=== PATIENT | male | born 1965 | race Caucasian/White ===

== ENCOUNTER 2016-08-19 03:48 | Inpatient (IN) | payer OTHER ==
[2016-08-19] VITALS (11 sets, daily range): BP systolic 99–146; BP diastolic 68–95; PULSE 91–125; RESP 13–32; TEMP 97.6–98.7; O2SAT 96–100
[~2016-08-19] VITALS: Ht 180.3 cm; Wt 70.1 kg
[~2016-08-19 03:48] MED LIST: AMLO5TAB2 PO; DILA4TAB2 PO; LOSA25TA PO; VITA100T2 PO
[2016-08-19] MEDS ORDERED: SODIUM CHLOR 0.9% 1000 ML INJ 1,000 ML IV ONE ×2 (03:57)
[2016-08-19] MEDS ORDERED: SODIUM CHLOR 0.9% 1000 ML INJ 400 ML IV ONE (03:57)
[2016-08-19 04:35] LABS: AUTOMATED NEUTROPHIL # 13.1 TH/MM3 (1.8-7.7); BASOPHIL % 0.2 % (0.0-2.0); HEMO FLAGS DIFF FINAL; LYMPH % 3.7 % (9.0-44.0); LYMPHOCYTE # 0.6 TH/MM3 (1.0-4.8); MEAN CELL VOLUME 97.1 FL (80.0-100.0); MEAN CORPUSCULAR HEMOGLOBIN 30.6 PG (27.0-34.0); MEAN CORPUSCULAR HGB CONC 31.5 % (32.0-36.0); MONO % 13.2 % (0.0-8.0); NEUT % 82.9 % (16.0-70.0); PLATELET COUNT 248 TH/MM3 (150-450); RED BLOOD COUNT 5.46 MIL/MM3 (4.50-5.90); RED CELL DISTRIBUTION WIDTH 14.7 % (11.6-17.2); WHITE BLOOD COUNT 15.8 TH/MM3 (4.0-11.0)
[2016-08-19] MEDS ORDERED: ONDANSETRON HCL 4 MG/2 ML VIAL IV PUSH ONE (04:45)
[2016-08-19] MEDS ORDERED: VANCOMYCIN INJ 1,000 MG in SODIUM CHLOR 0.9% 250 ML INJ 250 ML IV STA (04:47)
[2016-08-19] MEDS ORDERED: PIPERACIL-TAZO 4.5 GM PREMIX 100 ML IV STA (04:47)
--- NOTE | 2016-08-19 04:47 | PD ---
HPI Chief Complaint: GI Complaint Time Seen by Provider: 03:53 Travel History International Travel<30 days: No Contact w/Intl Traveler<30days: No Traveled to known affect area: No History of Present Illness HPI 51-year-old male with history of HTN, HLD, DM, alcoholism and previous alcoholic pancreatitis here with complaint of generalized weakness and abdominal pain. Patient is a poor historian. States that over the course the last several months he's been having increasing abdominal pain. This is primarily on the upper abdomen, right slightly greater than left. Describes this as a cramping pain and has not noticed anything that makes seems to make it better or worse. Over the last week he complains of generalized weakness, anorexia, nausea with vomiting. Family member states that this was initially clear, and has become darker in color. There has not been any monica blood, coffee-ground emesis. Patient denies any dark stools. No history of GI bleed, but does have a history of alcoholism. Per family members still drinking. PFSH Past Medical History Arthritis: No Heart Rhythm Problems: No Cancer: No Cardiovascular Problems: No High Cholesterol: Yes Chest Pain: No Congestive Heart Failure: No Cerebrovascular Accident: No Diabetes: Yes Diminished Hearing: No Endocrine: No Gastrointestinal Disorders: Yes (HISTORY OF PANCREATITIS) GERD: Yes Genitourinary: Yes (PATIENT WAS PLACED ON DIALYSIS LAST YEAR) Headaches: Yes Hypertension: Yes Immune Disorder: No Implanted Vascular Access Dvce: No Musculoskeletal: Yes (shoulder and knee) Neurologic: Yes Psychiatric: No Reproductive: No Respiratory: No Immunizations Current: Yes Migraines: No Pancreatitis: Yes Seizures: No Tetanus Vaccination: Unknown Influenza Vaccination: No Past Surgical History Abdominal Surgery: No Cardiac Surgery: No Ear Surgery: No Endocrine Surgery: No Eye Surgery: No Genitourinary Surgery: No Gynecologic Surgery: No Insulin Pump: No Joint Replacement: Yes (two screws in the right knee, anchor in rt shoulder) Neurologic Surgery: No Oral Surgery: No Thoracic Surgery: No Other Surgery: Yes Social History Alcohol Use: Yes (occ) Tobacco Use: Yes (1/2 ppd) Substance Use: No Allergies-Medications (Allergen,Severity, Reaction): Coded Allergies: No Known Allergies (Verified , 08/19/16) Reported Meds & Prescriptions Reported Meds & Active Scripts Active Reported Losartan (Losartan Potassium) 25 Mg Tab 25 Mg PO DAILY Review of Systems Except as stated in HPI: all other systems reviewed are Neg Physical Exam Narrative GENERAL: Ill-appearing adult male appearing older than stated age SKIN: Focused skin assessment warm/dry. HEAD: Normocephalic. EYES: . No scleral icterus. No injection or drainage. ENT: Mucous membranes dry NECK: Supple CARDIOVASCULAR: Tachycardic with heart rate in the 120s, regular rhythm. No murmur appreciated. RESPIRATORY: No tachypneic, but no increased work of breathing. Clear to auscultation. Breath sounds equal bilaterally. GASTROINTESTINAL: Abdomen soft, right upper quadrant and epigastric tenderness to palpation without rebound or guarding, nondistended RECTAL: Rectal vault is empty, I was unable to get stool on gloved fingertip for Hemoccult MUSCULOSKELETAL: No obvious deformities. No edema. NEUROLOGICAL: Awake and alert. Motor grossly within normal limits. Normal speech. Data Data Last Documented VS Vital Signs Date Time Temp Pulse Resp B/P Pulse Ox O2 Delivery O2 Flow Rate FiO2 08/19/16 04:42 112 32 146/95 100 Nasal Cannula 2 08/19/16 03:53 98.1 Orders Electrocardiogram (08/19/16 03:57) Complete Blood Count With Diff (08/19/16 03:57) Comprehensive Metabolic Panel (08/19/16 03:57) Prothrombin Time / Inr (Pt) (08/19/16 03:57) Act Partial Throm Time (Ptt) (08/19/16 03:57) Lactic Acid Sepsis Protocol (08/19/16 03:57) Magnesium (Mg) (08/19/16 03:57) Lipase (08/19/16 03:57) Ckmb (Isoenzyme) Profile (08/19/16 03:57) Troponin I (08/19/16 03:57) Urinalysis - C+S If Indicated (08/19/16 03:57) Blood Culture (08/19/16 03:57) Chest, Single Ap (08/19/16 03:57) Ecg Monitoring (08/19/16 03:57) Iv Access Insert/Monitor (08/19/16 03:57) Oximetry (08/19/16 03:57) Sodium Chlor 0.9% 1000 Ml Inj (Ns 1000 M (08/19/16 03:57) Sodium Chlor 0.9% 1000 Ml Inj (Ns 1000 M (08/19/16 03:57) Sodium Chlor 0.9% 1000 Ml Inj (Ns 1000 M (08/19/16 03:57) Ammonia (08/19/16 03:58) Type And Screen (08/19/16 03:58) Ct Abd/Pel W Iv Contrast(Rout) (08/19/16 03:58) Beta Hydroxybutyrate (Acetone) (08/19/16 04:04) Ondansetron Inj (Zofran Inj) (08/19/16 04:45) Vancomycin Inj (Vancomycin Inj) (08/19/16 04:47) Piperacil-Tazo 4.5 Gm Premix (Zosyn 4.5 (08/19/16 04:47) Diet Npo (08/19/16 Breakfast) Sodium Chlor 0.9% 1000 Ml Inj (Ns 1000 M (08/19/16 05:19) Dext 5%-Nacl 0.9% 1000 Ml Inj (D5w-Ns 10 (08/19/16 05:19) Insulin Human Regular Inj (Novolin R Inj (08/19/16 05:30) Insulin Regular (Iv Infusion) (Novolin R (08/19/16 05:30) Potassium Chlor 40 Meq Premix (Kcl 40 Me (08/19/16 05:30) Potassium Chlor 40 Meq Premix (Kcl 40 Me (08/19/16 05:30) Potassium Chlor 20 Meq Premix (Kcl 20 Me (08/19/16 05:30) Potassium Chlor 20 Meq Premix (Kcl 20 Me (08/19/16 05:30) Potassium Chlor 20 Meq Premix (Kcl 20 Me (08/19/16 05:30) Potassium Chlor 20 Meq Premix (Kcl 20 Me (08/19/16 05:30) Potassium Chlor 20 Meq Premix (Kcl 20 Me (08/19/16 05:30) Potassium Chlor 20 Meq Premix (Kcl 20 Me (08/19/16 05:30) Sodium Bicarbonate 8.4% Inj (Sodium Bica (08/19/16 05:30) Sodium Bicarbonate 8.4% Inj (Sodium Bica (08/19/16 05:30) Sodium Phosphate Inj (Sodium Phosphate I (08/19/16 05:30) Hemoglobin (Hgb) A1c (08/19/16 05:19) Basic Metabolic Panel (Bmp) (08/19/16 10:19) Basic Metabolic Panel (Bmp) (08/19/16 16:19) Basic Metabolic Panel (Bmp) (08/19/16 22:19) Basic Metabolic Panel (Bmp) (08/20/16 04:19) Magnesium (Mg) (08/19/16 10:19) Magnesium (Mg) (08/19/16 16:19) Magnesium (Mg) (08/19/16 22:19) Magnesium (Mg) (08/20/16 04:19) Phosphorus (Po4) (08/19/16 10:19) Phosphorus (Po4) (08/19/16 16:19) Phosphorus (Po4) (08/19/16 22:19) Phosphorus (Po4) (08/20/16 04:19) Beta Hydroxybutyrate (Acetone) (08/19/16 16:19) Beta Hydroxybutyrate (Acetone) (08/20/16 04:19) Arterial Blood Gas (Abg) (08/19/16 ) Admit Order (Ed Use Only) (08/19/16 05:34) Labs Laboratory Tests Test 08/19/16 08/19/16 04:20 04:30 White Blood Count 15.8 TH/MM3 Red Blood Count 5.46 MIL/MM3 Hemoglobin 16.7 GM/DL Hematocrit 53.0 % Mean Corpuscular Volume 97.1 FL Mean Corpuscular Hemoglobin 30.6 PG Mean Corpuscular Hemoglobin 31.5 % Concent Red Cell Distribution Width 14.7 % Platelet Count 248 TH/MM3 Mean Platelet Volume 8.1 FL Neutrophils (%) (Auto) 82.9 % Lymphocytes (%) (Auto) 3.7 % Monocytes (%) (Auto) 13.2 % Eosinophils (%) (Auto) 0.0 % Basophils (%) (Auto) 0.2 % Neutrophils # (Auto) 13.1 TH/MM3 Lymphocytes # (Auto) 0.6 TH/MM3 Monocytes # (Auto) 2.1 TH/MM3 Eosinophils # (Auto) 0.0 TH/MM3 Basophils # (Auto) 0.0 TH/MM3 CBC Comment DIFF FINAL Differential Comment Prothrombin Time 12.2 SEC Prothromb Time International 1.1 RATIO Ratio Activated Partial 29.4 SEC Thromboplast Time Urine Color YELLOW Urine Turbidity CLEAR Urine pH 5.5 Urine Specific [place] 1.020 Urine Protein 30 mg/dL Urine Glucose (UA) 1000 mg/dL Urine Ketones 150 mg/dL Urine Occult Blood TRACE Urine Nitrite NEG Urine Bilirubin NEG Urine Urobilinogen LESS THAN 2.0 MG/DL Urine Leukocyte Esterase NEG Urine RBC 1 /hpf Urine WBC 1 /hpf Urine Hyaline Casts 16 /lpf Urine Mucus FEW /lpf Microscopic Urinalysis Comment CATH-CULT NOT IND Sodium Level 133 MEQ/L Potassium Level 4.1 MEQ/L Chloride Level 87 MEQ/L Carbon Dioxide Level 6.9 MEQ/L Anion Gap 39 MEQ/L Blood Urea Nitrogen 53 MG/DL Creatinine 1.75 MG/DL Estimat Glomerular Filtration 41 ML/MIN Rate Random Glucose 702 MG/DL Lactic Acid Level 4.1 mmol/L Calcium Level 13.2 MG/DL Protein Corrected Calcium 11.7 MG/DL Magnesium Level 2.5 MG/DL Total Bilirubin 0.6 MG/DL Aspartate Amino Transf 36 U/L (AST/SGOT) Alanine Aminotransferase 39 U/L (ALT/SGPT) Alkaline Phosphatase 130 U/L Ammonia 24 MCMOL/L Total Creatine Kinase 25 U/L Troponin I LESS THAN 0.02 NG/ML Total Protein 9.2 GM/DL Albumin 3.0 GM/DL Lipase 6111 U/L B-Hydroxybutyrate 18.22 MMOL/L Blood Type A POSITIVE Blood Bank Comment MDM Medical Decision Making Medical Screen Exam Complete: Yes Emergency Medical Condition: Yes Medical Record Reviewed: Yes Differential Diagnosis 51-year-old male with history of HTN, HLD, DM, alcoholism and previous alcoholic pancreatitis here with several months of abdominal pain, one week of nausea, vomiting, questionable hematemesis. Differential includes hepatitis, hepatobiliary pathology, pancreatitis, dehydration, electrolyte abnormality, hyperglycemia, DKA/HHS, UTI, sepsis, pneumonia Narrative Course Patient placed on monitor, IV established and blood obtained. Patient was given 2400 mL normal saline bolus, 4 mg Zofran. Patient was empirically covered with Zosyn, vancomycin. Twelve-lead EKG shows sinus tachycardia with occasional PVC, rate 116. No notable ST abnormalities, normal intervals. CBC, CMP, lipase, magnesium, CK-MB, troponin, coags, type and screen, beta hydroxybutyrate, ammonia, lactate, blood cultures, urinalysis were obtained and notable for WBC 15.8. Bicarbonate 6.9 with an ankle Of 39. BUN 53, creatinine 1.75. Glucose 702, lactate 4.1. Calcium elevated at 13.2 with protein corrected 11.7. Lipase elevated at 6111. Beta hydroxybutyrate 18.22. ABG with pH 7.19, PCO2 is 9.7, PO2 149, bicarbonate 3.6 consistent with metabolic respiratory acidosis. Laboratory evaluation consistent with DKA, given insulin bolus/drip and started on full DKA protocol. Portable chest x-ray obtained that by my read shows no acute abnormalities. CT abdomen and pelvis pending. Patient admitted to intensive this for further management. Critical Care Narrative Aggregate critical care time was 55 minutes. Time to perform other separately billable procedures was not included in the critical care time. My time did not include minutes spent treating any other patients simultaneously or on activities that did not directly contribute to the patient's treatment. The services I provided to this patient were to treat and/or prevent clinically significant deterioration that could result in: Cardiopulmonary decompensation, metabolic decompensation, , disability I provided critical care services requiring my management, as noted below: Chart data review, documentation time, medication orders and management, vital sign assessments/reviewing monitor data, ordering and reviewing lab tests, ordering and interpreting/reviewing x-rays and diagnostic studies, care of the patient and discussion of the patient with the admitting physicians. Sepsis Criteria SIRS Criteria (2 or more): Heart rate over 90, RR > 20 or PaCO2 < 32, WBC > 95373, < 4000 or > 10% bands Sepsis Criteria (SIRS+source): Infect source susp/known Severe Sepsis (+one): Lactate >2 Septic Shock Criteria: Lactic acid >=4 Criteria Outcome: Meets SIRS criteria, Meets sepsis criteria, Meets severe sepsis criteria, Meets septic shock criteria Diagnosis Primary Impression: DKA (diabetic ketoacidoses) Qualified Code: E13.10 - Diabetic ketoacidosis without coma associated with type 2 diabetes mellitus Additional Impressions: High anion gap metabolic acidosis Pancreatitis Lactic acidosis Tachycardia Kussmaul respiration Leukocytosis Qualified Code: D72.829 - Leukocytosis, unspecified type Hypercalcemia Admitting Information Admitting Physician Requests: Admit Kat Castro MD Aug 19, 2016 04:47
--- NOTE | 2016-08-19 04:49 | RADRPT ---
EXAM DATE/TIME: 08/19/2016 04:18 [facility] COMPARISON: CHEST SINGLE AP, May 02, 2015, 7:30. INDICATIONS : Short of breath. MEDICAL HISTORY : None. SURGICAL HISTORY : None. ENCOUNTER: Initial ACUITY: 1 day PAIN SCORE: 6/10 LOCATION: Bilateral chest FINDINGS: A single view of the chest demonstrates the lungs to be symmetrically aerated without evidence of mas s, infiltrate or effusion. The cardiomediastinal contours are unremarkable. Osseous structures are intact. CONCLUSION: No acute disease. Mike Aaron MD on August 19, 2016 at 4:47 Board Certified Radiologist. This report was verified electronically.
[2016-08-19 04:50] LABS: APTT (PATIENT) 29.4 SEC (24.3-30.1); BLOOD, URINE TRACE (NEG); GLUCOSE,URINE 1000 mg/dL (NEG); HYALINE CAST, URINE 16 /lpf (RARE); INTERNATIONAL NORMALIZED RATIO 1.1 RATIO; KETONE, URINE 150 mg/dL (NEG); MUCUS URINE FEW /lpf (OCC); NITRITE,URINE NEG (NEG); PH, URINE 5.5 (5.0-8.5); PROTHROMBIN TIME - PATIENT 12.2 SEC (9.8-11.6); URINE COLOR YELLOW (YELLW/STRAW)
[2016-08-19 04:51] LABS: COMMENT (UR) CATH-CULT NOT IND; CULTURE IF INDICATED CATH CULTURE NOT IND
[2016-08-19 05:14] LABS: ALKALINE PHOSPHATASE 130 U/L (45-117); ALT (GPT) 39 U/L (12-78); ANION GAP 39 MEQ/L (5-15); AST (GOT) 36 U/L (15-37); BICARBONATE 6.9 MEQ/L (21.0-32.0); BLOOD UREA NITROGEN 53 MG/DL (7-18); CHLORIDE 87 MEQ/L (98-107); CREATINE KINASE 25 U/L (39-308); GLOMERULAR FILTRATION RATE 41 ML/MIN (>89); MAGNESIUM 2.5 MG/DL (1.5-2.5); POTASSIUM 4.1 MEQ/L (3.5-5.1); SODIUM (NA) 133 MEQ/L (136-145); TOTAL BILIRUBIN ADULT 0.6 MG/DL (0.2-1.0)
[2016-08-19 05:18] LABS: CALCIUM-PROTEIN CORRECTED 11.7 MG/DL (8.5-10.1)
[2016-08-19] MEDS ORDERED: SODIUM CHLOR 0.9% 1000 ML INJ 1,000 ML IV SCH (05:19)
[2016-08-19] MEDS ORDERED: DEXT 5%-NACL 0.9% 1000 ML INJ 1,000 ML IV SCH (05:19)
[2016-08-19] MEDS ORDERED: SODIUM PHOSPHATE INJ 15 MMOL in SODIUM CHLORIDE 0.9% INJ 100 ML IV PRN ×2 (05:30→06:00)
[2016-08-19] MEDS ORDERED: INSULIN HUMAN REGULAR 1,000 UNITS/10 ML VIAL IV PUSH ONE (05:30)
[2016-08-19] MEDS ORDERED: SODIUM BICARBONATE 8.4% SOLN 50 MEQ/50 ML VIAL IV PRN ×4 (05:30→06:00)
[2016-08-19] MEDS ORDERED: POTASSIUM CHLOR 20 MEQ PREMIX 100 ML IV PRN ×11 (05:30→06:00)
[2016-08-19] MEDS ORDERED: POTASSIUM CHLOR 40 MEQ PREMIX 100 ML IV PRN ×4 (05:30→06:00)
[2016-08-19] MEDS ORDERED: INSULIN REGULAR (IV INFUSION) 100 UNITS in SODIUM CHLORIDE 0.9% INJ 99 ML IV SCH (05:30)
[2016-08-19 05:56] LABS: BLOOD GAS CARBOXYHEMOGLOBIN 1.7 % (0-4); BLOOD GAS HCO3 4 mmol/L (22-26); BLOOD GAS METHEMOGLOBIN 0.8 % (0-2); BLOOD GAS O2 HGB SATURATION 96 % (90-100); BLOOD GAS OXYGEN CONTENT 18.7 Vol % (12.0-20.0); BLOOD GAS PCO2 10 mmHg (38-42); BLOOD GAS PO2 149 mmHG (61-120); BLOOD GAS TOTAL HGB 13.7 G/DL (12.0-16.0); TEMP CORR TO 98.6
[2016-08-19 05:57] LABS: CRITICAL VALUE YES; DRAW SITE LT RADIAL; NUMBER OF ARTERIAL PUNCTURES 1; STAT YES; ULNAR PULSE PRESENT
[2016-08-19] MEDS ORDERED: MISCELLANEOUS NURSING INFORMATION XX SCH ×2 (06:00→06:45)
[2016-08-19] MEDS ORDERED: METOCLOPRAMIDE HCL 10 MG/2 ML VIAL IV PUSH ONE (06:00)
[2016-08-19] MEDS ORDERED: CHLORHEXIDINE GLUCONATE 2 % 1 PACK (2 CLOTHS) TOP PRN ×2 (06:00→06:45)
[2016-08-19 06:02] LABS: LITER FLOW 1.5 L/M; OXYGEN DEVICE NASAL CANNULA
--- NOTE | 2016-08-19 06:05 | HHI.HP ---
[facility] Service Critical Care Medicine Primary Care Physician No Primary Care Physician Admission Diagnosis DKA, pancreatitis, severe sepsis Diagnosis: (1) Hypertriglyceridemia Diagnosis: Principal (2) Alcohol abuse Diagnosis: Principal (3) Hypertension Diagnosis: Principal (4) Acute pancreatitis Diagnosis: Principal (5) Lactic acidosis Diagnosis: Principal (6) Hypercalcemia Diagnosis: Principal (7) DKA (diabetic ketoacidoses) Diagnosis: Principal (8) Leukocytosis Diagnosis: Principal (9) Pancreatitis Diagnosis: Principal (10) Tachycardia Diagnosis: Principal (11) High anion gap metabolic acidosis Diagnosis: Principal (12) Kussmaul respiration Diagnosis: Principal (13) Acute renal insufficiency Diagnosis: Principal (14) Fever Diagnosis: Principal (15) SIRS (systemic inflammatory response syndrome) Diagnosis: Principal Chief Complaint: Acute on chronic abdominal pain Travel History International Travel<30 Days: No Contact w/Intl Traveler <30 Da: No Traveled to Known Affected Are: No Sepsis Criteria SIRS Criteria (2 or more): RR > 20 or PaCO2 < 32, WBC > 43828, < 4000 or > 10 % bands Criteria Outcome: Meets SIRS criteria History of Present Illness This is a 51 yo male. Date of admission 08/19/2016. Past records includes recurrent alcohol-induced pancreatitis, history of pseudocyst, hypertension, hypertriglyceridemia with ongoing alcohol abuse and tobaccoism. Patient presents to [place] ED with a 10 day history of increasing abdominal pain, nausea with anorexia. Patient has been drinking the interim. Patient had emesis some clear without coffee-ground emesis noted. Pain is described as diffuse 10 out of 10 pain is diffuse bilateral upper quadrants. CT abdomen/pelvis revealed markedly circumferential thickening of the esophagus over several centimeters. Patient noted have hepatic steatosis. With mild distention of the gallbladder. There is gastric distention. Multiple prominent lymph nodes in the retroperitoneum. Inflammatories gazing to the pancreas consistent with pancreatitis with mild dilatation the pancreatic duct. Small hiatal hernia. Patient had a leukocytosis 16,000, acute kidney injury with a creatinine of 1.7. Blood sugar was 71. Beta hydroxybutyrate 18.22. lactate 4.1. Calcium elevated at 13.2 with protein corrected 11.7. Lipase elevated at 6111. Beta hydroxybutyrate 18.22. ABG with pH 7.19, PCO2 is 9.7, PO2 149, bicarbonate 3.6 consistent with metabolic respiratory acidosis. Pulmonary negative. Blood cultures ordered. Patient received 2.4 L bolus normal saline is currently on normal saline at 250 cc an hour. 6 units insulin initially provided and is currently on insulin drip. Review of Systems Constitutional: COMPLAINS OF: Fever, Weight loss, Change in appetite, Night Sweats, DENIES: Weight gain, Chills, Dizziness Endocrine: COMPLAINS OF: Heat/cold intolerance Eyes: DENIES: Blurred vision, Double Vision Ears, nose, mouth, throat: DENIES: Tinnitus Respiratory: COMPLAINS OF: Shortness of breath, DENIES: Apneas, Sputum production Cardiovascular: DENIES: Chest pain Gastrointestinal: COMPLAINS OF: Abdominal pain, Nausea, Vomiting, Difficulty Swallowing, DENIES: Constipation, Diarrhea Genitourinary: DENIES: Urgency, Hematuria Musculoskeletal: DENIES: Joint pain Integumentary: DENIES: Abnormal pigmentation Hematologic/lymphatic: COMPLAINS OF: Bruising Immunologic/allergic: DENIES: Eczema Neurologic: DENIES: Abnormal gait, Headache Psychiatric: COMPLAINS OF: Anxiety, Confusion, DENIES: Depression Past Family Social History Allergies: Coded Allergies: No Known Allergies (Verified , 08/19/16) Past Medical History EtOH abuse tobaccoism Recurrent pancreatitis Hypertension Dyslipidemia - hypertriglyceridemia Gastroesophageal reflux disease Past Surgical History Right shoulder rotator cuff repair Right total knee arthroplasty Reported Medications Losartan 25 mill grams by mouth daily Active Ordered Medications Reviewed in EMR Family History Father history of aortic aneurysm. Positive history of alcoholism. Social History Positive alcohol abuse. 8 hard liquor daily. One pack per day tobacco 30 years. No IV drug use. Physical Exam Vital Signs Vital Signs Date Time Temp Pulse Resp B/P Pulse Ox O2 Delivery O2 Flow Rate FiO2 08/19/16 04:42 112 32 146/95 100 Nasal Cannula 2 08/19/16 04:30 32 08/19/16 03:53 98.1 125 32 144/88 99 Physical Exam GENERAL: 51-year-old male, critically ill currently resting in bed SKIN: Warm and dry. No rash. Well-perfused HEAD: Atraumatic. Normocephalic. EYES: Pupils equal and round about 3 Tellez's bilaterally and reactive. No scleral icterus. No injection or drainage. ENT: No nasal bleeding or discharge. Mucous membranes pink and moist. NECK: Trachea midline. No JVD. CARDIOVASCULAR: Tachycardic, RR. S1, S2 no S4 without murmur RESPIRATORY: Clear to auscultation. Breath sounds equal bilaterally. GASTROINTESTINAL: Abdomen soft, distended. Tender to palpation specifically right upper, epigastric and left upper quadrants. Voluntary guarding. No rigidity. MUSCULOSKELETAL: Extremities without significant peripheral edema. No obvious deformities. NEUROLOGICAL: Awake and alert. No obvious cranial nerve deficits. Motor grossly within normal limits. Five out of 5 muscle strength in the arms and legs. Normal speech. PSYCHIATRIC: Anxious Laboratory Laboratory Tests Test 08/19/16 08/19/16 08/19/16 04:20 04:30 05:20 White Blood Count 15.8 Red Blood Count 5.46 Hemoglobin 16.7 Hematocrit 53.0 Mean Corpuscular Volume 97.1 Mean Corpuscular Hemoglobin 30.6 Mean Corpuscular Hemoglobin 31.5 Concent Red Cell Distribution Width 14.7 Platelet Count 248 Mean Platelet Volume 8.1 Neutrophils (%) (Auto) 82.9 Lymphocytes (%) (Auto) 3.7 Monocytes (%) (Auto) 13.2 Eosinophils (%) (Auto) 0.0 Basophils (%) (Auto) 0.2 Neutrophils # (Auto) 13.1 Lymphocytes # (Auto) 0.6 Monocytes # (Auto) 2.1 Eosinophils # (Auto) 0.0 Basophils # (Auto) 0.0 CBC Comment DIFF FINAL Differential Comment Prothrombin Time 12.2 Prothromb Time International 1.1 Ratio Activated Partial 29.4 Thromboplast Time Urine Color YELLOW Urine Turbidity CLEAR Urine pH 5.5 Urine Specific [place] 1.020 Urine Protein 30 Urine Glucose (UA) 1000 Urine Ketones 150 Urine Occult Blood TRACE Urine Nitrite NEG Urine Bilirubin NEG Urine Urobilinogen LESS THAN 2.0 Urine Leukocyte Esterase NEG Urine RBC 1 Urine WBC 1 Urine Hyaline Casts 16 Urine Mucus FEW Microscopic Urinalysis Comment CATH-CULT NOT IND Sodium Level 133 Potassium Level 4.1 Chloride Level 87 Carbon Dioxide Level 6.9 Anion Gap 39 Blood Urea Nitrogen 53 Creatinine 1.75 Estimat Glomerular Filtration 41 Rate Random Glucose 702 Lactic Acid Level 4.1 Calcium Level 13.2 Protein Corrected Calcium 11.7 Magnesium Level 2.5 Total Bilirubin 0.6 Aspartate Amino Transf 36 (AST/SGOT) Alanine Aminotransferase 39 (ALT/SGPT) Alkaline Phosphatase 130 Ammonia 24 Total Creatine Kinase 25 Troponin I LESS THAN 0.02 Total Protein 9.2 Albumin 3.0 Lipase 6111 B-Hydroxybutyrate 18.22 Blood Type A POSITIVE Antibody Screen NEGATIVE Blood Bank Comment Blood Gas Puncture Site LT RADIAL Blood Gas Patient Temperature 98.6 Blood Gas HCO3 4 Blood Gas Base Excess -24.0 Blood Gas Oxygen Saturation 96 Arterial Blood pH 7.19 Arterial Blood Partial 10 Pressure CO2 Arterial Blood Partial 149 Pressure O2 Arterial Blood Oxygen Content 18.7 Arterial Blood 1.7 Carboxyhemoglobin Arterial Blood Methemoglobin 0.8 Blood Gas Hemoglobin 13.7 Oxygen Delivery Device NASAL CANNULA Blood Gas Liter Flow 1.5 Date/Time Procedure Status Source Growth 08/19/16 04:20 Aerobic Blood Culture Received Blood Peripheral Pending 08/19/16 04:20 Anaerobic Blood Culture Received Blood Peripheral Pending Result Diagram: 08/19/16 0420 08/19/16 042 Imaging Last 72 hours Impressions Abdomen/Pelvis CT 08/19/16 0358 Signed Impressions: Service Date/Time: Friday, August 19, 2016 05:47 - CONCLUSION: 1. Marked circumferential thickening of the esophagus is noted over several centimeters. Esophagitis can have this appearance. 2. Hepatic steatosis and mild distention of the gallbladder again noted. 3. Upper abdominal lymphadenopathy with multiple prominent lymph nodes seen greatest in the retroperitoneum. 4. Abnormal inflammatory changes seen surrounding the pancreas consistent with pancreatitis with mild dilatation of the pancreatic duct. 5. Gastric distention. Mike Aaron MD Chest X-Ray 08/19/16 0357 Signed Impressions: Service Date/Time: Friday, August 19, 2016 04:18 - CONCLUSION: No acute disease. Mike Aaron MD Assessment and Plan Assessment and Plan Neuro/Psych: EtOH Acute pain management of pancreatitis Acute toxic metabolic encephalopathy secondary to pancreatitis Vitamin bag daily 3 days for EtOH use Monitor for withdrawals per protocol Dilaudid 0.5-1 mg IV every 2 hours when necessary pain CV: Hypertension History of hypertriglyceridemia Lactic acidosis Holding losartan 25 mg by mouth daily light of pancreatitis Check triglycerides Currently on normal saline at 250 cc an hour per DKA protocol Initial troponin 0.02. MAURA 2016 revealed EF 60-65%. No regional wall motion abnormality. No signs of endocarditis. Monitor activities until cleared Resp: Ongoing tobaccoism Nasal cannula to maintain saturations greater than equal to 92% Incentive spirometry while awake Tobacco cessation education book provided. Nicotine patch if indicated GI: Acute pancreatitis Hepatic steatosis CT abdomen/pelvis revealed marked circumferential thickening of the esophagus oversew centimeters, hepatic steatosis with mild central gallbladder, upper abdominal lymphadenopathy with multiple prominent lymph nodes greatest in the retroperitoneum, inflammatory changes seen stranding surrounding the pancreas consistent with pancreatitis with mild dilatation of pancreatic duct approximately 4 mm. Gastric distention. GI consultation Nothing by mouth except for ice chips Protonix 40 iv daily Nakia-Colace bowel regimen : No indication for De León catheter Endo: Likely DKA Received 2.4 L normal saline. Currently normal saline at 250 cc an hour. Switch to D5 normal saline once blood sugar less than 200. Received 6 units insulin ED. Currently on insulin drip at 6 units an hour BMP, mag and phosphorus every 6 hours. Beta hydroxybutyrate every 12 hours. Check triglycerides as above Hemoglobin A1c Renal: Acute kidney injury Likely prerenal. Continue aggressive hydration. I's and O's Monitor urine output Heme: Leukocytosis Likely leukemoid type reaction. Follow CBC daily. Monitor trends ID: Received vancomycin the ED. Blood Cultures 2 ordered. Monitor for infection FEN: Hypercalcemia Hypo-natremia Replace electrolytes as clinically indicated. DKA protocol Check PTH, PTHp, vitamin D 1/25 and 25 Hydration initial therapy. Calcitonin if needed MSK: PT evaluate and treat Access - Utilize peripheral IV. Central line if indicated Prophylaxis - GI -Protonix - DVT - SCD/heparin subcutaneous Critical Care: The total critical care time was 35 minutes. Time to perform other separately billable procedures was not included in the critical care time. Code Status Full code Discussed Condition With Patient. Care plan discussed and all questions answered. Problem Qualifiers (1) Hypertension: Qualified Code: I10 - Essential hypertension (2) Acute pancreatitis: Qualified Code: K85.20 - Alcohol-induced acute pancreatitis, unspecified complication status (3) DKA (diabetic ketoacidoses): Qualified Code: E13.10 - Diabetic ketoacidosis without coma associated with type 2 diabetes mellitus (4) Leukocytosis: Qualified Code: D72.829 - Leukocytosis, unspecified type (5) Pancreatitis: (6) Fever: Qualified Code: R50.9 - Fever, unspecified fever cause Tunde Bernal MD Aug 19, 2016 06:05
--- NOTE | 2016-08-19 06:13 | RADRPT ---
EXAM DATE/TIME: 08/19/2016 05:47 [facility] COMPARISON: CT ABDOMEN & PELVIS W CONTRAST, December 11, 2015, 16:03. INDICATIONS : Abdominal pain. ORAL CONTRAST: No oral contrast ingested. RADIATION DOSE: 9.96 CTDIvol (mGy) MEDICAL HISTORY : Hypertension. Pancreatitis. SURGICAL HISTORY : None. ENCOUNTER: Initial ACUITY: 1 day PAIN SCALE: 9/10 LOCATION: abdomen TECHNIQUE: Volumetric scanning of the abdomen and pelvis was performed. Using automated exposure control and ad justment of the mA and/or kV according to patient size, radiation dose was kept as low as reasonably achievable to obtain optimal diagnostic quality images. DICOM format image data is available electro nically for review and comparison. FINDINGS: Coronary artery calcification is noted. There is a small hiatal hernia and there is circumferential t hickening of the esophagus identified over several centimeters. Hepatic steatosis. Spleen, adrenal gl ands and kidneys are unremarkable. There is retroperitoneal lymphadenopathy identified and moderate i nflammatory changes are seen at the level of the peripancreatic fat. There is gastric distention. Upp er abdominal lymphadenopathy is noted. There is dilatation of the pancreatic duct to 4 mm. Urinary bl adder unremarkable. Prostate measures 5.3 x 3.2 cm. Lung bases are clear. Osseous structures are inta ct. CONCLUSION: 1. Marked circumferential thickening of the esophagus is noted over several centimeters. Esophagitis can have this appearance. 2. Hepatic steatosis and mild distention of the gallbladder again noted. 3. Upper abdominal lymphadenopathy with multiple prominent lymph nodes seen greatest in the retroperi toneum. 4. Abnormal inflammatory changes seen surrounding the pancreas consistent with pancreatitis with mild dilatation of the pancreatic duct. 5. Gastric distention. Mike Aaron MD on August 19, 2016 at 6:08 Board Certified Radiologist. This report was verified electronically.
[2016-08-19] MEDS: INSULIN REGULAR (IV INFUSION) 100 UNITS in SODIUM CHLORIDE 0.9% INJ 99 ML IV SCH (06:14)
[2016-08-19] MEDS: SODIUM CHLOR 0.9% 1000 ML INJ 1,000 ML IV SCH ×2 (06:18→08:54)
[2016-08-19 06:26] LABS: LACTIC ACID GHOST NOT REPORTABLE
[2016-08-19] MEDS: POTASSIUM CHLOR 20 MEQ PREMIX 100 ML IV PRN ×4 (06:32→18:34)
[2016-08-19] MEDS ORDERED: LACTULOSE SYRUP 20 GM/30 ML CUP PO PRN (06:45)
[2016-08-19] MEDS ORDERED: BISACODYL 10 MG SUPP RECTAL PRN (06:45)
[2016-08-19] MEDS ORDERED: RESP: ALBUTEROL 2.5 MG/3 ML NEB (PRN) INH (06:45)
[2016-08-19] MEDS ORDERED: MAGNESIUM HYDROXIDE SUSP 30 ML CUP PO PRN (06:45)
[2016-08-19] MEDS ORDERED: SENNOSIDES 8.6 MG TAB PO PRN (06:45)
[2016-08-19] MEDS ORDERED: LORazepam 1 MG TAB PO PRN (07:00)
[2016-08-19] MEDS ORDERED: LORazepam 2 MG TAB PO PRN (07:00)
[2016-08-19] MEDS ORDERED: LORazepam 2 MG/ML VIAL IV PUSH PRN ×2 (07:00)
[2016-08-19] MEDS ORDERED: FLUMAZENIL 0.5 MG/5 ML VIAL IV PUSH PRN (07:00)
[2016-08-19] MEDS: HYDROmorphone HCL PF 1 MG/ML VIAL IV PRN ×5 (07:11→19:16)
[2016-08-19] MEDS: SODIUM CHLORIDE 0.9% FLUSH 10 ML FLUSH IV FLUSH SCH ×2 (07:11→21:49)
[2016-08-19] MEDS: PANTOPRAZOLE SODIUM 40 MG VIAL IV SCH (08:53)
[2016-08-19] MEDS: HEPARIN SODIUM - SQ 10,000 UNITS/ML VIAL SQ SCH ×2 (08:54→21:48)
[2016-08-19] MEDS: DOCUSATE SODIUM 50 MG/SENNA 8.6 MG TAB PO SCH ×2 (08:54→21:48)
[2016-08-19] MEDS: ARTIFICIAL TEARS OPTH SOLN 15 ML BTL EACH EYE SCH ×3 (09:00→18:00)
[2016-08-19] MEDS: MULTIVITAMIN INJ 10 ML, THIAMINE INJ 100 MG, FOLIC ACID INJ 1 MG in SODIUM CHLORID 0.9%... IV SCH (10:53)
--- NOTE | 2016-08-19 13:10 | EKG ---
Date Performed: 08/19/2016 Time Performed: 04:03:46 PTAGE: 51 years EKG: SINUS TACHYCARDIA POSSIBLE LEFT ATRIAL ENLARGEMENT NONSPECIFIC T-WAVE ABNORMALITY ABNORMAL RHYTHM ECG PREVIOUS TRACING : 05/07/2015 12.20 Since prior tracing, sinus rate has increased. A PVC is now seen. DOCTOR: Nathan Nevarez Interpretating Date/Time 08/19/2016 13:08:01
[2016-08-19 13:22] LABS: BICARBONATE 12.6 MEQ/L (21.0-32.0); MAGNESIUM 1.8 MG/DL (1.5-2.5); POTASSIUM 3.8 MEQ/L (3.5-5.1)
--- NOTE | 2016-08-19 17:01 | MB ---
cc: MICHAEL ALVARES MD DATE OF CONSULTATION 08/19/16 1963 REASON FOR REFERRAL Pancreatitis. HISTORY OF PRESENT ILLNESS Thank you for the consultation. A 51-year-old male who is known to the hospital from previous admission. The patient has chronic pancreatitis with history of pseudocyst, alcohol induced. The patient continued to be drinking. He came to the hospital with alcohol abuse, DKA and significant abdominal pain with lipase above 6000. The patient complained of abdominal pain in the mid epigastric area. It seems that she is going into delirium tremens with significant alteration of his mental status and not able to give any history at this time. The patient is laying in the ICU with the nurse at bedside. REVIEW OF SYSTEMS Again compromised by the fact that the patient is not able to give good history, but he complained of abdominal pain. Otherwise, he denied any chest pain, shortness of breath. He has nausea and vomiting. No extremity abnormality. He had some blurry vision according to him. No diarrhea or constipation. No hematemesis or melena. ALLERGIES NO KNOWN DRUG ALLERGIES. PAST MEDICAL HISTORY 1. Chronic and recurrent pancreatitis with history of pseudocyst. 2. Hypertension. 3. Dyslipidemia with hypertriglyceridemia 4. Reflux symptom 5. Hyperlipidemia. FAMILY HISTORY Significant for aortic aneurysm, positive history of alcohol abuse. SOCIAL HISTORY Positive for tobacco and alcohol. No drugs. PAST SURGICAL HISTORY 1. Right shoulder rotator cuff repair 2. Knee arthroscopy PHYSICAL EXAMINATION GENERAL: Awake, oriented but agitated. VITAL SIGNS: Stable at this time with some tachycardia. His heart rate was about 110. HEENT: Pupils are round, reactive to light. NECK: Supple. CHEST: Clear to auscultation and percussion at this time. CARDIAC: Tachycardiac. No murmur or gallop. ABDOMEN: Soft. Significant tenderness in the mid epigastric and upper abdomen. No hepatosplenomegaly I could appreciate and positive bowel sounds. EXTREMITIES: No edema, clubbing or cyanosis. NEUROLOGIC: Compromised with possible pending DT but no muscle weakness. PSYCHIATRIC: Anxious, agitated. LABORATORY DATA White count 15.8, hemoglobin 16.7, platelet 248, INR 1.1, lipase 6111, alk phos 130, AST 36, ALT 39, total bilirubin 0.6, glucose was 700, BUN 53, creatinine 1.75, sodium 133, potassium 4.1. IMAGING STUDIES Abdominal CT scan showed marked circumferential thickening of the esophagus consistent with esophagitis. Hepatic steatosis. Upper abdominal lymphadenopathy with multiple prominent lymph node. Greater in the retroperitoneum. Abnormal changes surrounding the pancreas consistent with pancreatitis with mild dilation of the pancreatic duct. ASSESSMENT/PLAN A 51-year-old gentleman with DKA, pancreatitis alcohol-related acute on chronic with pseudocyst. The CT scan did not show pseudocyst at this time, but it showed thickening of the esophagus with prominent lymph nodes most likely related to the pancreatitis but malignancy in the esophagus cannot be ruled out. RECOMMENDATIONS 1. For pancreatitis, supportive care, hydration and pain management. N.p.o.. 2. DKA being treated by the re etcher. 3. Abnormal CT scan showing thickening of the esophagus and lymph nodes. The patient will need upper endoscopy when stable. 4. Most likely the patient has impending DT. I discussed the case with the re etcher and proper precautions are being taken. MD AMBER Cerrato/ /4:19 PM /4:46 PM
[2016-08-19 17:24] LABS: ANION GAP 12 MEQ/L (5-15); BETA-HYDROXYBUTYRATE 2.26 MMOL/L (0.00-0.39); BLOOD UREA NITROGEN 36 MG/DL (7-18); CHLORIDE 118 MEQ/L (98-107); GLOMERULAR FILTRATION RATE 64 ML/MIN (>89); MAGNESIUM 1.7 MG/DL (1.5-2.5); POTASSIUM 3.4 MEQ/L (3.5-5.1); SODIUM (NA) 148 MEQ/L (136-145)
[2016-08-19] MEDS: LORazepam 2 MG/ML VIAL IV PUSH PRN (20:47)
[2016-08-20] VITALS (17 sets, daily range): BP systolic 82–123; BP diastolic 53–85; PULSE 75–112; RESP 18–22; TEMP 97.4–99; O2SAT 91–100
[2016-08-20 00:14] LABS: BICARBONATE 21.5 MEQ/L (21.0-32.0); MAGNESIUM 1.7 MG/DL (1.5-2.5)
[2016-08-20] MEDS: INSULIN REGULAR (IV INFUSION) 100 UNITS in SODIUM CHLORIDE 0.9% INJ 99 ML IV SCH (00:27)
[2016-08-20] MEDS: DEXT 5%-NACL 0.9% 1000 ML INJ 1,000 ML IV SCH ×2 (00:29→03:37)
[2016-08-20] MEDS: POTASSIUM CHLOR 20 MEQ PREMIX 100 ML IV PRN ×2 (01:34→03:37)
[2016-08-20] MEDS: CHLORHEXIDINE GLUCONATE 2 % 1 PACK (2 CLOTHS) TOP SCH (03:37)
[2016-08-20] MEDS: HYDROmorphone HCL PF 1 MG/ML VIAL IV PRN ×4 (03:56→16:27)
[2016-08-20] MEDS ORDERED: CHLORHEXIDINE GLUCONATE 2 % 1 PACK (2 CLOTHS) TOP SCH (04:00)
[2016-08-20 04:37] LABS: BICARBONATE 20.9 MEQ/L (21.0-32.0); MAGNESIUM 1.6 MG/DL (1.5-2.5)
[2016-08-20 04:48] LABS: BETA-HYDROXYBUTYRATE 0.29 MMOL/L (0.00-0.39); HDL CHOLESTEROL 13.3 MG/DL (40.0-60.0)
[2016-08-20] MEDS ORDERED: GLUCAGON 1 MG/ML VIAL OTHER PRN ×3 (05:45)
[2016-08-20] MEDS ORDERED: DC Insulin drip 2 hrs post basal insulin dose SCH (05:45)
[2016-08-20] MEDS ORDERED: DC previous DKA orders (HMC 1917) ONE (05:45)
[2016-08-20] MEDS ORDERED: DEXTROSE 50% IN WATER 50 ML VIAL(D50) IV PRN ×3 (05:45)
[2016-08-20] MEDS ORDERED: INSULIN REGULAR (IV INFUSION) 100 UNITS in SODIUM CHLORIDE 0.9% INJ 99 ML IV SCH ×2 (06:00→09:15)
[2016-08-20] MEDS ORDERED: POTASSIUM CHLORIDE 20 MEQ CONTROLLED RELEASE TAB PO ONE (06:30)
[2016-08-20] MEDS ORDERED: INSULIN ASPART SUPPLEMENTAL SCALE SQ SCH (07:00)
[2016-08-20] MEDS: LORazepam 2 MG/ML VIAL IV PUSH PRN ×2 (07:33→23:10)
[2016-08-20] MEDS: SODIUM CHLORIDE 0.9% FLUSH 10 ML FLUSH IV FLUSH SCH ×2 (07:34→22:17)
[2016-08-20] MEDS ORDERED: INSULIN DETEMIR 100 UNITS/ML VIAL SQ SCH (09:00)
[2016-08-20] MEDS: DOCUSATE SODIUM 50 MG/SENNA 8.6 MG TAB PO SCH ×2 (09:00→21:00)
[2016-08-20] MEDS ORDERED: DEXTROSE 50% IN WATER 50 ML VIAL(D50) IV PUSH PRN (09:15)
[2016-08-20] MEDS ORDERED: DEXMEDETOMIDINE INJ 1,000 MCG in SODIUM CHLOR 0.9% 250 ML INJ 240 ML IV SCH (09:15)
[2016-08-20] MEDS ORDERED: Vancomycin Consult Pharmacy 1 EA OTHER SCH (09:15)
--- NOTE | 2016-08-20 09:19 | HHI.CCPN ---
Subjective Remarks/Hospital Course This is a 51 yo male. Date of admission 08/19/2016. Past records includes recurrent alcohol-induced pancreatitis, history of pseudocyst, hypertension, hypertriglyceridemia with ongoing alcohol abuse and tobaccoism. Patient presents to [facility] ED with a 10 day history of increasing abdominal pain, nausea with anorexia. Patient has been drinking the interim. Patient had emesis some clear without coffee-ground emesis noted. Pain is described as diffuse 10 out of 10 pain is diffuse bilateral upper quadrants. CT abdomen/pelvis revealed markedly circumferential thickening of the esophagus over several centimeters. Patient noted have hepatic steatosis. With mild distention of the gallbladder. There is gastric distention. Multiple prominent lymph nodes in the retroperitoneum. Inflammatories gazing to the pancreas consistent with pancreatitis with mild dilatation the pancreatic duct. Small hiatal hernia. Patient had a leukocytosis 16,000, acute kidney injury with a creatinine of 1.7. Blood sugar was 71. Beta hydroxybutyrate 18.22. lactate 4.1. Calcium elevated at 13.2 with protein corrected 11.7. Lipase elevated at 6111. Beta hydroxybutyrate 18.22. ABG with pH 7.19, PCO2 is 9.7, PO2 149, bicarbonate 3.6 consistent with metabolic respiratory acidosis. Pulmonary negative. Blood cultures ordered. Patient received 2.4 L bolus normal saline is currently on normal saline at 250 cc an hour. 6 units insulin initially provided and is currently on insulin drip. SUBJ 08/20: Remains critically ill, 4 out of 4 bottles of blood cultures positive for GPC. I have placed him on vancomycin and Zosyn, also check CT chest with contrast to evaluate esophageal thickening and rule out an esophageal perforation. I will also consult ID. Patient had been weaned of DKA protocol but remains nothing by mouth. I will place him on known DKA ICU insulin protocol Objective Vital Signs Date Time Temp Pulse Resp B/P Pulse Ox O2 Delivery O2 Flow Rate FiO2 08/20/16 07:36 99 21 08/20/16 06:00 112 08/20/16 04:00 98.0 22 123/85 08/19/16 07:27 Nasal Cannula 2 Intake and Output 08/19/16 08/19/16 08/20/16 08:00 16:00 00:00 Intake Total 2247 ml 2382 ml Output Total 500 ml 1225 ml 1000 ml Balance -500 ml 1022 ml 1382 ml Result Diagram: 08/19/16 0420 08/20/16 0344 Imaging Last 72 hours Impressions Abdomen/Pelvis CT 08/19/16 0358 Signed Impressions: Service Date/Time: Friday, August 19, 2016 05:47 - CONCLUSION: 1. Marked circumferential thickening of the esophagus is noted over several centimeters. Esophagitis can have this appearance. 2. Hepatic steatosis and mild distention of the gallbladder again noted. 3. Upper abdominal lymphadenopathy with multiple prominent lymph nodes seen greatest in the retroperitoneum. 4. Abnormal inflammatory changes seen surrounding the pancreas consistent with pancreatitis with mild dilatation of the pancreatic duct. 5. Gastric distention. Mike Aaron MD Chest X-Ray 08/19/16 0357 Signed Impressions: Service Date/Time: Friday, August 19, 2016 04:18 - CONCLUSION: No acute disease. Mike Aaron MD Objective Remarks GENERAL: 51-year-old male, critically ill resting in bed, showing early signs of alcohol withdrawal SKIN: Warm and dry. No rash. Well-perfused HEAD: Atraumatic. Normocephalic. EYES: Pupils equal and round about 3 mm bilaterally and reactive. No scleral icterus. No injection or drainage. ENT: No nasal bleeding or discharge. Mucous membranes pink and moist. NECK: Trachea midline. No JVD. CARDIOVASCULAR: Tachycardic, RR. S1, S2 no S4 without murmur RESPIRATORY: Clear to auscultation. Breath sounds equal bilaterally. GASTROINTESTINAL: Abdomen soft, distended. Tender to palpation right upper, epigastric and left upper quadrants. Voluntary guarding. No rigidity. MUSCULOSKELETAL: Extremities without significant peripheral edema. No obvious deformities. NEUROLOGICAL: Awake and alert. No obvious cranial nerve deficits. Motor grossly within normal limits. Five out of 5 muscle strength in the arms and legs. Tremulous PSYCHIATRIC: Anxious A/P Assessment and Plan Neuro/Psych: Alcohol dependence Early alcohol withdrawal Acute pain management of pancreatitis Acute toxic metabolic encephalopathy secondary to pancreatitis Vitamin bag daily 3 days for EtOH use Monitor for withdrawals per protocol, start on Precedex as needed for alcohol withdrawal Dilaudid 0.5-1 mg IV every 2 hours when necessary pain CV: Lactic acidosis Hypertension History of hypertriglyceridemia Holding losartan 25 mg by mouth daily light of pancreatitis Triglycerides 256 Currently on normal saline at 250 cc an hour per DKA protocol Initial troponin 0.02. MAURA 2015 revealed EF 60-65%. No regional wall motion abnormality. No signs of endocarditis. 2D echo to rule out endocarditis as patient has GPC in 4 out of 4 bottles Resp: Ongoing tobaccoism Nasal cannula to maintain saturations greater than equal to 92% Incentive spirometry while awake Tobacco cessation Nicotine patch if indicated GI: Acute pancreatitis Hepatic steatosis Marked circumferential thickening of the esophagus CT abdomen/pelvis revealed marked circumferential thickening of the esophagus over several centimeters, hepatic steatosis with mild central gallbladder, upper abdominal lymphadenopathy with multiple prominent lymph nodes greatest in the retroperitoneum, inflammatory changes seen stranding surrounding the pancreas consistent with pancreatitis with mild dilatation of pancreatic duct approximately 4 mm. Gastric distention. GI consultation-Dr Yadav Nothing by mouth except for ice chips Protonix 40 iv daily Nakia-Colace bowel regimen : No indication for De León catheter Endo: DKA Received 2.4 L normal saline. Currently normal saline at 250 cc an hour. DKA has resolved but cannot transition to long-acting insulin as patient is nothing by mouth Placed on ICU insulin protocol non-DKA algorithm 1 Received 6 units insulin ED. Currently on insulin drip at 6 units an hour BMP, mag and phosphorus every 6 hours. Renal: Acute kidney injury Likely prerenal. Continue aggressive hydration. I's and O's Monitor urine output Heme: Leukocytosis Follow CBC daily. Monitor trends ID: Severe sepsis GPC in 4 out of 4 bottles Received vancomycin the ED, but not continued Start vancomycin back, add Zosyn 4.5 g IV every 6 hours Blood Cultures 2 08/19 GPC 4/4 bottles. Check 2-D echo to rule out endocarditis. Check CT chest with IV contrast rule out esophageal perforation Infectious disease consulted FEN: Hypercalcemia Hypo-natremia Replace electrolytes as clinically indicated. DKA protocol F/u PTH, PTHp, vitamin D 1/25 and 25 Hydration initial therapy. Calcitonin if needed Access - Utilize peripheral IV. Central line if indicated Prophylaxis - GI - Protonix - DVT - SCD/heparin subcutaneous Critical Care: The total critical care time was 35 minutes. Time to perform other separately billable procedures was not included in the critical care time. Judd Lebron MD Aug 20, 2016 09:19
[2016-08-20] MEDS: PANTOPRAZOLE SODIUM 40 MG VIAL IV SCH (09:52)
[2016-08-20] MEDS: HEPARIN SODIUM - SQ 10,000 UNITS/ML VIAL SQ SCH ×2 (09:53→22:15)
[2016-08-20] MEDS: MULTIVITAMIN INJ 10 ML, THIAMINE INJ 100 MG, FOLIC ACID INJ 1 MG in SODIUM CHLORID 0.9%... IV SCH (09:54)
[2016-08-20] MEDS ORDERED: MISC INFORMATION OTHER ONE (10:00)
[2016-08-20] MEDS ORDERED: VANCOMYCIN 1,500 MG/NS 500 ML IV ONE ×2 (10:00)
[2016-08-20] MEDS ORDERED: VANCOMYCIN INJ 1,250 MG in SODIUM CHLOR 0.9% 250 ML INJ 250 ML IV ONE (10:00)
[2016-08-20] MEDS ORDERED: CEFEPIME INJ 2,000 MG in SODIUM CHLORIDE 0.9% INJ 100 ML IV SCH (10:00)
[2016-08-20 10:30] LABS: AUTOMATED NEUTROPHIL # 3.2 TH/MM3 (1.8-7.7); BASOPHIL % 0.2 % (0.0-2.0); LYMPH % 15.6 % (9.0-44.0); LYMPHOCYTE # 0.7 TH/MM3 (1.0-4.8); MEAN CELL VOLUME 89.9 FL (80.0-100.0); MEAN CORPUSCULAR HEMOGLOBIN 30.4 PG (27.0-34.0); MEAN CORPUSCULAR HGB CONC 33.8 % (32.0-36.0); MONO % 15.6 % (0.0-8.0); NEUT % 68.6 % (16.0-70.0); PLATELET COUNT 96 TH/MM3 (150-450); RED BLOOD COUNT 4.01 MIL/MM3 (4.50-5.90); RED CELL DISTRIBUTION WIDTH 13.8 % (11.6-17.2); WHITE BLOOD COUNT 4.7 TH/MM3 (4.0-11.0)
[2016-08-20 10:34] LABS: HEMO FLAGS AUTO DIFF
[2016-08-20] MEDS: PIPERACIL-TAZO 4.5 GM PREMIX 100 ML IV SCH ×3 (11:00→22:16)
[2016-08-20 11:09] LABS: BANDS 33 % (0-6); NEUTROPHIL # MANUAL DIFF 4.2 TH/MM3 (1.8-7.7); PLATELET ESTIMATE SMEAR LOW (NORMAL); PLATELET MORPHOLOGY NORMAL (NORMAL); POLYS (SEG NEUTROPHILS) 56 % (16-70); SCAN/DIFF FINAL DIFF MANUAL; WBC DIFF SAMPLE 100
[2016-08-20] MEDS ORDERED: IOHEXOL 350 MG/ML 10 ML VIAL (for RAD DIAG) IV ONE (12:09)
--- NOTE | 2016-08-20 12:28 | RADRPT ---
EXAM DATE/TIME: 08/20/2016 11:54 [facility] COMPARISON: CT ABDOMEN & PELVIS W/O CONTRAST, August 19, 2016, 5:47. INDICATIONS : Dysphagia. IV CONTRAST: 65 cc Omnipaque 350 (iohexol) IV RADIATION DOSE: 5.1 CTDIvol (mGy) MEDICAL HISTORY : Hypertension. Pancreatitis. diabetes SURGICAL HISTORY : None. ENCOUNTER: Initial ACUITY: 1 day PAIN SCALE: Non-responsive LOCATION: Bilateral chest TECHNIQUE: Volumetric scanning of the chest was performed. Using automated exposure control and adjustment of t he mA and/or kV according to patient size, radiation dose was kept as low as reasonably achievable to obtain optimal diagnostic quality images. DICOM format image data is available electronically for review and comparison. Follow-up recommendations for incidentally detected pulmonary nodules are based at a minimum on nodul e size and patient risk factors according to Fleischner Society Guidelines. FINDINGS: LUNGS: Left basilar airspace disease is noted. No evidence of proximal pulmonary emboli. PLEURA: Small bilateral pleural effusions are identified. There is trace fluid on the right and a small effus ion on the left. These have developed since the earlier exam. MEDIASTINUM: The heart and great vessels demonstrate no acute abnormality. There is no mediastinal or hilar lymph adenopathy. AXILLAE: Within normal limits. No lymphadenopathy. SKELETAL: Within normal limits for patient age. MISCELLANEOUS: Hepatic steatosis and pancreatic inflammatory disease are again noted. CONCLUSION: Small bilateral pleural effusions with left lower lobe airspace disease. No evidence of suspicious mass or lymphadenopathy. Hepatic steatosis and inflammatory pancreatic disease again identified. Matt Aguilera MD on August 20, 2016 at 12:20 Board Certified Radiologist. This report was verified electronically.
--- NOTE | 2016-08-20 12:43 | HHI.GIFU ---
Subjective Remarks Pt resting in bed. Per no vomiting today & pt c/o of same abdominal pain and back pain "he always has." Pt noncontributory. (Lisha Rodriguez) Objective Vitals I&O Vital Signs Date Time Temp Pulse Resp B/P Pulse Ox O2 Delivery O2 Flow Rate FiO2 08/20/16 10:00 94 08/20/16 08:00 96 08/20/16 08:00 18 08/20/16 08:00 98.6 100 21 98/66 96 08/20/16 07:36 99 21 08/20/16 06:00 112 08/20/16 04:00 98.0 97 22 123/85 100 08/20/16 04:00 92 08/20/16 02:00 98 08/20/16 00:00 92 08/20/16 00:00 97.4 92 20 111/77 99 08/19/16 20:00 92 08/19/16 20:00 97.6 92 13 104/76 99 08/19/16 18:00 91 08/19/16 16:00 98 08/19/16 16:00 98.7 98 16 99/68 96 08/19/16 14:00 93 I/O 08/19/16 08/19/16 08/19/16 08/20/16 08/20/16 08/20/16 07:00 15:00 23:00 07:00 15:00 23:00 Intake Total 2247 ml 2382 ml 1523 ml Output Total 1725 ml 1000 ml 875 ml Balance 522 ml 1382 ml 648 ml Intake IV Total 2247 ml 2382 ml 1523 ml Output Urine Total 1725 ml 1000 ml 875 ml # Voids 1 # Bowel Movements 0 Laboratory Laboratory Tests Test 08/19/16 08/19/16 08/20/16 08/20/16 16:14 23:00 03:44 10:25 Sodium Level 148 149 149 Potassium Level 3.4 3.0 3.0 Chloride Level 118 120 120 Carbon Dioxide Level 18.0 21.5 20.9 Anion Gap 12 8 8 Blood Urea Nitrogen 36 27 23 Creatinine 1.19 0.97 0.93 Estimat Glomerular Filtration 64 81 85 Rate Random Glucose 194 155 131 Calcium Level 9.9 9.1 9.4 Phosphorus Level 0.3 2.7 0.3 Magnesium Level 1.7 1.7 1.6 B-Hydroxybutyrate 2.26 2.22 0.29 Lactic Acid Level 2.5 Triglycerides Level 256 Cholesterol Level 123 LDL Cholesterol 59 HDL Cholesterol 13.3 Cholesterol/HDL Ratio 9.24 White Blood Count 4.7 Red Blood Count 4.01 Hemoglobin 12.2 Hematocrit 36.0 Mean Corpuscular Volume 89.9 Mean Corpuscular Hemoglobin 30.4 Mean Corpuscular Hemoglobin 33.8 Concent Red Cell Distribution Width 13.8 Platelet Count 96 Mean Platelet Volume 8.4 Neutrophils (%) (Auto) 68.6 Lymphocytes (%) (Auto) 15.6 Monocytes (%) (Auto) 15.6 Eosinophils (%) (Auto) 0.0 Basophils (%) (Auto) 0.2 Neutrophils # (Auto) 3.2 Lymphocytes # (Auto) 0.7 Monocytes # (Auto) 0.7 Eosinophils # (Auto) 0.0 Basophils # (Auto) 0.0 CBC Comment AUTO DIFF Differential Total Cells 100 Counted Neutrophils % (Manual) 56 Band Neutrophils % 33 Lymphocytes % 3 Monocytes % 8 Neutrophils # (Manual) 4.2 Differential Comment FINAL DIFF MANUAL Platelet Estimate LOW Platelet Morphology Comment NORMAL Red Cell Morphology Comment NORMAL Lipase 399 Date/Time Procedure Status Source Growth 08/19/16 04:20 Aerobic Blood Culture - Preliminary Resulted Blood Peripheral Staphylococcus Aureus 08/19/16 04:20 Anaerobic Blood Culture - Preliminary Resulted Staphylococcus Aureus Imaging Last Impressions Chest CT 08/20/16 0000 Signed Impressions: Service Date/Time: Saturday, August 20, 2016 11:54 - CONCLUSION: Small bilateral pleural effusions with left lower lobe airspace disease. No evidence of suspicious mass or lymphadenopathy. Hepatic steatosis and inflammatory pancreatic disease again identified. Matt Aguilera MD Abdomen/Pelvis CT 08/19/16 0358 Signed Impressions: Service Date/Time: Friday, August 19, 2016 05:47 - CONCLUSION: 1. Marked circumferential thickening of the esophagus is noted over several centimeters. Esophagitis can have this appearance. 2. Hepatic steatosis and mild distention of the gallbladder again noted. 3. Upper abdominal lymphadenopathy with multiple prominent lymph nodes seen greatest in the retroperitoneum. 4. Abnormal inflammatory changes seen surrounding the pancreas consistent with pancreatitis with mild dilatation of the pancreatic duct. 5. Gastric distention. Mike Aaron MD Chest X-Ray 08/19/16 035 Signed Impressions: Service Date/Time: Friday, August 19, 2016 04:18 - CONCLUSION: No acute disease. Mike Aaron MD Physical Exam HEENT: PERRL; normocephalic; atraumatic; no jaundice. CHEST: would not cooperate CARDIAC: RRR ABDOMEN: Soft, nondistended, epigastric TTP; no hepatosplenomegaly; bowel sounds are present in all four quadrants. EXTREMITIES: No clubbing, cyanosis, or edema. SKIN: Normal; no rash; no jaundice. INTERIOR DESIGN PRINCIPAL: confused (Lisha Rodriguez) Assessment and Plan Plan ASSESSMENT - acute on chronic pancreatitis - ETOH induced. lipase 6111 on admission. hx pseudocyst but CT did not show at this time - ?hematemesis - reports increasingly dark "cola" like emesis prior to admission - abnormal CT finding - thickening esophagus and lymph nodes. lymph nodes most likely r/t pancreas but will need EGD when stable r/o malignancy - DKA PLAN - NPO - IVF - EGD when stable - DT precautions This pt was seen by myself and Dr Mcfarlane and this note is written on his behalf (Lisha Rodriguez) Physician Comments patient was seen and examined, agree with above note and plan, no perforation on chest CT scan, patient will need EGD, can be done tomorrow if stable. keep NPO (Lizz Mcfarlane MD) Lisha Rodriguez Aug 20, 2016 12:43 Lizz Mcfarlane MD Aug 20, 2016 13:06
[2016-08-20 13:07] LABS: HEMOGLOBIN A1a 1.2 %; HEMOGLOBIN A1b 3.4 %; HEMOGLOBIN Ao 72.4 %; HEMOGLOBIN LA1C 2.3 %; HEMOGLOBIN P3 5.5 %
--- NOTE | 2016-08-20 19:23 | PD.ID.CON ---
History of Present Illness Service ID Consult Requested By Dr Lebron Reason for Consult bactremia, pancreatitis Primary Care Physician No Primary Care Physician Diagnoses: History of Present Illness 51 yo male with h/o ETOH abuse, chronic pancreatitis and pancreatic cyst presented yday with abdominal pain. He as well endorses intermittent fever, chills, nightsweats and malaise He was found to be in DKA , has pancreatitis on CT and today he is growing MSSA in the blood in 4/4 bottles Pt is quite a poor historian, he thinks that he has been having the constellation of his symptoms for a week to a week and a hafl. He had MSSA bacteremia in April 2015. Negative MAURA at that time. He was sarted on broad spectrum abx He is now afeberile he has bandemia of 33 % Review of Systems ROS Limitations: Poor Historian Past Family Social History Allergies: Coded Allergies: No Known Allergies (Verified , 08/19/16) Past Medical History EtOH abuse tobaccoism Recurrent pancreatitis Hypertension Dyslipidemia - hypertriglyceridemia Gastroesophageal reflux disease Past Surgical History Right shoulder rotator cuff repair Right total knee arthroplasty Active Ordered Medications Medications where reviewed in EMR Antibiotics Include: zosyn vancomycin Family History Father history of aortic aneurysm. Positive history of alcoholism. Social History Positive alcohol abuse. 8 hard liquor daily. One pack per day tobacco 30 years. No IV drug use. Physical Exam Vital Signs Vital Signs Date Time Temp Pulse Resp B/P Pulse Ox O2 Delivery O2 Flow Rate FiO2 08/20/16 16:00 85 08/20/16 16:00 98.9 89 21 83/55 91 08/20/16 14:00 82 08/20/16 12:00 99.0 89 21 82/54 91 08/20/16 12:00 85 08/20/16 10:00 94 08/20/16 08:00 96 08/20/16 08:00 18 08/20/16 08:00 98.6 100 21 98/66 96 08/20/16 07:36 99 21 08/20/16 06:00 112 08/20/16 04:00 98.0 97 22 123/85 100 08/20/16 04:00 92 08/20/16 02:00 98 08/20/16 00:00 92 08/20/16 00:00 97.4 92 20 111/77 99 08/19/16 20:00 92 08/19/16 20:00 97.6 92 13 104/76 99 Physical Exam CONSTITUTIONAL/GENERAL: This is a thin middle aged male patient, in no apparent distress. TUBES/LINES/DRAINS: SKIN: No jaundice, rashes, or lesions. Skin temperature appropriate. Not diaphoretic. No embolic phenomena HEAD: Atraumatic. Normocephalic. EYES: Pupils equal and round and reactive. Extraocular motions intact. No scleral icterus. No injection or drainage. Fundi not examined. no conjunctival petechia or hemorrahges ENT: Hearing grossly normal. Nose without bleeding or purulent drainage. Oral mucosae dry without visible erythema, exudates, masses, or lesions. NECK: Trachea midline. Supple, nontender. CARDIOVASCULAR: Regular rate and rhythm without murmurs, gallops, or rubs. No JVD. Peripheral pulses symmetric. Well perfused perifery with brisk refill RESPIRATORY/CHEST: Symmetric, unlabored respirations. Clear to auscultation. Breath sounds equal bilaterally. No wheezes, rales, or rhonchi. GASTROINTESTINAL: Abdomen soft, diffusely moderately tender, mildly distended. No hepato-splenomegaly, or palpable masses. No guarding. Bowel sounds present. GENITOURINARY: Without palpable bladder distension. condom catheter in place with lcear very light yellow urine MUSCULOSKELETAL: Extremities without clubbing, cyanosis, or edema. No joint tenderness or effusion noted. No calf tenderness. No mottling or clubbing. LYMPHATICS: No palpable cervical or supraclavicular adenopathy. NEUROLOGICAL: Lehtargic but arousable. Motor and sensory grossly within normal limits. Follows commands. Clear speech. Moves all extremities. PSYCHIATRIC: No obvious anxiety/depression. no apparent hallucinations or other psychotic thought process. Laboratory Laboratory Tests Test 08/19/16 08/20/16 08/20/16 23:00 03:44 10:25 Sodium Level 149 149 Potassium Level 3.0 3.0 Chloride Level 120 120 Carbon Dioxide Level 21.5 20.9 Anion Gap 8 8 Blood Urea Nitrogen 27 23 Creatinine 0.97 0.93 Estimat Glomerular Filtration 81 85 Rate Random Glucose 155 131 Calcium Level 9.1 9.4 Phosphorus Level 2.7 0.3 Magnesium Level 1.7 1.6 B-Hydroxybutyrate 2.22 0.29 Lactic Acid Level 2.5 Triglycerides Level 256 Cholesterol Level 123 LDL Cholesterol 59 HDL Cholesterol 13.3 Cholesterol/HDL Ratio 9.24 White Blood Count 4.7 Red Blood Count 4.01 Hemoglobin 12.2 Hematocrit 36.0 Mean Corpuscular Volume 89.9 Mean Corpuscular Hemoglobin 30.4 Mean Corpuscular Hemoglobin 33.8 Concent Red Cell Distribution Width 13.8 Platelet Count 96 Mean Platelet Volume 8.4 Neutrophils (%) (Auto) 68.6 Lymphocytes (%) (Auto) 15.6 Monocytes (%) (Auto) 15.6 Eosinophils (%) (Auto) 0.0 Basophils (%) (Auto) 0.2 Neutrophils # (Auto) 3.2 Lymphocytes # (Auto) 0.7 Monocytes # (Auto) 0.7 Eosinophils # (Auto) 0.0 Basophils # (Auto) 0.0 CBC Comment AUTO DIFF Differential Total Cells 100 Counted Neutrophils % (Manual) 56 Band Neutrophils % 33 Lymphocytes % 3 Monocytes % 8 Neutrophils # (Manual) 4.2 Differential Comment FINAL DIFF MANUAL Platelet Estimate LOW Platelet Morphology Comment NORMAL Red Cell Morphology Comment NORMAL Lipase 399 Date/Time Procedure Status Source Growth 08/19/16 04:20 Aerobic Blood Culture - Preliminary Resulted Blood Peripheral Staphylococcus Aureus 08/19/16 04:20 Anaerobic Blood Culture - Preliminary Resulted Staphylococcus Aureus Result Diagram: 08/20/16 1025 08/20/16 0344 Imaging Last Impressions Chest CT 08/20/16 0000 Signed Impressions: Service Date/Time: Saturday, August 20, 2016 11:54 - CONCLUSION: Small bilateral pleural effusions with left lower lobe airspace disease. No evidence of suspicious mass or lymphadenopathy. Hepatic steatosis and inflammatory pancreatic disease again identified. Matt Aguilera MD Abdomen/Pelvis CT 08/19/16 0358 Signed Impressions: Service Date/Time: Friday, August 19, 2016 05:47 - CONCLUSION: 1. Marked circumferential thickening of the esophagus is noted over several centimeters. Esophagitis can have this appearance. 2. Hepatic steatosis and mild distention of the gallbladder again noted. 3. Upper abdominal lymphadenopathy with multiple prominent lymph nodes seen greatest in the retroperitoneum. 4. Abnormal inflammatory changes seen surrounding the pancreas consistent with pancreatitis with mild dilatation of the pancreatic duct. 5. Gastric distention. Mike Aaron MD Chest X-Ray 08/19/16 0357 Signed Impressions: Service Date/Time: Friday, August 19, 2016 04:18 - CONCLUSION: No acute disease. Mike Aaron MD Assessment and Plan Assessment and Plan DKA Pancreatitis ETOH induced MSSA high grade bacteremia, recurrent - previosly > 1 yra ago, neg MAURA - MSSA is not a typical org aw pancreatitis - NO clear source - no h/o IVDU REC's: dc zosdyn, vancomycin staart cefazolin 2 D echo repeat BC will lkely need a MAURA Camryn Patel MD Aug 20, 2016 19:23
[2016-08-20] MEDS: HYDROmorphone HCL PF 1 MG/ML VIAL IV PUSH PRN (22:13)
[2016-08-20] MEDS ORDERED: VANCOMYCIN 1,000 MG/NS 250 ML IV SCH ×2 (23:00)
[2016-08-20] MEDS: ceFAZolin 2 GM PREMIX 50 ML IV SCH (23:34)
[2016-08-21] VITALS (13 sets, daily range): BP systolic 78–94; BP diastolic 53–68; PULSE 71–83; RESP 16–33; TEMP 97.9–99; O2SAT 93–99
[2016-08-21] MEDS: LORazepam 2 MG/ML VIAL IV PUSH PRN ×3 (01:44→23:56)
[2016-08-21] MEDS: CHLORHEXIDINE GLUCONATE 2 % 1 PACK (2 CLOTHS) TOP SCH (04:00)
[2016-08-21] MEDS: HYDROmorphone HCL PF 1 MG/ML VIAL IV PRN ×3 (05:00→18:46)
[2016-08-21] MEDS: ceFAZolin 2 GM PREMIX 50 ML IV SCH ×3 (05:02→23:56)
--- NOTE | 2016-08-21 06:06 | RADRPT ---
EXAM DATE/TIME: 08/21/2016 04:59 [facility] COMPARISON: CHEST SINGLE AP, August 19, 2016, 4:18. INDICATIONS : Shortness of breath. MEDICAL HISTORY : None. SURGICAL HISTORY : None. ENCOUNTER: Subsequent ACUITY: 2 days PAIN SCORE: 0/10 LOCATION: Bilateral chest FINDINGS: A single view of the chest demonstrates the lungs to be symmetrically aerated without evidence of mas s, infiltrate or effusion. The cardiomediastinal contours are unremarkable. Osseous structures are intact. CONCLUSION: No acute disease. No significant change has occurred. Arslan Cortez MD on August 21, 2016 at 6:04 Board Certified Radiologist. This report was verified electronically.
[2016-08-21 06:53] LABS: AUTOMATED NEUTROPHIL # 3.5 TH/MM3 (1.8-7.7); BASOPHIL % 0.5 % (0.0-2.0); EOSINOPHIL % 0.6 % (0.0-4.0); HEMATOCRIT 33.6 % (39.0-51.0); LYMPH % 19.9 % (9.0-44.0); LYMPHOCYTE # 1.1 TH/MM3 (1.0-4.8); MEAN CELL VOLUME 89.7 FL (80.0-100.0); MEAN CORPUSCULAR HEMOGLOBIN 30.2 PG (27.0-34.0); MEAN CORPUSCULAR HGB CONC 33.7 % (32.0-36.0); MONO % 12.9 % (0.0-8.0); NEUT % 66.1 % (16.0-70.0); PLATELET COUNT 97 TH/MM3 (150-450); RED BLOOD COUNT 3.75 MIL/MM3 (4.50-5.90); RED CELL DISTRIBUTION WIDTH 14.2 % (11.6-17.2); WHITE BLOOD COUNT 5.4 TH/MM3 (4.0-11.0)
[2016-08-21 06:55] LABS: HEMO FLAGS AUTO DIFF
[2016-08-21 07:18] LABS: ALKALINE PHOSPHATASE 102 U/L (45-117); ALT (GPT) 27 U/L (12-78); ANION GAP 10 MEQ/L (5-15); AST (GOT) 43 U/L (15-37); BICARBONATE 23.2 MEQ/L (21.0-32.0); BLOOD UREA NITROGEN 15 MG/DL (7-18); CHLORIDE 116 MEQ/L (98-107); GLOMERULAR FILTRATION RATE 100 ML/MIN (>89); MAGNESIUM 1.7 MG/DL (1.5-2.5); SODIUM (NA) 149 MEQ/L (136-145); TOTAL BILIRUBIN ADULT 0.3 MG/DL (0.2-1.0)
[2016-08-21 07:28] LABS: POTASSIUM 2.8 MEQ/L (3.5-5.1)
[2016-08-21 07:38] LABS: BANDS 23 % (0-6); CORRECTED NUCLEATED RBC 1 /100 WBC (0-0); NEUTROPHIL # MANUAL DIFF 4.3 TH/MM3 (1.8-7.7); POLYS (SEG NEUTROPHILS) 56 % (16-70); WBC DIFF SAMPLE 100
[2016-08-21 07:39] LABS: PLATELET ESTIMATE SMEAR LOW (NORMAL); PLATELET MORPHOLOGY NORMAL (NORMAL); SCAN/DIFF FINAL DIFF MANUAL
[2016-08-21] MEDS ORDERED: MAGNESIUM SULFATE INJ 2 GM in SODIUM CHLORIDE 0.9% INJ 96 ML IV PRN (08:00)
[2016-08-21] MEDS ORDERED: POTASSIUM CHLOR 20 MEQ PREMIX 100 ML IV PRN (08:00)
[2016-08-21] MEDS ORDERED: POTASSIUM PHOSPHATE MONOBASIC 500 MG TAB PO PRN (08:00)
[2016-08-21] MEDS ORDERED: POTASSIUM PHOSPHATE MONOBASIC 500 MG TAB PO/TUBE PRN (08:00)
[2016-08-21] MEDS ORDERED: POTASSIUM CHLOR 40 MEQ PREMIX 100 ML IV PRN ×2 (08:00)
[2016-08-21] MEDS ORDERED: MAGNESIUM SULFATE INJ 4 GM in SODIUM CHLORIDE 0.9% INJ 92 ML IV PRN (08:00)
[2016-08-21] MEDS ORDERED: POTASSIUM PHOSPHATE INJ 30 MMOL in SODIUM CHLOR 0.9% 250 ML INJ 250 ML IV PRN (08:00)
[2016-08-21] MEDS ORDERED: MAGNESIUM OXIDE 400 MG TAB PO PRN (08:00)
[2016-08-21] MEDS ORDERED: SODIUM PHOSPHATE INJ 30 MMOL in SODIUM CHLOR 0.9% 250 ML INJ 240 ML IV PRN (08:00)
[2016-08-21] MEDS ORDERED: POTASSIUM CHLORIDE 25 MEQ EFFERVESCENT TAB PO PRN (08:00)
[2016-08-21] MEDS ORDERED: POTASSIUM CHLORIDE 25 MEQ EFFERVESCENT TAB PO ONE (08:30)
[2016-08-21] MEDS: POTASSIUM CHLOR 20 MEQ PREMIX 100 ML IV PRN ×4 (08:31→08:39)
[2016-08-21] MEDS: HEPARIN SODIUM - SQ 10,000 UNITS/ML VIAL SQ SCH ×2 (08:51→21:09)
[2016-08-21] MEDS: SODIUM CHLORIDE 0.9% FLUSH 10 ML FLUSH IV FLUSH SCH ×2 (08:51→21:09)
[2016-08-21] MEDS: PANTOPRAZOLE SODIUM 40 MG VIAL IV SCH (08:51)
[2016-08-21] MEDS: ARTIFICIAL TEARS OPTH SOLN 15 ML BTL EACH EYE SCH ×2 (08:51→13:00)
[2016-08-21] MEDS: DOCUSATE SODIUM 50 MG/SENNA 8.6 MG TAB PO SCH ×2 (09:00→21:09)
--- NOTE | 2016-08-21 10:14 | HHI.CCPN ---
Subjective Remarks/Hospital Course This is a 51 yo male. Date of admission 08/19/2016. Past records includes recurrent alcohol-induced pancreatitis, history of pseudocyst, hypertension, hypertriglyceridemia with ongoing alcohol abuse and tobaccoism. Patient presents to [facility] with a 10 day history of increasing abdominal pain, nausea with anorexia. Patient has been drinking the interim. Patient had emesis some clear without coffee-ground emesis noted. Pain is described as diffuse 10 out of 10 pain is diffuse bilateral upper quadrants. CT abdomen/pelvis revealed markedly circumferential thickening of the esophagus over several centimeters. Patient noted have hepatic steatosis. With mild distention of the gallbladder. There is gastric distention. Multiple prominent lymph nodes in the retroperitoneum. Inflammatories gazing to the pancreas consistent with pancreatitis with mild dilatation the pancreatic duct. Small hiatal hernia. Patient had a leukocytosis 16,000, acute kidney injury with a creatinine of 1.7. Blood sugar was 71. Beta hydroxybutyrate 18.22. lactate 4.1. Calcium elevated at 13.2 with protein corrected 11.7. Lipase elevated at 6111. Beta hydroxybutyrate 18.22. ABG with pH 7.19, PCO2 is 9.7, PO2 149, bicarbonate 3.6 consistent with metabolic respiratory acidosis. Pulmonary negative. Blood cultures ordered. Patient received 2.4 L bolus normal saline is currently on normal saline at 250 cc an hour. 6 units insulin initially provided and is currently on insulin drip. SUBJ 08/20: Remains critically ill, 4 out of 4 bottles of blood cultures positive for GPC. I have placed him on vancomycin and Zosyn, also check CT chest with contrast to evaluate esophageal thickening and rule out an esophageal perforation. I will also consult ID. Patient had been weaned of DKA protocol but remains nothing by mouth. I will place him on known DKA ICU insulin protocol 08/21: Slightly improved clinically, abd pain improving. Now on Precedex 0.3 mcg per kg per hour. High grade Staph aureus bacteremia. Prev work up with MAURA negative Objective Vital Signs Date Time Temp Pulse Resp B/P Pulse Ox O2 Delivery O2 Flow Rate FiO2 08/21/16 08:06 95 08/21/16 08:00 99.0 71 22 78/53 08/20/16 07:36 21 08/19/16 07:27 Nasal Cannula 2 Intake and Output 08/20/16 08/20/16 08/21/16 08:00 16:00 00:00 Intake Total 1523 ml 1400 ml 439 ml Output Total 875 ml 750 ml 200 ml Balance 648 ml 650 ml 239 ml Result Diagram: 08/21/16 0628 08/21/1628 Imaging Last 72 hours Impressions Abdomen/Pelvis CT 08/19/16 0358 Signed Impressions: Service Date/Time: Friday, August 19, 2016 05:47 - CONCLUSION: 1. Marked circumferential thickening of the esophagus is noted over several centimeters. Esophagitis can have this appearance. 2. Hepatic steatosis and mild distention of the gallbladder again noted. 3. Upper abdominal lymphadenopathy with multiple prominent lymph nodes seen greatest in the retroperitoneum. 4. Abnormal inflammatory changes seen surrounding the pancreas consistent with pancreatitis with mild dilatation of the pancreatic duct. 5. Gastric distention. Mike Aaron MD Chest X-Ray 08/19/16 0357 Signed Impressions: Service Date/Time: Friday, August 19, 2016 04:18 - CONCLUSION: No acute disease. Mike Aaron MD Objective Remarks GENERAL: 51-year-old male, critically ill resting in bed, showing signs of alcohol withdrawal SKIN: Warm and dry. No rash. Well-perfused HEAD: Atraumatic. Normocephalic. EYES: Pupils equal and round about 3 mm bilaterally and reactive. No scleral icterus. No injection or drainage. ENT: No nasal bleeding or discharge. Mucous membranes pink and moist. NECK: Trachea midline. No JVD. CARDIOVASCULAR: Tachycardic, RR. S1, S2 no S4 without murmur RESPIRATORY: Clear to auscultation. Breath sounds equal bilaterally. GASTROINTESTINAL: Abdomen soft, distended. Tender to palpation right upper, epigastric and left upper quadrants. Voluntary guarding. No rigidity. MUSCULOSKELETAL: Extremities without significant peripheral edema. No obvious deformities. NEUROLOGICAL: Awake and alert. No obvious cranial nerve deficits. Motor grossly within normal limits. Five out of 5 muscle strength in the arms and legs. Tremulous Urinary Catheter: Yes Assessment to: Continue A/P Assessment and Plan Neuro/Psych: Alcohol dependence Early alcohol withdrawal Acute pain management of pancreatitis Acute toxic metabolic encephalopathy secondary to pancreatitis Vitamin bag daily 3 days for EtOH use Monitor for withdrawals per protocol, CIWA protocol Wean to DC Precedex. Dilaudid 0.5-1 mg IV every 2 hours when necessary pain CV: Lactic acidosis Hypotension History of Hypertension History of hypertriglyceridemia NS 1L bolus Holding losartan 25 mg by mouth daily light of pancreatitis Triglycerides 256 Currently on normal saline gtt Initial troponin 0.02. MAURA 2015 revealed EF 60-65%, no vegetation. No regional wall motion abnormality. No signs of endocarditis. 2D echo to rule out endocarditis as patient has staph aureus in 4 out of 4 bottles Resp: Ongoing tobaccoism Nasal cannula to maintain saturations greater than equal to 92% Incentive spirometry while awake Tobacco cessation Nicotine patch if indicated GI: Acute pancreatitis Hepatic steatosis Marked circumferential thickening of the esophagus EGD today for marked esophageal thickening CT abdomen/pelvis revealed marked circumferential thickening of the esophagus over several centimeters, hepatic steatosis with mild central gallbladder, upper abdominal lymphadenopathy with multiple prominent lymph nodes greatest in the retroperitoneum, inflammatory changes seen stranding surrounding the pancreas consistent with pancreatitis with mild dilatation of pancreatic duct approximately 4 mm. Gastric distention. GI consultation-Dr Yadav Nothing by mouth except for ice chips Protonix 40 iv daily Nakia-Colace bowel regimen Lipase trending down : No indication for De León catheter Endo: DKA Received 2.4 L normal saline. Currently normal saline at 250 cc an hour. DKA has resolved but cannot transition to long-acting insulin as patient is nothing by mouth On ICU insulin protocol non-DKA algorithm 1 Renal: Acute kidney injury Likely prerenal. Continue aggressive hydration. I's and O's Monitor urine output Heme: Leukocytosis Follow CBC daily. Monitor trends ID: Severe sepsis Staph aureus in 4 out of 4 bottles Hx of previous staph aureus bacteremia ID has DCd vancomycin and Zosyn. Currently on Ancef Blood Cultures 08/19 staph aureus 4/4 bottles. Check 2-D echo to rule out endocarditis. Previous MAURA for staph aureus bacteremia was negative FEN: Hypercalcemia-resolved Hypo-natremia Hypokalemia Replace electrolytes as clinically indicated. F/u PTH, PTHp, vitamin D 1/25 and 25 Hydration initial therapy. Access - Utilize peripheral IV. Central line if indicated Prophylaxis - GI - Protonix - DVT - SCD/heparin subcutaneous Critical Care: The total critical care time was 35 minutes. Time to perform other separately billable procedures was not included in the critical care time. Judd Lebron MD Aug 21, 2016 10:14
[2016-08-21] MEDS: MULTIVITAMIN INJ 10 ML, THIAMINE INJ 100 MG, FOLIC ACID INJ 1 MG in SODIUM CHLORID 0.9%... IV SCH (10:24)
[2016-08-21] MEDS ORDERED: PHENYLEPH/NS 1000 MCG/10 ML SYR IV ONE (12:00)
[2016-08-21] MEDS ORDERED: EPINEPHrine HCL (1:10,000) 1 MG/10 ML SYRINGE OTHER ONE (12:15)
--- NOTE | 2016-08-21 12:33 | GIPROC ---
[facility] [address] [facility]. [facility], [address] EGD PROCEDURE REPORT EXAM DATE: 08/21/2016 PATIENT NAME: Kunal Quispe MR #: [id number] BIRTHDATE: 1965 ATTENDING: Yamel Ricardo MD ORDER #: [id number] PLASTICS REPAIRER: Virginia Leach and Lakesha Rondon STATUS: inpatient INDICATIONS: The patient is a 51 yr old male here for an EGD due to nausea, vomiting, abnormal ct PROCEDURE PERFORMED: EGD w/ biopsy MEDICATIONS: Per Anesthesia and None. TOPICAL ANESTHETIC: none CONSENT: The patient understands the risks and benefits of the procedure and understands that these risks include, but are not limited to: sedation, allergic reaction, infection, perforation and/or bleeding. Alternative means of evaluation and treatment include, among others: physical exam, x-rays, and/or surgical intervention. The patient elects to proceed with this endoscopic procedure. medical equipment was checked for proper function. Hand hygiene and appropriate measures for infection prevention was taken. After the risks, benefits and alternatives of the procedure were thoroughly explained, Informed consent was verified, confirmed and timeout was successfully executed by the treatment team. The patient was anesthetized with topical anesthesia and the Pentax EG-[id number] endoscope was introduced through the mouth and advanced to the second portion of the duodenum. Retroflexed views revealed a hiatal hernia The gastroscope was then slowly withdrawn and removed. Duodenitis second portion-biopsy gastritis antrum-biopsy severe esophagitis distal esophagus-biopsy, some bleeding from biopsy site-2 clips applied, epinephrine 1:10,000 -5 cc. ADVERSE EVENTS: There were no complications. IMPRESSIONS: 1. Duodenitis second portion-biopsy gastritis antrum-biopsy severe esophagitis distal esophagus-biopsy, some bleeding from biopsy site-2 clips applied, epinephrine 1:10,000 -5 cc 2. Retroflexed views revealed a hiatal hernia RECOMMENDATIONS: 1. Await biopsy results. Biopsy results will not be ready for 7-10 days. If you don't hear from us in two weeks, call our office for biopsy results. 2. Anti-reflux regimen 3. Start PPI 4. Ice chips protonix drip fu biopsy PATIENT CONDITION: stable DISPOSITION: Inpatient REPEAT EXAM: EGD pending biopsy results Yamel Ricardo MD eSigned: Yamel Ricardo MD 08/21/2016 12:33 PM cc: PATIENT NAME: Kunal Quispe MR#: [id number]
[2016-08-21] MEDS ORDERED: PROPOFOL 200 MG/20 ML AMP IV PUSH ONE (12:35)
[2016-08-21] MEDS ORDERED: DO NOT ADM ANY ANTICOAGULANT DRUGS PRN (12:54)
[2016-08-21] MEDS ORDERED: KETAMINE HCL 500 MG/5 ML VIAL ONE (13:05)
--- NOTE | 2016-08-21 22:13 | ECHRPT ---
Indication: endocarditis CONCLUSIONS Normal left ventricular size. The left ventricular systolic function is low normal with an estimated ejection fraction in the rang e of 50- 55%. No regional wall motion abnormalities are present. The right ventricle is mildly dilated. Trace mitral valve regurgitation. Aortic valve sclerosis is present. No aortic valve regurgitation. No aortic valve stenosis. There is mild tricuspid valve regurgitation. Normal estimated pulmonary pressures. BP: 94 / 62 HR: 79 Rhythm: MEASUREMENTS (Male / Female) Normal Values Technical Quality:Good 2D ECHO LV Diastolic Diameter PLAX 4.2 cm 4.2 - 5.9 / 3.9 - 5.3 cm LV Systolic Diameter PLAX 3.3 cm IVS Diastolic Thickness 1.4 cm 0.6 - 1.0 / 0.6 - 0.9 cm LVPW Diastolic Thickness 1.0 cm 0.6 - 1.0 / 0.6 - 0.9 cm LV Relative Wall Thickness 0.6 RV Internal Dim ED PLAX 3.0 cm M-MODE Aortic Root Diameter MM 3.0 cm LA Systolic Diameter MM 3.9 cm LA Ao Ratio MM 1.3 AV Cusp Separation MM 2.0 cm DOPPLER Mitral E Point Velocity 51.1 cm/s Mitral A Point Velocity 50.8 cm/s Mitral E to A Ratio 1.0 LV E' Lateral Velocity 7.5 cm/s Mitral E to LV E' Lateral Ratio 6.8 LV E' Septal Velocity 8.8 cm/s Mitral E to LV E' Septal Ratio 5.8 TR Peak Velocity 240.0 cm/s TR Peak Gradient 23.0 mmHg FINDINGS LEFT VENTRICLE Normal left ventricular size. The left ventricular systolic function is low normal with an estimated ejection fraction in the rang e of 50- 55%. No regional wall motion abnormalities are present. Left ventricular diastolic function parameters are normal. RIGHT VENTRICLE The right ventricle is mildly dilated. LEFT ATRIUM The left atrial size is normal. RIGHT ATRIUM The right atrial size is normal. ATRIAL SEPTUM Normal atrial septal thickness without atrial level shunting by limited color doppler interrogation. AORTA The aortic root and proximal ascending aorta are normal in size on limited imaging. MITRAL VALVE Structurally normal mitral valve. Trace mitral valve regurgitation. AORTIC VALVE Aortic valve sclerosis is present. Trileaflet aortic valve. No aortic valve regurgitation. No aortic valve stenosis. TRICUSPID VALVE Structurally normal tricuspid valve. There is mild tricuspid valve regurgitation. Normal estimated pulmonary pressures. PULMONARY VALVE The pulmonary valve is not well visualized. VESSELS The inferior vena cava is normal in size. PERICARDIUM No pericardial effusion. Renea Panda MD, FACC (Electronically Signed) Final Date:21 August 2016 22:12
[2016-08-21] MEDS ORDERED: PHARMACY ORDERED LAB ONE (22:45)
[2016-08-22] VITALS (12 sets, daily range): BP systolic 100–119; BP diastolic 75–86; PULSE 73–96; RESP 18–25; TEMP 97.6–98.3; O2SAT 94–98
[2016-08-22] MEDS: HYDROmorphone HCL PF 1 MG/ML VIAL IV PRN ×3 (02:00→13:34)
[2016-08-22] MEDS: CHLORHEXIDINE GLUCONATE 2 % 1 PACK (2 CLOTHS) TOP SCH (04:00)
[2016-08-22 05:39] LABS: AUTOMATED NEUTROPHIL # 3.4 TH/MM3 (1.8-7.7); BASOPHIL % 0.2 % (0.0-2.0); EOSINOPHIL % 0.5 % (0.0-4.0); HEMATOCRIT 34.7 % (39.0-51.0); HEMO FLAGS DIFF FINAL; LYMPH % 27.8 % (9.0-44.0); LYMPHOCYTE # 1.5 TH/MM3 (1.0-4.8); MEAN CORPUSCULAR HEMOGLOBIN 29.9 PG (27.0-34.0); MEAN CORPUSCULAR HGB CONC 32.9 % (32.0-36.0); MONO % 9.7 % (0.0-8.0); NEUT % 61.8 % (16.0-70.0); PLATELET COUNT 105 TH/MM3 (150-450); RED BLOOD COUNT 3.82 MIL/MM3 (4.50-5.90); RED CELL DISTRIBUTION WIDTH 14.1 % (11.6-17.2); WHITE BLOOD COUNT 5.5 TH/MM3 (4.0-11.0)
[2016-08-22 06:06] LABS: ANION GAP 10 MEQ/L (5-15); BICARBONATE 23.6 MEQ/L (21.0-32.0); BLOOD UREA NITROGEN 8 MG/DL (7-18); CHLORIDE 113 MEQ/L (98-107); MAGNESIUM 1.6 MG/DL (1.5-2.5); POTASSIUM 3.1 MEQ/L (3.5-5.1); SODIUM (NA) 147 MEQ/L (136-145)
[2016-08-22] MEDS: ceFAZolin 2 GM PREMIX 50 ML IV SCH ×3 (06:16→22:18)
[2016-08-22 06:17] LABS: ALKALINE PHOSPHATASE 139 U/L (45-117); ALT (GPT) 30 U/L (12-78); AST (GOT) 53 U/L (15-37); GLOMERULAR FILTRATION RATE 144 ML/MIN (>89); TOTAL BILIRUBIN ADULT 0.4 MG/DL (0.2-1.0)
--- NOTE | 2016-08-22 06:36 | RADRPT ---
EXAM DATE/TIME: 08/22/2016 04:58 [facility] COMPARISON: CHEST SINGLE AP, August 21, 2016, 4:59. INDICATIONS : Respiratory disease. MEDICAL HISTORY : Diabetes mellitus type II. Hypertension SURGICAL HISTORY : None. ENCOUNTER: Subsequent ACUITY: 2 days PAIN SCORE: Non-responsive. LOCATION: Bilateral chest FINDINGS: A single view of the chest demonstrates a mild infiltrate in the left lung base. Otherwise, the lungs remain grossly clear. The heart size is stable. There are no pleural effusions.. The cardiomediasti nal contours are unremarkable. Osseous structures are intact. CONCLUSION: Mild left lower lung infiltrate. Arslan Cortez MD on August 22, 2016 at 6:33 Board Certified Radiologist. This report was verified electronically.
[2016-08-22] MEDS: DOCUSATE SODIUM 50 MG/SENNA 8.6 MG TAB PO SCH ×2 (07:57→20:03)
[2016-08-22] MEDS: HEPARIN SODIUM - SQ 10,000 UNITS/ML VIAL SQ SCH ×2 (07:58→20:02)
[2016-08-22] MEDS: PANTOPRAZOLE SODIUM 40 MG VIAL IV SCH (07:58)
[2016-08-22] MEDS: SODIUM CHLORIDE 0.9% FLUSH 10 ML FLUSH IV FLUSH SCH ×2 (07:58→20:03)
[2016-08-22] MEDS: ARTIFICIAL TEARS OPTH SOLN 15 ML BTL EACH EYE SCH ×4 (09:00→16:46)
--- NOTE | 2016-08-22 09:59 | HHI.CCPN ---
Subjective Remarks/Hospital Course This is a 51 yo male. Date of admission 08/19/2016. Past records includes recurrent alcohol-induced pancreatitis, history of pseudocyst, hypertension, hypertriglyceridemia with ongoing alcohol abuse and tobaccoism. Patient presents to [place] ED with a 10 day history of increasing abdominal pain, nausea with anorexia. Patient has been drinking the interim. Patient had emesis some clear without coffee-ground emesis noted. Pain is described as diffuse 10 out of 10 pain is diffuse bilateral upper quadrants. CT abdomen/pelvis revealed markedly circumferential thickening of the esophagus over several centimeters. Patient noted have hepatic steatosis. With mild distention of the gallbladder. There is gastric distention. Multiple prominent lymph nodes in the retroperitoneum. Inflammatories gazing to the pancreas consistent with pancreatitis with mild dilatation the pancreatic duct. Small hiatal hernia. Patient had a leukocytosis 16,000, acute kidney injury with a creatinine of 1.7. Blood sugar was 71. Beta hydroxybutyrate 18.22. lactate 4.1. Calcium elevated at 13.2 with protein corrected 11.7. Lipase elevated at 6111. Beta hydroxybutyrate 18.22. ABG with pH 7.19, PCO2 is 9.7, PO2 149, bicarbonate 3.6 consistent with metabolic respiratory acidosis. Pulmonary negative. Blood cultures ordered. Patient received 2.4 L bolus normal saline is currently on normal saline at 250 cc an hour. 6 units insulin initially provided and is currently on insulin drip. SUBJ 08/20: Remains critically ill, 4 out of 4 bottles of blood cultures positive for GPC. I have placed him on vancomycin and Zosyn, also check CT chest with contrast to evaluate esophageal thickening and rule out an esophageal perforation. I will also consult ID. Patient had been weaned of DKA protocol but remains nothing by mouth. I will place him on known DKA ICU insulin protocol 08/21: Slightly improved clinically, abd pain improving. Now on Precedex 0.3 mcg per kg per hour. High grade Staph aureus bacteremia. Prev work up with MAURA negative 08/22: Clinically improving though Precedex had to be restarted overnight for Delirium. Currently on 0.3 g per KG per hour Precedex, patient alert awake oriented 3. WBC count stable. EGD yesterday showed severe esophagitis and duodenitis Objective Vital Signs Date Time Temp Pulse Resp B/P Pulse Ox O2 Delivery O2 Flow Rate FiO2 08/22/16 08:00 81 08/22/16 08:00 98.1 18 113/79 97 08/22/16 07:32 21 08/21/16 13:30 Nasal Cannula 2 Intake and Output 08/21/16 08/21/16 08/22/16 08:00 16:00 00:00 Intake Total 202 ml 2500 ml 439 ml Output Total 350 ml 720 ml 900 ml Balance -148 ml 1780 ml -461 ml Result Diagram: 08/22/16 0503 08/22/16 0505 Imaging Last 72 hours Impressions Abdomen/Pelvis CT 08/19/16 0358 Signed Impressions: Service Date/Time: Friday, August 19, 2016 05:47 - CONCLUSION: 1. Marked circumferential thickening of the esophagus is noted over several centimeters. Esophagitis can have this appearance. 2. Hepatic steatosis and mild distention of the gallbladder again noted. 3. Upper abdominal lymphadenopathy with multiple prominent lymph nodes seen greatest in the retroperitoneum. 4. Abnormal inflammatory changes seen surrounding the pancreas consistent with pancreatitis with mild dilatation of the pancreatic duct. 5. Gastric distention. Mike Aaron MD Chest X-Ray 08/19/16 0357 Signed Impressions: Service Date/Time: Friday, August 19, 2016 04:18 - CONCLUSION: No acute disease. Mike Aaron MD Objective Remarks GENERAL: 51-year-old male, better oriented today SKIN: Warm and dry. No rash. Well-perfused HEAD: Atraumatic. Normocephalic. EYES: Pupils equal and round about 3 mm bilaterally and reactive. No scleral icterus. No injection or drainage. ENT: No nasal bleeding or discharge. Mucous membranes pink and moist. NECK: Trachea midline. No JVD. CARDIOVASCULAR: RRR. S1, S2 no S4 without murmur RESPIRATORY: Clear to auscultation. Breath sounds equal bilaterally. GASTROINTESTINAL: Abdomen soft, distended. Tender to palpation right upper, epigastric and left upper quadrants. Voluntary guarding. No rigidity. MUSCULOSKELETAL: Extremities without significant peripheral edema. No obvious deformities. NEUROLOGICAL: Awake and alert, oriented x3. No obvious cranial nerve deficits. Motor grossly within normal limits. Five out of 5 muscle strength in the arms and legs. Urinary Catheter: Yes Assessment to: Continue A/P Assessment and Plan Neuro/Psych: Alcohol withdrawal Acute pain management of pancreatitis Acute toxic metabolic encephalopathy secondary to pancreatitis Alcohol dependence Vitamin bag daily 3 days for EtOH use Monitor for withdrawals per protocol, CIWA protocol DC Precedex. Dilaudid 0.5-1 mg IV every 2 hours when necessary pain CV: Lactic acidosis -resolved Hypotension-resolved History of Hypertension History of hypertriglyceridemia Holding losartan 25 mg by mouth daily light of pancreatitis Triglycerides 256 Continue normal saline Initial troponin 0.02. MAURA 2015 revealed EF 60-65%, no vegetation. No regional wall motion abnormality. No signs of endocarditis. 2D echo 08/21 shows no evidence of endocarditis Resp: Ongoing tobaccoism Nasal cannula to maintain saturations greater than equal to 92% Incentive spirometry while awake Tobacco cessation Nicotine patch if indicated GI: Acute pancreatitis Hepatic steatosis Marked circumferential thickening of the esophagus EGD 08/21 showed severe esophagitis and duodenitis. Continue IV Protonix. Biopsy pending CT abdomen/pelvis revealed marked circumferential thickening of the esophagus over several centimeters, hepatic steatosis with mild central gallbladder, upper abdominal lymphadenopathy with multiple prominent lymph nodes greatest in the retroperitoneum, inflammatory changes seen stranding surrounding the pancreas consistent with pancreatitis with mild dilatation of pancreatic duct approximately 4 mm. Gastric distention. GI followin Clear liquid diet advanced per GI Protonix 40 iv BID Nakia-Colace bowel regimen Lipase trending down : No indication for De León catheter Endo: DKA DKA has resolved. On ICU insulin protocol non-DKA algorithm 1, now turned off Start Levemir 5 q12 and SSI Renal: Acute kidney injury-resolved Likely prerenal. Continue aggressive hydration. I's and O's Monitor urine output Heme: Leukocytosis Follow CBC daily. Monitor trends ID: Severe sepsis Staph aureus in 4 out of 4 bottles Hx of previous staph aureus bacteremia ID following. Currently on Ancef Blood Cultures 08/19 staph aureus 4/4 bottles. 2-D echo negative for endocarditis. Previous MAURA for staph aureus bacteremia was negative FEN: Hypercalcemia-resolved Hypo-natremia Hypokalemia Replace electrolytes per protocol F/u PTH, PTHp, vitamin D 1/25 and 25 Access - Utilize peripheral IV. Prophylaxis - GI - Protonix IV BID - DVT - SCD/heparin subcutaneous Level [address] [facility] to assume care in am. Continue ICU care due to alcohol withdrawal Judd Lebron MD Aug 22, 2016 09:59
--- NOTE | 2016-08-22 10:03 | PD.TRANSFR ---
Transfer Summary Admission Date Aug 19, 2016 at 05:35 Admitting Diagnosis DKA, pancreatitis, severe sepsis Diagnoses: (1) Acute pancreatitis Diagnosis: Principal (2) MSSA (methicillin susceptible Staphylococcus aureus) septicemia Diagnosis: Principal (3) Severe sepsis Diagnosis: Principal (4) DKA (diabetic ketoacidoses) Diagnosis: Principal (5) Lactic acidosis Diagnosis: Principal (6) Alcohol withdrawal delirium Diagnosis: Principal (7) Hypercalcemia Diagnosis: Principal (8) Leukocytosis Diagnosis: Principal (9) Tachycardia Diagnosis: Principal (10) High anion gap metabolic acidosis Diagnosis: Principal (11) Acute renal insufficiency Diagnosis: Principal (12) Fever Diagnosis: Principal (13) SIRS (systemic inflammatory response syndrome) Diagnosis: Principal (14) Esophagitis Diagnosis: Principal (15) Hypertension Diagnosis: Secondary (16) Alcohol abuse Diagnosis: Secondary (17) Hypertriglyceridemia Diagnosis: Secondary Transfer Summary/Subjective This is a 51 yo male. Date of admission 08/19/2016. Past records includes recurrent alcohol-induced pancreatitis, history of pseudocyst, hypertension, hypertriglyceridemia with ongoing alcohol abuse and tobaccoism. Patient presents to [place] ED with a 10 day history of increasing abdominal pain, nausea with anorexia. Patient has been drinking the interim. Patient had emesis some clear without coffee-ground emesis noted. Pain is described as diffuse 10 out of 10 pain is diffuse bilateral upper quadrants. CT abdomen/pelvis revealed markedly circumferential thickening of the esophagus over several centimeters. Patient noted have hepatic steatosis. With mild distention of the gallbladder. There is gastric distention. Multiple prominent lymph nodes in the retroperitoneum. Inflammatories gazing to the pancreas consistent with pancreatitis with mild dilatation the pancreatic duct. Small hiatal hernia. Patient had a leukocytosis 16,000, acute kidney injury with a creatinine of 1.7. Blood sugar was 71. Beta hydroxybutyrate 18.22. lactate 4.1. Calcium elevated at 13.2 with protein corrected 11.7. Lipase elevated at 6111. Beta hydroxybutyrate 18.22. ABG with pH 7.19, PCO2 is 9.7, PO2 149, bicarbonate 3.6 consistent with metabolic respiratory acidosis. Pulmonary negative. Blood cultures ordered. Patient received 2.4 L bolus normal saline is currently on normal saline at 250 cc an hour. 6 units insulin initially provided and is currently on insulin drip. SUBJ 08/20: Remains critically ill, 4 out of 4 bottles of blood cultures positive for GPC. I have placed him on vancomycin and Zosyn, also check CT chest with contrast to evaluate esophageal thickening and rule out an esophageal perforation. I will also consult ID. Patient had been weaned of DKA protocol but remains nothing by mouth. I will place him on known DKA ICU insulin protocol 08/21: Slightly improved clinically, abd pain improving. Now on Precedex 0.3 mcg per kg per hour. High grade Staph aureus bacteremia. Prev work up with MAURA negative 08/22: Clinically improving though Precedex had to be restarted overnight for Delirium. Currently on 0.3 g per KG per hour Precedex, patient alert awake oriented 3. WBC count stable. EGD yesterday showed severe esophagitis and duodenitis Objective Vital Signs Date Time Temp Pulse Resp B/P Pulse Ox O2 Delivery O2 Flow Rate FiO2 08/22/16 08:00 81 08/22/16 08:00 98.1 18 113/79 97 08/22/16 07:32 21 08/21/16 13:30 Nasal Cannula 2 Intake and Output 08/21/16 08/21/16 08/22/16 08:00 16:00 00:00 Intake Total 202 ml 2500 ml 439 ml Output Total 350 ml 720 ml 900 ml Balance -148 ml 1780 ml -461 ml Result Diagram: 08/22/16 0503 08/22/16 0505 Imaging Last 72 hours Impressions Abdomen/Pelvis CT 08/19/16 0358 Signed Impressions: Service Date/Time: Friday, August 19, 2016 05:47 - CONCLUSION: 1. Marked circumferential thickening of the esophagus is noted over several centimeters. Esophagitis can have this appearance. 2. Hepatic steatosis and mild distention of the gallbladder again noted. 3. Upper abdominal lymphadenopathy with multiple prominent lymph nodes seen greatest in the retroperitoneum. 4. Abnormal inflammatory changes seen surrounding the pancreas consistent with pancreatitis with mild dilatation of the pancreatic duct. 5. Gastric distention. Mike Aaron MD Chest X-Ray 08/19/16 0357 Signed Impressions: Service Date/Time: Friday, August 19, 2016 04:18 - CONCLUSION: No acute disease. Mike Aaron MD Objective Remarks GENERAL: 51-year-old male, better oriented today SKIN: Warm and dry. No rash. Well-perfused HEAD: Atraumatic. Normocephalic. EYES: Pupils equal and round about 3 mm bilaterally and reactive. No scleral icterus. No injection or drainage. ENT: No nasal bleeding or discharge. Mucous membranes pink and moist. NECK: Trachea midline. No JVD. CARDIOVASCULAR: RRR. S1, S2 no S4 without murmur RESPIRATORY: Clear to auscultation. Breath sounds equal bilaterally. GASTROINTESTINAL: Abdomen soft, distended. Tender to palpation right upper, epigastric and left upper quadrants. Voluntary guarding. No rigidity. MUSCULOSKELETAL: Extremities without significant peripheral edema. No obvious deformities. NEUROLOGICAL: Awake and alert, oriented x3. No obvious cranial nerve deficits. Motor grossly within normal limits. Five out of 5 muscle strength in the arms and legs. A/P Assessment and Plan Neuro/Psych: Alcohol withdrawal Acute pain management of pancreatitis Acute toxic metabolic encephalopathy secondary to pancreatitis Alcohol dependence Vitamin bag daily 3 days for EtOH use Monitor for withdrawals per protocol, CIWA protocol DC Precedex. Dilaudid 0.5-1 mg IV every 2 hours when necessary pain CV: Lactic acidosis -resolved Hypotension-resolved History of Hypertension History of hypertriglyceridemia Holding losartan 25 mg by mouth daily light of pancreatitis Triglycerides 256 Continue normal saline Initial troponin 0.02. MAURA 2015 revealed EF 60-65%, no vegetation. No regional wall motion abnormality. No signs of endocarditis. 2D echo 08/21 shows no evidence of endocarditis Resp: Ongoing tobaccoism Nasal cannula to maintain saturations greater than equal to 92% Incentive spirometry while awake Tobacco cessation Nicotine patch if indicated GI: Acute pancreatitis Hepatic steatosis Marked circumferential thickening of the esophagus EGD 08/21 showed severe esophagitis and duodenitis. Continue IV Protonix. Biopsy pending CT abdomen/pelvis revealed marked circumferential thickening of the esophagus over several centimeters, hepatic steatosis with mild central gallbladder, upper abdominal lymphadenopathy with multiple prominent lymph nodes greatest in the retroperitoneum, inflammatory changes seen stranding surrounding the pancreas consistent with pancreatitis with mild dilatation of pancreatic duct approximately 4 mm. Gastric distention. GI followin Clear liquid diet advanced per GI Protonix 40 iv BID Nakia-Colace bowel regimen Lipase trending down : No indication for De León catheter Endo: DKA DKA has resolved. On ICU insulin protocol non-DKA algorithm 1, now turned off Start Levemir 5 q12 and SSI Renal: Acute kidney injury-resolved Likely prerenal. Continue aggressive hydration. I's and O's Monitor urine output Heme: Leukocytosis Follow CBC daily. Monitor trends ID: Severe sepsis Staph aureus in 4 out of 4 bottles Hx of previous staph aureus bacteremia ID following. Currently on Ancef Blood Cultures 08/19 staph aureus 4/4 bottles. 2-D echo negative for endocarditis. Previous MAURA for staph aureus bacteremia was negative FEN: Hypercalcemia-resolved Hypo-natremia Hypokalemia Replace electrolytes per protocol F/u PTH, PTHp, vitamin D 03/01 and 25 Access - Utilize peripheral IV. Prophylaxis - GI - Protonix IV BID - DVT - SCD/heparin subcutaneous Level 3 Consult [facility] to assume care in am. Continue ICU care due to alcohol withdrawal Judd Lebron MD Aug 22, 2016 10:03
[2016-08-22] MEDS: INSULIN ASPART SUPPLEMENTAL SCALE SQ SCH ×3 (10:19→20:04)
[2016-08-22] MEDS: INSULIN DETEMIR 100 UNITS/ML VIAL SQ SCH ×2 (10:19→20:05)
[2016-08-22] MEDS: POTASSIUM CHLOR 20 MEQ PREMIX 100 ML IV PRN ×4 (10:50→20:06)
[2016-08-22] MEDS: LORazepam 2 MG/ML VIAL IV PUSH PRN (12:29)
[2016-08-22] MEDS: HYDROmorphone HCL PF 1 MG/ML VIAL IV PUSH PRN (20:03)
[2016-08-23] VITALS (13 sets, daily range): BP systolic 110–131; BP diastolic 77–91; PULSE 87–101; RESP 16–24; TEMP 97.8–98.5; O2SAT 94–98
[2016-08-23] MEDS: LORazepam 2 MG/ML VIAL IV PUSH PRN ×2 (00:06→12:35)
[2016-08-23] MEDS: HYDROmorphone HCL PF 1 MG/ML VIAL IV PUSH PRN ×2 (00:07→06:05)
[2016-08-23] MEDS: CHLORHEXIDINE GLUCONATE 2 % 1 PACK (2 CLOTHS) TOP SCH (04:00)
[2016-08-23] MEDS: INSULIN ASPART SUPPLEMENTAL SCALE SQ SCH ×4 (05:22→20:14)
[2016-08-23] MEDS: ceFAZolin 2 GM PREMIX 50 ML IV SCH ×3 (05:22→23:30)
[2016-08-23] MEDS: POTASSIUM CHLOR 20 MEQ PREMIX 100 ML IV PRN ×2 (05:22→10:11)
[2016-08-23] MEDS: PANTOPRAZOLE SODIUM 40 MG VIAL IV SCH (08:53)
[2016-08-23] MEDS: HEPARIN SODIUM - SQ 10,000 UNITS/ML VIAL SQ SCH ×2 (08:54→22:15)
[2016-08-23] MEDS: DOCUSATE SODIUM 50 MG/SENNA 8.6 MG TAB PO SCH ×2 (08:55→22:15)
[2016-08-23] MEDS: ARTIFICIAL TEARS OPTH SOLN 15 ML BTL EACH EYE SCH ×3 (08:55→18:00)
[2016-08-23] MEDS: HYDROmorphone HCL PF 1 MG/ML VIAL IV PRN ×2 (08:55→18:29)
[2016-08-23] MEDS: SODIUM CHLORIDE 0.9% FLUSH 10 ML FLUSH IV FLUSH SCH ×2 (08:55→22:15)
[2016-08-23] MEDS: INSULIN DETEMIR 100 UNITS/ML VIAL SQ SCH ×2 (08:56→22:30)
--- NOTE | 2016-08-23 10:32 | HHI.PR ---
Subjective Remarks PT tells me that he has been feeling nauseous, poor appetite. continues to have epigastric RUQ pain. feels frustrated Objective Vitals Vital Signs Date Time Temp Pulse Resp B/P Pulse Ox O2 Delivery O2 Flow Rate FiO2 08/23/16 07:39 97 08/23/16 06:00 100 08/23/16 04:00 92 08/23/16 04:00 98.2 92 21 131/90 97 08/23/16 02:00 87 08/23/16 00:00 96 08/23/16 00:00 98.5 96 24 120/85 94 08/22/16 22:35 98 21 08/22/16 22:00 92 08/22/16 20:33 14 08/22/16 20:00 92 08/22/16 20:00 98.3 92 25 116/86 96 08/22/16 18:00 95 08/22/16 16:00 93 08/22/16 16:00 98.0 93 20 119/85 94 08/22/16 14:00 90 08/22/16 12:00 98.2 92 22 110/75 97 08/22/16 12:00 92 I/O 08/22/16 08/22/16 08/22/16 08/23/16 08/23/16 08/23/16 07:00 15:00 23:00 07:00 15:00 23:00 Intake Total 289 ml 1357 ml 995 ml 400 ml Output Total 1000 ml 1300 ml 800 ml 750 ml Balance -711 ml 57 ml 195 ml -350 ml Intake Oral 0 ml 1080 ml 500 ml 400 ml IV Total 289 ml 277 ml 495 ml Output Urine Total 1000 ml 1300 ml 800 ml 750 ml # Bowel Movements 0 0 Result Diagram: 08/22/16 0503 08/23/16 0356 Imaging Last Impressions Chest X-Ray 08/22/16 0600 Signed Impressions: Service Date/Time: Monday, August 22, 2016 04:58 - CONCLUSION: Mild left lower lung infiltrate. Arslan Cortez MD Chest CT 08/20/16 0000 Signed Impressions: Service Date/Time: Saturday, August 20, 2016 11:54 - CONCLUSION: Small bilateral pleural effusions with left lower lobe airspace disease. No evidence of suspicious mass or lymphadenopathy. Hepatic steatosis and inflammatory pancreatic disease again identified. Matt Aguilera MD Abdomen/Pelvis CT 08/19/16 0358 Signed Impressions: Service Date/Time: Friday, August 19, 2016 05:47 - CONCLUSION: 1. Marked circumferential thickening of the esophagus is noted over several centimeters. Esophagitis can have this appearance. 2. Hepatic steatosis and mild distention of the gallbladder again noted. 3. Upper abdominal lymphadenopathy with multiple prominent lymph nodes seen greatest in the retroperitoneum. 4. Abnormal inflammatory changes seen surrounding the pancreas consistent with pancreatitis with mild dilatation of the pancreatic duct. 5. Gastric distention. Mike Aaron MD Objective Remarks GENERAL: 51-year-old male, better oriented today SKIN: Warm and dry. No rash. HEAD: Atraumatic. Normocephalic. EYES: EOMI. No scleral icterus. No injection or drainage. ENT: Mucous membranes pink and moist. NECK: Trachea midline. CARDIOVASCULAR: RRR. without murmur RESPIRATORY: Clear to auscultation. Breath sounds equal bilaterally. GASTROINTESTINAL: Abdomen soft, distended. Tender to palpation right upper, epigastric and left upper quadrants. no guarding. MUSCULOSKELETAL: Extremities without significant peripheral edema. No obvious deformities. NEUROLOGICAL: Awake and alert . No obvious cranial nerve deficits. Motor grossly within normal limits. Five out of 5 muscle strength in the arms and legs. A/P Problem List: (1) Acute pancreatitis ICD Code: K85.9 Status: Acute (2) MSSA (methicillin susceptible Staphylococcus aureus) septicemia ICD Code: A41.01 Status: Acute (3) Severe sepsis ICD Code: A41.9 Status: Acute (4) DKA (diabetic ketoacidoses) ICD Code: E13.10 Status: Acute (5) Lactic acidosis ICD Code: E87.2 Status: Acute (6) Alcohol withdrawal delirium ICD Code: F10.231 Status: Acute (7) Hypercalcemia ICD Code: E83.52 Status: Acute (8) Leukocytosis ICD Code: D72.829 Status: Acute (9) Tachycardia ICD Code: R00.0 Status: Acute (10) High anion gap metabolic acidosis ICD Code: E87.2 Status: Acute (11) Acute renal insufficiency ICD Code: N28.9 Status: Acute (12) Fever ICD Code: R50.9 Status: Acute (13) SIRS (systemic inflammatory response syndrome) ICD Code: R65.10 Status: Acute (14) Esophagitis ICD Code: K20.9 Status: Acute (15) Hypertension ICD Code: I10 Status: Chronic (16) Alcohol abuse ICD Code: F10.10 Status: Chronic (17) Hypertriglyceridemia ICD Code: E78.1 Status: Chronic Assessment and Plan Neuro/Psych: Alcohol withdrawal Acute pain management of pancreatitis Acute toxic metabolic encephalopathy secondary to pancreatitis Alcohol dependence Vitamin bag daily 3 days for EtOH use Monitor for withdrawals per protocol, CIWA protocol off Precedex. percocet prn and Dilaudid 0.5-1 mg IV every 2 hours breakthrough pain CV: Lactic acidosis -resolved Hypotension-resolved History of Hypertension History of hypertriglyceridemia Holding losartan 25 mg by mouth daily light of pancreatitis Triglycerides 256 Continue normal saline Initial troponin 0.02. MAURA 2015 revealed EF 60-65%, no vegetation. No regional wall motion abnormality. No signs of endocarditis. 2D echo 08/21 shows no evidence of endocarditis Resp: Ongoing tobaccoism Nasal cannula to maintain saturations greater than equal to 92% Incentive spirometry while awake Tobacco cessation Nicotine patch if indicated GI: Acute pancreatitis Hepatic steatosis Marked circumferential thickening of the esophagus EGD 08/21 showed severe esophagitis and duodenitis. Continue IV Protonix. Biopsy pending CT abdomen/pelvis revealed marked circumferential thickening of the esophagus over several centimeters, hepatic steatosis with mild central gallbladder, upper abdominal lymphadenopathy with multiple prominent lymph nodes greatest in the retroperitoneum, inflammatory changes seen stranding surrounding the pancreas consistent with pancreatitis with mild dilatation of pancreatic duct approximately 4 mm. Gastric distention. GI following Clear liquid diet advanced per GI Protonix 40 iv BID Nakia-Colace bowel regimen Lipase trending down added reglan prn in addition to zofran for nausea. pt is will to try pain meds po w breakthrough dilaudid : No indication for De León catheter Endo: DKA DKA has resolved. On ICU insulin protocol non-DKA algorithm 1, now turned off on Levemir 5 q12 and SSI. increased levemir accordingly especially once diet advanced. still on clears. Renal: Acute kidney injury-resolved Likely prerenal. Continue aggressive hydration. I's and O's Monitor urine output Heme: Leukocytosis Follow CBC daily. Monitor trends ID: Severe sepsis Staph aureus in 4 out of 4 bottles Hx of previous staph aureus bacteremia ID following. Currently on Ancef Blood Cultures 7/15 staph aureus 4/4 bottles. 2-D echo negative for endocarditis. Previous MAURA for staph aureus bacteremia was negative FEN: Hypercalcemia-resolved Hypo-natremia Hypokalemia Replace electrolytes per protocol F/u PTH, PTHp, vitamin D 03/01 and 25 Prophylaxis - GI - Protonix IV BID - DVT - SCD/heparin subcutaneous Discharge Planning transfer to regular floor. PT following Problem Qualifiers (1) Acute pancreatitis: Qualified Code: K85.20 - Alcohol-induced acute pancreatitis, unspecified complication status (2) DKA (diabetic ketoacidoses): Qualified Code: E13.10 - Diabetic ketoacidosis without coma associated with type 2 diabetes mellitus (3) Leukocytosis: Qualified Code: D72.829 - Leukocytosis, unspecified type (4) Fever: Qualified Code: R50.9 - Fever, unspecified fever cause (5) Hypertension: Qualified Code: I10 - Essential hypertension Anabel Bustillos MD Aug 23, 2016 10:32
[2016-08-23] MEDS ORDERED: POTASSIUM CHLORIDE 10 MEQ CONTROLLED RELEASE TAB PO ONE (11:00)
[2016-08-23] MEDS ORDERED: METOCLOPRAMIDE HCL 10 MG/2 ML VIAL IM PRN (11:00)
--- NOTE | 2016-08-23 11:40 | HHI.GIFU ---
Subjective Remarks Resting in bed. C/O some intermittent dry heaving. Mildly bloated today. No BM since Sunday, feels constipated. Still with abdominal pain, controlled with pain meds. Objective Vitals I&O Vital Signs Date Time Temp Pulse Resp B/P Pulse Ox O2 Delivery O2 Flow Rate FiO2 08/23/16 07:39 97 08/23/16 06:00 100 08/23/16 04:00 92 08/23/16 04:00 98.2 92 21 131/90 97 08/23/16 02:00 87 08/23/16 00:00 96 08/23/16 00:00 98.5 96 24 120/85 94 08/22/16 22:35 98 21 08/22/16 22:00 92 08/22/16 20:33 14 08/22/16 20:00 92 08/22/16 20:00 98.3 92 25 116/86 96 08/22/16 18:00 95 08/22/16 16:00 93 08/22/16 16:00 98.0 93 20 119/85 94 08/22/16 14:00 90 08/22/16 12:00 98.2 92 22 110/75 97 08/22/16 12:00 92 I/O 08/22/16 08/22/16 08/22/16 08/23/16 08/23/16 08/23/16 07:00 15:00 23:00 07:00 15:00 23:00 Intake Total 289 ml 1357 ml 995 ml 400 ml Output Total 1000 ml 1300 ml 800 ml 750 ml Balance -711 ml 57 ml 195 ml -350 ml Intake Oral 0 ml 1080 ml 500 ml 400 ml IV Total 289 ml 277 ml 495 ml Output Urine Total 1000 ml 1300 ml 800 ml 750 ml # Bowel Movements 0 0 Laboratory Laboratory Tests Test 08/23/16 03:56 Potassium Level 3.2 Date/Time Procedure Status Source Growth 08/21/16 06:34 Aerobic Blood Culture - Preliminary Resulted Blood Peripheral NO GROWTH IN 2 DAYS 08/21/16 06:34 Anaerobic Blood Culture - Preliminary Resulted Blood Peripheral NO GROWTH IN 2 DAYS 08/19/16 04:20 Aerobic Blood Culture - Final Complete Blood Peripheral Staphylococcus Aureus 08/19/16 04:20 Anaerobic Blood Culture - Final Complete Staphylococcus Aureus Imaging Last Impressions Chest X-Ray 08/22/16 0600 Signed Impressions: Service Date/Time: Monday, August 22, 2016 04:58 - CONCLUSION: Mild left lower lung infiltrate. Arslan Cortez MD Chest CT 08/20/16 0000 Signed Impressions: Service Date/Time: Saturday, August 20, 2016 11:54 - CONCLUSION: Small bilateral pleural effusions with left lower lobe airspace disease. No evidence of suspicious mass or lymphadenopathy. Hepatic steatosis and inflammatory pancreatic disease again identified. Matt Aguilera MD Abdomen/Pelvis CT 08/19/16 0358 Signed Impressions: Service Date/Time: Friday, August 19, 2016 05:47 - CONCLUSION: 1. Marked circumferential thickening of the esophagus is noted over several centimeters. Esophagitis can have this appearance. 2. Hepatic steatosis and mild distention of the gallbladder again noted. 3. Upper abdominal lymphadenopathy with multiple prominent lymph nodes seen greatest in the retroperitoneum. 4. Abnormal inflammatory changes seen surrounding the pancreas consistent with pancreatitis with mild dilatation of the pancreatic duct. 5. Gastric distention. Mike Aaron MD Physical Exam HEENT:Normocephalic; atraumatic; no jaundice. CHEST: CTA CARDIAC: RRR ABDOMEN: Soft,mildly distended, mild diffuse tenderness; no hepatosplenomegaly ; bowel sounds hypoactive EXTREMITIES: No clubbing, cyanosis, or edema. SKIN: Normal; no rash; no jaundice. [employer]: Alert, oriented Assessment and Plan Plan ASSESSMENT - Acute on chronic pancreatitis. Abdomen/Pelvis CT (08/19/16)-----> 1. Marked circumferential thickening of the esophagus is noted over several centimeters. Esophagitis can have this appearance. 2. Hepatic steatosis and mild distention of the gallbladder again noted. 3. Upper abdominal lymphadenopathy with multiple prominent lymph nodes seen greatest in the retroperitoneum. 4. Abnormal inflammatory changes seen surrounding the pancreas consistent with pancreatitis with mild dilatation of the pancreatic duct. 5. Gastric distention. Triglycerides 256. - GIB, Hematemesis. S/P EGD (08/21/16)----> 1. Duodenitis second portion-biopsy , gastritis antrum-biopsy, severe esophagitis distal esophagus-biopsy, some bleeding from biopsy site-2 clips applied, epinephrine 1:10,000 -5 cc 2. Retroflexed views revealed a hiatal hernia. Pt with nausea, dry heaving but no active bleeding. - Severe esophagitis, gastritis, duodenitis. S/P EGD as above. - Elevated LFTs. T. Bili 0.4, AST 53, ALT 30, ALk Phosph 139 - Abdominal distention/constipation. No BM since Sunday, more distended today. Will get KUB, start trial of reglan, add miralax. - Anemia. Mild 11.4/34.7. No active bleeding. - Acute metabolic encephalopathy, improved. A/Ox 3 - SUNNI with electrolyte abnormalities. Improved. Hypokalemia 3.2. Na 147. - Sepsis/Leukocytosis/Bacteremia. Bcx 08/19, Staphylococcus aureus WBC 5.5. - HTN, Hx of hypertriglyceridemia, - ETOH abuse, withdrawal per attending. PLAN - Clear liquids - KUB today - Trial of reglan - Add Miralax - Cont. PPI - DT precautions - Supportive care - This pt was seen by myself and Dr Ricardo and this note is written on her behalf Leslie Sanders Aug 23, 2016 11:40
[2016-08-23] MEDS: METOCLOPRAMIDE HCL 10 MG/2 ML VIAL IV PUSH SCH ×2 (12:35→22:15)
[2016-08-23] MEDS: POLYETHYLENE GLYCOL 17 GM PKG PO SCH (12:35)
[2016-08-23] MEDS: oxyCODONE/ACETAMINOPHEN 10 MG/325 MG TAB PO PRN ×2 (12:37→22:16)
--- NOTE | 2016-08-23 13:25 | RADRPT ---
EXAM DATE/TIME: 08/23/2016 11:57 [facility] COMPARISON: ABDOMEN KUB ONLY, December 13, 2015, 14:37. INDICATIONS : Abdomen distention and pain. MEDICAL HISTORY : None. SURGICAL HISTORY : None. ENCOUNTER: Initial ACUITY: 4 - 6 days PAIN SCORE: 9/10 LOCATION: Abdomen. FINDINGS: Supine view of the abdomen was performed. Small air filled small bowel loops. Nonobstructive bowel ga s pattern. No abnormal masses, calcifications, or organomegaly is seen. The osseous structures are unremarkable. CONCLUSION: Mild air-filled small bowel loops but no definite obstruction. Tom Wakefield MD on August 23, 2016 at 13:23 Board Certified Radiologist. This report was verified electronically.
[2016-08-23 14:38] LABS: PTH RELATED PEPTIDE <0.2 pmol/L (<2.0)
[2016-08-23] MEDS: SODIUM CHLORIDE 0.9% FLUSH 10 ML FLUSH IV FLUSH PRN (23:30)
[2016-08-24] VITALS: BP 109/72; PULSE 87; RESP 19; TEMP 97.7; O2SAT 95
[2016-08-24] MEDS: SODIUM CHLORIDE 0.9% FLUSH 10 ML FLUSH IV FLUSH PRN (01:10)
[2016-08-24] MEDS: HYDROmorphone HCL PF 1 MG/ML VIAL IV PRN ×3 (01:10→16:36)
[2016-08-24 04:00] VITALS: BP 136/90; PULSE 90; RESP 20; TEMP 97.5; O2SAT 100
[2016-08-24] MEDS: CHLORHEXIDINE GLUCONATE 2 % 1 PACK (2 CLOTHS) TOP SCH (04:00)
[2016-08-24] MEDS: oxyCODONE/ACETAMINOPHEN 10 MG/325 MG TAB PO PRN ×2 (05:38→11:36)
[2016-08-24] MEDS: METOCLOPRAMIDE HCL 10 MG/2 ML VIAL IV PUSH SCH ×3 (05:38→23:21)
[2016-08-24] MEDS: ceFAZolin 2 GM PREMIX 50 ML IV SCH ×3 (05:38→23:20)
[2016-08-24] MEDS: INSULIN ASPART SUPPLEMENTAL SCALE SQ SCH ×4 (05:40→23:41)
[2016-08-24 08:00] VITALS: BP 109/77; PULSE 82; PULSE 92; RESP 18; TEMP 98.1; O2SAT 99
[2016-08-24] MEDS: DOCUSATE SODIUM 50 MG/SENNA 8.6 MG TAB PO SCH ×2 (09:27→23:21)
[2016-08-24] MEDS: POLYETHYLENE GLYCOL 17 GM PKG PO SCH (09:27)
[2016-08-24] MEDS: HEPARIN SODIUM - SQ 10,000 UNITS/ML VIAL SQ SCH ×2 (09:31→23:21)
[2016-08-24] MEDS: PANTOPRAZOLE SODIUM 40 MG VIAL IV SCH (09:32)
[2016-08-24] MEDS: INSULIN DETEMIR 100 UNITS/ML VIAL SQ SCH ×2 (09:40→23:41)
[2016-08-24] MEDS: SODIUM CHLORIDE 0.9% FLUSH 10 ML FLUSH IV FLUSH SCH ×2 (09:45→23:21)
[2016-08-24] MEDS: ARTIFICIAL TEARS OPTH SOLN 15 ML BTL EACH EYE SCH ×3 (09:47→18:00)
[2016-08-24 12:00] VITALS: BP 119/82; PULSE 106; RESP 18; TEMP 97.9; O2SAT 99
[2016-08-24] MEDS ORDERED: POTASSIUM CHLORIDE 10 MEQ CONTROLLED RELEASE TAB PO ONE (12:15)
--- NOTE | 2016-08-24 13:55 | HHI.PR ---
Subjective Remarks Follow-up for pancreatitis and infection Patient stated that he continues to feel awful but is doing better. He's tolerating his clear liquid diet. Continue to have abdominal pain but appears very comfortable. Denying nausea or vomiting. He remains afebrile. Objective Vitals Vital Signs Date Time Temp Pulse Resp B/P Pulse Ox O2 Delivery O2 Flow Rate FiO2 08/24/16 12:00 97.9 106 18 119/82 99 08/24/16 08:00 98.1 92 18 109/77 99 08/24/16 04:00 Room Air 08/24/16 04:00 97.5 90 20 136/90 100 08/24/16 00:00 97.7 87 19 109/72 95 08/24/16 00:00 Room Air 08/23/16 21:01 93 08/23/16 21:00 97.8 96 19 130/88 98 08/23/16 20:10 98.2 91 16 125/86 96 08/23/16 20:00 91 08/23/16 16:00 94 08/23/16 16:00 98.2 94 24 110/77 96 I/O 08/23/16 08/23/16 08/23/16 08/24/16 08/24/16 08/24/16 06:59 14:59 22:59 06:59 14:59 22:59 Intake Total 400 ml 1548 ml 240 ml 580 ml Output Total 750 ml 1150 ml 650 ml 1400 ml Balance -350 ml 398 ml -410 ml -820 ml Intake Oral 400 ml 960 ml 240 ml 480 ml IV Total 588 ml 100 ml Output Urine Total 750 ml 1150 ml 650 ml 1400 ml # Bowel Movements 0 Result Diagram: 08/22/16 0503 08/23/16 0356 Objective Remarks GENERAL: In no acute distress sitting in the bed very comfortably. SKIN: Warm and dry. HEAD: Normocephalic. EYES: No scleral icterus. No injection or drainage. NECK: Supple, trachea midline. No JVD or lymphadenopathy. CARDIOVASCULAR: Regular rate and rhythm without murmurs, gallops, or rubs. RESPIRATORY: Breath sounds equal bilaterally. No accessory muscle use. GASTROINTESTINAL: Abdomen soft, positive tenderness to palpation with moderate pressure in the mid abdomen, nondistended. Medications and IVs Current Medications Sodium Chloride 1,000 ml @ 1,000 mls/hr Q1H ONCE IV Last administered on 04:35; Start 08/19/16 at 03:57; Stop 08/19/16 at 04:56; Status DC Sodium Chloride 1,000 ml @ 1,000 mls/hr Q1H ONCE IV Last administered on 04:35; Start 08/19/16 at 03:57; Stop 08/19/16 at 04:56; Status DC Sodium Chloride (NS 1000 ml Inj) 400 ml @ 1,000 mls/hr Q24M ONCE IV Last administered on 08/19/16 04:35; Start 08/19/16 at 03:57; Stop 08/19/16 at 04:20 ; Status DC Ondansetron HCl 4 mg 4 mg ONCE ONCE IV PUSH Last administered on 08/19/16 04: 52; Start 08/19/16 at 04:45; Stop 08/19/16 at 04:46; Status DC Vancomycin HCl 1000 mg/Sodium Chloride 250 ml @ 250 mls/hr ONCE STAT IV Last administered on 08/19/16 07:28; Start 08/19/16 at 04:47; Stop 08/19/16 at 05:46 ; Status DC Piperacillin Sod/ Tazobactam Sod 100 ml @ 200 mls/hr ONCE STAT IV Last administered on 08/19/16 04:52; Start 08/19/16 at 04:47; Stop 08/19/16 at 05:16 ; Status DC Sodium Chloride 1,000 ml @ 250 mls/hr Q4H IV ; Start 08/19/16 at 05:19; Stop at 05:59; Status DC Dextrose/Sodium Chloride (D5W-NS 1000 ml Inj) 1,000 ml @ 200 mls/hr Q5H IV ; Start 08/19/16 at 05:19; Stop 08/19/16 at 05:59; Status DC Insulin Human Regular 6 units 6 units BOLUS ONCE IV PUSH Last administered on 08/19/16 06:08; Start 08/19/16 at 05:30; Stop 08/19/16 at 05:31; Status DC Insulin Human Regular 100 units/ Sodium Chloride 100 ml @ 0 mls/hr TITRATE IV ; Start 08/19/16 at 05:30; Stop 08/19/16 at 05:59; Status DC Potassium Chloride 100 ml @ 100 mls/hr Q1H PRN IV SEE LABEL COMMENTS; Start at 05:30; Stop 08/19/16 at 05:59; Status DC Potassium Chloride 100 ml @ 50 mls/hr Q2H PRN IV SEE LABEL COMMENTS; Start at 05:30; Stop 08/19/16 at 05:59; Status DC Potassium Chloride 100 ml @ 100 mls/hr Q1H PRN IV SEE LABEL COMMENTS; Start at 05:30; Stop 08/19/16 at 05:59; Status DC Potassium Chloride 100 ml @ 100 mls/hr Q1H PRN IV SEE LABEL COMMENTS; Start at 05:30; Stop 08/19/16 at 05:59; Status DC Potassium Chloride 100 ml @ 50 mls/hr Q2H PRN IV SEE LABEL COMMENTS; Start at 05:30; Stop 08/19/16 at 05:59; Status DC Potassium Chloride 100 ml @ 50 mls/hr Q2H PRN IV SEE LABEL COMMENTS; Start at 05:30; Stop 08/19/16 at 05:59; Status DC Potassium Chloride 100 ml @ 50 mls/hr Q2H PRN IV SEE LABEL COMMENTS; Start at 05:30; Stop 08/19/16 at 05:59; Status DC Potassium Chloride (KCl 20 Meq Premix Inj) 100 ml @ 50 mls/hr Q2H PRN IV SEE LABEL COMMENTS; Start 08/19/16 at 05:30; Stop 08/19/16 at 05:59; Status DC Sodium Bicarbonate (Sodium Bicarbonate 8.4% Inj) 100 meq UNSCH PRN IV SEE LABEL COMMENTS; Start 08/19/16 at 05:30; Stop 08/19/16 at 05:59; Status DC Sodium Bicarbonate 50 meq 50 meq UNSCH PRN IV SEE LABEL COMMENTS; Start at 05:30; Stop 08/19/16 at 05:59; Status DC Sodium Phosphate 15 mmol/Sodium Chloride 105 ml @ 25 mls/hr UNSCH PRN IV SEE LABEL COMMENTS; Start 08/19/16 at 05:30; Stop 08/19/16 at 05:59; Status DC Sodium Chloride 1,000 ml @ 250 mls/hr Q4H IV Last administered on 08/19/16 08 :54; Start 08/19/16 at 05:55; Stop 08/20/16 at 05:55; Status DC Dextrose/Sodium Chloride 1,000 ml @ 200 mls/hr Q5H IV Last administered on 03:37; Start 08/19/16 at 05:55; Stop 08/20/16 at 05:55; Status DC Insulin Human Regular 100 units/ Sodium Chloride 100 ml @ 0 mls/hr TITRATE IV Last administered on 08/20/16 00:27; Start 08/19/16 at 06:00; Stop 08/20/16 at 05:53; Status DC Potassium Chloride 100 ml @ 100 mls/hr Q1H PRN IV SEE LABEL COMMENTS; Start at 06:00; Stop 08/20/16 at 05:55; Status DC Potassium Chloride 100 ml @ 50 mls/hr Q2H PRN IV SEE LABEL COMMENTS; Start at 06:00; Stop 08/20/16 at 05:55; Status DC Potassium Chloride 100 ml @ 100 mls/hr Q1H PRN IV SEE LABEL COMMENTS; Start at 06:00; Stop 08/20/16 at 05:55; Status DC Potassium Chloride 100 ml @ 100 mls/hr Q1H PRN IV SEE LABEL COMMENTS; Start at 06:00; Stop 08/20/16 at 05:55; Status DC Potassium Chloride 100 ml @ 50 mls/hr Q2H PRN IV SEE LABEL COMMENTS; Start at 06:00; Stop 08/20/16 at 05:55; Status DC Potassium Chloride 100 ml @ 50 mls/hr Q2H PRN IV SEE LABEL COMMENTS; Start at 06:00; Stop 08/20/16 at 05:55; Status DC Potassium Chloride 100 ml @ 50 mls/hr Q2H PRN IV SEE LABEL COMMENTS Last administered on 08/20/16 03:37; Start 08/19/16 at 06:00; Stop 08/20/16 at 05:55 ; Status DC Potassium Chloride (KCl 20 Meq Premix Inj) 100 ml @ 50 mls/hr Q2H PRN IV SEE LABEL COMMENTS; Start 08/19/16 at 06:00; Stop 08/20/16 at 05:55; Status DC Sodium Bicarbonate (Sodium Bicarbonate 8.4% Inj) 100 meq UNSCH PRN IV SEE LABEL COMMENTS; Start 08/19/16 at 06:00; Stop 08/20/16 at 05:55; Status DC Sodium Bicarbonate 50 meq 50 meq UNSCH PRN IV SEE LABEL COMMENTS; Start at 06:00; Stop 08/20/16 at 05:55; Status DC Sodium Phosphate/ Sodium Chloride (Sodium Phosphate Inj/NS Inj) 105 ml @ 25 mls /hr UNSCH PRN IV SEE LABEL COMMENTS Last administered on 08/19/16 19:15; Start 08/19/16 at 06:00; Stop 08/20/16 at 05:55; Status DC Miscellaneous Information 1 Q361D XX ; Start 08/19/16 at 06:00; Stop 08/20/16 at 05:59; Status DC Chlorhexidine Gluconate (Chlorhexidine 2% Cloth) 3 pack Taper DAILY@04 TOP Last administered on 08/20/16 03:37; Start 08/20/16 at 04:00; Stop 08/20/16 at 05:59; Status DC Chlorhexidine Gluconate (Chlorhexidine 2% Cloth) 3 pack UNSCH PRN TOP HYGIENIC CARE; Start 08/19/16 at 06:00; Stop 08/20/16 at 05:59; Status DC Metoclopramide HCl (Reglan Inj) 10 mg ONCE ONCE IV PUSH Last administered on 07:00; Start 08/19/16 at 06:00; Stop 08/19/16 at 06:05; Status DC Sodium Chloride (NS Flush) 2 ml UNSCH PRN IV FLUSH FLUSH AFTER USING IV ACCESS Last administered on 08/24/16 01:10; Start 08/19/16 at 06:45 Sodium Chloride (NS Flush) 2 ml BID IV FLUSH Last administered on 08/24/16 09: 45; Start 08/19/16 at 09:00 Hydromorphone HCl (Dilaudid Pf Inj) 1 mg Q2H PRN IV PAIN SCALE 6 TO 10 Last administered on 08/23/16 08:55; Start 08/19/16 at 06:45; Stop 08/23/16 at 10:29 ; Status DC Pantoprazole Sodium (Protonix Inj) 40 mg DAILY IV Last administered on 09:32; Start 08/19/16 at 09:00 Artificial Tears (Tears Naturale Opth Soln) 1 drop TID EACH EYE Last administered on 08/24/16 09:47; Start 08/19/16 at 09:00 Ondansetron HCl (Zofran Inj) 4 mg Q6H PRN IV NAUSEA OR VOMITING; Start at 06:45 Albuterol Sulfate (Albuterol Neb) 2.5 mg Q2HR NEB PRN INH SOB/WHEEZING; Start 08/19/16 at 06:45 Heparin Sodium (Porcine) (Heparin Inj) 5,000 units Q12H SQ Last administered on 08/24/16 09:31; Start 08/19/16 at 09:00 Miscellaneous Information 1 Q361D XX ; Start 08/19/16 at 06:45 Chlorhexidine Gluconate (Chlorhexidine 2% Cloth) 3 pack Taper DAILY@04 TOP Last administered on 08/22/16 04:00; Start 08/20/16 at 04:00; Stop 08/16/17 at 03:59 Chlorhexidine Gluconate (Chlorhexidine 2% Cloth) 3 pack UNSCH PRN TOP HYGIENIC CARE; Start 08/19/16 at 06:45 Senna/Docusate Sodium (Nakia-Colace) 1 tab BID PO Last administered on 09:27; Start 08/19/16 at 09:00 Magnesium Hydroxide (Milk Of Magnesia Liq) 30 ml Q12H PRN PO MILD - MODERATE CONSTIPATION; Start 08/19/16 at 06:45 Sennosides (Senokot) 17.2 mg Q12H PRN PO MODERATE - SEVERE CONSTIPATION; Start 08/19/16 at 06:45 Bisacodyl (Dulcolax Supp) 10 mg DAILY PRN RECTAL SEVERE CONSITIPATION; Start at 06:45 Lactulose (Lactulose Liq) 30 ml DAILY PRN PO SEVERE CONSITIPATION; Start at 06:45 Hydromorphone HCl 0.5 mg 0.5 mg Q2H PRN IV PUSH PAIN SCALE 1 TO 5 Last administered on 08/23/16 06:05; Start 08/19/16 at 06:45; Stop 08/23/16 at 10:29 ; Status DC Multivitamins/ Thiamine HCl/ Folic Acid/Sodium Chloride (Mvi-12 Inj/ Thiamine Inj/ Folvite Inj/NS 500 ml Inj) 511.2 ml @ 125 mls/hr DAILY IV Last administered on 08/21/16 10:24; Start 08/19/16 at 09:00; Stop 08/22/16 at 08:59 ; Status DC Flumazenil (Romazicon Inj) 0.2 mg Q1M PRN IV PUSH SEE LABEL COMMENTS; Start at 07:00 Lorazepam (Ativan) 1 mg Q4H PRN PO CIWA 8 - 10 Last administered on 08/23/16 23:30; Start 08/19/16 at 07:00 Lorazepam (Ativan Inj) 1 mg Q4H PRN IV PUSH CIWA 8 - 10 Last administered on 12:35; Start 08/19/16 at 07:00 Lorazepam (Ativan) 2 mg Q2H PRN PO CIWA 11-14; Start 08/19/16 at 07:00 Lorazepam (Ativan Inj) 2 mg Q2H PRN IV PUSH CIWA 11-14 Last administered on 23:56; Start 08/19/16 at 07:00 Lorazepam (Ativan Inj) 2 mg Q1H PRN IV PUSH CIWA 15-20; Start 08/19/16 at 07:00 Lorazepam (Ativan Inj) 2 mg Q15M PRN IV PUSH CIWA > 20; Start 08/19/16 at 07:00 Miscellaneous Information 1 ONCE ONCE .XX ; Start 08/20/16 at 05:45; Stop 08/20 at 05:56; Status DC Miscellaneous Information 1 ONCE .XX ; Start 08/20/16 at 05:45; Stop 08/20/16 at 10:02; Status DC Insulin Detemir (Levemir Inj) 10 units DAILY SQ ; Start 08/20/16 at 09:00; Stop 08/20/16 at 10:00; Status DC Dextrose (D50w (Vial) Inj) 50 ml UNSCH PRN IV HYPOGLYCEMIA-SEE COMMENTS; Start 08/20/16 at 05:45; Stop 08/20/16 at 05:58; Status DC Glucagon (Glucagon Inj) 1 mg UNSCH PRN OTHER HYPOGLYCEMIA-SEE COMMENTS; Start 08/20/16 at 05:45; Stop 08/20/16 at 05:58; Status DC Dextrose (D50w (Vial) Inj) 50 ml UNSCH PRN IV HYPOGLYCEMIA-SEE COMMENTS; Start 08/20/16 at 05:45; Stop 08/20/16 at 05:58; Status DC Glucagon (Glucagon Inj) 1 mg UNSCH PRN OTHER HYPOGLYCEMIA-SEE COMMENTS; Start 08/20/16 at 05:45; Stop 08/20/16 at 05:58; Status DC Dextrose (D50w (Vial) Inj) 50 ml UNSCH PRN IV HYPOGLYCEMIA-SEE COMMENTS; Start 08/20/16 at 05:45; Stop 08/20/16 at 10:01; Status DC Glucagon (Glucagon Inj) 1 mg UNSCH PRN OTHER HYPOGLYCEMIA-SEE COMMENTS; Start 08/20/16 at 05:45 Insulin Aspart 1 1 ACHS SLIDING SCALE SQ ; Start 08/20/16 at 07:00; Stop at 09:06; Status DC Insulin Human Regular/Sodium Chloride (NovoLIN R (IV INFUSION)/NS Inj) 100 ml @ 0 mls/hr TITRATE IV ; Start 08/20/16 at 06:00; Stop 08/20/16 at 10:00; Status DC Potassium Chloride 40 meq 40 meq NOW ONCE PO Last administered on 08/20/16t 06 :43; Start 08/20/16 at 06:30; Stop 08/20/16 at 06:31; Status DC Vancomycin HCl 1250 mg/Sodium Chloride 262.5 ml @ 262.5 mls/ hr ONCE ONCE IV ; Start 08/20/16 at 10:00; Stop 08/20/16 at 10:59; Status Cancel Pharmacy Profile Note 0 ml @ 0 mls/hr UNSCH OTHER ; Start 08/20/16 at 09:15; Stop 08/20/16 at 23:00; Status DC Cefepime HCl 2000 mg/Sodium Chloride 100 ml @ 200 mls/hr Q8H IV ; Start at 10:00; Stop 08/20/16 at 10:00; Status DC Piperacillin Sod/ Tazobactam Sod 100 ml @ 200 mls/hr Q6H IV Last administered on 08/20/16 22:16; Start 08/20/16 at 10:00; Stop 08/20/16 at 23:00; Status DC Insulin Human Regular/Sodium Chloride (NovoLIN R (IV INFUSION)/NS Inj) 100 ml @ 0 mls/hr TITRATE IV Last administered on 08/20/16 10:36; Start 08/20/16 at 09: 15; Stop 08/22/16 at 09:57; Status DC Dextrose (D50w (Vial) Inj) 50 ml UNSCH PRN IV PUSH SEE LABEL COMMENTS; Start at 09:15 Miscellaneous Information 1 1 ONCE ONCE OTHER ; Start 08/20/16 at 10:00; Stop 08/20/16 at 10:01; Status DC Dexmedetomidine HCl 1000 mcg/ Sodium Chloride 250 ml @ 0 mls/hr TITRATE IV Last administered on 08/20/16 10:37; Start 08/20/16 at 09:15; Stop 08/22/16 at 09:41; Status DC Vancomycin HCl/ Sodium Chloride (Vancomycin Inj/ NS 500 ml Inj) 515 ml @ 257.5 mls/ hr ONCE ONCE IV Last administered on 08/20/16 11:19; Start 08/20/16 at 10:00; Stop 08/20/16 at 11:59; Status DC Iohexol 65 ml 65 ml STK-MED ONCE IV Last administered on 08/20/16 12:09; Start 08/20/16 at 12:09; Stop 08/20/16 at 12:10; Status DC Vancomycin HCl/ Sodium Chloride (Vancomycin Inj/ NS 250 ml Inj) 250 ml @ 250 mls/hr Q12H IV ; Start 08/20/16 at 23:00; Stop 08/20/16 at 23:00; Status DC Miscellaneous Information SPECIFIC LAB TO BE ... ONCE ONCE .XX ; Start 08/21 at 22:45; Stop 08/21/16 at 22:46; Status DC Cefazolin Sodium/ Dextrose 50 ml @ 150 mls/hr Q8H IV Last administered on 08/24 05:38; Start 08/20/16 at 23:00 Potassium Chloride 100 ml @ 50 mls/hr Q2H PRN IV For Potassium 2.8 - 3.2 mEq/L ; Start 08/21/16 at 08:00; Stop 08/23/16 at 21:39; Status DC Potassium Chloride (KCl 20 Meq Premix Inj) 100 ml @ 50 mls/hr Q2H PRN IV For Potassium 2.8 - 3.2 mEq/L Last administered on 08/23/16t 10:11; Start 08/21/16 at 08:00; Stop 08/23/16 at 21:39; Status DC Potassium Bicarb/ Potassium Chloride 50 meq 50 meq UNSCH PRN PO For Potassium 3.3 - 3.5 mEq/L; Start 08/21/16 at 08:00; Stop 08/23/16 at 21:39; Status DC Potassium Chloride 100 ml @ 25 mls/hr UNSCH PRN IV For Potassium 3.3 - 3.5 mEq /L; Start 08/21/16 at 08:00; Stop 08/23/16 at 21:39; Status DC Potassium Chloride 100 ml @ 50 mls/hr Q2H PRN IV For Potassium 3.3 - 3.5 mEq/L ; Start 08/21/16 at 08:00; Stop 08/23/16 at 21:39; Status DC Magnesium Sulfate/ Sodium Chloride (Magnesium Sulfate Inj/NS Inj) 100 ml @ 50 mls/hr UNSCH PRN IV For Magnesium 0.9 - 1.1 mg/dL; Start 08/21/16 at 08:00; Stop 08/23/16 at 21:39; Status DC Magnesium Oxide 800 mg 800 mg UNSCH PRN PO For Magnesium 1.2 - 1.6 mg/dL; Start 08/21/16 at 08:00; Stop 08/23/16 at 21:39; Status DC Magnesium Sulfate/ Sodium Chloride (Magnesium Sulfate Inj/NS Inj) 100 ml @ 50 mls/hr UNSCH PRN IV For Magnesium 1.2 - 1.6 mg/dL Last administered on 11:18; Start 08/21/16 at 08:00; Stop 08/23/16 at 21:39; Status DC Potassium Phosphate 2000 mg 2,000 mg Q4H PRN PO For Phosphorus < 2.5 mg/dL; Start 08/21/16 at 08:00; Stop 08/23/16 at 21:39; Status DC Sodium Phosphate/ Sodium Chloride (Sodium Phosphate Inj/NS 250 ml Inj) 250 ml @ 42 mls/hr UNSCH PRN IV For Phosphorus < 2.5 mg/dL; Start 08/21/16 at 08:00; Stop 08/23/16 at 21:39; Status DC Potassium Phosphate 2000 mg 2,000 mg UNSCH PRN PO/TUBE SEE LABEL COMMENTS; Start 08/21/16 at 08:00; Stop 08/23/16 at 21:39; Status DC Potassium Phosphate/Sodium Chloride (Potassium Phosphate Inj/NS 250 ml Inj) 260 ml @ 42 mls/hr UNSCH PRN IV SEE LABEL COMMENTS; Start 08/21/16 at 08:00; Stop 08/23/16 at 21:39; Status DC Potassium Bicarb/ Potassium Chloride (K-Lyte Cl Eff) 25 meq ONCE ONCE PO ; Start 08/21/16 at 08:30; Stop 08/21/16 at 08:31; Status DC Propofol (Diprivan 200 Mg/20 ml Inj) 110 mg STK-MED ONCE IV PUSH ; Start at 12:35; Stop 08/21/16 at 12:36; Status DC Ketamine HCl (Ketalar Inj) 500 mg STK-MED ONCE .ROUTE ; Start 08/21/16 at 13:05 ; Stop 08/21/16 at 13:06; Status DC Miscellaneous Information ALL NURSING DEPARTME... UNSCH PRN .XX SEE LABEL COMMENTS; Start 08/21/16 at 12:54; Stop 08/22/16 at 12:53; Status DC Epinephrine HCl (EPINEPHrine (1:10,000) INJ) 1 mg STK-MED ONCE OTHER Last administered on 08/21/16 12:15; Start 08/21/16 at 12:15; Stop 08/21/16 at 14:34 ; Status DC Phenylephrine HCl (Neosynephrine/ NS 1000 Mcg/10ml Syr) 1,000 mcg STK-MED ONCE IV ; Start 08/21/16 at 12:00; Stop 08/22/16 at 09:16; Status DC Insulin Detemir (Levemir Inj) 5 units Q12HR SQ Last administered on 08/24/16 09:40; Start 08/22/16 at 10:00 Insulin Aspart (NovoLOG SUPPLEMENTAL SCALE) 1 ACHS SLIDING SCALE SQ Last administered on 08/23/16 10:15; Start 08/22/16 at 11:00 Hydromorphone HCl (Dilaudid Pf Inj) 1 mg Q4H PRN IV BREAKTHROUGH PAIN Last administered on 08/24/16 09:30; Start 08/23/16 at 12:45 Oxycodone/ Acetaminophen (Percocet 7.5-325 Mg) 1 tab Q4H PRN PO PAIN SCALE 3 TO 5; Start 08/23/16 at 10:30 Oxycodone/ Acetaminophen (Percocet 10-325 Mg) 1 tab Q6H PRN PO PAIN SCALE 6 TO 10 Last administered on 08/24/16 11:36; Start 08/23/16 at 10:30 Metoclopramide HCl (Reglan Inj) 10 mg Q8H PRN IM NAUSEA OR VOMITING; Start at 11:00; Stop 08/23/16 at 11:43; Status DC Potassium Chloride (KCl) 40 meq ONCE ONCE PO Last administered on 08/23/16 12 :23; Start 08/23/16 at 11:00; Stop 08/23/16 at 11:35; Status DC Metoclopramide HCl (Reglan Inj) 10 mg Q8HR IV PUSH Last administered on 05:38; Start 08/23/16 at 14:00 Polyethylene Glycol (Miralax) 17 gm DAILY PO Last administered on 08/24/16 09: 27; Start 08/23/16 at 11:45 Potassium Chloride (KCl) 30 meq ONCE ONCE PO ; Start 08/24/16 at 12:15; Stop at 13:04; Status DC A/P Problem List: (1) Acute pancreatitis ICD Code: K85.9 Status: Acute (2) MSSA (methicillin susceptible Staphylococcus aureus) septicemia ICD Code: A41.01 Status: Acute (3) Severe sepsis ICD Code: A41.9 Status: Acute (4) DKA (diabetic ketoacidoses) ICD Code: E13.10 Status: Acute (5) Lactic acidosis ICD Code: E87.2 Status: Acute (6) Alcohol withdrawal delirium ICD Code: F10.231 Status: Acute (7) Hypercalcemia ICD Code: E83.52 Status: Acute (8) Leukocytosis ICD Code: D72.829 Status: Acute (9) Tachycardia ICD Code: R00.0 Status: Acute (10) High anion gap metabolic acidosis ICD Code: E87.2 Status: Acute (11) Acute renal insufficiency ICD Code: N28.9 Status: Acute (12) Fever ICD Code: R50.9 Status: Acute (13) SIRS (systemic inflammatory response syndrome) ICD Code: R65.10 Status: Acute (14) Esophagitis ICD Code: K20.9 Status: Acute (15) Hypertension ICD Code: I10 Status: Chronic (16) Alcohol abuse ICD Code: F10.10 Status: Chronic (17) Hypertriglyceridemia ICD Code: E78.1 Status: Chronic Assessment and Plan Alcohol withdrawal Acute pain management of pancreatitis Acute toxic metabolic encephalopathy secondary to pancreatitis Alcohol dependence Vitamin bag daily 3 days for EtOH use status post accident. off Precedex. percocet prn and Dilaudid 0.5-1 mg IV every 2 hours breakthrough pain On CIWA protocol. No signs of withdrawal at the bedside. Lactic acidosis -resolved Hypotension-resolved History of Hypertension History of hypertriglyceridemia Holding losartan 25 mg by mouth daily light of pancreatitis Triglycerides 256 Continue normal saline Initial troponin 0.02. MAURA 2015 revealed EF 60-65%, no vegetation. No regional wall motion abnormality. No signs of endocarditis. 2D echo 08/21 shows no evidence of endocarditis Ongoing tobaccoism Nasal cannula to maintain saturations greater than equal to 92% Incentive spirometry while awake Tobacco cessation Nicotine patch if indicated Acute pancreatitis Hepatic steatosis Marked circumferential thickening of the esophagus EGD 08/21 showed severe esophagitis and duodenitis. Continue IV Protonix. Biopsy pending CT abdomen/pelvis revealed marked circumferential thickening of the esophagus over several centimeters, hepatic steatosis with mild central gallbladder, upper abdominal lymphadenopathy with multiple prominent lymph nodes greatest in the retroperitoneum, inflammatory changes seen stranding surrounding the pancreas consistent with pancreatitis with mild dilatation of pancreatic duct approximately 4 mm. Gastric distention. GI following Clear liquid diet advanced per GI Protonix 40 iv BID Nakia-Colace bowel regimen Lipase trending down On Reglan and Zosyn. DKA DKA has resolved. On ICU insulin protocol non-DKA algorithm 1, now turned off on Levemir 5 q12 and SSI. increased levemir accordingly especially once diet advanced. still on clears. Acute kidney injury-resolved Likely prerenal. Continue aggressive hydration. I's and O's Monitor urine output Leukocytosis Follow CBC daily. Monitor trends Severe sepsis Staph aureus in 4 out of 4 bottles Hx of previous staph aureus bacteremia ID following. Currently on Ancef Blood Cultures 08/19 staph aureus 4/4 bottles. 2-D echo negative for endocarditis. Previous MAURA for staph aureus bacteremia was negative Hypercalcemia-resolved Hypo-natremia Hypokalemia Replace electrolytes per protocol F/u PTH, PTHp, vitamin D 1/25 and 25 Prophylaxis - GI - Protonix IV BID - DVT - SCD/heparin subcutaneous Problem Qualifiers (1) Acute pancreatitis: Qualified Code: K85.20 - Alcohol-induced acute pancreatitis, unspecified complication status (2) DKA (diabetic ketoacidoses): Qualified Code: E13.10 - Diabetic ketoacidosis without coma associated with type 2 diabetes mellitus (3) Leukocytosis: Qualified Code: D72.829 - Leukocytosis, unspecified type (4) Fever: Qualified Code: R50.9 - Fever, unspecified fever cause (5) Hypertension: Qualified Code: I10 - Essential hypertension Rosemary Thorne MD Aug 24, 2016 13:54
[2016-08-24 16:00] VITALS: BP 129/91; PULSE 96; RESP 18; TEMP 98; O2SAT 98
--- NOTE | 2016-08-24 17:11 | HHI.GIFU ---
Subjective Remarks Pt OOB to chair. Still has abd pain but says there is improvement, no nausea at this time. He is not eating or drinking b/c he is afraid. + flatus, no BM ( Lisha Rodriguez) Objective Vitals I&O Vital Signs Date Time Temp Pulse Resp B/P Pulse Ox O2 Delivery O2 Flow Rate FiO2 08/24/16 16:00 98.0 96 18 129/91 98 08/24/16 12:00 97.9 106 18 119/82 99 08/24/16 08:00 Room Air 08/24/16 08:00 98.1 92 18 109/77 99 08/24/16 08:00 82 08/24/16 04:00 Room Air 08/24/16 04:00 97.5 90 20 136/90 100 08/24/16 00:00 97.7 87 19 109/72 95 08/24/16 00:00 Room Air 08/23/16 21:01 93 08/23/16 21:00 97.8 96 19 130/88 98 08/23/16 20:10 98.2 91 16 125/86 96 08/23/16 20:00 91 I/O 08/23/16 08/23/16 08/23/16 08/24/16 08/24/16 08/24/16 06:59 14:59 22:59 06:59 14:59 22:59 Intake Total 400 ml 1548 ml 240 ml 580 ml 960 ml Output Total 750 ml 1150 ml 650 ml 1400 ml 600 ml Balance -350 ml 398 ml -410 ml -820 ml 360 ml Intake Oral 400 ml 960 ml 240 ml 480 ml 960 ml IV Total 588 ml 100 ml Output Urine Total 750 ml 1150 ml 650 ml 1400 ml 600 ml # Bowel Movements 0 0 Laboratory Date/Time Procedure Status Source Growth 08/21/16 06:34 Aerobic Blood Culture - Final Resulted Blood Peripheral Staphylococcus Aureus 08/21/16 06:34 Anaerobic Blood Culture - Preliminary Resulted Blood Peripheral NO GROWTH IN 3 DAYS 08/21/16 06:28 Aerobic Blood Culture - Preliminary Resulted Blood Peripheral NO GROWTH IN 3 DAYS 08/21/16 06:28 Anaerobic Blood Culture - Preliminary Resulted Blood Peripheral NO GROWTH IN 3 DAYS Imaging Last Impressions Abdomen X-Ray 08/23/16 0000 Signed Impressions: Service Date/Time: Tuesday, August 23, 2016 11:57 - CONCLUSION: Mild air-filled small bowel loops but no definite obstruction. Tom Wakefield MD Chest X-Ray 08/22/16 0600 Signed Impressions: Service Date/Time: Monday, August 22, 2016 04:58 - CONCLUSION: Mild left lower lung infiltrate. Arslan Cortez MD Chest CT 08/20/16 0000 Signed Impressions: Service Date/Time: Saturday, August 20, 2016 11:54 - CONCLUSION: Small bilateral pleural effusions with left lower lobe airspace disease. No evidence of suspicious mass or lymphadenopathy. Hepatic steatosis and inflammatory pancreatic disease again identified. Matt Aguilera MD Abdomen/Pelvis CT 08/19/16 0358 Signed Impressions: Service Date/Time: Friday, August 19, 2016 05:47 - CONCLUSION: 1. Marked circumferential thickening of the esophagus is noted over several centimeters. Esophagitis can have this appearance. 2. Hepatic steatosis and mild distention of the gallbladder again noted. 3. Upper abdominal lymphadenopathy with multiple prominent lymph nodes seen greatest in the retroperitoneum. 4. Abnormal inflammatory changes seen surrounding the pancreas consistent with pancreatitis with mild dilatation of the pancreatic duct. 5. Gastric distention. Mike Aaron MD Physical Exam HEENT:Normocephalic; atraumatic; no jaundice. CHEST: CTA CARDIAC: RRR ABDOMEN: Soft,mildly distended, mild diffuse tenderness; no hepatosplenomegaly ; bowel sounds hypoactive EXTREMITIES: No clubbing, cyanosis, or edema. SKIN: Normal; no rash; no jaundice. 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 Abdomen/Pelvis CT (08/19/16)-----> 1. Marked circumferential thickening of the esophagus is noted over several centimeters. Esophagitis can have this appearance. 2. Hepatic steatosis and mild distention of the gallbladder again noted. 3. Upper abdominal lymphadenopathy with multiple prominent lymph nodes seen greatest in the retroperitoneum. 4. Abnormal inflammatory changes seen surrounding the pancreas consistent with pancreatitis with mild dilatation of the pancreatic duct. 5. Gastric distention. Triglycerides 256. - GIB, Hematemesis. S/P EGD (08/21/16)----> 1. Duodenitis second portion-biopsy , gastritis antrum-biopsy, severe esophagitis distal esophagus-biopsy, some bleeding from biopsy site-2 clips applied, epinephrine 1:10,000 -5 cc 2. Retroflexed views revealed a hiatal hernia. Pt with nausea, dry heaving but no active bleeding. - Severe esophagitis, gastritis, duodenitis. S/P EGD as above. - Elevated LFTs. T. Bili 0.4, AST 53, ALT 30, ALk Phosph 139 - Abdominal distention/constipation. No BM since Sunday, more distended today. Will get KUB, start trial of reglan, add miralax. - Anemia. Mild 11.4/34.7. No active bleeding. - Acute metabolic encephalopathy, improved. A/Ox 3 - SUNNI with electrolyte abnormalities. Improved. Hypokalemia 3.2. Na 147. - Sepsis/Leukocytosis/Bacteremia. Bcx 08/19, Staphylococcus aureus WBC 5.5. - HTN, Hx of hypertriglyceridemia, - ETOH abuse, withdrawal per attending. PLAN - Clear liquids - continue reglan - continue miralax - KUB in am - Cont. PPI - DT precautions - Supportive care - This pt was seen by myself and Dr Ricardo and this note is written on her behalf (Lisha Rodriguez) Lisha Rodriguez Aug 24, 2016 17:11 Yamel Ricardo MD Aug 25, 2016 06:49
--- NOTE | 2016-08-24 17:46 | HHI.IDPN ---
Subjective Subjective Remarks feels tired afebrile Endorsed intermittent fevers, chills co back and abd pain cont to have MSSA bacteremia Antibiotics cefazoline Allergies: Coded Allergies: No Known Allergies (Verified , 08/19/16) Objective . Vital Signs Date Time Temp Pulse Resp B/P Pulse Ox O2 Delivery O2 Flow Rate FiO2 08/24/16 16:00 98.0 96 18 129/91 98 08/24/16 12:00 97.9 106 18 119/82 99 08/24/16 08:00 Room Air 08/24/16 08:00 98.1 92 18 109/77 99 08/24/16 08:00 82 08/24/16 04:00 Room Air 08/24/16 04:00 97.5 90 20 136/90 100 08/24/16 00:00 97.7 87 19 109/72 95 08/24/16 00:00 Room Air 08/23/16 21:01 93 08/23/16 21:00 97.8 96 19 130/88 98 08/23/16 20:10 98.2 91 16 125/86 96 08/23/16 20:00 91 08/23/16 08/23/16 08/24/16 14:59 22:59 06:59 Intake Total 1548 ml 240 ml 580 ml Output Total 1150 ml 650 ml 1400 ml Balance 398 ml -410 ml -820 ml Intake Oral 960 ml 240 ml 480 ml IV Total 588 ml 100 ml Output Urine Total 1150 ml 650 ml 1400 ml # Bowel Movements 0 . Laboratory Tests Test 08/23/16 03:56 Potassium Level 3.2 MEQ/L Imaging Last Impressions Abdomen X-Ray 08/23/16 0000 Signed Impressions: Service Date/Time: Tuesday, August 23, 2016 11:57 - CONCLUSION: Mild air-filled small bowel loops but no definite obstruction. Tom Wakefield MD Chest X-Ray 08/22/16 0600 Signed Impressions: Service Date/Time: Monday, August 22, 2016 04:58 - CONCLUSION: Mild left lower lung infiltrate. Arslan Cortez MD Chest CT 08/20/16 0000 Signed Impressions: Service Date/Time: Saturday, August 20, 2016 11:54 - CONCLUSION: Small bilateral pleural effusions with left lower lobe airspace disease. No evidence of suspicious mass or lymphadenopathy. Hepatic steatosis and inflammatory pancreatic disease again identified. Matt Aguilera MD Abdomen/Pelvis CT 08/19/16 0358 Signed Impressions: Service Date/Time: Friday, August 19, 2016 05:47 - CONCLUSION: 1. Marked circumferential thickening of the esophagus is noted over several centimeters. Esophagitis can have this appearance. 2. Hepatic steatosis and mild distention of the gallbladder again noted. 3. Upper abdominal lymphadenopathy with multiple prominent lymph nodes seen greatest in the retroperitoneum. 4. Abnormal inflammatory changes seen surrounding the pancreas consistent with pancreatitis with mild dilatation of the pancreatic duct. 5. Gastric distention. Mike Aaron MD Physical Exam CONSTITUTIONAL/GENERAL: This is a thin middle aged male patient, in no apparent distress. TUBES/LINES/DRAINS: SKIN: No jaundice, rashes, or lesions. Skin temperature appropriate. Not diaphoretic. No embolic phenomena EYES: Pupils equal and round and reactive. Extraocular motions intact. No scleral icterus. No injection or drainage. Fundi not examined. no conjunctival petechia or hemorrahges ENT: Hearing grossly normal. Nose without bleeding or purulent drainage. Oral mucosae dry without visible erythema, exudates, masses, or lesions. NECK: Trachea midline. Supple, nontender. CARDIOVASCULAR: Regular rate and rhythm without murmurs, gallops, or rubs. No JVD. Peripheral pulses symmetric. Well perfused perifery with brisk refill RESPIRATORY/CHEST: Symmetric, unlabored respirations. Clear to auscultation. Breath sounds equal bilaterally. No wheezes, rales, or rhonchi. GASTROINTESTINAL: Abdomen soft, diffusely mildly tender, minimally distended. . No guarding. Bowel sounds present. MUSCULOSKELETAL: Extremities without clubbing, cyanosis, or edema. No joint tenderness or effusion noted. No calf tenderness. No mottling or clubbing. NEUROLOGICAL: Awake, alert . Motor and sensory grossly within normal limits. Follows commands. Clear speech. Moves all extremities. PSYCHIATRIC: No obvious anxiety/depression. no apparent hallucinations or other psychotic thought process. Assessment & Plan Remarks DKA newly diagnosed DM Pancreatitis ETOH induced MSSA high grade bacteremia, recurrent - bacteremia is persistent - previosly > 1 yra ago, neg MAURA - MSSA is not a typical org aw pancreatitis - NO clear source - no h/o IVDU - neg 2 D echo REC's: cont cefazolin repeat BC consult cards for MAURA dw pt, dw Camryn Greene MD Aug 24, 2016 17:46
[2016-08-24 20:00] VITALS: BP 117/90; PULSE 98; RESP 20; TEMP 98.1; O2SAT 98
[2016-08-25] VITALS: BP 130/92; PULSE 98; RESP 20; TEMP 97.6; O2SAT 98
[2016-08-25 04:00] VITALS: BP 108/78; PULSE 107; RESP 20; TEMP 97.9; O2SAT 97
[2016-08-25] MEDS: CHLORHEXIDINE GLUCONATE 2 % 1 PACK (2 CLOTHS) TOP SCH (04:00)
[2016-08-25] MEDS: METOCLOPRAMIDE HCL 10 MG/2 ML VIAL IV PUSH SCH ×3 (05:30→21:23)
[2016-08-25] MEDS: oxyCODONE/ACETAMINOPHEN 10 MG/325 MG TAB PO PRN ×2 (05:30→13:19)
[2016-08-25] MEDS: INSULIN ASPART SUPPLEMENTAL SCALE SQ SCH ×4 (05:33→21:44)
[2016-08-25] MEDS: ceFAZolin 2 GM PREMIX 50 ML IV SCH ×2 (05:36→15:02)
--- NOTE | 2016-08-25 06:52 | MB ---
cc: CRUZITO LANDIN DO DATE OF CONSULTATION 08/24/2016 REASON FOR CONSULTATION Consideration of MAURA. HISTORY OF PRESENT ILLNESS Kunal Quispe is a pleasant 51-year-old male who presented to [facility] on August 19, 2016 with a 10-day history of increasing abdominal pain, nausea with anorexia. The patient states that he had multiple episodes of emesis without air which appeared bile-like in nature. CT the abdomen and pelvis was done and showed circumferential thickening of the esophagus over several centimeters. Since that time, blood cultures were checked as he presented septic and he was found to have multiple blood cultures from different days showing staph aureus. I was consulted to consider MAURA to rule out endocarditis. In seeing the patient, he is currently stable without chest pain or shortness of breath. Of note, the patient underwent an EGD on August 21, 2016 and during this, the patient was found to have severe esophagitis which ended up bleeding from biopsy leading to two clips being applied and epinephrine given. PAST MEDICAL HISTORY 1. Alcohol abuse 2. Tobacco abuse 3. Recurrent pancreatitis 4. Hypertension 5. Dyslipidemia with hypertriglyceridemia 6. Gastroesophageal reflux disease PAST SURGICAL HISTORY 1. Right shoulder rotator cuff repair 2. Right total knee arthroplasty ALLERGIES NO KNOWN DRUG ALLERGIES. MEDICATIONS Losartan 25 mg daily FAMILY HISTORY Father had a history of an aortic aneurysm. Denies premature coronary artery disease or sudden cardiac within the family. SOCIAL HISTORY The patient admits to alcohol abuse, drinking eight hard liquor drinks daily. He smokes one one-pack of cigarettes a day for 30 years. Denies IV drug abuse. REVIEW OF SYSTEMS 14-systems were reviewed including osteopathic pertinent positives and negatives as above, otherwise negative. PHYSICAL EXAMINATION VITAL SIGNS: Temperature 98.1, heart rate 92, blood pressure 109/77, respirations 18, pulse ox 99% on room air. GENERAL: The patient appears well in no acute distress, alert awake and oriented x3. HEAD, EYES, EARS, NOSE, AND THROAT: Extraocular muscles intact. Mucous membranes moist. NECK: Supple. No JVD at 45 degrees. No carotid bruits heard bilaterally. Carotid upstroke is brisk in nature. HEART: Regular rate and rhythm. Positive first and second heart sounds with no noted murmurs, gallops or rubs. LUNGS: Clear to auscultation bilaterally. No wheezes, rales or rhonchi. ABDOMEN: Soft, nontender, nondistended. No organomegaly noted. EXTREMITIES: Show no clubbing, cyanosis or edema. Femoral and distal pulses intact bilaterally. NEUROLOGIC: No focal deficits. SKIN: Warm, dry and intact. OSTEOPATHIC: No kyphoscoliosis, lordosis or paraspinal tender points. LABORATORY FINDINGS Hemoglobin 11.4, hematocrit 34.7, platelets 105. Potassium 3.1, BUN 8, creatinine 0.59. Lipase on arrival 6111. Echocardiogram (August 21, 2016) ejection fraction 50-55%, no regional wall motion abnormalities noted, trace mitral regurgitation, aortic valve sclerosis without stenosis, mild tricuspid regurgitation. IMPRESSIONS 1. Acute pancreatitis secondary to alcohol abuse 2. MSSA bacteremia 3. Severe sepsis on arrival 4. Lactic acidosis 5. Severe esophagitis by EGD. 6. History of hypertension. 7. History of hyperlipidemia with hypertriglyceridemia. RECOMMENDATIONS 1. Mr. Quispe presented with acute pancreatitis most likely due to alcohol abuse. 2. He has had multiple blood cultures positive for staph aureus from an unknown cause. He had a similar episode in April 2015 for which he underwent a MAURA and was not found to have endocarditis. 3. At this time, he has severe esophagitis per EGD. This is a contraindication to MAURA as this increases the risk of bleeding or possible rupture of the esophagus. 4. I spoke with the gastrointestinal team about consideration of MAURA and it was agreed that his esophagitis is severe enough that this would be a contraindication at this time. 5. I attempted to reach out to infectious disease and will discuss with them further tomorrow, but from my standpoint, he is not a candidate for a MAURA at this time. 6. I spoke to him for greater than three minutes about his tobacco abuse and cessation. 7. Further recommendations will be made based on the hospital course. Thank you for allowing me to see Kunal Quispe. If there are any questions, please do not hesitate to call. Cruzito Landin DO VGP/DJL /7:58 PM /6:43 AM
[2016-08-25 08:00] VITALS: BP 115/85; PULSE 116; RESP 20; TEMP 97.9; O2SAT 99
--- NOTE | 2016-08-25 08:05 | RADRPT ---
EXAM DATE/TIME: 08/25/2016 07:42 [place] COMPARISON: ABDOMEN KUB ONLY, August 23, 2016, 11:57. INDICATIONS : Abdominal pain radiating from lower abdomen. MEDICAL HISTORY : Hypercholesterolemia. Pancreatitis. Gastroesophageal reflux disease. Renal failure. SURGICAL HISTORY : Total knee replacement, right. Rotator cuff, right. Dialysis. ENCOUNTER: Subsequent ACUITY: 4 - 6 days PAIN SCORE: 8/10 LOCATION: abdomen. FINDINGS: Supine view of the abdomen was performed. Air-filled small bowel and large bowel loops. No definite o bstruction. Small metallic density is seen within the right abdomen likely in cecum. No abnormal mas ses, calcifications, or organomegaly is seen. The osseous structures are unremarkable. CONCLUSION: 1. Nonobstructive bowel gas pattern. 2. Small metallic density overlying the right abdomen in the region of the cecum. Tom Wakefield MD on August 25, 2016 at 8:02 Board Certified Radiologist. This report was verified electronically.
[2016-08-25] MEDS: HEPARIN SODIUM - SQ 10,000 UNITS/ML VIAL SQ SCH ×2 (08:21→21:22)
[2016-08-25] MEDS: PANTOPRAZOLE SODIUM 40 MG VIAL IV SCH (08:21)
[2016-08-25] MEDS: DOCUSATE SODIUM 50 MG/SENNA 8.6 MG TAB PO SCH ×2 (08:21→21:19)
[2016-08-25] MEDS: HYDROmorphone HCL PF 1 MG/ML VIAL IV PRN ×3 (08:22→21:23)
[2016-08-25] MEDS: INSULIN DETEMIR 100 UNITS/ML VIAL SQ SCH ×2 (08:23→21:43)
[2016-08-25] MEDS: POLYETHYLENE GLYCOL 17 GM PKG PO SCH (08:23)
[2016-08-25] MEDS: SODIUM CHLORIDE 0.9% FLUSH 10 ML FLUSH IV FLUSH SCH ×2 (08:24→21:22)
[2016-08-25] MEDS: ARTIFICIAL TEARS OPTH SOLN 15 ML BTL EACH EYE SCH ×3 (08:25→16:58)
--- NOTE | 2016-08-25 11:39 | HHI.PR ---
Subjective Remarks Follow-up for dental pain and bacteremia M Patient stated abdominal pain is improving. Denies any nausea vomiting. He had a lot of questions in regards to his current diagnosis and treatment. Otherwise no other complaints. Objective Vitals Vital Signs Date Time Temp Pulse Resp B/P Pulse Ox O2 Delivery O2 Flow Rate FiO2 08/25/16 08:52 18 08/25/16 08:00 97.9 116 20 115/85 99 08/25/16 04:00 Room Air 08/25/16 04:00 97.9 107 20 108/78 97 08/25/16 00:00 97.6 98 20 130/92 98 08/25/16 00:00 Room Air 08/24/16 20:00 98 08/24/16 20:00 Room Air 08/24/16 20:00 98.1 98 20 117/90 98 08/24/16 16:00 98.0 96 18 129/91 98 08/24/16 12:00 97.9 106 18 119/82 99 I/O 08/24/16 08/24/16 08/24/16 08/25/16 08/25/16 08/25/16 06:59 14:59 22:59 06:59 14:59 22:59 Intake Total 580 ml 960 ml 240 ml 240 ml Output Total 1400 ml 600 ml 300 ml Balance -820 ml 360 ml -60 ml 240 ml Intake Oral 480 ml 960 ml 240 ml 240 ml IV Total 100 ml Output Urine Total 1400 ml 600 ml 300 ml # Voids 2 3 # Bowel Movements 0 3 3 Result Diagram: 08/22/16 0503 08/23/16 0356 Imaging Last Impressions Abdomen X-Ray 08/25/16 06 Signed Impressions: Service Date/Time: Thursday, August 25, 2016 07:42 - CONCLUSION: 1. Nonobstructive bowel gas pattern. 2. Small metallic density overlying the right abdomen in the region of the cecum. Tom Wakefield MD Chest X-Ray 08/22/16 0600 Signed Impressions: Service Date/Time: Monday, August 22, 2016 04:58 - CONCLUSION: Mild left lower lung infiltrate. Arslan Cortez MD Chest CT 08/20/16 0000 Signed Impressions: Service Date/Time: Saturday, August 20, 2016 11:54 - CONCLUSION: Small bilateral pleural effusions with left lower lobe airspace disease. No evidence of suspicious mass or lymphadenopathy. Hepatic steatosis and inflammatory pancreatic disease again identified. Matt Aguilera MD Abdomen/Pelvis CT 08/19/16 0358 Signed Impressions: Service Date/Time: Sunday, August 19, 2016 05:47 - CONCLUSION: 1. Marked circumferential thickening of the esophagus is noted over several centimeters. Esophagitis can have this appearance. 2. Hepatic steatosis and mild distention of the gallbladder again noted. 3. Upper abdominal lymphadenopathy with multiple prominent lymph nodes seen greatest in the retroperitoneum. 4. Abnormal inflammatory changes seen surrounding the pancreas consistent with pancreatitis with mild dilatation of the pancreatic duct. 5. Gastric distention. Mike Aaron MD Objective Remarks GENERAL: In no acute distress sitting in the bed very comfortably. SKIN: Warm and dry. HEAD: Normocephalic. EYES: No scleral icterus. No injection or drainage. NECK: Supple, trachea midline. No JVD or lymphadenopathy. CARDIOVASCULAR: Regular rate and rhythm without murmurs, gallops, or rubs. RESPIRATORY: Breath sounds equal bilaterally. No accessory muscle use. GASTROINTESTINAL: Abdomen soft, mild tenderness to palpation in the mid abdomen , nondistended. Medications and IVs Current Medications Sodium Chloride 1,000 ml @ 1,000 mls/hr Q1H ONCE IV Last administered on 04:35; Start 08/19/16 at 03:57; Stop 08/19/16 at 04:56; Status DC Sodium Chloride 1,000 ml @ 1,000 mls/hr Q1H ONCE IV Last administered on 04:35; Start 08/19/16 at 03:57; Stop 08/19/16 at 04:56; Status DC Sodium Chloride (NS 1000 ml Inj) 400 ml @ 1,000 mls/hr Q24M ONCE IV Last administered on 08/19/16 04:35; Start 08/19/16 at 03:57; Stop 08/19/16 at 04:20 ; Status DC Ondansetron HCl 4 mg 4 mg ONCE ONCE IV PUSH Last administered on 08/19/16 04: 52; Start 08/19/16 at 04:45; Stop 08/19/16 at 04:46; Status DC Vancomycin HCl 1000 mg/Sodium Chloride 250 ml @ 250 mls/hr ONCE STAT IV Last administered on 08/19/16 07:28; Start 08/19/16 at 04:47; Stop 08/19/16 at 05:46 ; Status DC Piperacillin Sod/ Tazobactam Sod 100 ml @ 200 mls/hr ONCE STAT IV Last administered on 08/19/16 04:52; Start 08/19/16 at 04:47; Stop 08/19/16 at 05:16 ; Status DC Sodium Chloride 1,000 ml @ 250 mls/hr Q4H IV ; Start 08/19/16 at 05:19; Stop at 05:59; Status DC Dextrose/Sodium Chloride (D5W-NS 1000 ml Inj) 1,000 ml @ 200 mls/hr Q5H IV ; Start 08/19/16 at 05:19; Stop 08/19/16 at 05:59; Status DC Insulin Human Regular 6 units 6 units BOLUS ONCE IV PUSH Last administered on 08/19/16 06:08; Start 08/19/16 at 05:30; Stop 08/19/16 at 05:31; Status DC Insulin Human Regular 100 units/ Sodium Chloride 100 ml @ 0 mls/hr TITRATE IV ; Start 08/19/16 at 05:30; Stop 08/19/16 at 05:59; Status DC Potassium Chloride 100 ml @ 100 mls/hr Q1H PRN IV SEE LABEL COMMENTS; Start at 05:30; Stop 08/19/16 at 05:59; Status DC Potassium Chloride 100 ml @ 50 mls/hr Q2H PRN IV SEE LABEL COMMENTS; Start at 05:30; Stop 08/19/16 at 05:59; Status DC Potassium Chloride 100 ml @ 100 mls/hr Q1H PRN IV SEE LABEL COMMENTS; Start at 05:30; Stop 08/19/16 at 05:59; Status DC Potassium Chloride 100 ml @ 100 mls/hr Q1H PRN IV SEE LABEL COMMENTS; Start at 05:30; Stop 08/19/16 at 05:59; Status DC Potassium Chloride 100 ml @ 50 mls/hr Q2H PRN IV SEE LABEL COMMENTS; Start at 05:30; Stop 08/19/16 at 05:59; Status DC Potassium Chloride 100 ml @ 50 mls/hr Q2H PRN IV SEE LABEL COMMENTS; Start at 05:30; Stop 08/19/16 at 05:59; Status DC Potassium Chloride 100 ml @ 50 mls/hr Q2H PRN IV SEE LABEL COMMENTS; Start at 05:30; Stop 08/19/16 at 05:59; Status DC Potassium Chloride (KCl 20 Meq Premix Inj) 100 ml @ 50 mls/hr Q2H PRN IV SEE LABEL COMMENTS; Start 08/19/16 at 05:30; Stop 08/19/16 at 05:59; Status DC Sodium Bicarbonate (Sodium Bicarbonate 8.4% Inj) 100 meq UNSCH PRN IV SEE LABEL COMMENTS; Start 08/19/16 at 05:30; Stop 08/19/16 at 05:59; Status DC Sodium Bicarbonate 50 meq 50 meq UNSCH PRN IV SEE LABEL COMMENTS; Start at 05:30; Stop 08/19/16 at 05:59; Status DC Sodium Phosphate 15 mmol/Sodium Chloride 105 ml @ 25 mls/hr UNSCH PRN IV SEE LABEL COMMENTS; Start 08/19/16 at 05:30; Stop 08/19/16 at 05:59; Status DC Sodium Chloride 1,000 ml @ 250 mls/hr Q4H IV Last administered on 08/19/16 08 :54; Start 08/19/16 at 05:55; Stop 08/20/16 at 05:55; Status DC Dextrose/Sodium Chloride 1,000 ml @ 200 mls/hr Q5H IV Last administered on 03:37; Start 08/19/16 at 05:55; Stop 08/20/16 at 05:55; Status DC Insulin Human Regular 100 units/ Sodium Chloride 100 ml @ 0 mls/hr TITRATE IV Last administered on 08/20/16 00:27; Start 08/19/16 at 06:00; Stop 08/20/16 at 05:53; Status DC Potassium Chloride 100 ml @ 100 mls/hr Q1H PRN IV SEE LABEL COMMENTS; Start at 06:00; Stop 08/20/16 at 05:55; Status DC Potassium Chloride 100 ml @ 50 mls/hr Q2H PRN IV SEE LABEL COMMENTS; Start at 06:00; Stop 08/20/16 at 05:55; Status DC Potassium Chloride 100 ml @ 100 mls/hr Q1H PRN IV SEE LABEL COMMENTS; Start at 06:00; Stop 08/20/16 at 05:55; Status DC Potassium Chloride 100 ml @ 100 mls/hr Q1H PRN IV SEE LABEL COMMENTS; Start at 06:00; Stop 08/20/16 at 05:55; Status DC Potassium Chloride 100 ml @ 50 mls/hr Q2H PRN IV SEE LABEL COMMENTS; Start at 06:00; Stop 08/20/16 at 05:55; Status DC Potassium Chloride 100 ml @ 50 mls/hr Q2H PRN IV SEE LABEL COMMENTS; Start at 06:00; Stop 08/20/16 at 05:55; Status DC Potassium Chloride 100 ml @ 50 mls/hr Q2H PRN IV SEE LABEL COMMENTS Last administered on 08/20/16 03:37; Start 08/19/16 at 06:00; Stop 08/20/16 at 05:55 ; Status DC Potassium Chloride (KCl 20 Meq Premix Inj) 100 ml @ 50 mls/hr Q2H PRN IV SEE LABEL COMMENTS; Start 08/19/16 at 06:00; Stop 08/20/16 at 05:55; Status DC Sodium Bicarbonate (Sodium Bicarbonate 8.4% Inj) 100 meq UNSCH PRN IV SEE LABEL COMMENTS; Start 08/19/16 at 06:00; Stop 08/20/16 at 05:55; Status DC Sodium Bicarbonate 50 meq 50 meq UNSCH PRN IV SEE LABEL COMMENTS; Start at 06:00; Stop 08/20/16 at 05:55; Status DC Sodium Phosphate/ Sodium Chloride (Sodium Phosphate Inj/NS Inj) 105 ml @ 25 mls /hr UNSCH PRN IV SEE LABEL COMMENTS Last administered on 08/19/16t 19:15; Start 08/19/16 at 06:00; Stop 08/20/16 at 05:55; Status DC Miscellaneous Information 1 Q361D XX ; Start 08/19/16 at 06:00; Stop 08/20/16 at 05:59; Status DC Chlorhexidine Gluconate (Chlorhexidine 2% Cloth) 3 pack Taper DAILY@04 TOP Last administered on 08/20/16 03:37; Start 08/20/16 at 04:00; Stop 08/20/16 at 05:59; Status DC Chlorhexidine Gluconate (Chlorhexidine 2% Cloth) 3 pack UNSCH PRN TOP HYGIENIC CARE; Start 08/19/16 at 06:00; Stop 08/20/16 at 05:59; Status DC Metoclopramide HCl (Reglan Inj) 10 mg ONCE ONCE IV PUSH Last administered on 07:00; Start 08/19/16 at 06:00; Stop 08/19/16 at 06:05; Status DC Sodium Chloride (NS Flush) 2 ml UNSCH PRN IV FLUSH FLUSH AFTER USING IV ACCESS Last administered on 08/24/16 01:10; Start 08/19/16 at 06:45 Sodium Chloride (NS Flush) 2 ml BID IV FLUSH Last administered on 08/25/16 08: 24; Start 08/19/16 at 09:00 Hydromorphone HCl (Dilaudid Pf Inj) 1 mg Q2H PRN IV PAIN SCALE 6 TO 10 Last administered on 08/23/16 08:55; Start 08/19/16 at 06:45; Stop 08/23/16 at 10:29 ; Status DC Pantoprazole Sodium (Protonix Inj) 40 mg DAILY IV Last administered on 08:21; Start 08/19/16 at 09:00 Artificial Tears (Tears Naturale Opth Soln) 1 drop TID EACH EYE Last administered on 08/25/16 08:25; Start 08/19/16 at 09:00 Ondansetron HCl (Zofran Inj) 4 mg Q6H PRN IV NAUSEA OR VOMITING; Start at 06:45 Albuterol Sulfate (Albuterol Neb) 2.5 mg Q2HR NEB PRN INH SOB/WHEEZING; Start 08/19/16 at 06:45 Heparin Sodium (Porcine) (Heparin Inj) 5,000 units Q12H SQ Last administered on 08/25/16 08:21; Start 08/19/16 at 09:00 Miscellaneous Information 1 Q361D XX ; Start 08/19/16 at 06:45 Chlorhexidine Gluconate (Chlorhexidine 2% Cloth) Taper DAILY@04 TOP Last administered on 08/22/16 04:00; Start 08/20/16 at 04:00; Stop 08/16/17 at 03:59 Chlorhexidine Gluconate (Chlorhexidine 2% Cloth) 3 pack UNSCH PRN TOP HYGIENIC CARE; Start 08/19/16 at 06:45 Senna/Docusate Sodium (Nakia-Colace) 1 tab BID PO Last administered on 08:21; Start 08/19/16 at 09:00 Magnesium Hydroxide (Milk Of Magnesia Liq) 30 ml Q12H PRN PO MILD - MODERATE CONSTIPATION; Start 08/19/16 at 06:45 Sennosides (Senokot) 17.2 mg Q12H PRN PO MODERATE - SEVERE CONSTIPATION; Start 08/19/16 at 06:45 Bisacodyl (Dulcolax Supp) 10 mg DAILY PRN RECTAL SEVERE CONSITIPATION; Start at 06:45 Lactulose (Lactulose Liq) 30 ml DAILY PRN PO SEVERE CONSITIPATION Last administered on 08/24/16 23:20; Start 08/19/16 at 06:45 Hydromorphone HCl 0.5 mg 0.5 mg Q2H PRN IV PUSH PAIN SCALE 1 TO 5 Last administered on 08/23/16 06:05; Start 08/19/16 at 06:45; Stop 08/23/16 at 10:29 ; Status DC Multivitamins/ Thiamine HCl/ Folic Acid/Sodium Chloride (Mvi-12 Inj/ Thiamine Inj/ Folvite Inj/NS 500 ml Inj) 511.2 ml @ 125 mls/hr DAILY IV Last administered on 08/21/16 10:24; Start 08/19/16 at 09:00; Stop 08/22/16 at 08:59 ; Status DC Flumazenil (Romazicon Inj) 0.2 mg Q1M PRN IV PUSH SEE LABEL COMMENTS; Start at 07:00 Lorazepam (Ativan) 1 mg Q4H PRN PO CIWA 8 - 10 Last administered on 08/23/16 23:30; Start 08/19/16 at 07:00 Lorazepam (Ativan Inj) 1 mg Q4H PRN IV PUSH CIWA 8 - 10 Last administered on 7/ 19/17at 12:35; Start 08/19/16 at 07:00 Lorazepam (Ativan) 2 mg Q2H PRN PO CIWA 11-14; Start 08/19/16 at 07:00 Lorazepam (Ativan Inj) 2 mg Q2H PRN IV PUSH CIWA 11-14 Last administered on t 23:56; Start 08/19/16 at 07:00 Lorazepam (Ativan Inj) 2 mg Q1H PRN IV PUSH CIWA 15-20; Start 08/19/16 at 07:00 Lorazepam (Ativan Inj) 2 mg Q15M PRN IV PUSH CIWA > 20; Start 08/19/16 at 07:00 Miscellaneous Information 1 ONCE ONCE .XX ; Start 08/20/16 at 05:45; Stop 08/20 at 05:56; Status DC Miscellaneous Information 1 ONCE .XX ; Start 08/20/16 at 05:45; Stop 08/20/16 at 10:02; Status DC Insulin Detemir (Levemir Inj) 10 units DAILY SQ ; Start 08/20/16 at 09:00; Stop 08/20/16 at 10:00; Status DC Dextrose (D50w (Vial) Inj) 50 ml UNSCH PRN IV HYPOGLYCEMIA-SEE COMMENTS; Start 08/20/16 at 05:45; Stop 08/20/16 at 05:58; Status DC Glucagon (Glucagon Inj) 1 mg UNSCH PRN OTHER HYPOGLYCEMIA-SEE COMMENTS; Start 08/20/16 at 05:45; Stop 08/20/16 at 05:58; Status DC Dextrose (D50w (Vial) Inj) 50 ml UNSCH PRN IV HYPOGLYCEMIA-SEE COMMENTS; Start 08/20/16 at 05:45; Stop 08/20/16 at 05:58; Status DC Glucagon (Glucagon Inj) 1 mg UNSCH PRN OTHER HYPOGLYCEMIA-SEE COMMENTS; Start 08/20/16 at 05:45; Stop 08/20/16 at 05:58; Status DC Dextrose (D50w (Vial) Inj) 50 ml UNSCH PRN IV HYPOGLYCEMIA-SEE COMMENTS; Start 08/20/16 at 05:45; Stop 08/20/16 at 10:01; Status DC Glucagon (Glucagon Inj) 1 mg UNSCH PRN OTHER HYPOGLYCEMIA-SEE COMMENTS; Start 08/20/16 at 05:45 Insulin Aspart 1 1 ACHS SLIDING SCALE SQ ; Start 08/20/16 at 07:00; Stop at 09:06; Status DC Insulin Human Regular/Sodium Chloride (NovoLIN R (IV INFUSION)/NS Inj) 100 ml @ 0 mls/hr TITRATE IV ; Start 08/20/16 at 06:00; Stop 08/20/16 at 10:00; Status DC Potassium Chloride 40 meq 40 meq NOW ONCE PO Last administered on 08/20/16 06 :43; Start 08/20/16 at 06:30; Stop 08/20/16 at 06:31; Status DC Vancomycin HCl 1250 mg/Sodium Chloride 262.5 ml @ 262.5 mls/ hr ONCE ONCE IV ; Start 08/20/16 at 10:00; Stop 08/20/16 at 10:59; Status Cancel Pharmacy Profile Note 0 ml @ 0 mls/hr UNSCH OTHER ; Start 08/20/16 at 09:15; Stop 08/20/16 at 23:00; Status DC Cefepime HCl 2000 mg/Sodium Chloride 100 ml @ 200 mls/hr Q8H IV ; Start at 10:00; Stop 08/20/16 at 10:00; Status DC Piperacillin Sod/ Tazobactam Sod 100 ml @ 200 mls/hr Q6H IV Last administered on 08/20/16 22:16; Start 08/20/16 at 10:00; Stop 08/20/16 at 23:00; Status DC Insulin Human Regular/Sodium Chloride (NovoLIN R (IV INFUSION)/NS Inj) 100 ml @ 0 mls/hr TITRATE IV Last administered on 08/20/16 10:36; Start 08/20/16 at 09: 15; Stop 08/22/16 at 09:57; Status DC Dextrose (D50w (Vial) Inj) 50 ml UNSCH PRN IV PUSH SEE LABEL COMMENTS; Start at 09:15 Miscellaneous Information 1 1 ONCE ONCE OTHER ; Start 08/20/16 at 10:00; Stop 08/20/16 at 10:01; Status DC Dexmedetomidine HCl 1000 mcg/ Sodium Chloride 250 ml @ 0 mls/hr TITRATE IV Last administered on 08/20/16 10:37; Start 08/20/16 at 09:15; Stop 08/22/16 at 09:41; Status DC Vancomycin HCl/ Sodium Chloride (Vancomycin Inj/ NS 500 ml Inj) 515 ml @ 257.5 mls/ hr ONCE ONCE IV Last administered on 08/20/16 11:19; Start 08/20/16 at 10:00; Stop 08/20/16 at 11:59; Status DC Iohexol 65 ml 65 ml STK-MED ONCE IV Last administered on 08/20/16 12:09; Start 08/20/16 at 12:09; Stop 08/20/16 at 12:10; Status DC Vancomycin HCl/ Sodium Chloride (Vancomycin Inj/ NS 250 ml Inj) 250 ml @ 250 mls/hr Q12H IV ; Start 08/20/16 at 23:00; Stop 08/20/16 at 23:00; Status DC Miscellaneous Information SPECIFIC LAB TO BE OMAR... ONCE ONCE .XX ; Start 08/21 at 22:45; Stop 08/21/16 at 22:46; Status DC Cefazolin Sodium/ Dextrose 50 ml @ 150 mls/hr Q8H IV Last administered on 08/25 05:36; Start 08/20/16 at 23:00 Potassium Chloride 100 ml @ 50 mls/hr Q2H PRN IV For Potassium 2.8 - 3.2 mEq/L ; Start 08/21/16 at 08:00; Stop 08/23/16 at 21:39; Status DC Potassium Chloride (KCl 20 Meq Premix Inj) 100 ml @ 50 mls/hr Q2H PRN IV For Potassium 2.8 - 3.2 mEq/L Last administered on 08/23/16 10:11; Start 08/21/16 at 08:00; Stop 08/23/16 at 21:39; Status DC Potassium Bicarb/ Potassium Chloride 50 meq 50 meq UNSCH PRN PO For Potassium 3.3 - 3.5 mEq/L; Start 08/21/16 at 08:00; Stop 08/23/16 at 21:39; Status DC Potassium Chloride 100 ml @ 25 mls/hr UNSCH PRN IV For Potassium 3.3 - 3.5 mEq /L; Start 08/21/16 at 08:00; Stop 08/23/16 at 21:39; Status DC Potassium Chloride 100 ml @ 50 mls/hr Q2H PRN IV For Potassium 3.3 - 3.5 mEq/L ; Start 08/21/16 at 08:00; Stop 08/23/16 at 21:39; Status DC Magnesium Sulfate/ Sodium Chloride (Magnesium Sulfate Inj/NS Inj) 100 ml @ 50 mls/hr UNSCH PRN IV For Magnesium 0.9 - 1.1 mg/dL; Start 08/21/16 at 08:00; Stop 08/23/16 at 21:39; Status DC Magnesium Oxide 800 mg 800 mg UNSCH PRN PO For Magnesium 1.2 - 1.6 mg/dL; Start 08/21/16 at 08:00; Stop 08/23/16 at 21:39; Status DC Magnesium Sulfate/ Sodium Chloride (Magnesium Sulfate Inj/NS Inj) 100 ml @ 50 mls/hr UNSCH PRN IV For Magnesium 1.2 - 1.6 mg/dL Last administered on t 11:18; Start 08/21/16 at 08:00; Stop 08/23/16 at 21:39; Status DC Potassium Phosphate 2000 mg 2,000 mg Q4H PRN PO For Phosphorus < 2.5 mg/dL; Start 08/21/16 at 08:00; Stop 08/23/16 at 21:39; Status DC Sodium Phosphate/ Sodium Chloride (Sodium Phosphate Inj/NS 250 ml Inj) 250 ml @ 42 mls/hr UNSCH PRN IV For Phosphorus < 2.5 mg/dL; Start 08/21/16 at 08:00; Stop 08/23/16 at 21:39; Status DC Potassium Phosphate 2000 mg 2,000 mg UNSCH PRN PO/TUBE SEE LABEL COMMENTS; Start 08/21/16 at 08:00; Stop 08/23/16 at 21:39; Status DC Potassium Phosphate/Sodium Chloride (Potassium Phosphate Inj/NS 250 ml Inj) 260 ml @ 42 mls/hr UNSCH PRN IV SEE LABEL COMMENTS; Start 08/21/16 at 08:00; Stop 08/23/16 at 21:39; Status DC Potassium Bicarb/ Potassium Chloride (K-Lyte Cl Eff) 25 meq ONCE ONCE PO ; Start 08/21/16 at 08:30; Stop 08/21/16 at 08:31; Status DC Propofol (Diprivan 200 Mg/20 ml Inj) 110 mg STK-MED ONCE IV PUSH ; Start at 12:35; Stop 08/21/16 at 12:36; Status DC Ketamine HCl (Ketalar Inj) 500 mg STK-MED ONCE .ROUTE ; Start 08/21/16 at 13:05 ; Stop 08/21/16 at 13:06; Status DC Miscellaneous Information ALL NURSING DEPARTME... UNSCH PRN .XX SEE LABEL COMMENTS; Start 08/21/16 at 12:54; Stop 08/22/16 at 12:53; Status DC Epinephrine HCl (EPINEPHrine (1:10,000) INJ) 1 mg STK-MED ONCE OTHER Last administered on 08/21/16 12:15; Start 08/21/16 at 12:15; Stop 08/21/16 at 14:34 ; Status DC Phenylephrine HCl (Neosynephrine/ NS 1000 Mcg/10ml Syr) 1,000 mcg STK-MED ONCE IV ; Start 08/21/16 at 12:00; Stop 08/22/16 at 09:16; Status DC Insulin Detemir (Levemir Inj) 5 units Q12HR SQ Last administered on 08/25/16 08:23; Start 08/22/16 at 10:00 Insulin Aspart (NovoLOG SUPPLEMENTAL SCALE) 1 ACHS SLIDING SCALE SQ Last administered on 08/24/16 23:41; Start 08/22/16 at 11:00 Hydromorphone HCl (Dilaudid Pf Inj) 1 mg Q4H PRN IV BREAKTHROUGH PAIN Last administered on 08/25/16 08:22; Start 08/23/16 at 12:45 Oxycodone/ Acetaminophen (Percocet 7.5-325 Mg) 1 tab Q4H PRN PO PAIN SCALE 3 TO 5; Start 08/23/16 at 10:30 Oxycodone/ Acetaminophen (Percocet 10-325 Mg) 1 tab Q6H PRN PO PAIN SCALE 6 TO 10 Last administered on 08/25/16 05:30; Start 08/23/16 at 10:30 Metoclopramide HCl (Reglan Inj) 10 mg Q8H PRN IM NAUSEA OR VOMITING; Start at 11:00; Stop 08/23/16 at 11:43; Status DC Potassium Chloride (KCl) 40 meq ONCE ONCE PO Last administered on 08/23/16 12 :23; Start 08/23/16 at 11:00; Stop 08/23/16 at 11:35; Status DC Metoclopramide HCl (Reglan Inj) 10 mg Q8HR IV PUSH Last administered on 05:30; Start 08/23/16 at 14:00 Polyethylene Glycol (Miralax) 17 gm DAILY PO Last administered on 08/25/16 08: 23; Start 08/23/16 at 11:45 Potassium Chloride (KCl) 30 meq ONCE ONCE PO Last administered on 08/24/16 14 :46; Start 08/24/16 at 12:15; Stop 08/24/16 at 13:04; Status DC A/P Problem List: (1) Acute pancreatitis ICD Code: K85.9 Status: Acute (2) MSSA (methicillin susceptible Staphylococcus aureus) septicemia ICD Code: A41.01 Status: Acute (3) Severe sepsis ICD Code: A41.9 Status: Acute (4) DKA (diabetic ketoacidoses) ICD Code: E13.10 Status: Acute (5) Lactic acidosis ICD Code: E87.2 Status: Acute (6) Alcohol withdrawal delirium ICD Code: F10.231 Status: Acute (7) Hypercalcemia ICD Code: E83.52 Status: Acute (8) Leukocytosis ICD Code: D72.829 Status: Acute (9) Tachycardia ICD Code: R00.0 Status: Acute (10) High anion gap metabolic acidosis ICD Code: E87.2 Status: Acute (11) Acute renal insufficiency ICD Code: N28.9 Status: Acute (12) Fever ICD Code: R50.9 Status: Acute (13) SIRS (systemic inflammatory response syndrome) ICD Code: R65.10 Status: Acute (14) Esophagitis ICD Code: K20.9 Status: Acute (15) Hypertension ICD Code: I10 Status: Chronic (16) Alcohol abuse ICD Code: F10.10 Status: Chronic (17) Hypertriglyceridemia ICD Code: E78.1 Status: Chronic Assessment and Plan Alcohol withdrawal Acute pain management of pancreatitis Acute toxic metabolic encephalopathy secondary to pancreatitis Alcohol dependence Vitamin bag daily 3 days for EtOH use status post accident. off Precedex. percocet prn and Dilaudid 0.5-1 mg IV every 2 hours breakthrough pain On CIWA protocol. No signs of withdrawal at the bedside. Lactic acidosis -resolved Hypotension-resolved History of Hypertension History of hypertriglyceridemia Holding losartan 25 mg by mouth daily light of pancreatitis Triglycerides 256 Continue normal saline Initial troponin 0.02. MAURA 2015 revealed EF 60-65%, no vegetation. No regional wall motion abnormality. No signs of endocarditis. 2D echo 08/21 shows no evidence of endocarditis Ongoing tobaccoism Nasal cannula to maintain saturations greater than equal to 92% Incentive spirometry while awake Tobacco cessation Nicotine patch if indicated Acute pancreatitis Hepatic steatosis Marked circumferential thickening of the esophagus EGD 08/21 showed severe esophagitis and duodenitis. Continue IV Protonix. Biopsy pending CT abdomen/pelvis revealed marked circumferential thickening of the esophagus over several centimeters, hepatic steatosis with mild central gallbladder, upper abdominal lymphadenopathy with multiple prominent lymph nodes greatest in the retroperitoneum, inflammatory changes seen stranding surrounding the pancreas consistent with pancreatitis with mild dilatation of pancreatic duct approximately 4 mm. Gastric distention. GI following Clear liquid diet advanced per GI Protonix 40 iv BID Nakia-Colace bowel regimen Lipase trending down On Reglan and Zosyn. DKA DKA has resolved. On ICU insulin protocol non-DKA algorithm 1, now turned off on Levemir 5 q12 and SSI. increased Levemir accordingly especially once diet advanced. still on clears. Acute kidney injury-resolved Likely prerenal. Continue aggressive hydration. I's and O's Monitor urine output Leukocytosis Follow CBC daily. Monitor trends Severe sepsis bacteremia MSSA Staph aureus in 4 out of 4 bottles Hx of previous staph aureus bacteremia ID following. Currently on Ancef Blood Cultures 08/19 staph aureus 4/4 bottles. Repeated blood culture 08/21 positive 02/08. will repeat blood cultures. 2-D echo negative for endocarditis. Previous MAURA for staph aureus bacteremia was negative Bar Captain consulted for repeat MAURA. Patient is not a candidate due to severe esophagitis. Hypercalcemia-resolved Hypo-natremia Hypokalemia Replace electrolytes per protocol F/u PTH, PTHp, vitamin D 25 and 25 Prophylaxis - GI - Protonix IV BID - DVT - SCD/heparin subcutaneous Problem Qualifiers (1) Acute pancreatitis: Qualified Code: K85.20 - Alcohol-induced acute pancreatitis, unspecified complication status (2) DKA (diabetic ketoacidoses): Qualified Code: E13.10 - Diabetic ketoacidosis without coma associated with type 2 diabetes mellitus (3) Leukocytosis: Qualified Code: D72.829 - Leukocytosis, unspecified type (4) Fever: Qualified Code: R50.9 - Fever, unspecified fever cause (5) Hypertension: Qualified Code: I10 - Essential hypertension Rosemary Thorne MD Aug 25, 2016 11:38
[2016-08-25 12:04] VITALS: BP 131/93; PULSE 101; RESP 16; TEMP 98.5; O2SAT 97
[2016-08-25 12:44] LABS: HEMATOCRIT 32.9 % (39.0-51.0); MEAN CELL VOLUME 91.4 FL (80.0-100.0); MEAN CORPUSCULAR HEMOGLOBIN 29.9 PG (27.0-34.0); MEAN CORPUSCULAR HGB CONC 32.7 % (32.0-36.0); PLATELET COUNT 234 TH/MM3 (150-450); REVIEW FLAG FINAL
[2016-08-25 13:03] LABS: BICARBONATE 24.6 MEQ/L (21.0-32.0); POTASSIUM 3.1 MEQ/L (3.5-5.1)
--- NOTE | 2016-08-25 15:27 | PD.CARD.PN ---
Subjective Subjective Remarks No events overnight No chest pain, no shortness of breath Objective Medications Current Medications Medications (Trade) Dose Ordered Sig/Abelino Route Start Time Stop Time Status Last Admin (NS Flush) 2 ml UNSCH PRN IV FLUSH 08/19/16 06:45 08/24/16 01:10 (NS Flush) 2 ml BID IV FLUSH 08/19/16 09:00 08/25/16 08:24 (Protonix Inj) 40 mg DAILY IV 08/19/16 09:00 08/25/16 08:21 (Tears Naturale Opth Soln) 1 drop TID EACH EYE 08/19/16 09:00 08/25/16 08:25 (Zofran Inj) 4 mg Q6H PRN IV 08/19/16 06:45 (Heparin Inj) 5,000 units Q12H SQ 08/19/16 09:00 08/25/16 08:21 Miscellaneous Information 1 Q361D XX 08/19/16 06:45 (Chlorhexidine 2% Cloth) Taper DAILY@04 TOP 08/20/16 04:00 08/16/17 03:59 08/22/16 04:00 (Chlorhexidine 2% Cloth) 3 pack UNSCH PRN TOP 08/19/16 06:45 (Nakia-Colace) 1 tab BID PO 08/19/16 09:00 08/25/16 08:21 (Milk Of Magnesia Liq) 30 ml Q12H PRN PO 08/19/16 06:45 (Senokot) 17.2 mg Q12H PRN PO 08/19/16 06:45 (Dulcolax Supp) 10 mg DAILY PRN RECTAL 08/19/16 06:45 (Lactulose Liq) 30 ml DAILY PRN PO 08/19/16 06:45 08/24/16 23:20 (Romazicon Inj) 0.2 mg Q1M PRN IV PUSH 08/19/16 07:00 (Ativan) 1 mg Q4H PRN PO 08/19/16 07:00 08/23/16 23:30 (Ativan Inj) 1 mg Q4H PRN IV PUSH 08/19/16 07:00 08/23/16 12:35 (Ativan) 2 mg Q2H PRN PO 08/19/16 07:00 (Ativan Inj) 2 mg Q2H PRN IV PUSH 08/19/16 07:00 08/21/16 23:56 (Ativan Inj) 2 mg Q1H PRN IV PUSH 08/19/16 07:00 (Ativan Inj) 2 mg Q15M PRN IV PUSH 08/19/16 07:00 (Glucagon Inj) 1 mg UNSCH PRN OTHER 08/20/16 05:45 Dextrose 50 ml 50 ml UNSCH PRN IV PUSH 08/20/16 09:15 (Ancef 2 Gm Premix) 50 ml @ 150 mls/hr Q8H IV 08/20/16 23:00 08/25/16 15:02 (Levemir Inj) 5 units Q12HR SQ 08/22/16 10:00 08/25/16 08:23 (Dilaudid Pf Inj) 1 mg Q4H PRN IV 08/23/16 12:45 08/25/16 15:03 (Percocet 7.5-325 Mg) 1 tab Q4H PRN PO 08/23/16 10:30 (Percocet 10-325 Mg) 1 tab Q6H PRN PO 08/23/16 10:30 08/25/16 13:19 (Reglan Inj) 10 mg Q8HR IV PUSH 08/23/16 14:00 08/25/16 13:22 (Miralax) 17 gm DAILY PO 08/23/16 11:45 08/25/16 08:23 Vital Signs / I&O Vital Signs Date Time Temp Pulse Resp B/P Pulse Ox O2 Delivery O2 Flow Rate FiO2 08/25/16 12:04 98.5 101 16 131/93 97 08/25/16 08:52 18 08/25/16 08:00 97.9 116 20 115/85 99 08/25/16 04:00 Room Air 08/25/16 04:00 97.9 107 20 108/78 97 08/25/16 00:00 97.6 98 20 130/92 98 08/25/16 00:00 Room Air 08/24/16 20:00 98 08/24/16 20:00 Room Air 08/24/16 20:00 98.1 98 20 117/90 98 08/24/16 16:00 98.0 96 18 129/91 98 I/O 7/20/08/24/16 08/24/16 08/25/16 08/25/16 08/25/16 07:00 15:00 23:00 07:00 15:00 23:00 Intake Total 580 ml 960 ml 240 ml 240 ml Output Total 1400 ml 600 ml 300 ml Balance -820 ml 360 ml -60 ml 240 ml Intake Oral 480 ml 960 ml 240 ml 240 ml IV Total 100 ml Output Urine Total 1400 ml 600 ml 300 ml # Voids 2 3 # Bowel Movements 0 3 3 Physical Exam GENERAL: NAD, AAOx3, chronically ill appearing SKIN: Warm and dry. HEAD: Atraumatic. Normocephalic. EYES: Pupils equal and round. No scleral icterus. No injection or drainage. ENT: No nasal bleeding or discharge. Mucous membranes pink and moist. NECK: Trachea midline. No JVD. CARDIOVASCULAR: Regular rate and rhythm. RESPIRATORY: No accessory muscle use. Clear to auscultation. Breath sounds equal bilaterally. GASTROINTESTINAL: Abdomen soft, non-tender, nondistended. Hepatic and splenic margins not palpable. MUSCULOSKELETAL: Extremities without clubbing, cyanosis, or edema. No obvious deformities. NEUROLOGICAL: Awake and alert. No obvious cranial nerve deficits. Motor grossly within normal limits. Five out of 5 muscle strength in the arms and legs. Normal speech. PSYCHIATRIC: Appropriate mood and affect; insight and judgment normal. Laboratory Laboratory Tests Test 08/25/16 12:11 White Blood Count 5.0 TH/MM3 Red Blood Count 3.60 MIL/MM3 Hemoglobin 10.8 GM/DL Hematocrit 32.9 % Mean Corpuscular Volume 91.4 FL Mean Corpuscular Hemoglobin 29.9 PG Mean Corpuscular Hemoglobin 32.7 % Concent Red Cell Distribution Width 15.0 % Platelet Count 234 TH/MM3 Mean Platelet Volume 8.1 FL Sodium Level 137 MEQ/L Potassium Level 3.1 MEQ/L Chloride Level 101 MEQ/L Carbon Dioxide Level 24.6 MEQ/L Anion Gap 11 MEQ/L Blood Urea Nitrogen 2 MG/DL Creatinine 0.83 MG/DL Estimat Glomerular Filtration 97 ML/MIN Rate Random Glucose 191 MG/DL Calcium Level 9.4 MG/DL Assessment and Plan Problem List: (1) MSSA (methicillin susceptible Staphylococcus aureus) septicemia (2) Severe sepsis (3) Alcohol withdrawal delirium (4) Esophagitis (5) High anion gap metabolic acidosis (6) Hypertension (7) Pancreatitis (8) Alcohol abuse Assessment and Plan 1) Bacteremia with Staph Aureus in multiple bottles 2) Asked for MAURA due to bacteremia, but patient with severe esophagitis by EGD Not a candidate for MAURA Discussed with GI, ID and Hospitalist 3) Discussed with patient and his girlfriend, understandable about why he's not a candidate 4) Will see PRN, call with questions Problem Qualifiers (1) Hypertension: Qualified Code: I10 - Essential hypertension (2) Pancreatitis: Gabriel Best DO Aug 25, 2016 15:27
[2016-08-25 16:04] VITALS: BP 130/90; PULSE 98; RESP 16; TEMP 98.6; O2SAT 99
[2016-08-25 20:00] VITALS: BP 97/63; PULSE 95; RESP 18; TEMP 98.5; O2SAT 98
[2016-08-26] VITALS (8 sets, daily range): BP systolic 99–123; BP diastolic 63–93; PULSE 79–95; RESP 18; TEMP 97.9–98.2; O2SAT 98–100
[2016-08-26] MEDS: oxyCODONE/ACETAMINOPHEN 10 MG/325 MG TAB PO PRN ×2 (00:16→21:54)
[2016-08-26] MEDS: ceFAZolin 2 GM PREMIX 50 ML IV SCH ×4 (00:17→23:12)
[2016-08-26] MEDS: CHLORHEXIDINE GLUCONATE 2 % 1 PACK (2 CLOTHS) TOP SCH (04:00)
[2016-08-26] MEDS: HYDROmorphone HCL PF 1 MG/ML VIAL IV PRN ×5 (04:41→23:12)
[2016-08-26] MEDS: METOCLOPRAMIDE HCL 10 MG/2 ML VIAL IV PUSH SCH ×3 (05:26→21:53)
[2016-08-26 05:40] LABS: HEMATOCRIT 30.4 % (39.0-51.0); MEAN CELL VOLUME 90.8 FL (80.0-100.0); MEAN CORPUSCULAR HEMOGLOBIN 30.4 PG (27.0-34.0); MEAN CORPUSCULAR HGB CONC 33.5 % (32.0-36.0); PLATELET COUNT 240 TH/MM3 (150-450); RED BLOOD COUNT 3.35 MIL/MM3 (4.50-5.90); RED CELL DISTRIBUTION WIDTH 14.7 % (11.6-17.2); REVIEW FLAG FINAL; WHITE BLOOD COUNT 4.4 TH/MM3 (4.0-11.0)
[2016-08-26] MEDS: INSULIN ASPART SUPPLEMENTAL SCALE SQ SCH ×4 (06:07→21:00)
[2016-08-26 06:47] LABS: ALKALINE PHOSPHATASE 209 U/L (45-117); ALT (GPT) 23 U/L (12-78); ANION GAP 8 MEQ/L (5-15); AST (GOT) 51 U/L (15-37); BICARBONATE 26.5 MEQ/L (21.0-32.0); BLOOD UREA NITROGEN 2 MG/DL (7-18); CHLORIDE 107 MEQ/L (98-107); GLOMERULAR FILTRATION RATE 159 ML/MIN (>89); POTASSIUM 3.5 MEQ/L (3.5-5.1); SODIUM (NA) 141 MEQ/L (136-145); TOTAL BILIRUBIN ADULT 0.4 MG/DL (0.2-1.0)
--- NOTE | 2016-08-26 09:27 | HHI.GIFU ---
Subjective Remarks Resting in bed in no distress. Denies any nausea or vomiting today. States that he has a gnawing hunger pain, but feels this would be better if he could get something to eat. No GI bleeding. Positive bowel movement. He would like diet advanced. (Leslie Sanders) Objective Vitals I&O Vital Signs Date Time Temp Pulse Resp B/P Pulse Ox O2 Delivery O2 Flow Rate FiO2 08/26/16 04:00 98.2 85 18 123/93 100 08/26/16 00:00 98.2 85 18 100/64 100 08/25/16 20:00 98.5 95 18 97/63 98 08/25/16 20:00 Room Air 08/25/16 16:04 98.6 98 16 130/90 99 08/25/16 15:38 18 08/25/16 14:19 18 08/25/16 12:04 98.5 101 16 131/93 97 I/O 08/25/16 08/25/16 08/25/16 08/26/16 08/26/16 08/26/16 07:00 15:00 23:00 07:00 15:00 23:00 Intake Total 240 ml 380 ml Balance 240 ml 380 ml Intake Oral 240 ml 380 ml # Voids 3 5 2 3 # Bowel Movements 3 1 Laboratory Laboratory Tests Test 08/25/16 08/26/16 12:11 04:10 White Blood Count 5.0 4.4 Red Blood Count 3.60 3.35 Hemoglobin 10.8 10.2 Hematocrit 32.9 30.4 Mean Corpuscular Volume 91.4 90.8 Mean Corpuscular Hemoglobin 29.9 30.4 Mean Corpuscular Hemoglobin 32.7 33.5 Concent Red Cell Distribution Width 15.0 14.7 Platelet Count 234 240 Mean Platelet Volume 8.1 8.6 Sodium Level 137 141 Potassium Level 3.1 3.5 Chloride Level 101 107 Carbon Dioxide Level 24.6 26.5 Anion Gap 11 8 Blood Urea Nitrogen 2 2 Creatinine 0.83 0.54 Estimat Glomerular Filtration 97 159 Rate Random Glucose 191 74 Calcium Level 9.4 8.9 Total Bilirubin 0.4 Aspartate Amino Transf 51 (AST/SGOT) Alanine Aminotransferase 23 (ALT/SGPT) Alkaline Phosphatase 209 Total Protein 6.2 Albumin 2.0 Date/Time Procedure Status Source Growth 08/25/16 12:16 Aerobic Blood Culture Received Blood Peripheral Pending 08/25/16 12:16 Anaerobic Blood Culture Received Blood Peripheral Pending Imaging Last Impressions Abdomen X-Ray 08/25/16 0600 Signed Impressions: Service Date/Time: Thursday, August 25, 2016 07:42 - CONCLUSION: 1. Nonobstructive bowel gas pattern. 2. Small metallic density overlying the right abdomen in the region of the cecum. Tom Wakefield MD Chest X-Ray 08/22/16 0600 Signed Impressions: Service Date/Time: Monday, August 22, 2016 04:58 - CONCLUSION: Mild left lower lung infiltrate. Arslan Cortez MD Chest CT 08/20/16 0000 Signed Impressions: Service Date/Time: Saturday, August 20, 2016 11:54 - CONCLUSION: Small bilateral pleural effusions with left lower lobe airspace disease. No evidence of suspicious mass or lymphadenopathy. Hepatic steatosis and inflammatory pancreatic disease again identified. Matt Aguilera MD Abdomen/Pelvis CT 08/19/16 0358 Signed Impressions: Service Date/Time: Friday, August 19, 2016 05:47 - CONCLUSION: 1. Marked circumferential thickening of the esophagus is noted over several centimeters. Esophagitis can have this appearance. 2. Hepatic steatosis and mild distention of the gallbladder again noted. 3. Upper abdominal lymphadenopathy with multiple prominent lymph nodes seen greatest in the retroperitoneum. 4. Abnormal inflammatory changes seen surrounding the pancreas consistent with pancreatitis with mild dilatation of the pancreatic duct. 5. Gastric distention. Mike Aaron MD Physical Exam HEENT:Normocephalic; atraumatic; no jaundice. CHEST: CTA CARDIAC: RRR ABDOMEN: Soft, non-distended, nontender; no hepatosplenomegaly; bowel sounds hypoactive EXTREMITIES: No clubbing, cyanosis, or edema. SKIN: Normal; no rash; no jaundice. SENIOR LABEL SPECIALIST: Alert, oriented (Leslie Sanders) Assessment and Plan Plan ASSESSMENT - Acute on chronic pancreatitis. Abdomen/Pelvis CT (08/19/16)-----> 1. Marked circumferential thickening of the esophagus is noted over several centimeters. Esophagitis can have this appearance. 2. Hepatic steatosis and mild distention of the gallbladder again noted. 3. Upper abdominal lymphadenopathy with multiple prominent lymph nodes seen greatest in the retroperitoneum. 4. Abnormal inflammatory changes seen surrounding the pancreas consistent with pancreatitis with mild dilatation of the pancreatic duct. 5. Gastric distention. EGD with duodenitis, gastritis, severe esophagitis. Triglycerides 256. Tolerating clear liquid diet. Pain has Improved. Would like diet advanced. - GIB, Hematemesis. S/P EGD (08/21/16)----> 1. Duodenitis second portion-biopsy , gastritis antrum-biopsy, severe esophagitis distal esophagus-biopsy, some bleeding from biopsy site-2 clips applied, epinephrine 1:10,000 -5 cc 2. Retroflexed views revealed a hiatal hernia. H&H stable at 10.2/30.4. No active bleeding - Severe esophagitis, gastritis, duodenitis. S/P EGD as above. - Elevated LFTs. T. Bili 0.4, AST 51, ALT 23, ALk Phosph 209 - Abdominal distention/constipation. No BM since Sunday, more distended today. Abdomen X-Ray (08/25/16)----> 1. Nonobstructive bowel gas pattern. 2. Small metallic density overlying the right abdomen in the region of the cecum. Reglan and Miralax. Improved, (+) BM. - Anemia. H&H stable at 10.2/30.4. No active bleeding. - Acute metabolic encephalopathy, improved. A/Ox 3 - SUNNI with electrolyte abnormalities. Improved. - Sepsis/Leukocytosis/Bacteremia. Bcx 08/19, Staphylococcus aureus. Rpt. Cx with staphylococcus aureus, Rpt Cx 08/25 pending. Infectious disease following, MAURA contraindicated secondary to severe esophagitis. Ancef. - HTN, Hx of hypertriglyceridemia, - ETOH abuse, withdrawal per attending. PLAN - Low fat diet - Will continue reglan for today and d/c in am - Cont. Miralax - Cont. PPI - Abx per ID- Ancef - DT precautions - Supportive care - Further recommendations to follow based on results of above - This pt was seen by myself and Dr Ricardo and this note is written on her behalf (Leslie Sanders) Leslie Sanders Aug 26, 2016 09:27 Yamel Ricardo MD Aug 26, 2016 18:40
[2016-08-26] MEDS: POLYETHYLENE GLYCOL 17 GM PKG PO SCH (09:38)
[2016-08-26] MEDS: HEPARIN SODIUM - SQ 10,000 UNITS/ML VIAL SQ SCH ×3 (09:39→22:00)
[2016-08-26] MEDS: INSULIN DETEMIR 100 UNITS/ML VIAL SQ SCH ×2 (09:42→22:13)
[2016-08-26] MEDS: DOCUSATE SODIUM 50 MG/SENNA 8.6 MG TAB PO SCH ×2 (09:44→21:00)
[2016-08-26] MEDS: PANTOPRAZOLE SODIUM 40 MG VIAL IV SCH (10:19)
[2016-08-26] MEDS: SODIUM CHLORIDE 0.9% FLUSH 10 ML FLUSH IV FLUSH SCH ×2 (10:19→21:54)
[2016-08-26] MEDS: ARTIFICIAL TEARS OPTH SOLN 15 ML BTL EACH EYE SCH ×3 (10:20→18:41)
--- NOTE | 2016-08-26 11:44 | HHI.PR ---
Addendum to Inpatient Note Additional Information seen and examined fullnote to follow Camryn Patel MD Aug 26, 2016 11:44
--- NOTE | 2016-08-26 14:33 | HHI.PR ---
Subjective Remarks Patient seen and examined today. Vitals are stable, afebrile, breathing well on room air. States he feels like his vision is not as good as it used to be. States vision is more blurry. Usually uses reading glasses, but could see distance fine. Thinks its worse in left eye. He states he noticed this for over a week, but didnt get a chance to tell anyone. Tolerated a solid diet today. Some abdominal pain, no vomiting. Reports dark soft stools. Objective Vital Signs Date Time Temp Pulse Resp B/P Pulse Ox O2 Delivery O2 Flow Rate FiO2 08/26/16 13:59 Room Air 08/26/16 12:00 98.1 95 18 118/84 99 08/26/16 08:00 97.9 89 18 113/83 100 08/26/16 04:00 98.2 85 18 123/93 100 08/26/16 00:00 98.2 85 18 100/64 100 08/25/16 20:00 98.5 95 18 97/63 98 08/25/16 20:00 Room Air 08/25/16 16:04 98.6 98 16 130/90 99 08/25/16 15:38 18 I/O 08/25/16 08/25/16 08/25/16 08/26/16 08/26/16 08/26/16 06:59 14:59 22:59 06:59 14:59 22:59 Intake Total 240 ml 380 ml Balance 240 ml 380 ml Intake Oral 240 ml 380 ml # Voids 3 5 2 3 # Bowel Movements 3 1 Result Diagram: 08/26/16 0410 08/26/16 0410 Imaging Last Impressions Abdomen X-Ray 08/25/16 06 Signed Impressions: Service Date/Time: Thursday, August 25, 2016 07:42 - CONCLUSION: 1. Nonobstructive bowel gas pattern. 2. Small metallic density overlying the right abdomen in the region of the cecum. Tom Wakefield MD Chest X-Ray 08/22/16 0600 Signed Impressions: Service Date/Time: Monday, August 22, 2016 04:58 - CONCLUSION: Mild left lower lung infiltrate. Arslan Cortez MD Chest CT 08/20/16 0000 Signed Impressions: Service Date/Time: Saturday, August 20, 2016 11:54 - CONCLUSION: Small bilateral pleural effusions with left lower lobe airspace disease. No evidence of suspicious mass or lymphadenopathy. Hepatic steatosis and inflammatory pancreatic disease again identified. Matt Aguilera MD Abdomen/Pelvis CT 08/19/16 0358 Signed Impressions: Service Date/Time: Sunday, August 19, 2016 05:47 - CONCLUSION: 1. Marked circumferential thickening of the esophagus is noted over several centimeters. Esophagitis can have this appearance. 2. Hepatic steatosis and mild distention of the gallbladder again noted. 3. Upper abdominal lymphadenopathy with multiple prominent lymph nodes seen greatest in the retroperitoneum. 4. Abnormal inflammatory changes seen surrounding the pancreas consistent with pancreatitis with mild dilatation of the pancreatic duct. 5. Gastric distention. Mike Aaron MD Objective Remarks GENERAL: well appearing, sitting in chair nad SKIN: Warm and dry. HEAD: Normocephalic. EYES: No scleral icterus. No injection or drainage. NECK: Supple, trachea midline. No JVD or lymphadenopathy. CARDIOVASCULAR: Regular rate and rhythm without murmurs, gallops, or rubs. RESPIRATORY: Breath sounds equal bilaterally. No accessory muscle use. GASTROINTESTINAL: Abdomen soft, non-tender, nondistended. MUSCULOSKELETAL: No cyanosis, or edema. BACK: Nontender without obvious deformity. No CVA tenderness. A/P Problem List: (1) etoh withdrawal (2) Recurrent pancreatitis ICD Code: K86.1 (3) Alcohol abuse ICD Code: F10.10 (4) DKA (diabetic ketoacidoses) ICD Code: E13.10 (5) Acute renal insufficiency ICD Code: N28.9 (6) MSSA (methicillin susceptible Staphylococcus aureus) septicemia ICD Code: A41.01 (7) Esophagitis ICD Code: K20.9 Assessment and Plan 51 yo male with: Alcohol dependence & withdrawal Alcohol dependence Vitamin bag daily 3 days for EtOH use status post accident. On CIWA protocol. No signs of withdrawal at the bedside. Pancreatitis Improving. See imaging above. Lipase on 08/20 399 Likely related to alcohol abuse History of Hypertension History of hypertriglyceridemia Holding losartan 25 mg by mouth daily light of pancreatitis, has been normotensive. 2D echo 08/21 shows no evidence of endocarditis Ongoing tobaccoism Nasal cannula to maintain saturations greater than equal to 92% Incentive spirometry while awake Tobacco cessation Nicotine patch if indicated Acute pancreatitis/Hepatic steatosis/Marked circumferential thickening of the esophagus GI following: EGD 08/21 showed severe esophagitis and duodenitis. Biopsy: minimal acute enteritis, acute esophagitits with features of ulceration, rare fungal hyphae within inflammatory detritus, neg viral cytopathic changes. Cont: miralax, PPI On Reglan d/c tomorrow DKA Resolved. Levemir 5 q12 and SSI. Blood sugars appear well controlled. Acute kidney injury-resolved Likely prerenal. I's and O's Monitor urine output Bacteremia MSSA Staph aureus in 4 out of 4 bottles Hx of previous staph aureus bacteremia ID following. Currently on Ancef Blood Cultures 08/19 staph aureus 4/4 bottles. Repeated blood culture 08/21 positive 02/08. Blood cultures 08/25 repeated, no growth x 1 day 2-D echo negative for endocarditis. Previous MAURA for staph aureus bacteremia was negative Plans Examiner consulted for repeat MAURA. Patient is not a candidate due to severe esophagitis. Hypercalcemia-resolved Hypo-natremia Hypokalemia Replace electrolytes per protocol F/u PTH, PTHp, vitamin D 03/01 and 25 Prophylaxis - GI - Protonix IV BID - DVT - SCD/heparin subcutaneous Discharge Planning D/C pending negative cultures x 2 days, clearance by ID and GI. Problem Qualifiers (1) DKA (diabetic ketoacidoses): Qualified Code: E13.10 - Diabetic ketoacidosis without coma associated with type 2 diabetes mellitus Renuka Osman MD Aug 26, 2016 14:33
--- NOTE | 2016-08-26 15:23 | HHI.IDPN ---
Subjective Subjective Remarks no fever denies back pain pt was seen by petroleum sampler, but MAURA is contraindicated 2/2 severe esophagits repeat BC negative so far Antibiotics cefazoline Allergies: Coded Allergies: No Known Allergies (Verified , 08/19/16) Objective . Vital Signs Date Time Temp Pulse Resp B/P Pulse Ox O2 Delivery O2 Flow Rate FiO2 08/26/16 14:33 85 08/26/16 13:59 Room Air 08/26/16 12:00 98.1 95 18 118/84 99 08/26/16 08:00 97.9 89 18 113/83 100 08/26/16 04:00 98.2 85 18 123/93 100 08/26/16 00:00 98.2 85 18 100/64 100 08/25/16 20:00 98.5 95 18 97/63 98 08/25/16 20:00 Room Air 08/25/16 16:04 98.6 98 16 130/90 99 08/25/16 15:38 18 08/25/16 08/25/16 08/26/16 15:00 23:00 07:00 Intake Total 380 ml Balance 380 ml Intake Oral 380 ml # Voids 5 2 3 # Bowel Movements 1 . Laboratory Tests Test 08/25/16 08/26/16 12:11 04:10 White Blood Count 5.0 TH/MM3 4.4 TH/MM3 Red Blood Count 3.60 MIL/MM3 3.35 MIL/MM3 Hemoglobin 10.8 GM/DL 10.2 GM/DL Hematocrit 32.9 % 30.4 % Mean Corpuscular Volume 91.4 FL 90.8 FL Mean Corpuscular Hemoglobin 29.9 PG 30.4 PG Mean Corpuscular Hemoglobin 32.7 % 33.5 % Concent Red Cell Distribution Width 15.0 % 14.7 % Platelet Count 234 TH/MM3 240 TH/MM3 Mean Platelet Volume 8.1 FL 8.6 FL Laboratory Tests Test 08/25/16 08/26/16 12:11 04:10 Sodium Level 137 MEQ/L 141 MEQ/L Potassium Level 3.1 MEQ/L 3.5 MEQ/L Chloride Level 101 MEQ/L 107 MEQ/L Carbon Dioxide Level 24.6 MEQ/L 26.5 MEQ/L Anion Gap 11 MEQ/L 8 MEQ/L Blood Urea Nitrogen 2 MG/DL 2 MG/DL Creatinine 0.83 MG/DL 0.54 MG/DL Estimat Glomerular Filtration 97 ML/MIN 159 ML/MIN Rate Random Glucose 191 MG/DL 74 MG/DL Calcium Level 9.4 MG/DL 8.9 MG/DL Total Bilirubin 0.4 MG/DL Aspartate Amino Transf 51 U/L (AST/SGOT) Alanine Aminotransferase 23 U/L (ALT/SGPT) Alkaline Phosphatase 209 U/L Total Protein 6.2 GM/DL Albumin 2.0 GM/DL Microbiology Date/Time Procedure Status Source Growth 08/25/16 12:11 Aerobic Blood Culture - Preliminary Resulted Blood Peripheral NO GROWTH IN 1 DAY 08/25/16 12:11 Anaerobic Blood Culture - Preliminary Resulted Blood Peripheral NO GROWTH IN 1 DAY 08/25/16 12:16 Aerobic Blood Culture - Preliminary Resulted Blood Peripheral NO GROWTH IN 1 DAY 08/25/16 12:16 Anaerobic Blood Culture - Preliminary Resulted Blood Peripheral NO GROWTH IN 1 DAY Imaging Last Impressions Abdomen X-Ray 08/25/16 0600 Signed Impressions: Service Date/Time: Thursday, August 25, 2016 07:42 - CONCLUSION: 1. Nonobstructive bowel gas pattern. 2. Small metallic density overlying the right abdomen in the region of the cecum. Tom Wakefield MD Chest X-Ray 08/22/16 0600 Signed Impressions: Service Date/Time: Monday, August 22, 2016 04:58 - CONCLUSION: Mild left lower lung infiltrate. Arslan Cortez MD Chest CT 08/20/16 0000 Signed Impressions: Service Date/Time: Saturday, August 20, 2016 11:54 - CONCLUSION: Small bilateral pleural effusions with left lower lobe airspace disease. No evidence of suspicious mass or lymphadenopathy. Hepatic steatosis and inflammatory pancreatic disease again identified. Matt Aguilera MD Abdomen/Pelvis CT 08/19/16 0358 Signed Impressions: Service Date/Time: Friday, August 19, 2016 05:47 - CONCLUSION: 1. Marked circumferential thickening of the esophagus is noted over several centimeters. Esophagitis can have this appearance. 2. Hepatic steatosis and mild distention of the gallbladder again noted. 3. Upper abdominal lymphadenopathy with multiple prominent lymph nodes seen greatest in the retroperitoneum. 4. Abnormal inflammatory changes seen surrounding the pancreas consistent with pancreatitis with mild dilatation of the pancreatic duct. 5. Gastric distention. Mike Aaron MD Physical Exam CONSTITUTIONAL/GENERAL: This is a thin middle aged male patient, in no apparent distress. TUBES/LINES/DRAINS: SKIN: No jaundice, rashes, or lesions. Skin temperature appropriate. Not diaphoretic. No embolic phenomena EYES: Pupils equal and round and reactive. Extraocular motions intact. No scleral icterus. No injection or drainage. Fundi not examined. no conjunctival petechia or hemorrahges ENT: Hearing grossly normal. Nose without bleeding or purulent drainage. Oral mucosae dry without visible erythema, exudates, masses, or lesions. NECK: Trachea midline. Supple, nontender. CARDIOVASCULAR: Regular rate and rhythm without murmurs, gallops, or rubs. No JVD. RESPIRATORY/CHEST: Symmetric, unlabored respirations. Clear to auscultation. Breath sounds equal bilaterally. GASTROINTESTINAL: Abdomen soft, diffusely mildly tender, minimally distended. . No guarding. Bowel sounds present. MUSCULOSKELETAL: Extremities without clubbing, cyanosis, or edema. NEUROLOGICAL: Awake, alert . Motor and sensory grossly within normal limits. Follows commands. Clear speech. Moves all extremities. PSYCHIATRIC: calm, coopertative Assessment & Plan Remarks DKA newly diagnosed DM Pancreatitis ETOH induced MSSA high grade bacteremia, recurrent and sustained - bacteremia is persistent - previosly > 1 yra ago, neg MAURA - MSSA is not a typical org aw pancreatitis - NO clear source - no h/o IVDU - neg 2 D echo - not a candidate for MAURA 2/2 severe esophagitis REC's: cont cefazolin fu repeat BC anticipate 6 weeks of IV cefazolin from the day of 1st neg blood clx if con to have + blood clx more w/u is warranted dw pt dw Camryn Tipton MD Aug 26, 2016 15:23
[2016-08-27] VITALS (8 sets, daily range): BP systolic 102–117; BP diastolic 50–86; PULSE 77–104; RESP 18–20; TEMP 97.4–98.2; O2SAT 96–100
[2016-08-27] MEDS: CHLORHEXIDINE GLUCONATE 2 % 1 PACK (2 CLOTHS) TOP SCH (04:00)
[2016-08-27] MEDS: METOCLOPRAMIDE HCL 10 MG/2 ML VIAL IV PUSH SCH (05:12)
[2016-08-27] MEDS: ceFAZolin 2 GM PREMIX 50 ML IV SCH ×3 (05:12→22:31)
[2016-08-27] MEDS: oxyCODONE/ACETAMINOPHEN 10 MG/325 MG TAB PO PRN ×4 (05:13→22:31)
[2016-08-27] MEDS: INSULIN ASPART SUPPLEMENTAL SCALE SQ SCH ×4 (06:15→20:28)
[2016-08-27] MEDS: HYDROmorphone HCL PF 1 MG/ML VIAL IV PRN ×4 (06:33→20:28)
[2016-08-27] MEDS: INSULIN DETEMIR 100 UNITS/ML VIAL SQ SCH ×2 (08:27→20:34)
[2016-08-27] MEDS: DOCUSATE SODIUM 50 MG/SENNA 8.6 MG TAB PO SCH ×2 (08:48→20:27)
[2016-08-27] MEDS: PANTOPRAZOLE SODIUM 40 MG VIAL IV SCH (08:48)
[2016-08-27] MEDS: SODIUM CHLORIDE 0.9% FLUSH 10 ML FLUSH IV FLUSH SCH ×2 (08:50→20:40)
[2016-08-27] MEDS: ARTIFICIAL TEARS OPTH SOLN 15 ML BTL EACH EYE SCH ×3 (08:50→18:13)
[2016-08-27] MEDS: POLYETHYLENE GLYCOL 17 GM PKG PO SCH (08:52)
--- NOTE | 2016-08-27 11:46 | HHI.PR ---
Subjective Remarks Patient seen and examined today. Vitals are stable, afebrile, breathing well on room air. Standing in door way of room, states hes getting fresh air. Wearing two pairs of glasses. Tolerating his diet, states he order turkey for lunch, wants to eat healthy. Objective Vital Signs Date Time Temp Pulse Resp B/P Pulse Ox O2 Delivery O2 Flow Rate FiO2 08/27/16 10:45 93 08/27/16 08:00 97.8 87 18 115/86 99 08/27/16 07:16 Room Air 08/27/16 04:00 98.2 81 18 110/82 100 08/27/16 00:00 97.6 83 18 117/77 100 08/26/16 20:00 98.0 83 18 99/63 100 08/26/16 19:00 Room Air 08/26/16 19:00 79 08/26/16 16:00 97.9 88 18 111/74 98 08/26/16 14:33 85 08/26/16 13:59 Room Air 08/26/16 12:00 98.1 95 18 118/84 99 I/O 08/26/16 08/26/16 08/26/16 08/27/16 08/27/16 08/27/16 07:00 15:00 23:00 07:00 15:00 23:00 Intake Total 480 ml Output Total 600 ml Balance -120 ml Intake Oral 480 ml Output Urine Total 600 ml # Voids 3 2 2 # Bowel Movements 1 Result Diagram: 08/26/16 0410 08/26/16 0410 Imaging Last Impressions Abdomen X-Ray 08/25/16 0600 Signed Impressions: Service Date/Time: Thursday, August 25, 2016 07:42 - CONCLUSION: 1. Nonobstructive bowel gas pattern. 2. Small metallic density overlying the right abdomen in the region of the cecum. Tom Wakefield MD Chest X-Ray 08/22/16 0600 Signed Impressions: Service Date/Time: Monday, August 22, 2016 04:58 - CONCLUSION: Mild left lower lung infiltrate. Arslan Cortez MD Chest CT 08/20/16 0000 Signed Impressions: Service Date/Time: Saturday, August 20, 2016 11:54 - CONCLUSION: Small bilateral pleural effusions with left lower lobe airspace disease. No evidence of suspicious mass or lymphadenopathy. Hepatic steatosis and inflammatory pancreatic disease again identified. Matt Aguilera MD Abdomen/Pelvis CT 08/19/16 0358 Signed Impressions: Service Date/Time: Friday, August 19, 2016 05:47 - CONCLUSION: 1. Marked circumferential thickening of the esophagus is noted over several centimeters. Esophagitis can have this appearance. 2. Hepatic steatosis and mild distention of the gallbladder again noted. 3. Upper abdominal lymphadenopathy with multiple prominent lymph nodes seen greatest in the retroperitoneum. 4. Abnormal inflammatory changes seen surrounding the pancreas consistent with pancreatitis with mild dilatation of the pancreatic duct. 5. Gastric distention. Mike Aaron MD Objective Remarks GENERAL: well appearing, sitting in chair nad SKIN: Warm and dry. HEAD: Normocephalic. EYES: No scleral icterus. No injection or drainage. NECK: Supple, trachea midline. No JVD or lymphadenopathy. CARDIOVASCULAR: Regular rate and rhythm without murmurs, gallops, or rubs. RESPIRATORY: Breath sounds equal bilaterally. No accessory muscle use. GASTROINTESTINAL: Abdomen soft, non-tender, nondistended. MUSCULOSKELETAL: No cyanosis, or edema. BACK: Nontender without obvious deformity. No CVA tenderness. A/P Problem List: (1) etoh withdrawal (2) Recurrent pancreatitis ICD Code: K86.1 (3) Alcohol abuse ICD Code: F10.10 (4) DKA (diabetic ketoacidoses) ICD Code: E13.10 (5) Acute renal insufficiency ICD Code: N28.9 (6) MSSA (methicillin susceptible Staphylococcus aureus) septicemia ICD Code: A41.01 (7) Esophagitis ICD Code: K20.9 Assessment and Plan 51 yo male with: Alcohol dependence & withdrawal Alcohol dependence Vitamin bag daily 3 days for EtOH use status post accident. On CIWA protocol. No signs of withdrawal at the bedside. Pancreatitis Improving. See imaging above. Lipase on 08/20 399 Likely related to alcohol abuse History of Hypertension History of hypertriglyceridemia Holding losartan 25 mg by mouth daily light of pancreatitis, has been normotensive. 2D echo 08/21 shows no evidence of endocarditis Ongoing tobaccoism Nasal cannula to maintain saturations greater than equal to 92% Incentive spirometry while awake Tobacco cessation Nicotine patch if indicated Acute pancreatitis/Hepatic steatosis/Marked circumferential thickening of the esophagus GI following: EGD 08/21 showed severe esophagitis and duodenitis. Biopsy: minimal acute enteritis, acute esophagitits with features of ulceration, rare fungal hyphae within inflammatory detritus, neg viral cytopathic changes. Cont: miralax, PPI DKA Resolved. Levemir 5 q12 and SSI. Blood sugars appear well controlled. Acute kidney injury-resolved Likely prerenal. I's and O's Monitor urine output Bacteremia MSSA Staph aureus in 4 out of 4 bottles Hx of previous staph aureus bacteremia ID following. Currently on cefazolin, anticipate 6 weeks of IV abx from first day of first negative blood culture Blood Cultures 08/19 staph aureus 4/ bottles. Repeated blood culture 08/21 positive 02/08. Blood cultures 08/25 repeated, no growth x 2 day 2-D echo negative for endocarditis. Previous MAURA for staph aureus bacteremia was negative Order To Delivery Supervisor consulted for repeat MAURA. Patient is not a candidate due to severe esophagitis. Hypercalcemia-resolved Hypo-natremia Hypokalemia Replace electrolytes per protocol F/u PTH, PTHp, vitamin D 03/01 and 25 Prophylaxis - GI - Protonix IV BID - DVT - SCD/heparin subcutaneous Discharge Planning D/C by ID and GI. Anticipate 6 weeks of IV abx Problem Qualifiers (1) DKA (diabetic ketoacidoses): Qualified Code: E13.10 - Diabetic ketoacidosis without coma associated with type 2 diabetes mellitus Renuka Osman MD Aug 27, 2016 11:46
[2016-08-27] MEDS: SODIUM CHLORIDE 0.9% FLUSH 10 ML FLUSH IV FLUSH PRN (11:55)
[2016-08-27] MEDS: oxyCODONE/ACETAMINOPHEN 7.5 MG/325 MG TAB PO PRN (17:53)
[2016-08-27] MEDS: HEPARIN SODIUM - SQ 10,000 UNITS/ML VIAL SQ SCH (20:27)
[2016-08-28] VITALS (7 sets, daily range): BP systolic 90–125; BP diastolic 61–92; PULSE 76–98; RESP 18–22; TEMP 97.5–98.1; O2SAT 98–100
[2016-08-28] MEDS: CHLORHEXIDINE GLUCONATE 2 % 1 PACK (2 CLOTHS) TOP SCH (04:00)
[2016-08-28] MEDS: ceFAZolin 2 GM PREMIX 50 ML IV SCH ×3 (06:17→22:08)
[2016-08-28] MEDS: oxyCODONE/ACETAMINOPHEN 10 MG/325 MG TAB PO PRN ×4 (06:17→22:08)
[2016-08-28] MEDS: INSULIN ASPART SUPPLEMENTAL SCALE SQ SCH ×4 (06:20→20:20)
[2016-08-28] MEDS: HYDROmorphone HCL PF 1 MG/ML VIAL IV PRN ×2 (08:39→18:11)
[2016-08-28] MEDS: PANTOPRAZOLE SODIUM 40 MG VIAL IV SCH (08:44)
[2016-08-28] MEDS: HEPARIN SODIUM - SQ 10,000 UNITS/ML VIAL SQ SCH ×2 (08:46→22:07)
[2016-08-28] MEDS: INSULIN DETEMIR 100 UNITS/ML VIAL SQ SCH ×2 (08:49→22:15)
[2016-08-28] MEDS: DOCUSATE SODIUM 50 MG/SENNA 8.6 MG TAB PO SCH ×2 (09:00→22:07)
[2016-08-28] MEDS: POLYETHYLENE GLYCOL 17 GM PKG PO SCH (09:00)
[2016-08-28] MEDS: SODIUM CHLORIDE 0.9% FLUSH 10 ML FLUSH IV FLUSH SCH ×2 (09:00→21:00)
[2016-08-28] MEDS: ARTIFICIAL TEARS OPTH SOLN 15 ML BTL EACH EYE SCH ×3 (09:00→18:00)
--- NOTE | 2016-08-28 11:39 | HHI.PR ---
Subjective Remarks Patient seen and examined today. Endorses some nausea. Ambulatory around the room without difficulty. States his stomach hurts when he finishes his entire meal. Denies fevers or chills. Says he needs moral support. Objective Vital Signs Date Time Temp Pulse Resp B/P Pulse Ox O2 Delivery O2 Flow Rate FiO2 08/28/16 08:00 98.1 88 20 125/92 98 08/28/16 04:00 Room Air 08/28/16 04:00 97.6 85 20 115/78 100 08/28/16 00:00 Room Air 08/28/16 00:00 97.5 76 20 111/75 99 08/27/16 20:00 97.4 94 20 114/80 100 08/27/16 20:00 Room Air 08/27/16 19:54 77 08/27/16 16:00 97.9 97 18 104/50 97 08/27/16 12:00 97.7 104 18 102/73 96 I/O 08/27/16 08/27/16 08/27/16 08/28/16 08/28/16 08/28/16 06:59 14:59 22:59 06:59 14:59 22:59 Intake Total 960 ml 320 ml 370 ml Output Total 350 ml 400 ml Balance 960 ml -30 ml -30 ml Intake Oral 960 ml 320 ml 320 ml IV Total 50 ml Output Urine Total 350 ml 400 ml # Voids 2 4 # Bowel Movements 1 0 0 Result Diagram: 08/26/16 0410 08/26/16 0410 Imaging Last Impressions Abdomen X-Ray 08/25/16 0600 Signed Impressions: Service Date/Time: Thursday, August 25, 2016 07:42 - CONCLUSION: 1. Nonobstructive bowel gas pattern. 2. Small metallic density overlying the right abdomen in the region of the cecum. Tom Wakefield MD Chest X-Ray 08/22/16 0600 Signed Impressions: Service Date/Time: Monday, August 22, 2016 04:58 - CONCLUSION: Mild left lower lung infiltrate. Arslan Cortez MD Chest CT 08/20/16 0000 Signed Impressions: Service Date/Time: Saturday, August 20, 2016 11:54 - CONCLUSION: Small bilateral pleural effusions with left lower lobe airspace disease. No evidence of suspicious mass or lymphadenopathy. Hepatic steatosis and inflammatory pancreatic disease again identified. Matt Aguilera MD Abdomen/Pelvis CT 08/19/16 0358 Signed Impressions: Service Date/Time: Sunday, August 19, 2016 05:47 - CONCLUSION: 1. Marked circumferential thickening of the esophagus is noted over several centimeters. Esophagitis can have this appearance. 2. Hepatic steatosis and mild distention of the gallbladder again noted. 3. Upper abdominal lymphadenopathy with multiple prominent lymph nodes seen greatest in the retroperitoneum. 4. Abnormal inflammatory changes seen surrounding the pancreas consistent with pancreatitis with mild dilatation of the pancreatic duct. 5. Gastric distention. Mike Aaron MD Objective Remarks GENERAL: well appearing, nad SKIN: Warm and dry. HEAD: Normocephalic. EYES: No scleral icterus. No injection or drainage. NECK: Supple, trachea midline. No JVD or lymphadenopathy. CARDIOVASCULAR: Regular rate and rhythm without murmurs, gallops, or rubs. RESPIRATORY: Breath sounds equal bilaterally. No accessory muscle use. GASTROINTESTINAL: Abdomen soft, non-tender, nondistended. MUSCULOSKELETAL: No cyanosis, or edema. BACK: Nontender without obvious deformity. No CVA tenderness. A/P Problem List: (1) etoh withdrawal (2) Recurrent pancreatitis ICD Code: K86.1 (3) Alcohol abuse ICD Code: F10.10 (4) DKA (diabetic ketoacidoses) ICD Code: E13.10 (5) Acute renal insufficiency ICD Code: N28.9 (6) MSSA (methicillin susceptible Staphylococcus aureus) septicemia ICD Code: A41.01 (7) Esophagitis ICD Code: K20.9 Assessment and Plan 51 yo male with: Alcohol dependence & withdrawal Alcohol dependence Vitamin bag daily 3 days for EtOH use status post accident. On CIWA protocol. No signs of withdrawal at the bedside. Pancreatitis Improving. See imaging above. Lipase on 08/20 399 Likely related to alcohol abuse History of Hypertension History of hypertriglyceridemia Holding losartan 25 mg by mouth daily light of pancreatitis, has been normotensive. 2D echo 08/21 shows no evidence of endocarditis Ongoing tobaccoism Nasal cannula to maintain saturations greater than equal to 92% Incentive spirometry while awake Tobacco cessation Nicotine patch if indicated Acute pancreatitis/Hepatic steatosis/Marked circumferential thickening of the esophagus GI following: EGD 08/21 showed severe esophagitis and duodenitis. Biopsy: minimal acute enteritis, acute esophagitits with features of ulceration, rare fungal hyphae within inflammatory detritus, neg viral cytopathic changes. Cont: miralax, PPI DKA Resolved. Levemir 5 q12 and SSI. Blood sugars appear well controlled. Acute kidney injury-resolved Likely prerenal. I's and O's Monitor urine output Bacteremia MSSA Staph aureus in 4 out of 4 bottles Hx of previous staph aureus bacteremia ID following. Currently on cefazolin, anticipate 6 weeks of IV abx from first day of first negative blood culture Blood Cultures 08/19 staph aureus 4/ bottles. Repeated blood culture 08/21 positive / staph aureus. Blood cultures 08/25 repeated, no growth x 3 day 2-D echo negative for endocarditis. Previous MAURA for staph aureus bacteremia was negative Parachute Rigger consulted for repeat MAURA. Patient is not a candidate due to severe esophagitis. Hypercalcemia-resolved Hypo-natremia Hypokalemia Replace electrolytes per protocol F/u PTH, PTHp, vitamin D 1/25 and 25 Prophylaxis - GI - Protonix IV BID - DVT - SCD/heparin subcutaneous Discharge Planning D/C by ID and GI. Anticipate 6 weeks of IV abx Problem Qualifiers (1) DKA (diabetic ketoacidoses): Qualified Code: E13.10 - Diabetic ketoacidosis without coma associated with type 2 diabetes mellitus Renuka Osman MD Aug 28, 2016 11:39
--- NOTE | 2016-08-28 15:34 | HHI.GIFU ---
Subjective Remarks Pt resting in bed, in no apparent distress. Says he had some nausea earlier so he took a nap. Tolerating regular diet. Scant BM this morning. Still with some abd pain after eating but getting better. (Lisha Rodriguez) Objective Vitals I&O Vital Signs Date Time Temp Pulse Resp B/P Pulse Ox O2 Delivery O2 Flow Rate FiO2 08/28/16 12:00 98.0 96 20 107/79 100 08/28/16 08:00 98.1 88 20 125/92 98 08/28/16 04:00 Room Air 08/28/16 04:00 97.6 85 20 115/78 100 08/28/16 00:00 Room Air 08/28/16 00:00 97.5 76 20 111/75 99 08/27/16 20:00 97.4 94 20 114/80 100 08/27/16 20:00 Room Air 08/27/16 19:54 77 08/27/16 16:00 97.9 97 18 104/50 97 I/O 08/27/16 08/27/16 08/27/16 08/28/16 08/28/16 08/28/16 07:00 15:00 23:00 07:00 15:00 23:00 Intake Total 960 ml 320 ml 370 ml Output Total 350 ml 400 ml Balance 960 ml -30 ml -30 ml Intake Oral 960 ml 320 ml 320 ml IV Total 50 ml Output Urine Total 350 ml 400 ml # Voids 2 4 # Bowel Movements 1 0 0 Laboratory Date/Time Procedure Status Source Growth 08/25/16 12:16 Aerobic Blood Culture - Preliminary Resulted Blood Peripheral NO GROWTH IN 3 DAYS 08/25/16 12:16 Anaerobic Blood Culture - Preliminary Resulted Blood Peripheral NO GROWTH IN 3 DAYS Physical Exam HEENT:Normocephalic; atraumatic; no jaundice. CHEST: CTA CARDIAC: RRR ABDOMEN: Soft, non-distended, epigastric TTP; no hepatosplenomegaly; bowel sounds hypoactive EXTREMITIES: No clubbing, cyanosis, or edema. SKIN: Normal; no rash; no jaundice. SET UP MACHINIST: Alert, oriented (Lisha Rodriguez) Assessment and Plan Plan ASSESSMENT - Acute on chronic pancreatitis. Abdomen/Pelvis CT (08/19/16)-----> 1. Marked circumferential thickening of the esophagus is noted over several centimeters. Esophagitis can have this appearance. 2. Hepatic steatosis and mild distention of the gallbladder again noted. 3. Upper abdominal lymphadenopathy with multiple prominent lymph nodes seen greatest in the retroperitoneum. 4. Abnormal inflammatory changes seen surrounding the pancreas consistent with pancreatitis with mild dilatation of the pancreatic duct. 5. Gastric distention. EGD with duodenitis, gastritis, severe esophagitis. Triglycerides 256. Tolerating heart healthy Pain has Improved. - GIB, Hematemesis. S/P EGD (08/21/16)----> 1. Duodenitis second portion-biopsy , gastritis antrum-biopsy, severe esophagitis distal esophagus-biopsy, some bleeding from biopsy site-2 clips applied, epinephrine 1:10,000 -5 cc 2. Retroflexed views revealed a hiatal hernia. H&H stable at 10.2/30.4. No active bleeding - Severe esophagitis, gastritis, duodenitis. S/P EGD as above. - Elevated LFTs. T. Bili 0.4, AST 51, ALT 23, ALk Phosph 209 - Abdominal distention/constipation. No BM since Sunday, more distended today. Abdomen X-Ray (08/25/16)----> 1. Nonobstructive bowel gas pattern. 2. Small metallic density overlying the right abdomen in the region of the cecum. Reglan and Miralax. Improved, (+) BM. - Anemia. H&H stable at 10.2/30.4. No active bleeding. - Acute metabolic encephalopathy, improved. A/Ox 3 - SUNNI with electrolyte abnormalities. Improved. - Sepsis/Leukocytosis/Bacteremia. Bcx 08/19, Staphylococcus aureus. Rpt. Cx with staphylococcus aureus, Rpt Cx 08/25 pending. Infectious disease following, MAURA contraindicated secondary to severe esophagitis. Ancef. - HTN, Hx of hypertriglyceridemia, - ETOH abuse, withdrawal per attending. PLAN - Low fat diet - Cont. Miralax - Cont. PPI - Abx per ID- Ancef - DT precautions - Supportive care - Further recommendations to follow based on results of above - This pt was seen by myself and Dr Moses and this note is written on his behalf (Lisha Rodriguez) Physician Comments Patient seen and examined Agree with above Continue with current supportive care Monitor labs (Rigoberto Moses MD) Lisha Rodriguez Aug 28, 2016 15:34 Rigoberto oMses MD Aug 28, 2016 23:46
--- NOTE | 2016-08-28 21:49 | HHI.IDPN ---
Subjective Subjective Remarks no fever now admits to back pain in mid thoracic area pt was seen by photoengraving machine operator/tender, but MAURA is contraindicated 2/2 severe esophagits repeat BC negative @ 3 days His esophageal bx with hyphae Antibiotics cefazoline Allergies: Coded Allergies: No Known Allergies (Verified , 08/19/16) Objective . Vital Signs Date Time Temp Pulse Resp B/P Pulse Ox O2 Delivery O2 Flow Rate FiO2 08/28/16 20:00 97.8 79 18 90/61 98 08/28/16 16:00 97.7 84 22 118/70 99 08/28/16 12:00 98.0 96 20 107/79 100 08/28/16 08:00 98.1 88 20 125/92 98 08/28/16 08:00 98 08/28/16 07:15 Room Air 08/28/16 04:00 Room Air 08/28/16 04:00 97.6 85 20 115/78 100 08/28/16 00:00 Room Air 08/28/16 00:00 97.5 76 20 111/75 99 08/27/16 08/27/16 08/28/16 15:00 23:00 07:00 Intake Total 960 ml 320 ml 370 ml Output Total 350 ml 400 ml Balance 960 ml -30 ml -30 ml Intake Oral 960 ml 320 ml 320 ml IV Total 50 ml Output Urine Total 350 ml 400 ml # Voids 4 # Bowel Movements 1 0 0 Imaging Last Impressions Abdomen X-Ray 08/25/16 0600 Signed Impressions: Service Date/Time: Thursday, August 25, 2016 07:42 - CONCLUSION: 1. Nonobstructive bowel gas pattern. 2. Small metallic density overlying the right abdomen in the region of the cecum. Tom Wakefield MD Chest X-Ray 08/22/16 0600 Signed Impressions: Service Date/Time: Monday, August 22, 2016 04:58 - CONCLUSION: Mild left lower lung infiltrate. Arslan Cortez MD Chest CT 08/20/16 0000 Signed Impressions: Service Date/Time: Saturday, August 20, 2016 11:54 - CONCLUSION: Small bilateral pleural effusions with left lower lobe airspace disease. No evidence of suspicious mass or lymphadenopathy. Hepatic steatosis and inflammatory pancreatic disease again identified. Matt Aguilera MD Abdomen/Pelvis CT 08/19/16 0358 Signed Impressions: Service Date/Time: Friday, August 19, 2016 05:47 - CONCLUSION: 1. Marked circumferential thickening of the esophagus is noted over several centimeters. Esophagitis can have this appearance. 2. Hepatic steatosis and mild distention of the gallbladder again noted. 3. Upper abdominal lymphadenopathy with multiple prominent lymph nodes seen greatest in the retroperitoneum. 4. Abnormal inflammatory changes seen surrounding the pancreas consistent with pancreatitis with mild dilatation of the pancreatic duct. 5. Gastric distention. Mike Aaron MD Physical Exam CONSTITUTIONAL/GENERAL: This is a thin middle aged male patient, in no apparent distress. TUBES/LINES/DRAINS: SKIN: No jaundice, rashes, or lesions. Skin temperature appropriate. Not diaphoretic. No embolic phenomena EYES: Pupils equal and round and reactive. Extraocular motions intact. No scleral icterus. No injection or drainage. Fundi not examined. no conjunctival petechia or hemorrahges ENT: Hearing grossly normal. Nose without bleeding or purulent drainage. Oral mucosae dry without visible erythema, exudates, masses, or lesions. No oral thrush NECK: Trachea midline. Supple, nontender. CARDIOVASCULAR: Regular rate and rhythm without murmurs, gallops, or rubs. No JVD. RESPIRATORY/CHEST: Symmetric, unlabored respirations. Clear to auscultation. Breath sounds equal bilaterally. GASTROINTESTINAL: Abdomen soft, diffusely mildly tender, minimally distended. . No guarding. Bowel sounds present. MUSCULOSKELETAL: Extremities without clubbing, cyanosis, or edema. BACK: no tenderness to back palpation NEUROLOGICAL: Awake, alert . Motor and sensory grossly within normal limits. Follows commands. Clear speech. Moves all extremities. PSYCHIATRIC: calm, coopertative Assessment & Plan Remarks DKA newly diagnosed DM Pancreatitis ETOH induced MSSA high grade bacteremia, recurrent and sustained - bacteremia is cleared - previosly > 1 yra ago, neg MAURA, not a candidate now - MSSA is not a typical org aw pancreatitis - NO clear source, though now admits to back - no h/o IVDU - neg 2 D echo - not a candidate for MAURA 2/2 severe esophagitis - co thoracic back pain Candidal esophagitis REC's: cont cefazolin start fluconaxzole T spine MRI fu repeat BC anticipate 6 weeks of IV cefazolin from the day of 1st neg blood clx if con to have + blood clx more w/u is warranted Fluconazol HIV testing : pt was counseled and is agreable, denies risk factors or recent testing dw pt Camryn Patel MD Aug 28, 2016 21:49
[2016-08-29] VITALS (7 sets, daily range): BP systolic 99–127; BP diastolic 61–81; PULSE 73–88; RESP 16–22; TEMP 97.3–98.3; O2SAT 98–100
[2016-08-29] MEDS: HYDROmorphone HCL PF 1 MG/ML VIAL IV PRN ×3 (03:10→20:38)
[2016-08-29] MEDS: CHLORHEXIDINE GLUCONATE 2 % 1 PACK (2 CLOTHS) TOP SCH (03:18)
[2016-08-29] MEDS: INSULIN ASPART SUPPLEMENTAL SCALE SQ SCH ×4 (06:03→21:13)
[2016-08-29] MEDS: oxyCODONE/ACETAMINOPHEN 10 MG/325 MG TAB PO PRN ×2 (06:05→16:03)
[2016-08-29] MEDS: ceFAZolin 2 GM PREMIX 50 ML IV SCH ×2 (06:05→15:56)
[2016-08-29] MEDS: ARTIFICIAL TEARS OPTH SOLN 15 ML BTL EACH EYE SCH ×3 (09:00→18:00)
[2016-08-29] MEDS: SODIUM CHLORIDE 0.9% FLUSH 10 ML FLUSH IV FLUSH SCH ×2 (09:00→20:43)
[2016-08-29] MEDS: DOCUSATE SODIUM 50 MG/SENNA 8.6 MG TAB PO SCH ×2 (09:43→20:37)
[2016-08-29] MEDS: POLYETHYLENE GLYCOL 17 GM PKG PO SCH (09:43)
[2016-08-29] MEDS: FLUCONAZOLE 200 MG TAB PO SCH (09:43)
[2016-08-29] MEDS: HEPARIN SODIUM - SQ 10,000 UNITS/ML VIAL SQ SCH ×2 (09:44→20:42)
[2016-08-29] MEDS: PANTOPRAZOLE SODIUM 40 MG VIAL IV SCH (09:45)
[2016-08-29] MEDS: INSULIN DETEMIR 100 UNITS/ML VIAL SQ SCH ×2 (09:54→21:13)
--- NOTE | 2016-08-29 13:56 | HHI.PR ---
Subjective Remarks Patient seen and examined today. Patient states he slept well but did not feel well this am. Went to get MRI this am ordered by ID but stated he could not lay down long enough to have the imaging performed. He wants to know if he can have an extra dose of ativan to do the imaging. He states for two weeks his breath has smelled bad. Ambulatory without issues. Breathing without difficulties, no CP. Objective Vital Signs Date Time Temp Pulse Resp B/P Pulse Ox O2 Delivery O2 Flow Rate FiO2 08/29/16 12:00 98.3 85 20 99/67 100 08/29/16 08:00 97.5 84 20 108/69 100 08/29/16 04:00 97.9 78 18 104/61 100 08/29/16 04:00 Room Air 08/29/16 00:34 Room Air 08/29/16 00:00 97.3 88 18 127/63 98 08/28/16 20:13 91 08/28/16 20:00 Room Air 08/28/16 20:00 97.8 79 18 90/61 98 08/28/16 16:00 97.7 84 22 118/70 99 I/O 08/28/16 08/28/16 08/28/16 08/29/16 08/29/16 08/29/16 06:59 14:59 22:59 06:59 14:59 22:59 Intake Total 370 ml 720 ml 538 ml 52 ml Output Total 400 ml 700 ml Balance -30 ml 20 ml 538 ml 52 ml Intake Oral 320 ml 720 ml 480 ml IV Total 50 ml 0 ml 58 ml 52 ml Output Urine Total 400 ml 700 ml # Voids 2 # Bowel Movements 0 1 0 Result Diagram: 08/26/160 08/26/16 0410 Imaging Last Impressions Abdomen X-Ray 08/25/16 06 Signed Impressions: Service Date/Time: Thursday, August 25, 2016 07:42 - CONCLUSION: 1. Nonobstructive bowel gas pattern. 2. Small metallic density overlying the right abdomen in the region of the cecum. Tom Wakefield MD Chest X-Ray 08/22/16 0600 Signed Impressions: Service Date/Time: Monday, August 22, 2016 04:58 - CONCLUSION: Mild left lower lung infiltrate. Arslan Cortez MD Chest CT 08/20/16 0000 Signed Impressions: Service Date/Time: Saturday, August 20, 2016 11:54 - CONCLUSION: Small bilateral pleural effusions with left lower lobe airspace disease. No evidence of suspicious mass or lymphadenopathy. Hepatic steatosis and inflammatory pancreatic disease again identified. Matt Aguilera MD Abdomen/Pelvis CT 08/19/16 0358 Signed Impressions: Service Date/Time: Friday, August 19, 2016 05:47 - CONCLUSION: 1. Marked circumferential thickening of the esophagus is noted over several centimeters. Esophagitis can have this appearance. 2. Hepatic steatosis and mild distention of the gallbladder again noted. 3. Upper abdominal lymphadenopathy with multiple prominent lymph nodes seen greatest in the retroperitoneum. 4. Abnormal inflammatory changes seen surrounding the pancreas consistent with pancreatitis with mild dilatation of the pancreatic duct. 5. Gastric distention. Mike Aaron MD Objective Remarks GENERAL: well appearing, nad SKIN: Warm and dry. HEAD: Normocephalic. EYES: No scleral icterus. No injection or drainage. NECK: Supple, trachea midline. No JVD or lymphadenopathy. CARDIOVASCULAR: Regular rate and rhythm without murmurs, gallops, or rubs. RESPIRATORY: Breath sounds equal bilaterally. No accessory muscle use. GASTROINTESTINAL: Abdomen soft, non-tender, nondistended. MUSCULOSKELETAL: No cyanosis, or edema. BACK: Nontender without obvious deformity. No CVA tenderness. A/P Problem List: (1) etoh withdrawal (2) Recurrent pancreatitis ICD Code: K86.1 (3) Alcohol abuse ICD Code: F10.10 (4) DKA (diabetic ketoacidoses) ICD Code: E13.10 (5) Acute renal insufficiency ICD Code: N28.9 (6) MSSA (methicillin susceptible Staphylococcus aureus) septicemia ICD Code: A41.01 (7) Esophagitis ICD Code: K20.9 Assessment and Plan 51 yo male with: Alcohol dependence & withdrawal Alcohol dependence Vitamin bag daily 3 days for EtOH use status post accident. On CIWA protocol. No signs of withdrawal at the bedside. Pancreatitis Improving. See imaging above. Lipase on 08/20 399 Likely related to alcohol abuse History of Hypertension History of hypertriglyceridemia Holding losartan 25 mg by mouth daily light of pancreatitis, has been normotensive. 2D echo 08/21 shows no evidence of endocarditis Ongoing tobaccoism Nasal cannula to maintain saturations greater than equal to 92% Incentive spirometry while awake Tobacco cessation Nicotine patch if indicated Acute pancreatitis/Hepatic steatosis/Marked circumferential thickening of the esophagus GI following: EGD 08/21 showed severe esophagitis and duodenitis. Biopsy: minimal acute enteritis, acute esophagitits with features of ulceration, rare fungal hyphae within inflammatory detritus, neg viral cytopathic changes. Cont: miralax, PPI ID started fluconazole on 08/28 due to candidal esophagitis. HIV testing also ordered. DKA Resolved. Levemir 5 q12 and SSI. Blood sugars appear well controlled. Acute kidney injury-resolved Likely prerenal. I's and O's Monitor urine output Bacteremia MSSA Staph aureus in 4 out of 4 bottles Hx of previous staph aureus bacteremia ID following. Currently on cefazolin, anticipate 6 weeks of IV abx from first day of first negative blood culture Blood Cultures 08/19 staph aureus 4/4 bottles. Repeated blood culture 08/21 positive 1/ staph aureus. Blood cultures 08/25 repeated, no growth x 3 day 2-D echo negative for endocarditis. Previous MAURA for staph aureus bacteremia was negative C Application Developer consulted for repeat MAURA. Patient is not a candidate due to severe esophagitis. Hypercalcemia-resolved Hypo-natremia Hypokalemia Replace electrolytes per protocol F/u PTH, PTHp, vitamin D / and 25 Prophylaxis - GI - Protonix IV BID - DVT - SCD/heparin subcutaneous Discharge Planning D/C by ID and GI. Anticipate 6 weeks of IV abx Problem Qualifiers (1) DKA (diabetic ketoacidoses): Qualified Code: E13.10 - Diabetic ketoacidosis without coma associated with type 2 diabetes mellitus Renuka Osman MD Aug 29, 2016 13:56
--- NOTE | 2016-08-29 16:08 | HHI.GIFU ---
Subjective Remarks Patient is resting in bed, still with diffused abd tenderness, some nausea. 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 ([facility]) Objective Vitals I&O Vital Signs Date Time Temp Pulse Resp B/P Pulse Ox O2 Delivery O2 Flow Rate FiO2 08/29/16 12:00 98.3 85 20 99/67 100 08/29/16 08:00 97.5 84 20 108/69 100 08/29/16 04:00 97.9 78 18 104/61 100 08/29/16 04:00 Room Air 08/29/16 00:34 Room Air 08/29/16 00:00 97.3 88 18 127/63 98 08/28/16 20:13 91 08/28/16 20:00 Room Air 08/28/16 20:00 97.8 79 18 90/61 98 I/O 08/28/16 08/28/16 08/28/16 08/29/16 08/29/16 08/29/16 07:00 15:00 23:00 07:00 15:00 23:00 Intake Total 370 ml 720 ml 538 ml 52 ml Output Total 400 ml 700 ml Balance -30 ml 20 ml 538 ml 52 ml Intake Oral 320 ml 720 ml 480 ml IV Total 50 ml 0 ml 58 ml 52 ml Output Urine Total 400 ml 700 ml # Voids 2 # Bowel Movements 0 1 0 Laboratory Laboratory Tests Test 08/29/16 07:21 HIV (1&2) Antibody NEGATIVE Date/Time Procedure Status Source Growth 08/25/16 12:16 Aerobic Blood Culture - Preliminary Resulted Blood Peripheral NO GROWTH IN 4 DAYS 08/25/16 12:16 Anaerobic Blood Culture - Preliminary Resulted Blood Peripheral NO GROWTH IN 4 DAYS Imaging Last Impressions Abdomen X-Ray 08/25/16 0600 Signed Impressions: Service Date/Time: Thursday, August 25, 2016 07:42 - CONCLUSION: 1. Nonobstructive bowel gas pattern. 2. Small metallic density overlying the right abdomen in the region of the cecum. Tom Wakefield MD Chest X-Ray 08/22/16 0600 Signed Impressions: Service Date/Time: Monday, August 22, 2016 04:58 - CONCLUSION: Mild left lower lung infiltrate. Arslan Cortez MD Chest CT 08/20/16 0000 Signed Impressions: Service Date/Time: Saturday, August 20, 2016 11:54 - CONCLUSION: Small bilateral pleural effusions with left lower lobe airspace disease. No evidence of suspicious mass or lymphadenopathy. Hepatic steatosis and inflammatory pancreatic disease again identified. Matt Aguilera MD Abdomen/Pelvis CT 08/19/16 0358 Signed Impressions: Service Date/Time: Friday, August 19, 2016 05:47 - CONCLUSION: 1. Marked circumferential thickening of the esophagus is noted over several centimeters. Esophagitis can have this appearance. 2. Hepatic steatosis and mild distention of the gallbladder again noted. 3. Upper abdominal lymphadenopathy with multiple prominent lymph nodes seen greatest in the retroperitoneum. 4. Abnormal inflammatory changes seen surrounding the pancreas consistent with pancreatitis with mild dilatation of the pancreatic duct. 5. Gastric distention. Mike Aaron MD Physical Exam HEENT:Normocephalic; atraumatic; no jaundice. CHEST: CTA CARDIAC: RRR ABDOMEN: Soft, non-distended, epigastric TTP; no hepatosplenomegaly; bowel sounds hypoactive EXTREMITIES: No clubbing, cyanosis, or edema. SKIN: Normal; no rash; no jaundice. 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 Abdomen/Pelvis CT (08/19/16)-----> 1. Marked circumferential thickening of the esophagus is noted over several centimeters. Esophagitis can have this appearance. 2. Hepatic steatosis and mild distention of the gallbladder again noted. 3. Upper abdominal lymphadenopathy with multiple prominent lymph nodes seen greatest in the retroperitoneum. 4. Abnormal inflammatory changes seen surrounding the pancreas consistent with pancreatitis with mild dilatation of the pancreatic duct. 5. Gastric distention. EGD with duodenitis, gastritis, severe esophagitis. Triglycerides 256. Tolerating heart healthy Pain has Improved. - GIB, Hematemesis. S/P EGD (08/21/16)----> 1. Duodenitis second portion-biopsy , gastritis antrum-biopsy, severe esophagitis distal esophagus-biopsy, some bleeding from biopsy site-2 clips applied, epinephrine 1:10,000 -5 cc 2. Retroflexed views revealed a hiatal hernia. No active bleeding - Severe esophagitis, gastritis, duodenitis. S/P EGD as above. - Elevated LFTs. - Abdominal distention/constipation. No BM since Sunday, more distended today. Abdomen X-Ray (08/25/16)----> 1. Nonobstructive bowel gas pattern. 2. Small metallic density overlying the right abdomen in the region of the cecum. Reglan and Miralax. Improved, (+) BM. - Anemia. No active bleeding. - Acute metabolic encephalopathy, improved. A/Ox 3 - SUNNI with electrolyte abnormalities. Improved. - Sepsis/Leukocytosis/Bacteremia. Bcx 08/19, Staphylococcus aureus. Rpt. Cx with staphylococcus aureus, Rpt Cx 08/25 pending. Infectious disease following, MAURA contraindicated secondary to severe esophagitis. Ancef. - HTN, Hx of hypertriglyceridemia, - ETOH abuse, withdrawal per attending. PLAN - Low fat diet - Cont. Miralax - Cont. PPI - Abx per ID- Ancef - GI will sign off - This pt was seen by myself and Dr Moses and this note is written on his behalf ([facility]) Physician Comments Patient seen and examined Agree with above Continue with current supportive care Monitor labs Gradual improvement noted We will sign off at this point but if any questions please reconsult as needed ( Rigoberto Moses MD) [facility] Aug 29, 2016 16:08 Rigoberto Moses MD Aug 29, 2016 23:21
[2016-08-30] VITALS (8 sets, daily range): BP systolic 100–129; BP diastolic 60–88; PULSE 80–97; RESP 16–20; TEMP 97.7–98.2; O2SAT 97–100
[2016-08-30] MEDS: oxyCODONE/ACETAMINOPHEN 10 MG/325 MG TAB PO PRN ×3 (01:17→21:19)
[2016-08-30] MEDS: ceFAZolin 2 GM PREMIX 50 ML IV SCH ×4 (01:20→22:37)
[2016-08-30] MEDS: CHLORHEXIDINE GLUCONATE 2 % 1 PACK (2 CLOTHS) TOP SCH (04:00)
[2016-08-30] MEDS: INSULIN ASPART SUPPLEMENTAL SCALE SQ SCH ×4 (07:00→21:00)
[2016-08-30] MEDS: HYDROmorphone HCL PF 1 MG/ML VIAL IV PRN ×3 (07:07→17:10)
[2016-08-30] MEDS: INSULIN DETEMIR 100 UNITS/ML VIAL SQ SCH ×2 (09:00→21:21)
[2016-08-30] MEDS: SODIUM CHLORIDE 0.9% FLUSH 10 ML FLUSH IV FLUSH SCH ×2 (09:00→21:19)
[2016-08-30] MEDS: DOCUSATE SODIUM 50 MG/SENNA 8.6 MG TAB PO SCH ×2 (09:33→21:19)
[2016-08-30] MEDS: POLYETHYLENE GLYCOL 17 GM PKG PO SCH (09:33)
[2016-08-30] MEDS: PANTOPRAZOLE SODIUM 40 MG VIAL IV SCH (09:33)
[2016-08-30] MEDS: HEPARIN SODIUM - SQ 10,000 UNITS/ML VIAL SQ SCH ×2 (09:33→21:19)
[2016-08-30] MEDS: FLUCONAZOLE 200 MG TAB PO SCH (09:33)
[2016-08-30] MEDS: LORazepam 2 MG/ML VIAL IV PUSH PRN (11:35)
--- NOTE | 2016-08-30 11:43 | HHI.PR ---
Subjective Remarks Follow-up for infection and pancreatitis Patient stated that he does not know why he is here and that no one explains anything to him. I had patient a few days ago and stated that this is not true that I went over all his diagnosis with him in regards to management and treatment. After that patient was not able to refute that treatment. He stated that by mouth intake is improving. Patient stated the abdominal pain is improving every day. Patient stated that his mid back pain has been chronic. He remains afebrile. Objective Vitals Vital Signs Date Time Temp Pulse Resp B/P Pulse Ox O2 Delivery O2 Flow Rate FiO2 08/30/16 08:00 98.2 85 20 114/77 98 08/30/16 04:00 97.8 80 16 100/60 99 08/30/16 00:00 97.8 83 18 129/88 100 08/30/16 00:00 Room Air 08/29/16 20:32 73 08/29/16 20:00 97.7 80 16 114/81 100 08/29/16 20:00 Room Air 08/29/16 16:00 97.9 80 22 110/68 98 08/29/16 12:00 98.3 85 20 99/67 100 I/O 08/29/16 08/29/16 08/29/16 08/30/16 08/30/16 08/30/16 06:59 14:59 22:59 06:59 14:59 22:59 Intake Total 52 ml 240 ml 480 ml 240 ml Balance 52 ml 240 ml 480 ml 240 ml Intake Oral 240 ml 480 ml 240 ml IV Total 52 ml # Voids 3 4 3 # Bowel Movements 0 0 1 Result Diagram: 08/26/1640908/26/16409 Objective Remarks GENERAL: In no acute distress sitting in the bed very comfortably. SKIN: Warm and dry. HEAD: Normocephalic. EYES: No scleral icterus. No injection or drainage. NECK: Supple, trachea midline. No JVD or lymphadenopathy. CARDIOVASCULAR: Regular rate and rhythm without murmurs, gallops, or rubs. RESPIRATORY: Breath sounds equal bilaterally. No accessory muscle use. GASTROINTESTINAL: Abdomen soft, mild tenderness to palpation in the mid abdomen , nondistended. Medications and IVs Current Medications Sodium Chloride 1,000 ml @ 1,000 mls/hr Q1H ONCE IV Last administered on 04:35; Start 08/19/16 at 03:57; Stop 08/19/16 at 04:56; Status DC Sodium Chloride 1,000 ml @ 1,000 mls/hr Q1H ONCE IV Last administered on 04:35; Start 08/19/16 at 03:57; Stop 08/19/16 at 04:56; Status DC Sodium Chloride (NS 1000 ml Inj) 400 ml @ 1,000 mls/hr Q24M ONCE IV Last administered on 08/19/16 04:35; Start 08/19/16 at 03:57; Stop 08/19/16 at 04:20 ; Status DC Ondansetron HCl 4 mg 4 mg ONCE ONCE IV PUSH Last administered on 08/19/16 04: 52; Start 08/19/16 at 04:45; Stop 08/19/16 at 04:46; Status DC Vancomycin HCl 1000 mg/Sodium Chloride 250 ml @ 250 mls/hr ONCE STAT IV Last administered on 08/19/16 07:28; Start 08/19/16 at 04:47; Stop 08/19/16 at 05:46 ; Status DC Piperacillin Sod/ Tazobactam Sod 100 ml @ 200 mls/hr ONCE STAT IV Last administered on 08/19/16 04:52; Start 08/19/16 at 04:47; Stop 08/19/16 at 05:16 ; Status DC Sodium Chloride 1,000 ml @ 250 mls/hr Q4H IV ; Start 08/19/16 at 05:19; Stop at 05:59; Status DC Dextrose/Sodium Chloride (D5W-NS 1000 ml Inj) 1,000 ml @ 200 mls/hr Q5H IV ; Start 08/19/16 at 05:19; Stop 08/19/16 at 05:59; Status DC Insulin Human Regular 6 units 6 units BOLUS ONCE IV PUSH Last administered on 08/19/16 06:08; Start 08/19/16 at 05:30; Stop 08/19/16 at 05:31; Status DC Insulin Human Regular 100 units/ Sodium Chloride 100 ml @ 0 mls/hr TITRATE IV ; Start 08/19/16 at 05:30; Stop 08/19/16 at 05:59; Status DC Potassium Chloride 100 ml @ 100 mls/hr Q1H PRN IV SEE LABEL COMMENTS; Start at 05:30; Stop 08/19/16 at 05:59; Status DC Potassium Chloride 100 ml @ 50 mls/hr Q2H PRN IV SEE LABEL COMMENTS; Start at 05:30; Stop 08/19/16 at 05:59; Status DC Potassium Chloride 100 ml @ 100 mls/hr Q1H PRN IV SEE LABEL COMMENTS; Start at 05:30; Stop 08/19/16 at 05:59; Status DC Potassium Chloride 100 ml @ 100 mls/hr Q1H PRN IV SEE LABEL COMMENTS; Start at 05:30; Stop 08/19/16 at 05:59; Status DC Potassium Chloride 100 ml @ 50 mls/hr Q2H PRN IV SEE LABEL COMMENTS; Start at 05:30; Stop 08/19/16 at 05:59; Status DC Potassium Chloride 100 ml @ 50 mls/hr Q2H PRN IV SEE LABEL COMMENTS; Start at 05:30; Stop 08/19/16 at 05:59; Status DC Potassium Chloride 100 ml @ 50 mls/hr Q2H PRN IV SEE LABEL COMMENTS; Start at 05:30; Stop 08/19/16 at 05:59; Status DC Potassium Chloride (KCl 20 Meq Premix Inj) 100 ml @ 50 mls/hr Q2H PRN IV SEE LABEL COMMENTS; Start 08/19/16 at 05:30; Stop 08/19/16 at 05:59; Status DC Sodium Bicarbonate (Sodium Bicarbonate 8.4% Inj) 100 meq UNSCH PRN IV SEE LABEL COMMENTS; Start 08/19/16 at 05:30; Stop 08/19/16 at 05:59; Status DC Sodium Bicarbonate 50 meq 50 meq UNSCH PRN IV SEE LABEL COMMENTS; Start at 05:30; Stop 08/19/16 at 05:59; Status DC Sodium Phosphate 15 mmol/Sodium Chloride 105 ml @ 25 mls/hr UNSCH PRN IV SEE LABEL COMMENTS; Start 08/19/16 at 05:30; Stop 08/19/16 at 05:59; Status DC Sodium Chloride 1,000 ml @ 250 mls/hr Q4H IV Last administered on 08/19/16 08 :54; Start 08/19/16 at 05:55; Stop 08/20/16 at 05:55; Status DC Dextrose/Sodium Chloride 1,000 ml @ 200 mls/hr Q5H IV Last administered on 03:37; Start 08/19/16 at 05:55; Stop 08/20/16 at 05:55; Status DC Insulin Human Regular 100 units/ Sodium Chloride 100 ml @ 0 mls/hr TITRATE IV Last administered on 08/20/16 00:27; Start 08/19/16 at 06:00; Stop 08/20/16 at 05:53; Status DC Potassium Chloride 100 ml @ 100 mls/hr Q1H PRN IV SEE LABEL COMMENTS; Start at 06:00; Stop 08/20/16 at 05:55; Status DC Potassium Chloride 100 ml @ 50 mls/hr Q2H PRN IV SEE LABEL COMMENTS; Start at 06:00; Stop 08/20/16 at 05:55; Status DC Potassium Chloride 100 ml @ 100 mls/hr Q1H PRN IV SEE LABEL COMMENTS; Start at 06:00; Stop 08/20/16 at 05:55; Status DC Potassium Chloride 100 ml @ 100 mls/hr Q1H PRN IV SEE LABEL COMMENTS; Start at 06:00; Stop 08/20/16 at 05:55; Status DC Potassium Chloride 100 ml @ 50 mls/hr Q2H PRN IV SEE LABEL COMMENTS; Start at 06:00; Stop 08/20/16 at 05:55; Status DC Potassium Chloride 100 ml @ 50 mls/hr Q2H PRN IV SEE LABEL COMMENTS; Start at 06:00; Stop 08/20/16 at 05:55; Status DC Potassium Chloride 100 ml @ 50 mls/hr Q2H PRN IV SEE LABEL COMMENTS Last administered on 08/20/16 03:37; Start 08/19/16 at 06:00; Stop 08/20/16 at 05:55 ; Status DC Potassium Chloride (KCl 20 Meq Premix Inj) 100 ml @ 50 mls/hr Q2H PRN IV SEE LABEL COMMENTS; Start 08/19/16 at 06:00; Stop 08/20/16 at 05:55; Status DC Sodium Bicarbonate (Sodium Bicarbonate 8.4% Inj) 100 meq UNSCH PRN IV SEE LABEL COMMENTS; Start 08/19/16 at 06:00; Stop 08/20/16 at 05:55; Status DC Sodium Bicarbonate 50 meq 50 meq UNSCH PRN IV SEE LABEL COMMENTS; Start at 06:00; Stop 08/20/16 at 05:55; Status DC Sodium Phosphate/ Sodium Chloride (Sodium Phosphate Inj/NS Inj) 105 ml @ 25 mls /hr UNSCH PRN IV SEE LABEL COMMENTS Last administered on 08/19/16 19:15; Start 08/19/16 at 06:00; Stop 08/20/16 at 05:55; Status DC Miscellaneous Information 1 Q361D XX ; Start 08/19/16 at 06:00; Stop 08/20/16 at 05:59; Status DC Chlorhexidine Gluconate (Chlorhexidine 2% Cloth) 3 pack Taper DAILY@04 TOP Last administered on 08/20/16 03:37; Start 08/20/16 at 04:00; Stop 08/20/16 at 05:59; Status DC Chlorhexidine Gluconate (Chlorhexidine 2% Cloth) 3 pack UNSCH PRN TOP HYGIENIC CARE; Start 08/19/16 at 06:00; Stop 08/20/16 at 05:59; Status DC Metoclopramide HCl (Reglan Inj) 10 mg ONCE ONCE IV PUSH Last administered on 07:00; Start 08/19/16 at 06:00; Stop 08/19/16 at 06:05; Status DC Sodium Chloride (NS Flush) 2 ml UNSCH PRN IV FLUSH FLUSH AFTER USING IV ACCESS Last administered on 08/27/16 11:55; Start 08/19/16 at 06:45 Sodium Chloride (NS Flush) 2 ml BID IV FLUSH Last administered on 08/30/16 09: 00; Start 08/19/16 at 09:00 Hydromorphone HCl (Dilaudid Pf Inj) 1 mg Q2H PRN IV PAIN SCALE 6 TO 10 Last administered on 08/23/16 08:55; Start 08/19/16 at 06:45; Stop 08/23/16 at 10:29 ; Status DC Pantoprazole Sodium (Protonix Inj) 40 mg DAILY IV Last administered on 09:33; Start 08/19/16 at 09:00 Artificial Tears (Tears Naturale Opth Soln) 1 drop TID EACH EYE Last administered on 08/29/16 11:37; Start 08/19/16 at 09:00 Ondansetron HCl (Zofran Inj) 4 mg Q6H PRN IV NAUSEA OR VOMITING; Start at 06:45 Albuterol Sulfate (Albuterol Neb) 2.5 mg Q2HR NEB PRN INH SOB/WHEEZING; Start 08/19/16 at 06:45 Heparin Sodium (Porcine) (Heparin Inj) 5,000 units Q12H SQ Last administered on 08/30/16 09:33; Start 08/19/16 at 09:00 Miscellaneous Information 1 Q361D XX ; Start 08/19/16 at 06:45 Chlorhexidine Gluconate (Chlorhexidine 2% Cloth) Taper DAILY@04 TOP Last administered on 08/22/16 04:00; Start 08/20/16 at 04:00; Stop 08/16/17 at 03:59 Chlorhexidine Gluconate (Chlorhexidine 2% Cloth) 3 pack UNSCH PRN TOP HYGIENIC CARE; Start 08/19/16 at 06:45 Senna/Docusate Sodium (Nakia-Colace) 1 tab BID PO Last administered on 09:33; Start 08/19/16 at 09:00 Magnesium Hydroxide (Milk Of Magnesia Liq) 30 ml Q12H PRN PO MILD - MODERATE CONSTIPATION; Start 08/19/16 at 06:45 Sennosides (Senokot) 17.2 mg Q12H PRN PO MODERATE - SEVERE CONSTIPATION; Start 08/19/16 at 06:45 Bisacodyl (Dulcolax Supp) 10 mg DAILY PRN RECTAL SEVERE CONSITIPATION; Start at 06:45 Lactulose (Lactulose Liq) 30 ml DAILY PRN PO SEVERE CONSITIPATION Last administered on 08/24/16 23:20; Start 08/19/16 at 06:45 Hydromorphone HCl 0.5 mg 0.5 mg Q2H PRN IV PUSH PAIN SCALE 1 TO 5 Last administered on 08/23/16 06:05; Start 08/19/16 at 06:45; Stop 08/23/16 at 10:29 ; Status DC Multivitamins/ Thiamine HCl/ Folic Acid/Sodium Chloride (Mvi-12 Inj/ Thiamine Inj/ Folvite Inj/NS 500 ml Inj) 511.2 ml @ 125 mls/hr DAILY IV Last administered on 08/21/16 10:24; Start 08/19/16 at 09:00; Stop 08/22/16 at 08:59 ; Status DC Flumazenil (Romazicon Inj) 0.2 mg Q1M PRN IV PUSH SEE LABEL COMMENTS; Start at 07:00 Lorazepam (Ativan) 1 mg Q4H PRN PO CIWA 8 - 10 Last administered on 08/23/16 23:30; Start 08/19/16 at 07:00 Lorazepam (Ativan Inj) 1 mg Q4H PRN IV PUSH CIWA 8 - 10 Last administered on 11:35; Start 08/19/16 at 07:00 Lorazepam (Ativan) 2 mg Q2H PRN PO CIWA 11-14; Start 08/19/16 at 07:00 Lorazepam (Ativan Inj) 2 mg Q2H PRN IV PUSH CIWA 11-14 Last administered on 23:56; Start 08/19/16 at 07:00 Lorazepam (Ativan Inj) 2 mg Q1H PRN IV PUSH CIWA 15-20; Start 08/19/16 at 07:00 Lorazepam (Ativan Inj) 2 mg Q15M PRN IV PUSH CIWA > 20; Start 08/19/16 at 07:00 Miscellaneous Information 1 ONCE ONCE .XX ; Start 08/20/16 at 05:45; Stop 08/20 at 05:56; Status DC Miscellaneous Information 1 ONCE .XX ; Start 08/20/16 at 05:45; Stop 08/20/16 at 10:02; Status DC Insulin Detemir (Levemir Inj) 10 units DAILY SQ ; Start 08/20/16 at 09:00; Stop 08/20/16 at 10:00; Status DC Dextrose (D50w (Vial) Inj) 50 ml UNSCH PRN IV HYPOGLYCEMIA-SEE COMMENTS; Start 08/20/16 at 05:45; Stop 08/20/16 at 05:58; Status DC Glucagon (Glucagon Inj) 1 mg UNSCH PRN OTHER HYPOGLYCEMIA-SEE COMMENTS; Start 08/20/16 at 05:45; Stop 08/20/16 at 05:58; Status DC Dextrose (D50w (Vial) Inj) 50 ml UNSCH PRN IV HYPOGLYCEMIA-SEE COMMENTS; Start 08/20/16 at 05:45; Stop 08/20/16 at 05:58; Status DC Glucagon (Glucagon Inj) 1 mg UNSCH PRN OTHER HYPOGLYCEMIA-SEE COMMENTS; Start 08/20/16 at 05:45; Stop 08/20/16 at 05:58; Status DC Dextrose (D50w (Vial) Inj) 50 ml UNSCH PRN IV HYPOGLYCEMIA-SEE COMMENTS; Start 08/20/16 at 05:45; Stop 08/20/16 at 10:01; Status DC Glucagon (Glucagon Inj) 1 mg UNSCH PRN OTHER HYPOGLYCEMIA-SEE COMMENTS; Start 08/20/16 at 05:45 Insulin Aspart 1 1 ACHS SLIDING SCALE SQ ; Start 08/20/16 at 07:00; Stop at 09:06; Status DC Insulin Human Regular/Sodium Chloride (NovoLIN R (IV INFUSION)/NS Inj) 100 ml @ 0 mls/hr TITRATE IV ; Start 08/20/16 at 06:00; Stop 08/20/16 at 10:00; Status DC Potassium Chloride 40 meq 40 meq NOW ONCE PO Last administered on 08/20/16t 06 :43; Start 08/20/16 at 06:30; Stop 08/20/16 at 06:31; Status DC Vancomycin HCl 1250 mg/Sodium Chloride 262.5 ml @ 262.5 mls/ hr ONCE ONCE IV ; Start 08/20/16 at 10:00; Stop 08/20/16 at 10:59; Status Cancel Pharmacy Profile Note 0 ml @ 0 mls/hr UNSCH OTHER ; Start 08/20/16 at 09:15; Stop 08/20/16 at 23:00; Status DC Cefepime HCl 2000 mg/Sodium Chloride 100 ml @ 200 mls/hr Q8H IV ; Start at 10:00; Stop 08/20/16 at 10:00; Status DC Piperacillin Sod/ Tazobactam Sod 100 ml @ 200 mls/hr Q6H IV Last administered on 08/20/16 22:16; Start 08/20/16 at 10:00; Stop 08/20/16 at 23:00; Status DC Insulin Human Regular/Sodium Chloride (NovoLIN R (IV INFUSION)/NS Inj) 100 ml @ 0 mls/hr TITRATE IV Last administered on 08/20/16 10:36; Start 08/20/16 at 09: 15; Stop 08/22/16 at 09:57; Status DC Dextrose (D50w (Vial) Inj) 50 ml UNSCH PRN IV PUSH SEE LABEL COMMENTS; Start at 09:15 Miscellaneous Information 1 1 ONCE ONCE OTHER ; Start 08/20/16 at 10:00; Stop 08/20/16 at 10:01; Status DC Dexmedetomidine HCl 1000 mcg/ Sodium Chloride 250 ml @ 0 mls/hr TITRATE IV Last administered on 08/20/16 10:37; Start 08/20/16 at 09:15; Stop 08/22/16 at 09:41; Status DC Vancomycin HCl/ Sodium Chloride (Vancomycin Inj/ NS 500 ml Inj) 515 ml @ 257.5 mls/ hr ONCE ONCE IV Last administered on 08/20/16 11:19; Start 08/20/16 at 10:00; Stop 08/20/16 at 11:59; Status DC Iohexol 65 ml 65 ml STK-MED ONCE IV Last administered on 08/20/16 12:09; Start 08/20/16 at 12:09; Stop 08/20/16 at 12:10; Status DC Vancomycin HCl/ Sodium Chloride (Vancomycin Inj/ NS 250 ml Inj) 250 ml @ 250 mls/hr Q12H IV ; Start 08/20/16 at 23:00; Stop 08/20/16 at 23:00; Status DC Miscellaneous Information SPECIFIC LAB TO BE ... ONCE ONCE .XX ; Start 08/21 at 22:45; Stop 08/21/16 at 22:46; Status DC Cefazolin Sodium/ Dextrose 50 ml @ 150 mls/hr Q8H IV Last administered on 08/30 13:40; Start 08/20/16 at 23:00 Potassium Chloride 100 ml @ 50 mls/hr Q2H PRN IV For Potassium 2.8 - 3.2 mEq/L ; Start 08/21/16 at 08:00; Stop 08/23/16 at 21:39; Status DC Potassium Chloride (KCl 20 Meq Premix Inj) 100 ml @ 50 mls/hr Q2H PRN IV For Potassium 2.8 - 3.2 mEq/L Last administered on 08/23/16t 10:11; Start 08/21/16 at 08:00; Stop 08/23/16 at 21:39; Status DC Potassium Bicarb/ Potassium Chloride 50 meq 50 meq UNSCH PRN PO For Potassium 3.3 - 3.5 mEq/L; Start 08/21/16 at 08:00; Stop 08/23/16 at 21:39; Status DC Potassium Chloride 100 ml @ 25 mls/hr UNSCH PRN IV For Potassium 3.3 - 3.5 mEq /L; Start 08/21/16 at 08:00; Stop 08/23/16 at 21:39; Status DC Potassium Chloride 100 ml @ 50 mls/hr Q2H PRN IV For Potassium 3.3 - 3.5 mEq/L ; Start 08/21/16 at 08:00; Stop 08/23/16 at 21:39; Status DC Magnesium Sulfate/ Sodium Chloride (Magnesium Sulfate Inj/NS Inj) 100 ml @ 50 mls/hr UNSCH PRN IV For Magnesium 0.9 - 1.1 mg/dL; Start 08/21/16 at 08:00; Stop 08/23/16 at 21:39; Status DC Magnesium Oxide 800 mg 800 mg UNSCH PRN PO For Magnesium 1.2 - 1.6 mg/dL; Start 08/21/16 at 08:00; Stop 08/23/16 at 21:39; Status DC Magnesium Sulfate/ Sodium Chloride (Magnesium Sulfate Inj/NS Inj) 100 ml @ 50 mls/hr UNSCH PRN IV For Magnesium 1.2 - 1.6 mg/dL Last administered on t 11:18; Start 08/21/16 at 08:00; Stop 08/23/16 at 21:39; Status DC Potassium Phosphate 2000 mg 2,000 mg Q4H PRN PO For Phosphorus < 2.5 mg/dL; Start 08/21/16 at 08:00; Stop 08/23/16 at 21:39; Status DC Sodium Phosphate/ Sodium Chloride (Sodium Phosphate Inj/NS 250 ml Inj) 250 ml @ 42 mls/hr UNSCH PRN IV For Phosphorus < 2.5 mg/dL; Start 08/21/16 at 08:00; Stop 08/23/16 at 21:39; Status DC Potassium Phosphate 2000 mg 2,000 mg UNSCH PRN PO/TUBE SEE LABEL COMMENTS; Start 08/21/16 at 08:00; Stop 08/23/16 at 21:39; Status DC Potassium Phosphate/Sodium Chloride (Potassium Phosphate Inj/NS 250 ml Inj) 260 ml @ 42 mls/hr UNSCH PRN IV SEE LABEL COMMENTS; Start 08/21/16 at 08:00; Stop 08/23/16 at 21:39; Status DC Potassium Bicarb/ Potassium Chloride (K-Lyte Cl Eff) 25 meq ONCE ONCE PO ; Start 08/21/16 at 08:30; Stop 08/21/16 at 08:31; Status DC Propofol (Diprivan 200 Mg/20 ml Inj) 110 mg STK-MED ONCE IV PUSH ; Start at 12:35; Stop 08/21/16 at 12:36; Status DC Ketamine HCl (Ketalar Inj) 500 mg STK-MED ONCE .ROUTE ; Start 08/21/16 at 13:05 ; Stop 08/21/16 at 13:06; Status DC Miscellaneous Information ALL NURSING DEPARTME... UNSCH PRN .XX SEE LABEL COMMENTS; Start 08/21/16 at 12:54; Stop 08/22/16 at 12:53; Status DC Epinephrine HCl (EPINEPHrine (1:10,000) INJ) 1 mg STK-MED ONCE OTHER Last administered on 08/21/16 12:15; Start 08/21/16 at 12:15; Stop 08/21/16 at 14:34 ; Status DC Phenylephrine HCl (Neosynephrine/ NS 1000 Mcg/10ml Syr) 1,000 mcg STK-MED ONCE IV ; Start 08/21/16 at 12:00; Stop 08/22/16 at 09:16; Status DC Insulin Detemir (Levemir Inj) 5 units Q12HR SQ Last administered on 08/30/16 09:00; Start 08/22/16 at 10:00 Insulin Aspart (NovoLOG SUPPLEMENTAL SCALE) 1 ACHS SLIDING SCALE SQ Last administered on 08/30/16 11:00; Start 08/22/16 at 11:00 Hydromorphone HCl (Dilaudid Pf Inj) 1 mg Q4H PRN IV BREAKTHROUGH PAIN Last administered on 08/30/16 13:41; Start 08/23/16 at 12:45 Oxycodone/ Acetaminophen (Percocet 7.5-325 Mg) 1 tab Q4H PRN PO PAIN SCALE 3 TO 5 Last administered on 08/27/16 17:53; Start 08/23/16 at 10:30 Oxycodone/ Acetaminophen (Percocet 10-325 Mg) 1 tab Q6H PRN PO PAIN SCALE 6 TO 10 Last administered on 08/30/16 11:31; Start 08/23/16 at 10:30 Metoclopramide HCl (Reglan Inj) 10 mg Q8H PRN IM NAUSEA OR VOMITING; Start at 11:00; Stop 08/23/16 at 11:43; Status DC Potassium Chloride (KCl) 40 meq ONCE ONCE PO Last administered on 08/23/16 12 :23; Start 08/23/16 at 11:00; Stop 08/23/16 at 11:35; Status DC Metoclopramide HCl (Reglan Inj) 10 mg Q8HR IV PUSH Last administered on 05:12; Start 08/23/16 at 14:00; Stop 08/27/16 at 09:27; Status DC Polyethylene Glycol (Miralax) 17 gm DAILY PO Last administered on 08/30/16 09: 33; Start 08/23/16 at 11:45 Potassium Chloride (KCl) 30 meq ONCE ONCE PO Last administered on 08/24/16 14 :46; Start 08/24/16 at 12:15; Stop 08/24/16 at 13:04; Status DC Fluconazole (Diflucan) 200 mg DAILY PO Last administered on 08/30/16 09:33; Start 08/29/16 at 09:00 Gadodiamide (Omniscan Pf Inj) 13 ml STK-MED ONCE IV Last administered on 12:20; Start 08/30/16 at 12:20; Stop 08/30/16 at 12:21; Status DC A/P Problem List: (1) Acute pancreatitis ICD Code: K85.9 Status: Acute (2) MSSA (methicillin susceptible Staphylococcus aureus) septicemia ICD Code: A41.01 Status: Acute (3) Severe sepsis ICD Code: A41.9 Status: Acute (4) DKA (diabetic ketoacidoses) ICD Code: E13.10 Status: Acute (5) Lactic acidosis ICD Code: E87.2 Status: Acute (6) Alcohol withdrawal delirium ICD Code: F10.231 Status: Acute (7) Hypercalcemia ICD Code: E83.52 Status: Acute (8) Leukocytosis ICD Code: D72.829 Status: Acute (9) Tachycardia ICD Code: R00.0 Status: Acute (10) High anion gap metabolic acidosis ICD Code: E87.2 Status: Acute (11) Acute renal insufficiency ICD Code: N28.9 Status: Acute (12) Fever ICD Code: R50.9 Status: Acute (13) SIRS (systemic inflammatory response syndrome) ICD Code: R65.10 Status: Acute (14) Esophagitis ICD Code: K20.9 Status: Acute (15) Hypertension ICD Code: I10 Status: Chronic (16) Alcohol abuse ICD Code: F10.10 Status: Chronic (17) Hypertriglyceridemia ICD Code: E78.1 Status: Chronic Assessment and Plan 51 yo male with: Alcohol dependence & withdrawal Alcohol dependence Vitamin bag daily 3 days for EtOH use status post accident. On CIWA protocol. No signs of withdrawal at the bedside. History of Hypertension History of hypertriglyceridemia Holding losartan 25 mg by mouth daily light of pancreatitis, has been normotensive. 2D echo 08/21 shows no evidence of endocarditis Ongoing tobaccoism Nasal cannula to maintain saturations greater than equal to 92% Incentive spirometry while awake Tobacco cessation Nicotine patch if indicated Acute pancreatitis/Hepatic steatosis/Marked circumferential thickening of the esophagus GI following: EGD 08/21 showed severe esophagitis and duodenitis. Biopsy: minimal acute enteritis, acute esophagitits with features of ulceration, rare fungal hyphae within inflammatory detritus, neg viral cytopathic changes. Cont: miralax, PPI ID started fluconazole on 08/28 due to candidal esophagitis. HIV testing is negative. DKA Resolved. Levemir 5 q12 and SSI. Blood sugars appear well controlled. Acute kidney injury-resolved Likely prerenal. I's and O's Monitor urine output Bacteremia MSSA Staph aureus in 4 out of 4 bottles Hx of previous staph aureus bacteremia ID following. Currently on cefazolin, anticipate 6 weeks of IV abx from first day of first negative blood culture Blood Cultures 08/19 staph aureus 4/ bottles. Repeated blood culture 08/21 positive / staph aureus. Blood cultures 08/25 repeated, no growth x 3 day 2-D echo negative for endocarditis. Previous MAURA for staph aureus bacteremia was negative Blueprint Developer consulted for repeat MAURA. Patient is not a candidate due to severe esophagitis. Mid back pain -Pending MRI. Patient scheduled to get MRI today. Hypercalcemia-resolved Hypo-natremia Hypokalemia Replace electrolytes per protocol F/u PTH, PTHp, vitamin D 03/01 and 25 Prophylaxis - GI - Protonix IV BID - DVT - SCD/heparin subcutaneous Discharge Planning GI signed off. Pending MRI report. Patient most likely will need 6 weeks of IV antibiotics. Problem Qualifiers (1) Acute pancreatitis: Qualified Code: K85.20 - Alcohol-induced acute pancreatitis, unspecified complication status (2) DKA (diabetic ketoacidoses): Qualified Code: E13.10 - Diabetic ketoacidosis without coma associated with type 2 diabetes mellitus (3) Leukocytosis: Qualified Code: D72.829 - Leukocytosis, unspecified type (4) Fever: Qualified Code: R50.9 - Fever, unspecified fever cause (5) Hypertension: Qualified Code: I10 - Essential hypertension Rosemary Thorne MD Aug 30, 2016 11:42
[2016-08-30] MEDS ORDERED: GADODIAMIDE PF 287 MG/ML 5 ML VIAL (for RAD MRI) IV ONE (12:20)
--- NOTE | 2016-08-30 14:47 | RADRPT ---
EXAM DATE/TIME: 08/30/2016 12:05 [facility] COMPARISON: No previous studies available for comparison. INDICATIONS : Abscess. Pain between shoulder blades for 2 weeks. No injury. CONTRAST: 13 cc Omniscan (gadodiamide) IV MEDICAL HISTORY : Hypertension. Diabetes mellitus type 2. Pancreatitis. SURGICAL HISTORY : Rotator cuff, right. ENCOUNTER: Subsequent ACUITY: 3 day PAIN SCORE: 3/10 LOCATION: back TECHNIQUE: Multiplanar multisequence MRI of the thoracic spine was performed. FINDINGS: VERTEBRA: Normal vertebral body height. Homogeneous marrow signal. ALIGNMENT: Normal. CORD: Normal position and configuration. POST CONTRAST: No abnormal areas of contrast enhancement seen. There are mild degenerative changes present in the thoracic spine worse at T7-T8. There is mild andrea ccation of the T3-4 disc. There is no abnormal contrast enhancement. Do not see evidence for discitis. Alignment anatomic. CONCLUSION: Very mild degenerative changes at T3-T4 and T7-T8. I don't see inflammatory changes. I don't see et iology for the patient's upper back pain. Vinh Laura MD FACR on August 30, 2016 at 14:27 Board Certified Radiologist. This report was verified electronically.
--- NOTE | 2016-08-30 15:38 | HHI.IDPN ---
Subjective Subjective Remarks no fever co some abd/back pain Swallowing is better MRI negative except mild DJD Antibiotics cefazoline fluconazole Allergies: Coded Allergies: No Known Allergies (Verified , 08/19/16) Objective . Vital Signs Date Time Temp Pulse Resp B/P Pulse Ox O2 Delivery O2 Flow Rate FiO2 08/30/16 12:00 98.0 86 20 120/85 97 08/30/16 09:00 91 08/30/16 08:00 98.2 85 20 114/77 98 08/30/16 08:00 97 Room Air 08/30/16 04:00 97.8 80 16 100/60 99 08/30/16 00:00 97.8 83 18 129/88 100 08/30/16 00:00 Room Air 08/29/16 20:32 73 08/29/16 20:00 97.7 80 16 114/81 100 08/29/16 20:00 Room Air 08/29/16 16:00 97.9 80 22 110/68 98 08/29/16 08/29/16 08/30/16 15:00 23:00 07:00 Intake Total 240 ml 480 ml 240 ml Balance 240 ml 480 ml 240 ml Intake Oral 240 ml 480 ml 240 ml # Voids 3 4 3 # Bowel Movements 0 0 1 Imaging Last Impressions Thoracic Spine MRI 08/30/16 0000 Signed Impressions: Service Date/Time: Tuesday, August 30, 2016 12:05 - CONCLUSION: Very mild degenerative changes at T3-T4 and T7-T8. I don't see inflammatory changes. I don't see etiology for the patient's upper back pain. Vinh Laura MD FACR Abdomen X-Ray 08/25/16 0600 Signed Impressions: Service Date/Time: Thursday, August 25, 2016 07:42 - CONCLUSION: 1. Nonobstructive bowel gas pattern. 2. Small metallic density overlying the right abdomen in the region of the cecum. Tom Wakefield MD Chest X-Ray 08/22/16 0600 Signed Impressions: Service Date/Time: Monday, August 22, 2016 04:58 - CONCLUSION: Mild left lower lung infiltrate. Arslan Cortez MD Chest CT 08/20/16 0000 Signed Impressions: Service Date/Time: Saturday, August 20, 2016 11:54 - CONCLUSION: Small bilateral pleural effusions with left lower lobe airspace disease. No evidence of suspicious mass or lymphadenopathy. Hepatic steatosis and inflammatory pancreatic disease again identified. Matt Aguilera MD Abdomen/Pelvis CT 08/19/16 0358 Signed Impressions: Service Date/Time: Sunday, August 19, 2016 05:47 - CONCLUSION: 1. Marked circumferential thickening of the esophagus is noted over several centimeters. Esophagitis can have this appearance. 2. Hepatic steatosis and mild distention of the gallbladder again noted. 3. Upper abdominal lymphadenopathy with multiple prominent lymph nodes seen greatest in the retroperitoneum. 4. Abnormal inflammatory changes seen surrounding the pancreas consistent with pancreatitis with mild dilatation of the pancreatic duct. 5. Gastric distention. Mike Aaron MD Physical Exam CONSTITUTIONAL/GENERAL: This is a thin middle aged male patient, in no apparent distress. TUBES/LINES/DRAINS: SKIN: No jaundice, rashes, or lesions. Skin temperature appropriate. Not diaphoretic. No embolic phenomena EYES: Pupils equal and round and reactive. No scleral icterus. No injection or drainage. Fundi not examined. no conjunctival petechia or hemorrahges ENT: Hearing grossly normal. Nose without bleeding or purulent drainage. Oral mucosae dry without visible erythema, exudates, masses, or lesions. No oral thrush NECK: Trachea midline. Supple, nontender. CARDIOVASCULAR: Regular rate and rhythm without murmurs, gallops, or rubs. No JVD. RESPIRATORY/CHEST: Symmetric, unlabored respirations. Clear to auscultation. Breath sounds equal bilaterally. GASTROINTESTINAL: Abdomen soft, diffusely mildly tender, minimally distended. . No guarding. Bowel sounds present. MUSCULOSKELETAL: Extremities without clubbing, cyanosis, or edema. NEUROLOGICAL: Awake, alert . Motor and sensory grossly within normal limits. Follows commands. Clear speech. Moves all extremities. PSYCHIATRIC: calm, coopertative Assessment & Plan Remarks DKA newly diagnosed DM Pancreatitis ETOH induced MSSA high grade bacteremia, recurrent and sustained - bacteremia is cleared - previosly > 1 yra ago, neg MAURA, not a candidate now - MSSA is not a typical org aw pancreatitis - NO clear source, though now admits to back - no h/o IVDU - neg 2 D echo - not a candidate for MAURA 2/2 severe esophagitis - co thoracic back pain, T spine MRI negative Candidal esophagitis, improving on fluconazole - HIV negative REC's: cont cefazolin PICC complete 6 weeks of IV cefazolin from the day of 1st neg blood clx - OPAT form filled out - 2 blood culture 2 weeks after all abx stopped; if recurrent MSSA bacteremia will need to have MAURA Fluconazol x 2 weeks HIV testing : pt was updated on his negative test result dw pt dw case mngr Camryn Patel MD Aug 30, 2016 15:38
--- NOTE | 2016-08-30 15:44 | HHI.FF ---
Infusion Therapy Location of Infusion Therapy: Home Health Care IV Infusion Order Patient Information Patient Weight 67.8 kg Diagnosis: Diagnosis MSSA bacteremia Coded Allergies: No Known Allergies (Verified , 08/19/16) Administer Medication Cefazolin 2 grams IV q 8 hours Start Treatment: Aug 31, 2016 Stop Treatment: Oct 05, 2016 Additional Information Venous access: PICC Line Additional Instructions [x] Peripheral flush and dressing changes per protocol [x] Implanted port and central lineman a class: * Implanted port: 10 ml Normal Saline followed by 5 ml Heparin 100 units/ml Heparin flush after each use and monthly to maintain. [] May leave port accessed during therapy. [] May leave peripheral site accessed for duration of therapy. [x] If patient has SOB or respiratory distress, check oxygen saturation. If less than 90% or clinical signs of respiratory distress, administer oxygen at 2 L/min. via nasal cannula and notify physician. [x] Anaphylaxis/Reaction orders: * Stop infusion. * Keep IV line open with saline flush. * Notify physician. * Monitor vital signs every 15 minutes until symptoms resolve. * Check Oxygen saturation; Oxygen at 2 L/min. via nasal cannula if less than 90% or clinical signs of respiratory distress. * Administer diphenhydramine (Benadryl) 25 mg IV STAT, (unless patient has received as pre-med). May repeat once, if necessary. * Solu-Cortef 250 mg IVP over 30-60 seconds, use 100 mg vials for each dissolution. * Epinephrine (1mg/1 ml) 0.3 mg subcutaneously or IVP now with any signs of respiratory distress. * Check with physician for new additional pre-med orders if patient is re- challenged or re-treated. [x] May remove PICC line when treatment complete, after confirming with Physician. [x] If the patient is admitted to the hospital, the ED, or transferred via [facility] , complete transfer form including medication reconciliation order sheet. Laboratory Tests Weekly Labs: CBC w/diff, Creatinine Additional Information Blood clx x 2 two weeks after abx are completed Camryn Patel MD Aug 30, 2016 15:44
[2016-08-30] MEDS ORDERED: SOLU250I IV PUSH (15:55)
[2016-08-30] MEDS ORDERED: CEFA2SOL IV (15:55)
[2016-08-30] MEDS ORDERED: EPIN1INJ21 IV PUSH (15:55)
[2016-08-30] MEDS ORDERED: EPIN1INJ21 SQ (15:55)
--- NOTE | 2016-08-30 18:40 | RADRPT ---
EXAM DATE/TIME: 08/30/2016 18:37 [facility] COMPARISON: No previous studies available for comparison. INDICATIONS : Picc line placement. MEDICAL HISTORY : Hypertension. Diabetes mellitus type 2. Pancreatitis. SURGICAL HISTORY : None. ENCOUNTER: Initial ACUITY: 1 day PAIN SCORE: 0/10 LOCATION: chest FINDINGS: A single view of the chest demonstrates the lungs to be symmetrically aerated without evidence of mas s, infiltrate or effusion. The cardiomediastinal contours are unremarkable. Osseous structures are intact. CONCLUSION: No acute disease. Right-sided PICC line with tip in the SVC. Tom Wakefield MD on August 30, 2016 at 18:38 Board Certified Radiologist. This report was verified electronically.
[2016-08-30] MEDS ORDERED: SODIUM CHLORIDE 0.9% FLUSH 10 ML FLUSH IV FLUSH PRN (19:15)
[2016-08-31] VITALS (9 sets, daily range): BP systolic 101–145; BP diastolic 69–81; PULSE 71–94; RESP 16–20; TEMP 97.8–98.3; O2SAT 95–100
[2016-08-31] MEDS: CHLORHEXIDINE GLUCONATE 2 % 1 PACK (2 CLOTHS) TOP SCH (04:00)
[2016-08-31] MEDS: oxyCODONE/ACETAMINOPHEN 10 MG/325 MG TAB PO PRN ×3 (05:15→17:58)
[2016-08-31] MEDS: ceFAZolin 2 GM PREMIX 50 ML IV SCH ×3 (05:15→22:22)
[2016-08-31] MEDS: INSULIN ASPART SUPPLEMENTAL SCALE SQ SCH ×4 (06:09→20:37)
[2016-08-31] MEDS: POLYETHYLENE GLYCOL 17 GM PKG PO SCH (08:26)
[2016-08-31] MEDS: DOCUSATE SODIUM 50 MG/SENNA 8.6 MG TAB PO SCH ×2 (08:26→20:34)
[2016-08-31] MEDS: FLUCONAZOLE 200 MG TAB PO SCH (08:26)
[2016-08-31] MEDS: ARTIFICIAL TEARS OPTH SOLN 15 ML BTL EACH EYE SCH ×4 (08:27→17:23)
[2016-08-31] MEDS: PANTOPRAZOLE SODIUM 40 MG VIAL IV SCH (08:27)
[2016-08-31] MEDS: SODIUM CHLORIDE 0.9% FLUSH 10 ML FLUSH IV FLUSH SCH ×3 (08:28→20:34)
[2016-08-31] MEDS: HEPARIN SODIUM - SQ 10,000 UNITS/ML VIAL SQ SCH ×2 (08:37→20:35)
[2016-08-31] MEDS: HYDROmorphone HCL PF 1 MG/ML VIAL IV PRN ×3 (08:37→21:13)
[2016-08-31] MEDS: INSULIN DETEMIR 100 UNITS/ML VIAL SQ SCH ×2 (08:39→20:37)
[2016-08-31] MEDS ORDERED: DIFL200T PO (12:53)
[2016-08-31] MEDS ORDERED: PROT40TA PO (12:53)
[2016-08-31] MEDS ORDERED: OXYC1TAB35 PO (12:53)
[2016-08-31] MEDS ORDERED: INSU1INJ5 SQ (12:53)
[2016-08-31] MEDS ORDERED: SENN1TAB PO (12:53)
--- NOTE | 2016-08-31 12:55 | HHI.FF ---
Face to Face Verification Diagnosis: (1) MSSA (methicillin susceptible Staphylococcus aureus) septicemia (2) Recurrent pancreatitis (3) Esophagitis (4) Physical deconditioning Physical Therapy Order: Evaluate and Treat, Improve ambulation, Strength and gait training Home Health Nursing Order: Medical education Signs/symptoms of disease process Diabetic education Medication education-adverse effect IV medication administration I have seen patient Kunal Quispe on 08/31/16. My clinical findings support the need for the requested home health care services because: Ltd mobility - disease progression Deconditioned w/ increased weakness Injectable med education/admin I certify that my clinical findings support that this patient is homebound because: Unsteady gait/balance Rosemary Thorne MD Aug 31, 2016 12:55
--- NOTE | 2016-08-31 13:00 | HHI.DS ---
Discharge Summary Admission Date Aug 19, 2016 at 05:35 Discharge Date: Aug 31, 2016 Admitting Diagnosis DKA, pancreatitis, severe sepsis (1) Acute pancreatitis ICD Code: K85.9 Diagnosis: Principal (2) MSSA (methicillin susceptible Staphylococcus aureus) septicemia ICD Code: A41.01 Diagnosis: Principal (3) Severe sepsis ICD Code: A41.9 Diagnosis: Principal (4) DKA (diabetic ketoacidoses) ICD Code: E13.10 Diagnosis: Principal (5) Alcohol withdrawal delirium ICD Code: F10.231 Diagnosis: Principal (6) Acute renal insufficiency ICD Code: N28.9 Diagnosis: Principal (7) Esophagitis ICD Code: K20.9 Diagnosis: Principal (8) Hypertension ICD Code: I10 Diagnosis: Secondary (9) Alcohol abuse ICD Code: F10.10 Diagnosis: Secondary (10) Hypertriglyceridemia ICD Code: E78.1 Diagnosis: Secondary Procedures See hospital course. Brief History - From Admission This is a 51 yo male. Date of admission 08/19/2016. Past records includes recurrent alcohol-induced pancreatitis, history of pseudocyst, hypertension, hypertriglyceridemia with ongoing alcohol abuse and tobaccoism. Patient presents to [facility] with a 10 day history of increasing abdominal pain, nausea with anorexia. Patient has been drinking the interim. Patient had emesis some clear without coffee-ground emesis noted. Pain is described as diffuse 10 out of 10 pain is diffuse bilateral upper quadrants. CT abdomen/pelvis revealed markedly circumferential thickening of the esophagus over several centimeters. Patient noted have hepatic steatosis. With mild distention of the gallbladder. There is gastric distention. Multiple prominent lymph nodes in the retroperitoneum. Inflammatories gazing to the pancreas consistent with pancreatitis with mild dilatation the pancreatic duct. Small hiatal hernia. Patient had a leukocytosis 16,000, acute kidney injury with a creatinine of 1.7. Blood sugar was 71. Beta hydroxybutyrate 18.22. lactate 4.1. Calcium elevated at 13.2 with protein corrected 11.7. Lipase elevated at 6111. Beta hydroxybutyrate 18.22. ABG with pH 7.19, PCO2 is 9.7, PO2 149, bicarbonate 3.6 consistent with metabolic respiratory acidosis. Pulmonary negative. Blood cultures ordered. Patient received 2.4 L bolus normal saline is currently on normal saline at 250 cc an hour. 6 units insulin initially provided and is currently on insulin drip. Imaging Last Impressions Thoracic Spine MRI 08/30/16 0000 Signed Impressions: Service Date/Time: Tuesday, August 30, 2016 12:05 - CONCLUSION: Very mild degenerative changes at T3-T4 and T7-T8. I don't see inflammatory changes. I don't see etiology for the patient's upper back pain. Vinh Laura MD FACR Chest X-Ray 08/30/16 0000 Signed Impressions: Service Date/Time: Tuesday, August 30, 2016 18:37 - CONCLUSION: No acute disease. Right-sided PICC line with tip in the SVC. Tom Wakefield MD Abdomen X-Ray 08/25/16 0600 Signed Impressions: Service Date/Time: Thursday, August 25, 2016 07:42 - CONCLUSION: 1. Nonobstructive bowel gas pattern. 2. Small metallic density overlying the right abdomen in the region of the cecum. Tom Wakefield MD Chest CT 08/20/16 0000 Signed Impressions: Service Date/Time: Saturday, August 20, 2016 11:54 - CONCLUSION: Small bilateral pleural effusions with left lower lobe airspace disease. No evidence of suspicious mass or lymphadenopathy. Hepatic steatosis and inflammatory pancreatic disease again identified. Matt Aguilera MD Abdomen/Pelvis CT 08/19/16 0358 Signed Impressions: Service Date/Time: Friday, August 19, 2016 05:47 - CONCLUSION: 1. Marked circumferential thickening of the esophagus is noted over several centimeters. Esophagitis can have this appearance. 2. Hepatic steatosis and mild distention of the gallbladder again noted. 3. Upper abdominal lymphadenopathy with multiple prominent lymph nodes seen greatest in the retroperitoneum. 4. Abnormal inflammatory changes seen surrounding the pancreas consistent with pancreatitis with mild dilatation of the pancreatic duct. 5. Gastric distention. Mike Aaron MD PE at Discharge GENERAL: In no acute distress sitting in the bed very comfortably. SKIN: Warm and dry. HEAD: Normocephalic. EYES: No scleral icterus. No injection or drainage. NECK: Supple, trachea midline. No JVD or lymphadenopathy. CARDIOVASCULAR: Regular rate and rhythm without murmurs, gallops, or rubs. RESPIRATORY: Breath sounds equal bilaterally. No accessory muscle use. GASTROINTESTINAL: Abdomen soft, mild tenderness to palpation in the mid abdomen , nondistended. Transfer Summary This is a 51 yo male. Date of admission 08/19/2016. Past records includes recurrent alcohol-induced pancreatitis, history of pseudocyst, hypertension, hypertriglyceridemia with ongoing alcohol abuse and tobaccoism. Patient presents to [facility] with a 10 day history of increasing abdominal pain, nausea with anorexia. Patient has been drinking the interim. Patient had emesis some clear without coffee-ground emesis noted. Pain is described as diffuse 10 out of 10 pain is diffuse bilateral upper quadrants. CT abdomen/pelvis revealed markedly circumferential thickening of the esophagus over several centimeters. Patient noted have hepatic steatosis. With mild distention of the gallbladder. There is gastric distention. Multiple prominent lymph nodes in the retroperitoneum. Inflammatories gazing to the pancreas consistent with pancreatitis with mild dilatation the pancreatic duct. Small hiatal hernia. Patient had a leukocytosis 16,000, acute kidney injury with a creatinine of 1.7. Blood sugar was 71. Beta hydroxybutyrate 18.22. lactate 4.1. Calcium elevated at 13.2 with protein corrected 11.7. Lipase elevated at 6111. Beta hydroxybutyrate 18.22. ABG with pH 7.19, PCO2 is 9.7, PO2 149, bicarbonate 3.6 consistent with metabolic respiratory acidosis. Pulmonary negative. Blood cultures ordered. Patient received 2.4 L bolus normal saline is currently on normal saline at 250 cc an hour. 6 units insulin initially provided and is currently on insulin drip. SUBJ 08/20: Remains critically ill, 4 out of 4 bottles of blood cultures positive for GPC. I have placed him on vancomycin and Zosyn, also check CT chest with contrast to evaluate esophageal thickening and rule out an esophageal perforation. I will also consult ID. Patient had been weaned of DKA protocol but remains nothing by mouth. I will place him on known DKA ICU insulin protocol 08/21: Slightly improved clinically, abd pain improving. Now on Precedex 0.3 mcg per kg per hour. High grade Staph aureus bacteremia. Prev work up with MAURA negative 08/22: Clinically improving though Precedex had to be restarted overnight for Delirium. Currently on 0.3 g per KG per hour Precedex, patient alert awake oriented 3. WBC count stable. EGD yesterday showed severe esophagitis and duodenitis Pt update on day of discharge See progress note from today. Hospital Course 51 yo male with: Alcohol dependence & withdrawal Alcohol dependence Patient was given Vitamin bag daily 3 days and IV fluids. She was put on a CIWA protocol detox successfully during hospitalization. History of Hypertension History of hypertriglyceridemia Patient has been normotensive during the hospital course. Losartan was held. Patient to be follow-up with his primary care physician regards to this. Ongoing tobaccoism Nasal cannula to maintain saturations greater than equal to 92% Incentive spirometry while awake Tobacco cessation Nicotine patch if indicated Acute pancreatitis/Hepatic steatosis/Marked circumferential thickening of the esophagus History was treated with supportive care with IV fluids, antiemetics, Protonix. GI was consulted. EGD 08/21 showed severe esophagitis and duodenitis. Biopsy: minimal acute enteritis, acute esophagitis with features of ulceration, rare fungal hyphae within inflammatory detritus, neg viral cytopathic changes. ID started fluconazole on 08/28 due to candidal esophagitis. HIV testing is negative. DKA Patient found to be in DKA with newly diagnosis of diabetes. He was put on DKA protocol and transition to subcutaneous insulin successfully. Extensive education was given. Levemir 5 q12 and SSI. Blood sugars appear well controlled. Acute kidney failure Most likely secondary to hypotension. Underlying conditions were treated and she was given IV fluids with resolution of his acute kidney failure. Patient had good urine output that hospital course. Bacteremia MSSA Staph aureus in 4 out of 4 bottles Hx of previous staph aureus bacteremia Infectious disease was consulted.Blood Cultures 08/19 staph aureus 4/4 bottles. Repeated blood culture 08/21 positive 1/4 staph aureus. Blood cultures 08/25 repeated, no growth 2-D echo negative for endocarditis. Previous MAURA for staph aureus bacteremia was negative Water Filtration Technician consulted for repeat MAURA. Patient is not a candidate due to severe esophagitis. Patient put on cefazolin, anticipate 6 weeks of IV abx from first day of first negative blood culture Mid back pain -MRI just shows mild degenerative joint disease. Otherwise normal. Hypercalcemia-resolved Hypo-natremia Hypokalemia Replace electrolytes per protocol F/u PTH, PTHp, vitamin D 1/25 and 25 Pt Condition on Discharge: Good Discharge Disposition: Disch w/ Home Health Serv Discharge Time: > 30 minutes Discharge Instructions DIET: Follow Instructions for: Heart Healthy Diet Activities you can perform: Regular-No Restrictions Follow up Referrals: Gastroenterology - 1 Week PCP Follow-up - 1 Week New Medications: Blood Glucose Monitoring Suppl (Blood Glucose System Gonzalo) 1 Kit Kit UNIT .XX diabetes #1 Blood Glucose Test Strips (Blood Glucose Test Strips) Strips Strip 1 EA .ROUTE DIRECTED Blood Sugar Management #1 Ref 0 BOX Carefine [place] 31G X 6 mm (Carefine Pen [place] 31G X 6 mm) 1 Mis Mis 1 EA .ROUTE DIRECTED Blood Sugar Management #1 Ref 0 BOX Cefazolin Inj (Cefazolin Inj) 2 Gm/50 Ml Bagp 2 GM IV Q8H Infection Days 35 Ref 0 BAG Epinephrine Inj (Epinephrine Inj) 1 Mg/Ml Inj 0.3 MG IV PUSH ONCE PRN ALLERGIC REACTION #1 VIAL Epinephrine Inj (Epinephrine Inj) 1 Mg/Ml Inj 0.3 MG SQ ONCE Give with any signs of respiratory distress. PRN ALLERGIC REACTION #1 VIAL Hydrocortisone Inj (Solu-Cortef Inj) 250 Mg Inj 250 MG IV PUSH ONCE Give over 30-60 seconds. PRN ALLERGIC REACTION #1 Ref 0 VIAL Insulin Detemir Inj (Levemir Flextouch Pen Inj) 300 unit/3 ML Pen 5 UNITS SQ BID Blood Sugar Management #1 Ref 0 PEN Pantoprazole (Protonix) 40 Mg Tab 40 MG PO DAILY Reflux #30 Ref 0 TAB Fluconazole (Diflucan) 200 Mg Tab 200 MG PO DAILY yeast #14 Ref 0 TAB Oxycodone-Acetaminophen (Oxycodone-Acetaminophen) 7.5-325 mg Tab 1 TAB PO Q4H PRN moderate to severe pain #20 Ref 0 TAB Sennosides-Docusate Sodium (Senna Plus 8.6-50 mg) 1 Tab Tab 1 TAB PO BID PRN constipation #20 Ref 0 TAB Discontinued Medications: Losartan (Losartan) 25 Mg Tab 25 MG PO DAILY Blood Pressure Management #30 Ref 0 TAB Rosemary Thorne MD Aug 31, 2016 13:00
--- NOTE | 2016-08-31 13:00 | HHI.DCPOC ---
Discharge Care Plan Diagnosis: (1) MSSA (methicillin susceptible Staphylococcus aureus) septicemia (2) Physical deconditioning (3) DKA (diabetic ketoacidoses) (4) Esophagitis (5) Recurrent pancreatitis Goals to Promote Your Health * To prevent worsening of your condition and complications * To maintain your health at the optimal level Directions to Meet Your Goals Take your medications as prescribed Follow your dietary instruction Follow activity as directed Keep your appointments as scheduled Take your immunizations and boosters as scheduled If your symptoms worsen call your PCP, if no PCP go to Urgent Care Center or Emergency Room Smoking is Dangerous to Your Health. Avoid second hand smoke Call the 24-hour hour crisis hotline for domestic abuse at Rosemary Thorne MD Aug 31, 2016 13:00
[2016-08-31] MEDS ORDERED: BLOOD GLUCOSE T1 TES (13:05)
[2016-08-31] MEDS ORDERED: BLOO1KIT49 (13:05)
[2016-08-31] MEDS ORDERED: INSU-91 (13:05)
--- NOTE | 2016-08-31 15:57 | HHI.PR ---
Subjective Remarks Follow-up for pancreatitis and infection Patient complains. Tolerating oral intake. Abdominal pain is improving. He remains afebrile. Objective Vitals Vital Signs Date Time Temp Pulse Resp B/P Pulse Ox O2 Delivery O2 Flow Rate FiO2 08/31/16 12:00 98.3 94 20 145/70 95 08/31/16 10:58 85 08/31/16 08:48 Room Air 08/31/16 08:00 98.1 79 20 123/81 100 08/31/16 04:00 Room Air 08/31/16 04:00 98.1 72 18 104/69 98 08/31/16 00:00 Room Air 08/31/16 00:00 97.8 71 18 107/76 96 08/30/16 20:13 95 08/30/16 20:00 Room Air 08/30/16 20:00 97.7 81 20 101/62 98 08/30/16 16:00 98.0 97 20 115/76 98 I/O 08/30/16 08/30/16 08/30/16 08/31/16 08/31/16 08/31/16 07:00 15:00 23:00 07:00 15:00 23:00 Intake Total 240 ml 720 ml 290 ml 0 ml 720 ml Balance 240 ml 720 ml 290 ml 0 ml 720 ml Intake Oral 240 ml 720 ml 240 ml 0 ml 720 ml IV Total 50 ml # Voids 3 6 3 1 3 # Bowel Movements 1 0 2 1 Imaging Last Impressions Thoracic Spine MRI 08/30/16 0000 Signed Impressions: Service Date/Time: Tuesday, August 30, 2016 12:05 - CONCLUSION: Very mild degenerative changes at T3-T4 and T7-T8. I don't see inflammatory changes. I don't see etiology for the patient's upper back pain. Vinh Laura MD FACR Chest X-Ray 08/30/16 0000 Signed Impressions: Service Date/Time: Tuesday, August 30, 2016 18:37 - CONCLUSION: No acute disease. Right-sided PICC line with tip in the SVC. Tom Wakefield MD Abdomen X-Ray 08/25/16 0600 Signed Impressions: Service Date/Time: Thursday, August 25, 2016 07:42 - CONCLUSION: 1. Nonobstructive bowel gas pattern. 2. Small metallic density overlying the right abdomen in the region of the cecum. Tom Wakefield MD Chest CT 08/20/16 0000 Signed Impressions: Service Date/Time: Saturday, August 20, 2016 11:54 - CONCLUSION: Small bilateral pleural effusions with left lower lobe airspace disease. No evidence of suspicious mass or lymphadenopathy. Hepatic steatosis and inflammatory pancreatic disease again identified. Matt Aguilera MD Abdomen/Pelvis CT 08/19/16 0358 Signed Impressions: Service Date/Time: Friday, August 19, 2016 05:47 - CONCLUSION: 1. Marked circumferential thickening of the esophagus is noted over several centimeters. Esophagitis can have this appearance. 2. Hepatic steatosis and mild distention of the gallbladder again noted. 3. Upper abdominal lymphadenopathy with multiple prominent lymph nodes seen greatest in the retroperitoneum. 4. Abnormal inflammatory changes seen surrounding the pancreas consistent with pancreatitis with mild dilatation of the pancreatic duct. 5. Gastric distention. Mike Aaron MD Objective Remarks GENERAL: In no acute distress sitting in the bed very comfortably. SKIN: Warm and dry. HEAD: Normocephalic. EYES: No scleral icterus. No injection or drainage. NECK: Supple, trachea midline. No JVD or lymphadenopathy. CARDIOVASCULAR: Regular rate and rhythm without murmurs, gallops, or rubs. RESPIRATORY: Breath sounds equal bilaterally. No accessory muscle use. GASTROINTESTINAL: Abdomen soft, mild tenderness to palpation in the mid abdomen , nondistended. Medications and IVs Current Medications Sodium Chloride 1,000 ml @ 1,000 mls/hr Q1H ONCE IV Last administered on 04:35; Start 08/19/16 at 03:57; Stop 08/19/16 at 04:56; Status DC Sodium Chloride 1,000 ml @ 1,000 mls/hr Q1H ONCE IV Last administered on 04:35; Start 08/19/16 at 03:57; Stop 08/19/16 at 04:56; Status DC Sodium Chloride (NS 1000 ml Inj) 400 ml @ 1,000 mls/hr Q24M ONCE IV Last administered on 08/19/16 04:35; Start 08/19/16 at 03:57; Stop 08/19/16 at 04:20 ; Status DC Ondansetron HCl 4 mg 4 mg ONCE ONCE IV PUSH Last administered on 08/19/16 04: 52; Start 08/19/16 at 04:45; Stop 08/19/16 at 04:46; Status DC Vancomycin HCl 1000 mg/Sodium Chloride 250 ml @ 250 mls/hr ONCE STAT IV Last administered on 08/19/16 07:28; Start 08/19/16 at 04:47; Stop 08/19/16 at 05:46 ; Status DC Piperacillin Sod/ Tazobactam Sod 100 ml @ 200 mls/hr ONCE STAT IV Last administered on 08/19/16 04:52; Start 08/19/16 at 04:47; Stop 08/19/16 at 05:16 ; Status DC Sodium Chloride 1,000 ml @ 250 mls/hr Q4H IV ; Start 08/19/16 at 05:19; Stop at 05:59; Status DC Dextrose/Sodium Chloride (D5W-NS 1000 ml Inj) 1,000 ml @ 200 mls/hr Q5H IV ; Start 08/19/16 at 05:19; Stop 08/19/16 at 05:59; Status DC Insulin Human Regular 6 units 6 units BOLUS ONCE IV PUSH Last administered on 08/19/16 06:08; Start 08/19/16 at 05:30; Stop 08/19/16 at 05:31; Status DC Insulin Human Regular 100 units/ Sodium Chloride 100 ml @ 0 mls/hr TITRATE IV ; Start 08/19/16 at 05:30; Stop 08/19/16 at 05:59; Status DC Potassium Chloride 100 ml @ 100 mls/hr Q1H PRN IV SEE LABEL COMMENTS; Start at 05:30; Stop 08/19/16 at 05:59; Status DC Potassium Chloride 100 ml @ 50 mls/hr Q2H PRN IV SEE LABEL COMMENTS; Start at 05:30; Stop 08/19/16 at 05:59; Status DC Potassium Chloride 100 ml @ 100 mls/hr Q1H PRN IV SEE LABEL COMMENTS; Start at 05:30; Stop 08/19/16 at 05:59; Status DC Potassium Chloride 100 ml @ 100 mls/hr Q1H PRN IV SEE LABEL COMMENTS; Start at 05:30; Stop 08/19/16 at 05:59; Status DC Potassium Chloride 100 ml @ 50 mls/hr Q2H PRN IV SEE LABEL COMMENTS; Start at 05:30; Stop 08/19/16 at 05:59; Status DC Potassium Chloride 100 ml @ 50 mls/hr Q2H PRN IV SEE LABEL COMMENTS; Start at 05:30; Stop 08/19/16 at 05:59; Status DC Potassium Chloride 100 ml @ 50 mls/hr Q2H PRN IV SEE LABEL COMMENTS; Start at 05:30; Stop 08/19/16 at 05:59; Status DC Potassium Chloride (KCl 20 Meq Premix Inj) 100 ml @ 50 mls/hr Q2H PRN IV SEE LABEL COMMENTS; Start 08/19/16 at 05:30; Stop 08/19/16 at 05:59; Status DC Sodium Bicarbonate (Sodium Bicarbonate 8.4% Inj) 100 meq UNSCH PRN IV SEE LABEL COMMENTS; Start 08/19/16 at 05:30; Stop 08/19/16 at 05:59; Status DC Sodium Bicarbonate 50 meq 50 meq UNSCH PRN IV SEE LABEL COMMENTS; Start at 05:30; Stop 08/19/16 at 05:59; Status DC Sodium Phosphate 15 mmol/Sodium Chloride 105 ml @ 25 mls/hr UNSCH PRN IV SEE LABEL COMMENTS; Start 08/19/16 at 05:30; Stop 08/19/16 at 05:59; Status DC Sodium Chloride 1,000 ml @ 250 mls/hr Q4H IV Last administered on 08/19/16 08 :54; Start 08/19/16 at 05:55; Stop 08/20/16 at 05:55; Status DC Dextrose/Sodium Chloride 1,000 ml @ 200 mls/hr Q5H IV Last administered on 03:37; Start 08/19/16 at 05:55; Stop 08/20/16 at 05:55; Status DC Insulin Human Regular 100 units/ Sodium Chloride 100 ml @ 0 mls/hr TITRATE IV Last administered on 08/20/16 00:27; Start 08/19/16 at 06:00; Stop 08/20/16 at 05:53; Status DC Potassium Chloride 100 ml @ 100 mls/hr Q1H PRN IV SEE LABEL COMMENTS; Start at 06:00; Stop 08/20/16 at 05:55; Status DC Potassium Chloride 100 ml @ 50 mls/hr Q2H PRN IV SEE LABEL COMMENTS; Start at 06:00; Stop 08/20/16 at 05:55; Status DC Potassium Chloride 100 ml @ 100 mls/hr Q1H PRN IV SEE LABEL COMMENTS; Start at 06:00; Stop 08/20/16 at 05:55; Status DC Potassium Chloride 100 ml @ 100 mls/hr Q1H PRN IV SEE LABEL COMMENTS; Start at 06:00; Stop 08/20/16 at 05:55; Status DC Potassium Chloride 100 ml @ 50 mls/hr Q2H PRN IV SEE LABEL COMMENTS; Start at 06:00; Stop 08/20/16 at 05:55; Status DC Potassium Chloride 100 ml @ 50 mls/hr Q2H PRN IV SEE LABEL COMMENTS; Start at 06:00; Stop 08/20/16 at 05:55; Status DC Potassium Chloride 100 ml @ 50 mls/hr Q2H PRN IV SEE LABEL COMMENTS Last administered on 08/20/16t 03:37; Start 08/19/16 at 06:00; Stop 08/20/16 at 05:55 ; Status DC Potassium Chloride (KCl 20 Meq Premix Inj) 100 ml @ 50 mls/hr Q2H PRN IV SEE LABEL COMMENTS; Start 08/19/16 at 06:00; Stop 08/20/16 at 05:55; Status DC Sodium Bicarbonate (Sodium Bicarbonate 8.4% Inj) 100 meq UNSCH PRN IV SEE LABEL COMMENTS; Start 08/19/16 at 06:00; Stop 08/20/16 at 05:55; Status DC Sodium Bicarbonate 50 meq 50 meq UNSCH PRN IV SEE LABEL COMMENTS; Start at 06:00; Stop 08/20/16 at 05:55; Status DC Sodium Phosphate/ Sodium Chloride (Sodium Phosphate Inj/NS Inj) 105 ml @ 25 mls /hr UNSCH PRN IV SEE LABEL COMMENTS Last administered on 08/19/16t 19:15; Start 08/19/16 at 06:00; Stop 08/20/16 at 05:55; Status DC Miscellaneous Information 1 Q361D XX ; Start 08/19/16 at 06:00; Stop 08/20/16 at 05:59; Status DC Chlorhexidine Gluconate (Chlorhexidine 2% Cloth) 3 pack Taper DAILY@04 TOP Last administered on 08/20/16 03:37; Start 08/20/16 at 04:00; Stop 08/20/16 at 05:59; Status DC Chlorhexidine Gluconate (Chlorhexidine 2% Cloth) 3 pack UNSCH PRN TOP HYGIENIC CARE; Start 08/19/16 at 06:00; Stop 08/20/16 at 05:59; Status DC Metoclopramide HCl (Reglan Inj) 10 mg ONCE ONCE IV PUSH Last administered on 07:00; Start 08/19/16 at 06:00; Stop 08/19/16 at 06:05; Status DC Sodium Chloride (NS Flush) 2 ml UNSCH PRN IV FLUSH FLUSH AFTER USING IV ACCESS Last administered on 08/27/16 11:55; Start 08/19/16 at 06:45 Sodium Chloride (NS Flush) 2 ml BID IV FLUSH Last administered on 08/31/16 08: 28; Start 08/19/16 at 09:00 Hydromorphone HCl (Dilaudid Pf Inj) 1 mg Q2H PRN IV PAIN SCALE 6 TO 10 Last administered on 08/23/16 08:55; Start 08/19/16 at 06:45; Stop 08/23/16 at 10:29 ; Status DC Pantoprazole Sodium (Protonix Inj) 40 mg DAILY IV Last administered on 08:27; Start 08/19/16 at 09:00 Artificial Tears (Tears Naturale Opth Soln) 1 drop TID EACH EYE Last administered on 08/31/16 11:33; Start 08/19/16 at 09:00 Ondansetron HCl (Zofran Inj) 4 mg Q6H PRN IV NAUSEA OR VOMITING; Start at 06:45 Albuterol Sulfate (Albuterol Neb) 2.5 mg Q2HR NEB PRN INH SOB/WHEEZING; Start 08/19/16 at 06:45 Heparin Sodium (Porcine) (Heparin Inj) 5,000 units Q12H SQ Last administered on 08/30/16 21:19; Start 08/19/16 at 09:00 Miscellaneous Information 1 Q361D XX ; Start 08/19/16 at 06:45 Chlorhexidine Gluconate (Chlorhexidine 2% Cloth) Taper DAILY@04 TOP Last administered on 08/22/16 04:00; Start 08/20/16 at 04:00; Stop 08/16/17 at 03:59 Chlorhexidine Gluconate (Chlorhexidine 2% Cloth) 3 pack UNSCH PRN TOP HYGIENIC CARE; Start 08/19/16 at 06:45 Senna/Docusate Sodium (Nakia-Colace) 1 tab BID PO Last administered on 08:26; Start 08/19/16 at 09:00 Magnesium Hydroxide (Milk Of Magnesia Liq) 30 ml Q12H PRN PO MILD - MODERATE CONSTIPATION; Start 08/19/16 at 06:45 Sennosides (Senokot) 17.2 mg Q12H PRN PO MODERATE - SEVERE CONSTIPATION; Start 08/19/16 at 06:45 Bisacodyl (Dulcolax Supp) 10 mg DAILY PRN RECTAL SEVERE CONSITIPATION; Start at 06:45 Lactulose (Lactulose Liq) 30 ml DAILY PRN PO SEVERE CONSITIPATION Last administered on 08/24/16 23:20; Start 08/19/16 at 06:45 Hydromorphone HCl 0.5 mg 0.5 mg Q2H PRN IV PUSH PAIN SCALE 1 TO 5 Last administered on 08/23/16 06:05; Start 08/19/16 at 06:45; Stop 08/23/16 at 10:29 ; Status DC Multivitamins/ Thiamine HCl/ Folic Acid/Sodium Chloride (Mvi-12 Inj/ Thiamine Inj/ Folvite Inj/NS 500 ml Inj) 511.2 ml @ 125 mls/hr DAILY IV Last administered on 08/21/16 10:24; Start 08/19/16 at 09:00; Stop 08/22/16 at 08:59 ; Status DC Flumazenil (Romazicon Inj) 0.2 mg Q1M PRN IV PUSH SEE LABEL COMMENTS; Start at 07:00 Lorazepam (Ativan) 1 mg Q4H PRN PO CIWA 8 - 10 Last administered on 08/23/16 23:30; Start 08/19/16 at 07:00 Lorazepam (Ativan Inj) 1 mg Q4H PRN IV PUSH CIWA 8 - 10 Last administered on 11:35; Start 08/19/16 at 07:00 Lorazepam (Ativan) 2 mg Q2H PRN PO CIWA 11-14; Start 08/19/16 at 07:00 Lorazepam (Ativan Inj) 2 mg Q2H PRN IV PUSH CIWA 11-14 Last administered on 23:56; Start 08/19/16 at 07:00 Lorazepam (Ativan Inj) 2 mg Q1H PRN IV PUSH CIWA 15-20; Start 08/19/16 at 07:00 Lorazepam (Ativan Inj) 2 mg Q15M PRN IV PUSH CIWA > 20; Start 08/19/16 at 07:00 Miscellaneous Information 1 ONCE ONCE .XX ; Start 08/20/16 at 05:45; Stop 08/20 at 05:56; Status DC Miscellaneous Information 1 ONCE .XX ; Start 08/20/16 at 05:45; Stop 08/20/16 at 10:02; Status DC Insulin Detemir (Levemir Inj) 10 units DAILY SQ ; Start 08/20/16 at 09:00; Stop 08/20/16 at 10:00; Status DC Dextrose (D50w (Vial) Inj) 50 ml UNSCH PRN IV HYPOGLYCEMIA-SEE COMMENTS; Start 08/20/16 at 05:45; Stop 08/20/16 at 05:58; Status DC Glucagon (Glucagon Inj) 1 mg UNSCH PRN OTHER HYPOGLYCEMIA-SEE COMMENTS; Start 08/20/16 at 05:45; Stop 08/20/16 at 05:58; Status DC Dextrose (D50w (Vial) Inj) 50 ml UNSCH PRN IV HYPOGLYCEMIA-SEE COMMENTS; Start 08/20/16 at 05:45; Stop 08/20/16 at 05:58; Status DC Glucagon (Glucagon Inj) 1 mg UNSCH PRN OTHER HYPOGLYCEMIA-SEE COMMENTS; Start 08/20/16 at 05:45; Stop 08/20/16 at 05:58; Status DC Dextrose (D50w (Vial) Inj) 50 ml UNSCH PRN IV HYPOGLYCEMIA-SEE COMMENTS; Start 08/20/16 at 05:45; Stop 08/20/16 at 10:01; Status DC Glucagon (Glucagon Inj) 1 mg UNSCH PRN OTHER HYPOGLYCEMIA-SEE COMMENTS; Start 08/20/16 at 05:45 Insulin Aspart 1 1 ACHS SLIDING SCALE SQ ; Start 08/20/16 at 07:00; Stop at 09:06; Status DC Insulin Human Regular/Sodium Chloride (NovoLIN R (IV INFUSION)/NS Inj) 100 ml @ 0 mls/hr TITRATE IV ; Start 08/20/16 at 06:00; Stop 08/20/16 at 10:00; Status DC Potassium Chloride 40 meq 40 meq NOW ONCE PO Last administered on 08/20/16 06 :43; Start 08/20/16 at 06:30; Stop 08/20/16 at 06:31; Status DC Vancomycin HCl 1250 mg/Sodium Chloride 262.5 ml @ 262.5 mls/ hr ONCE ONCE IV ; Start 08/20/16 at 10:00; Stop 08/20/16 at 10:59; Status Cancel Pharmacy Profile Note 0 ml @ 0 mls/hr UNSCH OTHER ; Start 08/20/16 at 09:15; Stop 08/20/16 at 23:00; Status DC Cefepime HCl 2000 mg/Sodium Chloride 100 ml @ 200 mls/hr Q8H IV ; Start at 10:00; Stop 08/20/16 at 10:00; Status DC Piperacillin Sod/ Tazobactam Sod 100 ml @ 200 mls/hr Q6H IV Last administered on 08/20/16 22:16; Start 08/20/16 at 10:00; Stop 08/20/16 at 23:00; Status DC Insulin Human Regular/Sodium Chloride (NovoLIN R (IV INFUSION)/NS Inj) 100 ml @ 0 mls/hr TITRATE IV Last administered on 08/20/16 10:36; Start 08/20/16 at 09: 15; Stop 08/22/16 at 09:57; Status DC Dextrose (D50w (Vial) Inj) 50 ml UNSCH PRN IV PUSH SEE LABEL COMMENTS; Start at 09:15 Miscellaneous Information 1 1 ONCE ONCE OTHER ; Start 08/20/16 at 10:00; Stop 08/20/16 at 10:01; Status DC Dexmedetomidine HCl 1000 mcg/ Sodium Chloride 250 ml @ 0 mls/hr TITRATE IV Last administered on 08/20/16 10:37; Start 08/20/16 at 09:15; Stop 08/22/16 at 09:41; Status DC Vancomycin HCl/ Sodium Chloride (Vancomycin Inj/ NS 500 ml Inj) 515 ml @ 257.5 mls/ hr ONCE ONCE IV Last administered on 08/20/16 11:19; Start 08/20/16 at 10:00; Stop 08/20/16 at 11:59; Status DC Iohexol 65 ml 65 ml STK-MED ONCE IV Last administered on 08/20/16 12:09; Start 08/20/16 at 12:09; Stop 08/20/16 at 12:10; Status DC Vancomycin HCl/ Sodium Chloride (Vancomycin Inj/ NS 250 ml Inj) 250 ml @ 250 mls/hr Q12H IV ; Start 08/20/16 at 23:00; Stop 08/20/16 at 23:00; Status DC Miscellaneous Information SPECIFIC LAB TO BE OMAR... ONCE ONCE .XX ; Start 08/21 at 22:45; Stop 08/21/16 at 22:46; Status DC Cefazolin Sodium/ Dextrose 50 ml @ 150 mls/hr Q8H IV Last administered on 08/31 13:51; Start 08/20/16 at 23:00 Potassium Chloride 100 ml @ 50 mls/hr Q2H PRN IV For Potassium 2.8 - 3.2 mEq/L ; Start 08/21/16 at 08:00; Stop 08/23/16 at 21:39; Status DC Potassium Chloride (KCl 20 Meq Premix Inj) 100 ml @ 50 mls/hr Q2H PRN IV For Potassium 2.8 - 3.2 mEq/L Last administered on 08/23/16 10:11; Start 08/21/16 at 08:00; Stop 08/23/16 at 21:39; Status DC Potassium Bicarb/ Potassium Chloride 50 meq 50 meq UNSCH PRN PO For Potassium 3.3 - 3.5 mEq/L; Start 08/21/16 at 08:00; Stop 08/23/16 at 21:39; Status DC Potassium Chloride 100 ml @ 25 mls/hr UNSCH PRN IV For Potassium 3.3 - 3.5 mEq /L; Start 08/21/16 at 08:00; Stop 08/23/16 at 21:39; Status DC Potassium Chloride 100 ml @ 50 mls/hr Q2H PRN IV For Potassium 3.3 - 3.5 mEq/L ; Start 08/21/16 at 08:00; Stop 08/23/16 at 21:39; Status DC Magnesium Sulfate/ Sodium Chloride (Magnesium Sulfate Inj/NS Inj) 100 ml @ 50 mls/hr UNSCH PRN IV For Magnesium 0.9 - 1.1 mg/dL; Start 08/21/16 at 08:00; Stop 08/23/16 at 21:39; Status DC Magnesium Oxide 800 mg 800 mg UNSCH PRN PO For Magnesium 1.2 - 1.6 mg/dL; Start 08/21/16 at 08:00; Stop 08/23/16 at 21:39; Status DC Magnesium Sulfate/ Sodium Chloride (Magnesium Sulfate Inj/NS Inj) 100 ml @ 50 mls/hr UNSCH PRN IV For Magnesium 1.2 - 1.6 mg/dL Last administered on t 11:18; Start 08/21/16 at 08:00; Stop 08/23/16 at 21:39; Status DC Potassium Phosphate 2000 mg 2,000 mg Q4H PRN PO For Phosphorus < 2.5 mg/dL; Start 08/21/16 at 08:00; Stop 08/23/16 at 21:39; Status DC Sodium Phosphate/ Sodium Chloride (Sodium Phosphate Inj/NS 250 ml Inj) 250 ml @ 42 mls/hr UNSCH PRN IV For Phosphorus < 2.5 mg/dL; Start 08/21/16 at 08:00; Stop 08/23/16 at 21:39; Status DC Potassium Phosphate 2000 mg 2,000 mg UNSCH PRN PO/TUBE SEE LABEL COMMENTS; Start 08/21/16 at 08:00; Stop 08/23/16 at 21:39; Status DC Potassium Phosphate/Sodium Chloride (Potassium Phosphate Inj/NS 250 ml Inj) 260 ml @ 42 mls/hr UNSCH PRN IV SEE LABEL COMMENTS; Start 08/21/16 at 08:00; Stop 08/23/16 at 21:39; Status DC Potassium Bicarb/ Potassium Chloride (K-Lyte Cl Eff) 25 meq ONCE ONCE PO ; Start 08/21/16 at 08:30; Stop 08/21/16 at 08:31; Status DC Propofol (Diprivan 200 Mg/20 ml Inj) 110 mg STK-MED ONCE IV PUSH ; Start at 12:35; Stop 08/21/16 at 12:36; Status DC Ketamine HCl (Ketalar Inj) 500 mg STK-MED ONCE .ROUTE ; Start 08/21/16 at 13:05 ; Stop 08/21/16 at 13:06; Status DC Miscellaneous Information ALL NURSING DEPARTME... UNSCH PRN .XX SEE LABEL COMMENTS; Start 08/21/16 at 12:54; Stop 08/22/16 at 12:53; Status DC Epinephrine HCl (EPINEPHrine (1:10,000) INJ) 1 mg STK-MED ONCE OTHER Last administered on 08/21/16 12:15; Start 08/21/16 at 12:15; Stop 08/21/16 at 14:34 ; Status DC Phenylephrine HCl (Neosynephrine/ NS 1000 Mcg/10ml Syr) 1,000 mcg STK-MED ONCE IV ; Start 08/21/16 at 12:00; Stop 08/22/16 at 09:16; Status DC Insulin Detemir (Levemir Inj) 5 units Q12HR SQ Last administered on 08/31/16 08:39; Start 08/22/16 at 10:00 Insulin Aspart (NovoLOG SUPPLEMENTAL SCALE) 1 ACHS SLIDING SCALE SQ Last administered on 08/30/16 11:00; Start 08/22/16 at 11:00 Hydromorphone HCl (Dilaudid Pf Inj) 1 mg Q4H PRN IV BREAKTHROUGH PAIN Last administered on 08/31/16 13:52; Start 08/23/16 at 12:45 Oxycodone/ Acetaminophen (Percocet 7.5-325 Mg) 1 tab Q4H PRN PO PAIN SCALE 3 TO 5 Last administered on 08/27/16 17:53; Start 08/23/16 at 10:30 Oxycodone/ Acetaminophen (Percocet 10-325 Mg) 1 tab Q6H PRN PO PAIN SCALE 6 TO 10 Last administered on 08/31/16 11:35; Start 08/23/16 at 10:30 Metoclopramide HCl (Reglan Inj) 10 mg Q8H PRN IM NAUSEA OR VOMITING; Start at 11:00; Stop 08/23/16 at 11:43; Status DC Potassium Chloride (KCl) 40 meq ONCE ONCE PO Last administered on 08/23/16 12 :23; Start 08/23/16 at 11:00; Stop 08/23/16 at 11:35; Status DC Metoclopramide HCl (Reglan Inj) 10 mg Q8HR IV PUSH Last administered on 05:12; Start 08/23/16 at 14:00; Stop 08/27/16 at 09:27; Status DC Polyethylene Glycol (Miralax) 17 gm DAILY PO Last administered on 08/31/16 08: 26; Start 08/23/16 at 11:45 Potassium Chloride (KCl) 30 meq ONCE ONCE PO Last administered on 08/24/16 14 :46; Start 08/24/16 at 12:15; Stop 08/24/16 at 13:04; Status DC Fluconazole (Diflucan) 200 mg DAILY PO Last administered on 08/31/16 08:26; Start 08/29/16 at 09:00 Gadodiamide (Omniscan Pf Inj) 13 ml STK-MED ONCE IV Last administered on 12:20; Start 08/30/16 at 12:20; Stop 08/30/16 at 12:21; Status DC Sodium Chloride (NS Flush) See Protocol DAILY IV FLUSH Last administered on 08:28; Start 08/31/16 at 09:00 Sodium Chloride (NS Flush) See Protocol UNSCH PRN IV FLUSH SEE PROTOCOL TABLE; Start 08/30/16 at 19:15 Heparin Sodium (Porcine) (Heparin Central Flush) See Protocol DAILY IV FLUSH Last administered on 08/31/16 08:27; Start 08/31/16 at 09:00 Heparin Sodium (Porcine) (Heparin Central Flush) See Protocol UNSCH PRN IV FLUSH SEE PROTOCOL TABLE; Start 08/30/16 at 19:15 Sodium Chloride (NS Flush) UNSCH PRN IV FLUSH SEE PROTOCOL TABLE; Start at 19:15 A/P Problem List: (1) Acute pancreatitis ICD Code: K85.9 Status: Acute (2) MSSA (methicillin susceptible Staphylococcus aureus) septicemia ICD Code: A41.01 Status: Acute (3) Severe sepsis ICD Code: A41.9 Status: Acute (4) DKA (diabetic ketoacidoses) ICD Code: E13.10 Status: Acute (5) Lactic acidosis ICD Code: E87.2 Status: Acute (6) Alcohol withdrawal delirium ICD Code: F10.231 Status: Acute (7) Hypercalcemia ICD Code: E83.52 Status: Acute (8) Leukocytosis ICD Code: D72.829 Status: Acute (9) Tachycardia ICD Code: R00.0 Status: Acute (10) High anion gap metabolic acidosis ICD Code: E87.2 Status: Acute (11) Acute renal insufficiency ICD Code: N28.9 Status: Acute (12) Fever ICD Code: R50.9 Status: Acute (13) SIRS (systemic inflammatory response syndrome) ICD Code: R65.10 Status: Acute (14) Esophagitis ICD Code: K20.9 Status: Acute (15) Hypertension ICD Code: I10 Status: Chronic (16) Alcohol abuse ICD Code: F10.10 Status: Chronic (17) Hypertriglyceridemia ICD Code: E78.1 Status: Chronic Assessment and Plan 51 yo male with: Alcohol dependence & withdrawal Alcohol dependence Vitamin bag daily 3 days for EtOH use status post accident. On CIWA protocol. No signs of withdrawal at the bedside. History of Hypertension History of hypertriglyceridemia Holding losartan 25 mg by mouth daily light of pancreatitis, has been normotensive. 2D echo 08/21 shows no evidence of endocarditis Ongoing tobaccoism Nasal cannula to maintain saturations greater than equal to 92% Incentive spirometry while awake Tobacco cessation Nicotine patch if indicated Acute pancreatitis/Hepatic steatosis/Marked circumferential thickening of the esophagus GI following: EGD 08/21 showed severe esophagitis and duodenitis. Biopsy: minimal acute enteritis, acute esophagitits with features of ulceration, rare fungal hyphae within inflammatory detritus, neg viral cytopathic changes. Cont: miralax, PPI ID started fluconazole on 08/28 due to candidal esophagitis. HIV testing is negative. DKA Resolved. Levemir 5 q12 and SSI. Blood sugars appear well controlled. Acute kidney injury-resolved Likely prerenal. I's and O's Monitor urine output Bacteremia MSSA Staph aureus in 4 out of 4 bottles Hx of previous staph aureus bacteremia ID following. Currently on cefazolin, anticipate 6 weeks of IV abx from first day of first negative blood culture Blood Cultures 08/19 staph aureus 4/4 bottles. Repeated blood culture 08/21 positive 1/ staph aureus. Blood cultures 08/25 repeated, no growth x 3 day 2-D echo negative for endocarditis. Previous MAURA for staph aureus bacteremia was negative Cake Inspector consulted for repeat MAURA. Patient is not a candidate due to severe esophagitis. Mid back pain -MRI just shows mild degenerative joint disease. Otherwise normal. Hypercalcemia-resolved Hypo-natremia Hypokalemia Replace electrolytes per protocol F/u PTH, PTHp, vitamin D 03/01 and 25 Prophylaxis - GI - Protonix IV BID - DVT - SCD/heparin subcutaneous Discharge Planning Patient is medically clear and stable to be discharged from the hospital pending home health set up for IV infusion. Problem Qualifiers (1) Acute pancreatitis: Qualified Code: K85.20 - Alcohol-induced acute pancreatitis, unspecified complication status (2) DKA (diabetic ketoacidoses): Qualified Code: E13.10 - Diabetic ketoacidosis without coma associated with type 2 diabetes mellitus (3) Leukocytosis: Qualified Code: D72.829 - Leukocytosis, unspecified type (4) Fever: Qualified Code: R50.9 - Fever, unspecified fever cause (5) Hypertension: Qualified Code: I10 - Essential hypertension Rosemary Thorne MD Aug 31, 2016 15:57
[2016-09-01] MEDS: CHLORHEXIDINE GLUCONATE 2 % 1 PACK (2 CLOTHS) TOP SCH (04:00)
[2016-09-01 05:10] VITALS: BP 115/72; PULSE 82; RESP 16; TEMP 98.3; O2SAT 97
[2016-09-01] MEDS: ceFAZolin 2 GM PREMIX 50 ML IV SCH ×3 (05:52→23:05)
[2016-09-01] MEDS: oxyCODONE/ACETAMINOPHEN 10 MG/325 MG TAB PO PRN ×3 (06:01→19:46)
[2016-09-01] MEDS: INSULIN ASPART SUPPLEMENTAL SCALE SQ SCH ×4 (06:02→19:50)
[2016-09-01 08:00] VITALS: BP 114/84; PULSE 110; RESP 20; TEMP 98.1; O2SAT 97
[2016-09-01] MEDS: ARTIFICIAL TEARS OPTH SOLN 15 ML BTL EACH EYE SCH ×3 (09:00→16:31)
[2016-09-01] MEDS: SODIUM CHLORIDE 0.9% FLUSH 10 ML FLUSH IV FLUSH SCH ×3 (09:00→19:47)
[2016-09-01] MEDS: PANTOPRAZOLE SODIUM 40 MG VIAL IV SCH (09:03)
[2016-09-01] MEDS: HEPARIN SODIUM - SQ 10,000 UNITS/ML VIAL SQ SCH ×2 (09:03→19:46)
[2016-09-01] MEDS: DOCUSATE SODIUM 50 MG/SENNA 8.6 MG TAB PO SCH ×2 (09:03→19:46)
[2016-09-01] MEDS: POLYETHYLENE GLYCOL 17 GM PKG PO SCH (09:03)
[2016-09-01] MEDS: HYDROmorphone HCL PF 1 MG/ML VIAL IV PRN ×3 (09:04→21:11)
[2016-09-01] MEDS: INSULIN DETEMIR 100 UNITS/ML VIAL SQ SCH ×2 (09:11→19:50)
--- NOTE | 2016-09-01 11:03 | HHI.PR ---
Subjective Remarks Follow-up for home health set up with IV infusion Patient unable to be discharged yesterday due to IV infusion set up. Patient no complaints. Patient asked to be on a regular diet. He stated that his blood pressure is normal and he is not on any of his blood pressure medication. Objective Vitals Vital Signs Date Time Temp Pulse Resp B/P Pulse Ox O2 Delivery O2 Flow Rate FiO2 09/01/16 08:00 98.1 110 20 114/84 97 09/01/16 05:10 98.3 82 16 115/72 97 08/31/16 23:25 98.2 77 16 101/69 98 08/31/16 21:00 Room Air 08/31/16 20:04 78 08/31/16 19:25 97.9 81 16 117/76 98 08/31/16 16:00 98.0 84 20 128/81 96 08/31/16 12:00 98.3 94 20 145/70 95 I/O 08/31/16 08/31/16 08/31/16 09/01/16 09/01/16 09/01/16 07:00 15:00 23:00 07:00 15:00 23:00 Intake Total 0 ml 720 ml 290 ml 50 ml Output Total 900 ml 1275 ml Balance 0 ml 720 ml -610 ml -1225 ml Intake Oral 0 ml 720 ml 240 ml 0 ml IV Total 50 ml 50 ml Output Urine Total 900 ml 1275 ml # Voids 1 3 # Bowel Movements 2 1 1 0 Objective Remarks GENERAL: In no acute distress sitting in the bed very comfortably. SKIN: Warm and dry. HEAD: Normocephalic. EYES: No scleral icterus. No injection or drainage. NECK: Supple, trachea midline. No JVD or lymphadenopathy. CARDIOVASCULAR: Regular rate and rhythm without murmurs, gallops, or rubs. RESPIRATORY: Breath sounds equal bilaterally. No accessory muscle use. GASTROINTESTINAL: Abdomen soft, mild tenderness to palpation in the mid abdomen , nondistended. Procedures See hospital course. Medications and IVs Current Medications Sodium Chloride 1,000 ml @ 1,000 mls/hr Q1H ONCE IV Last administered on t 04:35; Start 08/19/16 at 03:57; Stop 08/19/16 at 04:56; Status DC Sodium Chloride 1,000 ml @ 1,000 mls/hr Q1H ONCE IV Last administered on 04:35; Start 08/19/16 at 03:57; Stop 08/19/16 at 04:56; Status DC Sodium Chloride (NS 1000 ml Inj) 400 ml @ 1,000 mls/hr Q24M ONCE IV Last administered on 08/19/16 04:35; Start 08/19/16 at 03:57; Stop 08/19/16 at 04:20 ; Status DC Ondansetron HCl 4 mg 4 mg ONCE ONCE IV PUSH Last administered on 08/19/16 04: 52; Start 08/19/16 at 04:45; Stop 08/19/16 at 04:46; Status DC Vancomycin HCl 1000 mg/Sodium Chloride 250 ml @ 250 mls/hr ONCE STAT IV Last administered on 08/19/16 07:28; Start 08/19/16 at 04:47; Stop 08/19/16 at 05:46 ; Status DC Piperacillin Sod/ Tazobactam Sod 100 ml @ 200 mls/hr ONCE STAT IV Last administered on 08/19/16 04:52; Start 08/19/16 at 04:47; Stop 08/19/16 at 05:16 ; Status DC Sodium Chloride 1,000 ml @ 250 mls/hr Q4H IV ; Start 08/19/16 at 05:19; Stop at 05:59; Status DC Dextrose/Sodium Chloride (D5W-NS 1000 ml Inj) 1,000 ml @ 200 mls/hr Q5H IV ; Start 08/19/16 at 05:19; Stop 08/19/16 at 05:59; Status DC Insulin Human Regular 6 units 6 units BOLUS ONCE IV PUSH Last administered on 08/19/16 06:08; Start 08/19/16 at 05:30; Stop 08/19/16 at 05:31; Status DC Insulin Human Regular 100 units/ Sodium Chloride 100 ml @ 0 mls/hr TITRATE IV ; Start 08/19/16 at 05:30; Stop 08/19/16 at 05:59; Status DC Potassium Chloride 100 ml @ 100 mls/hr Q1H PRN IV SEE LABEL COMMENTS; Start at 05:30; Stop 08/19/16 at 05:59; Status DC Potassium Chloride 100 ml @ 50 mls/hr Q2H PRN IV SEE LABEL COMMENTS; Start at 05:30; Stop 08/19/16 at 05:59; Status DC Potassium Chloride 100 ml @ 100 mls/hr Q1H PRN IV SEE LABEL COMMENTS; Start at 05:30; Stop 08/19/16 at 05:59; Status DC Potassium Chloride 100 ml @ 100 mls/hr Q1H PRN IV SEE LABEL COMMENTS; Start at 05:30; Stop 08/19/16 at 05:59; Status DC Potassium Chloride 100 ml @ 50 mls/hr Q2H PRN IV SEE LABEL COMMENTS; Start at 05:30; Stop 08/19/16 at 05:59; Status DC Potassium Chloride 100 ml @ 50 mls/hr Q2H PRN IV SEE LABEL COMMENTS; Start at 05:30; Stop 08/19/16 at 05:59; Status DC Potassium Chloride 100 ml @ 50 mls/hr Q2H PRN IV SEE LABEL COMMENTS; Start at 05:30; Stop 08/19/16 at 05:59; Status DC Potassium Chloride (KCl 20 Meq Premix Inj) 100 ml @ 50 mls/hr Q2H PRN IV SEE LABEL COMMENTS; Start 08/19/16 at 05:30; Stop 08/19/16 at 05:59; Status DC Sodium Bicarbonate (Sodium Bicarbonate 8.4% Inj) 100 meq UNSCH PRN IV SEE LABEL COMMENTS; Start 08/19/16 at 05:30; Stop 08/19/16 at 05:59; Status DC Sodium Bicarbonate 50 meq 50 meq UNSCH PRN IV SEE LABEL COMMENTS; Start at 05:30; Stop 08/19/16 at 05:59; Status DC Sodium Phosphate 15 mmol/Sodium Chloride 105 ml @ 25 mls/hr UNSCH PRN IV SEE LABEL COMMENTS; Start 08/19/16 at 05:30; Stop 08/19/16 at 05:59; Status DC Sodium Chloride 1,000 ml @ 250 mls/hr Q4H IV Last administered on 08/19/16t 08 :54; Start 08/19/16 at 05:55; Stop 08/20/16 at 05:55; Status DC Dextrose/Sodium Chloride 1,000 ml @ 200 mls/hr Q5H IV Last administered on 03:37; Start 08/19/16 at 05:55; Stop 08/20/16 at 05:55; Status DC Insulin Human Regular 100 units/ Sodium Chloride 100 ml @ 0 mls/hr TITRATE IV Last administered on 08/20/16 00:27; Start 08/19/16 at 06:00; Stop 08/20/16 at 05:53; Status DC Potassium Chloride 100 ml @ 100 mls/hr Q1H PRN IV SEE LABEL COMMENTS; Start at 06:00; Stop 08/20/16 at 05:55; Status DC Potassium Chloride 100 ml @ 50 mls/hr Q2H PRN IV SEE LABEL COMMENTS; Start at 06:00; Stop 08/20/16 at 05:55; Status DC Potassium Chloride 100 ml @ 100 mls/hr Q1H PRN IV SEE LABEL COMMENTS; Start at 06:00; Stop 08/20/16 at 05:55; Status DC Potassium Chloride 100 ml @ 100 mls/hr Q1H PRN IV SEE LABEL COMMENTS; Start at 06:00; Stop 08/20/16 at 05:55; Status DC Potassium Chloride 100 ml @ 50 mls/hr Q2H PRN IV SEE LABEL COMMENTS; Start at 06:00; Stop 08/20/16 at 05:55; Status DC Potassium Chloride 100 ml @ 50 mls/hr Q2H PRN IV SEE LABEL COMMENTS; Start at 06:00; Stop 08/20/16 at 05:55; Status DC Potassium Chloride 100 ml @ 50 mls/hr Q2H PRN IV SEE LABEL COMMENTS Last administered on 08/20/16 03:37; Start 08/19/16 at 06:00; Stop 08/20/16 at 05:55 ; Status DC Potassium Chloride (KCl 20 Meq Premix Inj) 100 ml @ 50 mls/hr Q2H PRN IV SEE LABEL COMMENTS; Start 08/19/16 at 06:00; Stop 08/20/16 at 05:55; Status DC Sodium Bicarbonate (Sodium Bicarbonate 8.4% Inj) 100 meq UNSCH PRN IV SEE LABEL COMMENTS; Start 08/19/16 at 06:00; Stop 08/20/16 at 05:55; Status DC Sodium Bicarbonate 50 meq 50 meq UNSCH PRN IV SEE LABEL COMMENTS; Start at 06:00; Stop 08/20/16 at 05:55; Status DC Sodium Phosphate/ Sodium Chloride (Sodium Phosphate Inj/NS Inj) 105 ml @ 25 mls /hr UNSCH PRN IV SEE LABEL COMMENTS Last administered on 08/19/16 19:15; Start 08/19/16 at 06:00; Stop 08/20/16 at 05:55; Status DC Miscellaneous Information 1 Q361D XX ; Start 08/19/16 at 06:00; Stop 08/20/16 at 05:59; Status DC Chlorhexidine Gluconate (Chlorhexidine 2% Cloth) 3 pack Taper DAILY@04 TOP Last administered on 08/20/16 03:37; Start 08/20/16 at 04:00; Stop 08/20/16 at 05:59; Status DC Chlorhexidine Gluconate (Chlorhexidine 2% Cloth) 3 pack UNSCH PRN TOP HYGIENIC CARE; Start 08/19/16 at 06:00; Stop 08/20/16 at 05:59; Status DC Metoclopramide HCl (Reglan Inj) 10 mg ONCE ONCE IV PUSH Last administered on 07:00; Start 08/19/16 at 06:00; Stop 08/19/16 at 06:05; Status DC Sodium Chloride (NS Flush) 2 ml UNSCH PRN IV FLUSH FLUSH AFTER USING IV ACCESS Last administered on 08/27/16 11:55; Start 08/19/16 at 06:45 Sodium Chloride (NS Flush) 2 ml BID IV FLUSH Last administered on 09/01/16 09: 00; Start 08/19/16 at 09:00 Hydromorphone HCl (Dilaudid Pf Inj) 1 mg Q2H PRN IV PAIN SCALE 6 TO 10 Last administered on 08/23/16 08:55; Start 08/19/16 at 06:45; Stop 08/23/16 at 10:29 ; Status DC Pantoprazole Sodium (Protonix Inj) 40 mg DAILY IV Last administered on 09:03; Start 08/19/16 at 09:00 Artificial Tears (Tears Naturale Opth Soln) 1 drop TID EACH EYE Last administered on 09/01/16 09:00; Start 08/19/16 at 09:00 Ondansetron HCl (Zofran Inj) 4 mg Q6H PRN IV NAUSEA OR VOMITING; Start at 06:45 Albuterol Sulfate (Albuterol Neb) 2.5 mg Q2HR NEB PRN INH SOB/WHEEZING; Start 08/19/16 at 06:45 Heparin Sodium (Porcine) (Heparin Inj) 5,000 units Q12H SQ Last administered on 09/01/16 09:03; Start 08/19/16 at 09:00 Miscellaneous Information 1 Q361D XX ; Start 08/19/16 at 06:45 Chlorhexidine Gluconate (Chlorhexidine 2% Cloth) Taper DAILY@04 TOP Last administered on 08/22/16 04:00; Start 08/20/16 at 04:00; Stop 08/16/17 at 03:59 Chlorhexidine Gluconate (Chlorhexidine 2% Cloth) 3 pack UNSCH PRN TOP HYGIENIC CARE; Start 08/19/16 at 06:45 Senna/Docusate Sodium (Nakia-Colace) 1 tab BID PO Last administered on 09:03; Start 08/19/16 at 09:00 Magnesium Hydroxide (Milk Of Magnesia Liq) 30 ml Q12H PRN PO MILD - MODERATE CONSTIPATION; Start 08/19/16 at 06:45 Sennosides (Senokot) 17.2 mg Q12H PRN PO MODERATE - SEVERE CONSTIPATION; Start 08/19/16 at 06:45 Bisacodyl (Dulcolax Supp) 10 mg DAILY PRN RECTAL SEVERE CONSITIPATION; Start at 06:45 Lactulose (Lactulose Liq) 30 ml DAILY PRN PO SEVERE CONSITIPATION Last administered on 08/24/16 23:20; Start 08/19/16 at 06:45 Hydromorphone HCl 0.5 mg 0.5 mg Q2H PRN IV PUSH PAIN SCALE 1 TO 5 Last administered on 08/23/16 06:05; Start 08/19/16 at 06:45; Stop 08/23/16 at 10:29 ; Status DC Multivitamins/ Thiamine HCl/ Folic Acid/Sodium Chloride (Mvi-12 Inj/ Thiamine Inj/ Folvite Inj/NS 500 ml Inj) 511.2 ml @ 125 mls/hr DAILY IV Last administered on 08/21/16 10:24; Start 08/19/16 at 09:00; Stop 08/22/16 at 08:59 ; Status DC Flumazenil (Romazicon Inj) 0.2 mg Q1M PRN IV PUSH SEE LABEL COMMENTS; Start at 07:00 Lorazepam (Ativan) 1 mg Q4H PRN PO CIWA 8 - 10 Last administered on 08/23/16 23:30; Start 08/19/16 at 07:00 Lorazepam (Ativan Inj) 1 mg Q4H PRN IV PUSH CIWA 8 - 10 Last administered on 11:35; Start 08/19/16 at 07:00 Lorazepam (Ativan) 2 mg Q2H PRN PO CIWA 11-14; Start 08/19/16 at 07:00 Lorazepam (Ativan Inj) 2 mg Q2H PRN IV PUSH CIWA 11-14 Last administered on 23:56; Start 08/19/16 at 07:00 Lorazepam (Ativan Inj) 2 mg Q1H PRN IV PUSH CIWA 15-20; Start 08/19/16 at 07:00 Lorazepam (Ativan Inj) 2 mg Q15M PRN IV PUSH CIWA > 20; Start 08/19/16 at 07:00 Miscellaneous Information 1 ONCE ONCE .XX ; Start 08/20/16 at 05:45; Stop 08/20 at 05:56; Status DC Miscellaneous Information 1 ONCE .XX ; Start 08/20/16 at 05:45; Stop 08/20/16 at 10:02; Status DC Insulin Detemir (Levemir Inj) 10 units DAILY SQ ; Start 08/20/16 at 09:00; Stop 08/20/16 at 10:00; Status DC Dextrose (D50w (Vial) Inj) 50 ml UNSCH PRN IV HYPOGLYCEMIA-SEE COMMENTS; Start 08/20/16 at 05:45; Stop 08/20/16 at 05:58; Status DC Glucagon (Glucagon Inj) 1 mg UNSCH PRN OTHER HYPOGLYCEMIA-SEE COMMENTS; Start 08/20/16 at 05:45; Stop 08/20/16 at 05:58; Status DC Dextrose (D50w (Vial) Inj) 50 ml UNSCH PRN IV HYPOGLYCEMIA-SEE COMMENTS; Start 08/20/16 at 05:45; Stop 08/20/16 at 05:58; Status DC Glucagon (Glucagon Inj) 1 mg UNSCH PRN OTHER HYPOGLYCEMIA-SEE COMMENTS; Start 08/20/16 at 05:45; Stop 08/20/16 at 05:58; Status DC Dextrose (D50w (Vial) Inj) 50 ml UNSCH PRN IV HYPOGLYCEMIA-SEE COMMENTS; Start 08/20/16 at 05:45; Stop 08/20/16 at 10:01; Status DC Glucagon (Glucagon Inj) 1 mg UNSCH PRN OTHER HYPOGLYCEMIA-SEE COMMENTS; Start 08/20/16 at 05:45 Insulin Aspart 1 1 ACHS SLIDING SCALE SQ ; Start 08/20/16 at 07:00; Stop at 09:06; Status DC Insulin Human Regular/Sodium Chloride (NovoLIN R (IV INFUSION)/NS Inj) 100 ml @ 0 mls/hr TITRATE IV ; Start 08/20/16 at 06:00; Stop 08/20/16 at 10:00; Status DC Potassium Chloride 40 meq 40 meq NOW ONCE PO Last administered on 08/20/16t 06 :43; Start 08/20/16 at 06:30; Stop 08/20/16 at 06:31; Status DC Vancomycin HCl 1250 mg/Sodium Chloride 262.5 ml @ 262.5 mls/ hr ONCE ONCE IV ; Start 08/20/16 at 10:00; Stop 08/20/16 at 10:59; Status Cancel Pharmacy Profile Note 0 ml @ 0 mls/hr UNSCH OTHER ; Start 08/20/16 at 09:15; Stop 08/20/16 at 23:00; Status DC Cefepime HCl 2000 mg/Sodium Chloride 100 ml @ 200 mls/hr Q8H IV ; Start at 10:00; Stop 08/20/16 at 10:00; Status DC Piperacillin Sod/ Tazobactam Sod 100 ml @ 200 mls/hr Q6H IV Last administered on 08/20/16t 22:16; Start 08/20/16 at 10:00; Stop 08/20/16 at 23:00; Status DC Insulin Human Regular/Sodium Chloride (NovoLIN R (IV INFUSION)/NS Inj) 100 ml @ 0 mls/hr TITRATE IV Last administered on 08/20/16 10:36; Start 08/20/16 at 09: 15; Stop 08/22/16 at 09:57; Status DC Dextrose (D50w (Vial) Inj) 50 ml UNSCH PRN IV PUSH SEE LABEL COMMENTS; Start at 09:15 Miscellaneous Information 1 1 ONCE ONCE OTHER ; Start 08/20/16 at 10:00; Stop 08/20/16 at 10:01; Status DC Dexmedetomidine HCl 1000 mcg/ Sodium Chloride 250 ml @ 0 mls/hr TITRATE IV Last administered on 08/20/16 10:37; Start 08/20/16 at 09:15; Stop 08/22/16 at 09:41; Status DC Vancomycin HCl/ Sodium Chloride (Vancomycin Inj/ NS 500 ml Inj) 515 ml @ 257.5 mls/ hr ONCE ONCE IV Last administered on 08/20/16 11:19; Start 08/20/16 at 10:00; Stop 08/20/16 at 11:59; Status DC Iohexol 65 ml 65 ml STK-MED ONCE IV Last administered on 08/20/16 12:09; Start 08/20/16 at 12:09; Stop 08/20/16 at 12:10; Status DC Vancomycin HCl/ Sodium Chloride (Vancomycin Inj/ NS 250 ml Inj) 250 ml @ 250 mls/hr Q12H IV ; Start 08/20/16 at 23:00; Stop 08/20/16 at 23:00; Status DC Miscellaneous Information SPECIFIC LAB TO BE ... ONCE ONCE .XX ; Start 08/21 at 22:45; Stop 08/21/16 at 22:46; Status DC Cefazolin Sodium/ Dextrose 50 ml @ 150 mls/hr Q8H IV Last administered on 09/01 05:52; Start 08/20/16 at 23:00 Potassium Chloride 100 ml @ 50 mls/hr Q2H PRN IV For Potassium 2.8 - 3.2 mEq/L ; Start 08/21/16 at 08:00; Stop 08/23/16 at 21:39; Status DC Potassium Chloride (KCl 20 Meq Premix Inj) 100 ml @ 50 mls/hr Q2H PRN IV For Potassium 2.8 - 3.2 mEq/L Last administered on 08/23/16t 10:11; Start 08/21/16 at 08:00; Stop 08/23/16 at 21:39; Status DC Potassium Bicarb/ Potassium Chloride 50 meq 50 meq UNSCH PRN PO For Potassium 3.3 - 3.5 mEq/L; Start 08/21/16 at 08:00; Stop 08/23/16 at 21:39; Status DC Potassium Chloride 100 ml @ 25 mls/hr UNSCH PRN IV For Potassium 3.3 - 3.5 mEq /L; Start 08/21/16 at 08:00; Stop 08/23/16 at 21:39; Status DC Potassium Chloride 100 ml @ 50 mls/hr Q2H PRN IV For Potassium 3.3 - 3.5 mEq/L ; Start 08/21/16 at 08:00; Stop 08/23/16 at 21:39; Status DC Magnesium Sulfate/ Sodium Chloride (Magnesium Sulfate Inj/NS Inj) 100 ml @ 50 mls/hr UNSCH PRN IV For Magnesium 0.9 - 1.1 mg/dL; Start 08/21/16 at 08:00; Stop 08/23/16 at 21:39; Status DC Magnesium Oxide 800 mg 800 mg UNSCH PRN PO For Magnesium 1.2 - 1.6 mg/dL; Start 08/21/16 at 08:00; Stop 08/23/16 at 21:39; Status DC Magnesium Sulfate/ Sodium Chloride (Magnesium Sulfate Inj/NS Inj) 100 ml @ 50 mls/hr UNSCH PRN IV For Magnesium 1.2 - 1.6 mg/dL Last administered on 11:18; Start 08/21/16 at 08:00; Stop 08/23/16 at 21:39; Status DC Potassium Phosphate 2000 mg 2,000 mg Q4H PRN PO For Phosphorus < 2.5 mg/dL; Start 08/21/16 at 08:00; Stop 08/23/16 at 21:39; Status DC Sodium Phosphate/ Sodium Chloride (Sodium Phosphate Inj/NS 250 ml Inj) 250 ml @ 42 mls/hr UNSCH PRN IV For Phosphorus < 2.5 mg/dL; Start 08/21/16 at 08:00; Stop 08/23/16 at 21:39; Status DC Potassium Phosphate 2000 mg 2,000 mg UNSCH PRN PO/TUBE SEE LABEL COMMENTS; Start 08/21/16 at 08:00; Stop 08/23/16 at 21:39; Status DC Potassium Phosphate/Sodium Chloride (Potassium Phosphate Inj/NS 250 ml Inj) 260 ml @ 42 mls/hr UNSCH PRN IV SEE LABEL COMMENTS; Start 08/21/16 at 08:00; Stop 08/23/16 at 21:39; Status DC Potassium Bicarb/ Potassium Chloride (K-Lyte Cl Eff) 25 meq ONCE ONCE PO ; Start 08/21/16 at 08:30; Stop 08/21/16 at 08:31; Status DC Propofol (Diprivan 200 Mg/20 ml Inj) 110 mg STK-MED ONCE IV PUSH ; Start at 12:35; Stop 08/21/16 at 12:36; Status DC Ketamine HCl (Ketalar Inj) 500 mg STK-MED ONCE .ROUTE ; Start 08/21/16 at 13:05 ; Stop 08/21/16 at 13:06; Status DC Miscellaneous Information ALL NURSING DEPARTME... UNSCH PRN .XX SEE LABEL COMMENTS; Start 08/21/16 at 12:54; Stop 08/22/16 at 12:53; Status DC Epinephrine HCl (EPINEPHrine (1:10,000) INJ) 1 mg STK-MED ONCE OTHER Last administered on 08/21/16 12:15; Start 08/21/16 at 12:15; Stop 08/21/16 at 14:34 ; Status DC Phenylephrine HCl (Neosynephrine/ NS 1000 Mcg/10ml Syr) 1,000 mcg STK-MED ONCE IV ; Start 08/21/16 at 12:00; Stop 08/22/16 at 09:16; Status DC Insulin Detemir (Levemir Inj) 5 units Q12HR SQ Last administered on 09/01/16 09:11; Start 08/22/16 at 10:00 Insulin Aspart (NovoLOG SUPPLEMENTAL SCALE) 1 ACHS SLIDING SCALE SQ Last administered on 08/30/16 11:00; Start 08/22/16 at 11:00 Hydromorphone HCl (Dilaudid Pf Inj) 1 mg Q4H PRN IV BREAKTHROUGH PAIN Last administered on 09/01/16 09:04; Start 08/23/16 at 12:45 Oxycodone/ Acetaminophen (Percocet 7.5-325 Mg) 1 tab Q4H PRN PO PAIN SCALE 3 TO 5 Last administered on 08/27/16 17:53; Start 08/23/16 at 10:30 Oxycodone/ Acetaminophen (Percocet 10-325 Mg) 1 tab Q6H PRN PO PAIN SCALE 6 TO 10 Last administered on 09/01/16 06:01; Start 08/23/16 at 10:30 Metoclopramide HCl (Reglan Inj) 10 mg Q8H PRN IM NAUSEA OR VOMITING; Start at 11:00; Stop 08/23/16 at 11:43; Status DC Potassium Chloride (KCl) 40 meq ONCE ONCE PO Last administered on 08/23/16 12 :23; Start 08/23/16 at 11:00; Stop 08/23/16 at 11:35; Status DC Metoclopramide HCl (Reglan Inj) 10 mg Q8HR IV PUSH Last administered on 05:12; Start 08/23/16 at 14:00; Stop 08/27/16 at 09:27; Status DC Polyethylene Glycol (Miralax) 17 gm DAILY PO Last administered on 09/01/16 09: 03; Start 08/23/16 at 11:45 Potassium Chloride (KCl) 30 meq ONCE ONCE PO Last administered on 08/24/16 14 :46; Start 08/24/16 at 12:15; Stop 08/24/16 at 13:04; Status DC Fluconazole (Diflucan) 200 mg DAILY PO Last administered on 08/31/16 08:26; Start 08/29/16 at 09:00 Gadodiamide (Omniscan Pf Inj) 13 ml STK-MED ONCE IV Last administered on 12:20; Start 08/30/16 at 12:20; Stop 08/30/16 at 12:21; Status DC Sodium Chloride (NS Flush) See Protocol DAILY IV FLUSH Last administered on 09:00; Start 08/31/16 at 09:00 Sodium Chloride (NS Flush) See Protocol UNSCH PRN IV FLUSH SEE PROTOCOL TABLE; Start 08/30/16 at 19:15 Heparin Sodium (Porcine) (Heparin Central Flush) See Protocol DAILY IV FLUSH Last administered on 09/01/16t 09:03; Start 08/31/16 at 09:00 Heparin Sodium (Porcine) (Heparin Central Flush) See Protocol UNSCH PRN IV FLUSH SEE PROTOCOL TABLE; Start 08/30/16 at 19:15 Sodium Chloride (NS Flush) UNSCH PRN IV FLUSH SEE PROTOCOL TABLE; Start at 19:15 A/P Problem List: (1) Acute pancreatitis ICD Code: K85.9 Status: Acute (2) MSSA (methicillin susceptible Staphylococcus aureus) septicemia ICD Code: A41.01 Status: Acute (3) Severe sepsis ICD Code: A41.9 Status: Acute (4) DKA (diabetic ketoacidoses) ICD Code: E13.10 Status: Acute (5) Alcohol withdrawal delirium ICD Code: F10.231 Status: Acute (6) Acute renal insufficiency ICD Code: N28.9 Status: Acute (7) Esophagitis ICD Code: K20.9 Status: Acute (8) Hypertension ICD Code: I10 Status: Chronic (9) Alcohol abuse ICD Code: F10.10 Status: Chronic (10) Hypertriglyceridemia ICD Code: E78.1 Status: Chronic Assessment and Plan 51 yo male with: Alcohol dependence & withdrawal Alcohol dependence Vitamin bag daily 3 days for EtOH use status post accident. On CIWA protocol. No signs of withdrawal at the bedside. History of Hypertension History of hypertriglyceridemia Holding losartan 25 mg by mouth daily light of pancreatitis, has been normotensive. 2D echo 08/21 shows no evidence of endocarditis Ongoing tobaccoism Nasal cannula to maintain saturations greater than equal to 92% Incentive spirometry while awake Tobacco cessation Nicotine patch if indicated Acute pancreatitis/Hepatic steatosis/Marked circumferential thickening of the esophagus GI following: EGD 08/21 showed severe esophagitis and duodenitis. Biopsy: minimal acute enteritis, acute esophagitits with features of ulceration, rare fungal hyphae within inflammatory detritus, neg viral cytopathic changes. Cont: miralax, PPI ID started fluconazole on 08/28 due to candidal esophagitis. HIV testing is negative. DKA Resolved. Levemir 5 q12 and SSI. Blood sugars appear well controlled. Acute kidney injury-resolved Likely prerenal. I's and O's Monitor urine output Bacteremia MSSA Staph aureus in 4 out of 4 bottles Hx of previous staph aureus bacteremia ID following. Currently on cefazolin, anticipate 6 weeks of IV abx from first day of first negative blood culture Blood Cultures 08/19 staph aureus 4/4 bottles. Repeated blood culture 08/21 positive 1/ staph aureus. Blood cultures 08/25 repeated, no growth x 3 day 2-D echo negative for endocarditis. Previous MAURA for staph aureus bacteremia was negative [employer] consulted for repeat MAURA. Patient is not a candidate due to severe esophagitis. Mid back pain -MRI just shows mild degenerative joint disease. Otherwise normal. Hypercalcemia-resolved Hypo-natremia Hypokalemia Replace electrolytes per protocol F/u PTH, PTHp, vitamin D 1/25 and 25 Prophylaxis - GI - Protonix IV BID - DVT - SCD/heparin subcutaneous Discharge Planning Patient is medically clear and stable to be discharged from the hospital pending home health set up for IV infusion. Problem Qualifiers (1) Acute pancreatitis: Qualified Code: K85.20 - Alcohol-induced acute pancreatitis, unspecified complication status (2) DKA (diabetic ketoacidoses): Qualified Code: E13.10 - Diabetic ketoacidosis without coma associated with type 2 diabetes mellitus (3) Hypertension: Qualified Code: I10 - Essential hypertension Rosemary Thorne MD Sep 01, 2016 11:03
[2016-09-01 12:00] VITALS: BP 113/79; PULSE 94; RESP 20; TEMP 97.8; O2SAT 100
[2016-09-01] MEDS: FLUCONAZOLE 200 MG TAB PO SCH (13:10)
[2016-09-01 16:00] VITALS: BP 111/58; PULSE 95; RESP 20; TEMP 97.9; O2SAT 98
[2016-09-01 20:00] VITALS: BP 106/72; PULSE 91; RESP 20; TEMP 98.2; O2SAT 97
[2016-09-02] VITALS (8 sets, daily range): BP systolic 92–115; BP diastolic 57–75; PULSE 86–101; RESP 16–20; TEMP 97.6–98.2; O2SAT 98–100
[2016-09-02] MEDS: CHLORHEXIDINE GLUCONATE 2 % 1 PACK (2 CLOTHS) TOP SCH (03:47)
[2016-09-02] MEDS: HYDROmorphone HCL PF 1 MG/ML VIAL IV PRN ×4 (04:52→20:25)
[2016-09-02] MEDS: oxyCODONE/ACETAMINOPHEN 10 MG/325 MG TAB PO PRN ×3 (05:56→18:07)
[2016-09-02] MEDS: ceFAZolin 2 GM PREMIX 50 ML IV SCH ×2 (05:57→14:53)
[2016-09-02] MEDS: INSULIN ASPART SUPPLEMENTAL SCALE SQ SCH ×4 (06:22→20:30)
[2016-09-02] MEDS: SODIUM CHLORIDE 0.9% FLUSH 10 ML FLUSH IV FLUSH SCH ×3 (08:52→20:23)
[2016-09-02] MEDS: POLYETHYLENE GLYCOL 17 GM PKG PO SCH (08:53)
[2016-09-02] MEDS: FLUCONAZOLE 200 MG TAB PO SCH (08:53)
[2016-09-02] MEDS: HEPARIN SODIUM - SQ 10,000 UNITS/ML VIAL SQ SCH (08:53)
[2016-09-02] MEDS: DOCUSATE SODIUM 50 MG/SENNA 8.6 MG TAB PO SCH (08:53)
[2016-09-02] MEDS: PANTOPRAZOLE SODIUM 40 MG VIAL IV SCH (08:54)
[2016-09-02] MEDS: ARTIFICIAL TEARS OPTH SOLN 15 ML BTL EACH EYE SCH ×3 (08:54→18:00)
[2016-09-02] MEDS: INSULIN DETEMIR 100 UNITS/ML VIAL SQ SCH ×2 (09:06→20:35)
--- NOTE | 2016-09-02 11:06 | HHI.PR ---
Subjective Remarks Follow-up for infection Still waiting for outpatient IV medication to be set up. Patient stated that he had some episode of watery diarrhea this morning. He's asking to stop the stool softener. Patient also stated that he walks around the hallway and walks in his room all time and does not feel like he needs heparin anymore. He asked to stop heparin. He has no other complaints. Patient stated that pain continues to improve and he continues to have increased oral intake. Objective Vitals Vital Signs Date Time Temp Pulse Resp B/P Pulse Ox O2 Delivery O2 Flow Rate FiO2 09/02/16 08:00 97.8 88 20 111/72 98 09/02/16 04:00 97.6 89 16 115/69 98 09/02/16 00:00 97.7 99 16 92/57 99 09/01/16 20:00 98.2 91 20 106/72 97 09/01/16 17:15 20 09/01/16 16:00 97.9 95 20 111/58 98 09/01/16 12:00 97.8 94 20 113/79 100 I/O 09/01/16 09/01/16 09/01/16 09/02/16 09/02/16 09/02/16 06:59 14:59 22:59 06:59 14:59 22:59 Intake Total 50 ml 480 ml 720 ml 720 ml Output Total 1275 ml 425 ml Balance -1225 ml 55 ml 720 ml 720 ml Intake Oral 0 ml 480 ml 720 ml 720 ml IV Total 50 ml Output Urine Total 1275 ml 425 ml # Voids 2 2 # Bowel Movements 0 1 Objective Remarks GENERAL: In no acute distress sitting in the bed very comfortably. SKIN: Warm and dry. HEAD: Normocephalic. EYES: No scleral icterus. No injection or drainage. NECK: Supple, trachea midline. No JVD or lymphadenopathy. CARDIOVASCULAR: Regular rate and rhythm without murmurs, gallops, or rubs. RESPIRATORY: Breath sounds equal bilaterally. No accessory muscle use. GASTROINTESTINAL: Abdomen soft, mild tenderness to palpation in the mid abdomen , nondistended. Procedures See hospital course. Medications and IVs Current Medications Sodium Chloride 1,000 ml @ 1,000 mls/hr Q1H ONCE IV Last administered on t 04:35; Start 08/19/16 at 03:57; Stop 08/19/16 at 04:56; Status DC Sodium Chloride 1,000 ml @ 1,000 mls/hr Q1H ONCE IV Last administered on 04:35; Start 08/19/16 at 03:57; Stop 08/19/16 at 04:56; Status DC Sodium Chloride (NS 1000 ml Inj) 400 ml @ 1,000 mls/hr Q24M ONCE IV Last administered on 08/19/16 04:35; Start 08/19/16 at 03:57; Stop 08/19/16 at 04:20 ; Status DC Ondansetron HCl 4 mg 4 mg ONCE ONCE IV PUSH Last administered on 08/19/16 04: 52; Start 08/19/16 at 04:45; Stop 08/19/16 at 04:46; Status DC Vancomycin HCl 1000 mg/Sodium Chloride 250 ml @ 250 mls/hr ONCE STAT IV Last administered on 08/19/16 07:28; Start 08/19/16 at 04:47; Stop 08/19/16 at 05:46 ; Status DC Piperacillin Sod/ Tazobactam Sod 100 ml @ 200 mls/hr ONCE STAT IV Last administered on 08/19/16 04:52; Start 08/19/16 at 04:47; Stop 08/19/16 at 05:16 ; Status DC Sodium Chloride 1,000 ml @ 250 mls/hr Q4H IV ; Start 08/19/16 at 05:19; Stop at 05:59; Status DC Dextrose/Sodium Chloride (D5W-NS 1000 ml Inj) 1,000 ml @ 200 mls/hr Q5H IV ; Start 08/19/16 at 05:19; Stop 08/19/16 at 05:59; Status DC Insulin Human Regular 6 units 6 units BOLUS ONCE IV PUSH Last administered on 08/19/16 06:08; Start 08/19/16 at 05:30; Stop 08/19/16 at 05:31; Status DC Insulin Human Regular 100 units/ Sodium Chloride 100 ml @ 0 mls/hr TITRATE IV ; Start 08/19/16 at 05:30; Stop 08/19/16 at 05:59; Status DC Potassium Chloride 100 ml @ 100 mls/hr Q1H PRN IV SEE LABEL COMMENTS; Start at 05:30; Stop 08/19/16 at 05:59; Status DC Potassium Chloride 100 ml @ 50 mls/hr Q2H PRN IV SEE LABEL COMMENTS; Start at 05:30; Stop 08/19/16 at 05:59; Status DC Potassium Chloride 100 ml @ 100 mls/hr Q1H PRN IV SEE LABEL COMMENTS; Start at 05:30; Stop 08/19/16 at 05:59; Status DC Potassium Chloride 100 ml @ 100 mls/hr Q1H PRN IV SEE LABEL COMMENTS; Start at 05:30; Stop 08/19/16 at 05:59; Status DC Potassium Chloride 100 ml @ 50 mls/hr Q2H PRN IV SEE LABEL COMMENTS; Start at 05:30; Stop 08/19/16 at 05:59; Status DC Potassium Chloride 100 ml @ 50 mls/hr Q2H PRN IV SEE LABEL COMMENTS; Start at 05:30; Stop 08/19/16 at 05:59; Status DC Potassium Chloride 100 ml @ 50 mls/hr Q2H PRN IV SEE LABEL COMMENTS; Start at 05:30; Stop 08/19/16 at 05:59; Status DC Potassium Chloride (KCl 20 Meq Premix Inj) 100 ml @ 50 mls/hr Q2H PRN IV SEE LABEL COMMENTS; Start 08/19/16 at 05:30; Stop 08/19/16 at 05:59; Status DC Sodium Bicarbonate (Sodium Bicarbonate 8.4% Inj) 100 meq UNSCH PRN IV SEE LABEL COMMENTS; Start 08/19/16 at 05:30; Stop 08/19/16 at 05:59; Status DC Sodium Bicarbonate 50 meq 50 meq UNSCH PRN IV SEE LABEL COMMENTS; Start at 05:30; Stop 08/19/16 at 05:59; Status DC Sodium Phosphate 15 mmol/Sodium Chloride 105 ml @ 25 mls/hr UNSCH PRN IV SEE LABEL COMMENTS; Start 08/19/16 at 05:30; Stop 08/19/16 at 05:59; Status DC Sodium Chloride 1,000 ml @ 250 mls/hr Q4H IV Last administered on 08/19/16t 08 :54; Start 08/19/16 at 05:55; Stop 08/20/16 at 05:55; Status DC Dextrose/Sodium Chloride 1,000 ml @ 200 mls/hr Q5H IV Last administered on 03:37; Start 08/19/16 at 05:55; Stop 08/20/16 at 05:55; Status DC Insulin Human Regular 100 units/ Sodium Chloride 100 ml @ 0 mls/hr TITRATE IV Last administered on 08/20/16 00:27; Start 08/19/16 at 06:00; Stop 08/20/16 at 05:53; Status DC Potassium Chloride 100 ml @ 100 mls/hr Q1H PRN IV SEE LABEL COMMENTS; Start at 06:00; Stop 08/20/16 at 05:55; Status DC Potassium Chloride 100 ml @ 50 mls/hr Q2H PRN IV SEE LABEL COMMENTS; Start at 06:00; Stop 08/20/16 at 05:55; Status DC Potassium Chloride 100 ml @ 100 mls/hr Q1H PRN IV SEE LABEL COMMENTS; Start at 06:00; Stop 08/20/16 at 05:55; Status DC Potassium Chloride 100 ml @ 100 mls/hr Q1H PRN IV SEE LABEL COMMENTS; Start at 06:00; Stop 08/20/16 at 05:55; Status DC Potassium Chloride 100 ml @ 50 mls/hr Q2H PRN IV SEE LABEL COMMENTS; Start at 06:00; Stop 08/20/16 at 05:55; Status DC Potassium Chloride 100 ml @ 50 mls/hr Q2H PRN IV SEE LABEL COMMENTS; Start at 06:00; Stop 08/20/16 at 05:55; Status DC Potassium Chloride 100 ml @ 50 mls/hr Q2H PRN IV SEE LABEL COMMENTS Last administered on 08/20/16 03:37; Start 08/19/16 at 06:00; Stop 08/20/16 at 05:55 ; Status DC Potassium Chloride (KCl 20 Meq Premix Inj) 100 ml @ 50 mls/hr Q2H PRN IV SEE LABEL COMMENTS; Start 08/19/16 at 06:00; Stop 08/20/16 at 05:55; Status DC Sodium Bicarbonate (Sodium Bicarbonate 8.4% Inj) 100 meq UNSCH PRN IV SEE LABEL COMMENTS; Start 08/19/16 at 06:00; Stop 08/20/16 at 05:55; Status DC Sodium Bicarbonate 50 meq 50 meq UNSCH PRN IV SEE LABEL COMMENTS; Start at 06:00; Stop 08/20/16 at 05:55; Status DC Sodium Phosphate/ Sodium Chloride (Sodium Phosphate Inj/NS Inj) 105 ml @ 25 mls /hr UNSCH PRN IV SEE LABEL COMMENTS Last administered on 08/19/16 19:15; Start 08/19/16 at 06:00; Stop 08/20/16 at 05:55; Status DC Miscellaneous Information 1 Q361D XX ; Start 08/19/16 at 06:00; Stop 08/20/16 at 05:59; Status DC Chlorhexidine Gluconate (Chlorhexidine 2% Cloth) 3 pack Taper DAILY@04 TOP Last administered on 08/20/16 03:37; Start 08/20/16 at 04:00; Stop 08/20/16 at 05:59; Status DC Chlorhexidine Gluconate (Chlorhexidine 2% Cloth) 3 pack UNSCH PRN TOP HYGIENIC CARE; Start 08/19/16 at 06:00; Stop 08/20/16 at 05:59; Status DC Metoclopramide HCl (Reglan Inj) 10 mg ONCE ONCE IV PUSH Last administered on 07:00; Start 08/19/16 at 06:00; Stop 08/19/16 at 06:05; Status DC Sodium Chloride (NS Flush) 2 ml UNSCH PRN IV FLUSH FLUSH AFTER USING IV ACCESS Last administered on 08/27/16 11:55; Start 08/19/16 at 06:45 Sodium Chloride (NS Flush) 2 ml BID IV FLUSH Last administered on 09/02/16 09: 00; Start 08/19/16 at 09:00 Hydromorphone HCl (Dilaudid Pf Inj) 1 mg Q2H PRN IV PAIN SCALE 6 TO 10 Last administered on 08/23/16 08:55; Start 08/19/16 at 06:45; Stop 08/23/16 at 10:29 ; Status DC Pantoprazole Sodium (Protonix Inj) 40 mg DAILY IV Last administered on 08:54; Start 08/19/16 at 09:00 Artificial Tears (Tears Naturale Opth Soln) 1 drop TID EACH EYE Last administered on 09/02/16 08:54; Start 08/19/16 at 09:00 Ondansetron HCl (Zofran Inj) 4 mg Q6H PRN IV NAUSEA OR VOMITING; Start at 06:45 Albuterol Sulfate (Albuterol Neb) 2.5 mg Q2HR NEB PRN INH SOB/WHEEZING; Start 08/19/16 at 06:45 Heparin Sodium (Porcine) (Heparin Inj) 5,000 units Q12H SQ Last administered on 09/02/16 08:53; Start 08/19/16 at 09:00 Miscellaneous Information 1 Q361D XX ; Start 08/19/16 at 06:45 Chlorhexidine Gluconate (Chlorhexidine 2% Cloth) Taper DAILY@04 TOP Last administered on 08/22/16 04:00; Start 08/20/16 at 04:00; Stop 08/16/17 at 03:59 Chlorhexidine Gluconate (Chlorhexidine 2% Cloth) 3 pack UNSCH PRN TOP HYGIENIC CARE; Start 08/19/16 at 06:45 Senna/Docusate Sodium (Nakia-Colace) 1 tab BID PO Last administered on 19:46; Start 08/19/16 at 09:00 Magnesium Hydroxide (Milk Of Magnesia Liq) 30 ml Q12H PRN PO MILD - MODERATE CONSTIPATION; Start 08/19/16 at 06:45 Sennosides (Senokot) 17.2 mg Q12H PRN PO MODERATE - SEVERE CONSTIPATION; Start 08/19/16 at 06:45 Bisacodyl (Dulcolax Supp) 10 mg DAILY PRN RECTAL SEVERE CONSITIPATION; Start at 06:45 Lactulose (Lactulose Liq) 30 ml DAILY PRN PO SEVERE CONSITIPATION Last administered on 08/24/16 23:20; Start 08/19/16 at 06:45 Hydromorphone HCl 0.5 mg 0.5 mg Q2H PRN IV PUSH PAIN SCALE 1 TO 5 Last administered on 08/23/16 06:05; Start 08/19/16 at 06:45; Stop 08/23/16 at 10:29 ; Status DC Multivitamins/ Thiamine HCl/ Folic Acid/Sodium Chloride (Mvi-12 Inj/ Thiamine Inj/ Folvite Inj/NS 500 ml Inj) 511.2 ml @ 125 mls/hr DAILY IV Last administered on 08/21/16 10:24; Start 08/19/16 at 09:00; Stop 08/22/16 at 08:59 ; Status DC Flumazenil (Romazicon Inj) 0.2 mg Q1M PRN IV PUSH SEE LABEL COMMENTS; Start at 07:00 Lorazepam (Ativan) 1 mg Q4H PRN PO CIWA 8 - 10 Last administered on 08/23/16 23:30; Start 08/19/16 at 07:00 Lorazepam (Ativan Inj) 1 mg Q4H PRN IV PUSH CIWA 8 - 10 Last administered on 11:35; Start 08/19/16 at 07:00 Lorazepam (Ativan) 2 mg Q2H PRN PO CIWA 11-14; Start 08/19/16 at 07:00 Lorazepam (Ativan Inj) 2 mg Q2H PRN IV PUSH CIWA 11-14 Last administered on 23:56; Start 08/19/16 at 07:00 Lorazepam (Ativan Inj) 2 mg Q1H PRN IV PUSH CIWA 15-20; Start 08/19/16 at 07:00 Lorazepam (Ativan Inj) 2 mg Q15M PRN IV PUSH CIWA > 20; Start 08/19/16 at 07:00 Miscellaneous Information 1 ONCE ONCE .XX ; Start 08/20/16 at 05:45; Stop 08/20 at 05:56; Status DC Miscellaneous Information 1 ONCE .XX ; Start 08/20/16 at 05:45; Stop 08/20/16 at 10:02; Status DC Insulin Detemir (Levemir Inj) 10 units DAILY SQ ; Start 08/20/16 at 09:00; Stop 08/20/16 at 10:00; Status DC Dextrose (D50w (Vial) Inj) 50 ml UNSCH PRN IV HYPOGLYCEMIA-SEE COMMENTS; Start 08/20/16 at 05:45; Stop 08/20/16 at 05:58; Status DC Glucagon (Glucagon Inj) 1 mg UNSCH PRN OTHER HYPOGLYCEMIA-SEE COMMENTS; Start 08/20/16 at 05:45; Stop 08/20/16 at 05:58; Status DC Dextrose (D50w (Vial) Inj) 50 ml UNSCH PRN IV HYPOGLYCEMIA-SEE COMMENTS; Start 08/20/16 at 05:45; Stop 08/20/16 at 05:58; Status DC Glucagon (Glucagon Inj) 1 mg UNSCH PRN OTHER HYPOGLYCEMIA-SEE COMMENTS; Start 08/20/16 at 05:45; Stop 08/20/16 at 05:58; Status DC Dextrose (D50w (Vial) Inj) 50 ml UNSCH PRN IV HYPOGLYCEMIA-SEE COMMENTS; Start 08/20/16 at 05:45; Stop 08/20/16 at 10:01; Status DC Glucagon (Glucagon Inj) 1 mg UNSCH PRN OTHER HYPOGLYCEMIA-SEE COMMENTS; Start 08/20/16 at 05:45 Insulin Aspart 1 1 ACHS SLIDING SCALE SQ ; Start 08/20/16 at 07:00; Stop at 09:06; Status DC Insulin Human Regular/Sodium Chloride (NovoLIN R (IV INFUSION)/NS Inj) 100 ml @ 0 mls/hr TITRATE IV ; Start 08/20/16 at 06:00; Stop 08/20/16 at 10:00; Status DC Potassium Chloride 40 meq 40 meq NOW ONCE PO Last administered on 08/20/16 06 :43; Start 08/20/16 at 06:30; Stop 08/20/16 at 06:31; Status DC Vancomycin HCl 1250 mg/Sodium Chloride 262.5 ml @ 262.5 mls/ hr ONCE ONCE IV ; Start 08/20/16 at 10:00; Stop 08/20/16 at 10:59; Status Cancel Pharmacy Profile Note 0 ml @ 0 mls/hr UNSCH OTHER ; Start 08/20/16 at 09:15; Stop 08/20/16 at 23:00; Status DC Cefepime HCl 2000 mg/Sodium Chloride 100 ml @ 200 mls/hr Q8H IV ; Start at 10:00; Stop 08/20/16 at 10:00; Status DC Piperacillin Sod/ Tazobactam Sod 100 ml @ 200 mls/hr Q6H IV Last administered on 08/20/16t 22:16; Start 08/20/16 at 10:00; Stop 08/20/16 at 23:00; Status DC Insulin Human Regular/Sodium Chloride (NovoLIN R (IV INFUSION)/NS Inj) 100 ml @ 0 mls/hr TITRATE IV Last administered on 08/20/16 10:36; Start 08/20/16 at 09: 15; Stop 08/22/16 at 09:57; Status DC Dextrose (D50w (Vial) Inj) 50 ml UNSCH PRN IV PUSH SEE LABEL COMMENTS; Start at 09:15 Miscellaneous Information 1 1 ONCE ONCE OTHER ; Start 08/20/16 at 10:00; Stop 08/20/16 at 10:01; Status DC Dexmedetomidine HCl 1000 mcg/ Sodium Chloride 250 ml @ 0 mls/hr TITRATE IV Last administered on 08/20/16 10:37; Start 08/20/16 at 09:15; Stop 08/22/16 at 09:41; Status DC Vancomycin HCl/ Sodium Chloride (Vancomycin Inj/ NS 500 ml Inj) 515 ml @ 257.5 mls/ hr ONCE ONCE IV Last administered on 08/20/16 11:19; Start 08/20/16 at 10:00; Stop 08/20/16 at 11:59; Status DC Iohexol 65 ml 65 ml STK-MED ONCE IV Last administered on 08/20/16 12:09; Start 08/20/16 at 12:09; Stop 08/20/16 at 12:10; Status DC Vancomycin HCl/ Sodium Chloride (Vancomycin Inj/ NS 250 ml Inj) 250 ml @ 250 mls/hr Q12H IV ; Start 08/20/16 at 23:00; Stop 08/20/16 at 23:00; Status DC Miscellaneous Information SPECIFIC LAB TO BE ... ONCE ONCE .XX ; Start 08/21 at 22:45; Stop 08/21/16 at 22:46; Status DC Cefazolin Sodium/ Dextrose 50 ml @ 150 mls/hr Q8H IV Last administered on 09/02 05:57; Start 08/20/16 at 23:00 Potassium Chloride 100 ml @ 50 mls/hr Q2H PRN IV For Potassium 2.8 - 3.2 mEq/L ; Start 08/21/16 at 08:00; Stop 08/23/16 at 21:39; Status DC Potassium Chloride (KCl 20 Meq Premix Inj) 100 ml @ 50 mls/hr Q2H PRN IV For Potassium 2.8 - 3.2 mEq/L Last administered on 08/23/16t 10:11; Start 08/21/16 at 08:00; Stop 08/23/16 at 21:39; Status DC Potassium Bicarb/ Potassium Chloride 50 meq 50 meq UNSCH PRN PO For Potassium 3.3 - 3.5 mEq/L; Start 08/21/16 at 08:00; Stop 08/23/16 at 21:39; Status DC Potassium Chloride 100 ml @ 25 mls/hr UNSCH PRN IV For Potassium 3.3 - 3.5 mEq /L; Start 08/21/16 at 08:00; Stop 08/23/16 at 21:39; Status DC Potassium Chloride 100 ml @ 50 mls/hr Q2H PRN IV For Potassium 3.3 - 3.5 mEq/L ; Start 08/21/16 at 08:00; Stop 08/23/16 at 21:39; Status DC Magnesium Sulfate/ Sodium Chloride (Magnesium Sulfate Inj/NS Inj) 100 ml @ 50 mls/hr UNSCH PRN IV For Magnesium 0.9 - 1.1 mg/dL; Start 08/21/16 at 08:00; Stop 08/23/16 at 21:39; Status DC Magnesium Oxide 800 mg 800 mg UNSCH PRN PO For Magnesium 1.2 - 1.6 mg/dL; Start 08/21/16 at 08:00; Stop 08/23/16 at 21:39; Status DC Magnesium Sulfate/ Sodium Chloride (Magnesium Sulfate Inj/NS Inj) 100 ml @ 50 mls/hr UNSCH PRN IV For Magnesium 1.2 - 1.6 mg/dL Last administered on t 11:18; Start 08/21/16 at 08:00; Stop 08/23/16 at 21:39; Status DC Potassium Phosphate 2000 mg 2,000 mg Q4H PRN PO For Phosphorus < 2.5 mg/dL; Start 08/21/16 at 08:00; Stop 08/23/16 at 21:39; Status DC Sodium Phosphate/ Sodium Chloride (Sodium Phosphate Inj/NS 250 ml Inj) 250 ml @ 42 mls/hr UNSCH PRN IV For Phosphorus < 2.5 mg/dL; Start 08/21/16 at 08:00; Stop 08/23/16 at 21:39; Status DC Potassium Phosphate 2000 mg 2,000 mg UNSCH PRN PO/TUBE SEE LABEL COMMENTS; Start 08/21/16 at 08:00; Stop 08/23/16 at 21:39; Status DC Potassium Phosphate/Sodium Chloride (Potassium Phosphate Inj/NS 250 ml Inj) 260 ml @ 42 mls/hr UNSCH PRN IV SEE LABEL COMMENTS; Start 08/21/16 at 08:00; Stop 08/23/16 at 21:39; Status DC Potassium Bicarb/ Potassium Chloride (K-Lyte Cl Eff) 25 meq ONCE ONCE PO ; Start 08/21/16 at 08:30; Stop 08/21/16 at 08:31; Status DC Propofol (Diprivan 200 Mg/20 ml Inj) 110 mg STK-MED ONCE IV PUSH ; Start at 12:35; Stop 08/21/16 at 12:36; Status DC Ketamine HCl (Ketalar Inj) 500 mg STK-MED ONCE .ROUTE ; Start 08/21/16 at 13:05 ; Stop 08/21/16 at 13:06; Status DC Miscellaneous Information ALL NURSING DEPARTME... UNSCH PRN .XX SEE LABEL COMMENTS; Start 08/21/16 at 12:54; Stop 08/22/16 at 12:53; Status DC Epinephrine HCl (EPINEPHrine (1:10,000) INJ) 1 mg STK-MED ONCE OTHER Last administered on 08/21/16 12:15; Start 08/21/16 at 12:15; Stop 08/21/16 at 14:34 ; Status DC Phenylephrine HCl (Neosynephrine/ NS 1000 Mcg/10ml Syr) 1,000 mcg STK-MED ONCE IV ; Start 08/21/16 at 12:00; Stop 08/22/16 at 09:16; Status DC Insulin Detemir (Levemir Inj) 5 units Q12HR SQ Last administered on 09/02/16 09:06; Start 08/22/16 at 10:00 Insulin Aspart (NovoLOG SUPPLEMENTAL SCALE) 1 ACHS SLIDING SCALE SQ Last administered on 08/30/16 11:00; Start 08/22/16 at 11:00 Hydromorphone HCl (Dilaudid Pf Inj) 1 mg Q4H PRN IV BREAKTHROUGH PAIN Last administered on 09/02/16 08:55; Start 08/23/16 at 12:45 Oxycodone/ Acetaminophen (Percocet 7.5-325 Mg) 1 tab Q4H PRN PO PAIN SCALE 3 TO 5 Last administered on 08/27/16 17:53; Start 08/23/16 at 10:30 Oxycodone/ Acetaminophen (Percocet 10-325 Mg) 1 tab Q6H PRN PO PAIN SCALE 6 TO 10 Last administered on 09/02/16 05:56; Start 08/23/16 at 10:30 Metoclopramide HCl (Reglan Inj) 10 mg Q8H PRN IM NAUSEA OR VOMITING; Start at 11:00; Stop 08/23/16 at 11:43; Status DC Potassium Chloride (KCl) 40 meq ONCE ONCE PO Last administered on 08/23/16 12 :23; Start 08/23/16 at 11:00; Stop 08/23/16 at 11:35; Status DC Metoclopramide HCl (Reglan Inj) 10 mg Q8HR IV PUSH Last administered on 05:12; Start 08/23/16 at 14:00; Stop 08/27/16 at 09:27; Status DC Polyethylene Glycol (Miralax) 17 gm DAILY PO Last administered on 09/01/16 09: 03; Start 08/23/16 at 11:45 Potassium Chloride (KCl) 30 meq ONCE ONCE PO Last administered on 08/24/16 14 :46; Start 08/24/16 at 12:15; Stop 08/24/16 at 13:04; Status DC Fluconazole (Diflucan) 200 mg DAILY PO Last administered on 09/02/16 08:53; Start 08/29/16 at 09:00 Gadodiamide (Omniscan Pf Inj) 13 ml STK-MED ONCE IV Last administered on 12:20; Start 08/30/16 at 12:20; Stop 08/30/16 at 12:21; Status DC Sodium Chloride (NS Flush) See Protocol DAILY IV FLUSH Last administered on 08:52; Start 08/31/16 at 09:00 Sodium Chloride (NS Flush) See Protocol UNSCH PRN IV FLUSH SEE PROTOCOL TABLE; Start 08/30/16 at 19:15 Heparin Sodium (Porcine) (Heparin Central Flush) See Protocol DAILY IV FLUSH Last administered on 09/02/16t 08:52; Start 08/31/16 at 09:00 Heparin Sodium (Porcine) (Heparin Central Flush) See Protocol UNSCH PRN IV FLUSH SEE PROTOCOL TABLE; Start 08/30/16 at 19:15 Sodium Chloride (NS Flush) UNSCH PRN IV FLUSH SEE PROTOCOL TABLE; Start at 19:15 A/P Problem List: (1) Acute pancreatitis ICD Code: K85.9 Status: Acute (2) MSSA (methicillin susceptible Staphylococcus aureus) septicemia ICD Code: A41.01 Status: Acute (3) Severe sepsis ICD Code: A41.9 Status: Acute (4) DKA (diabetic ketoacidoses) ICD Code: E13.10 Status: Acute (5) Alcohol withdrawal delirium ICD Code: F10.231 Status: Acute (6) Acute renal insufficiency ICD Code: N28.9 Status: Acute (7) Esophagitis ICD Code: K20.9 Status: Acute (8) Hypertension ICD Code: I10 Status: Chronic (9) Alcohol abuse ICD Code: F10.10 Status: Chronic (10) Hypertriglyceridemia ICD Code: E78.1 Status: Chronic Assessment and Plan 51 yo male with: Alcohol dependence & withdrawal Alcohol dependence Vitamin bag daily 3 days for EtOH use status post accident. On CIWA protocol. No signs of withdrawal at the bedside. History of Hypertension History of hypertriglyceridemia Holding losartan 25 mg by mouth daily light of pancreatitis, has been normotensive. 2D echo 08/21 shows no evidence of endocarditis Ongoing tobaccoism Nasal cannula to maintain saturations greater than equal to 92% Incentive spirometry while awake Tobacco cessation Nicotine patch if indicated Acute pancreatitis/Hepatic steatosis/Marked circumferential thickening of the esophagus GI following: EGD 08/21 showed severe esophagitis and duodenitis. Biopsy: minimal acute enteritis, acute esophagitits with features of ulceration, rare fungal hyphae within inflammatory detritus, neg viral cytopathic changes. Cont: miralax, PPI ID started fluconazole on 08/28 due to candidal esophagitis. HIV testing is negative. DKA Resolved. Levemir 5 q12 and SSI. Blood sugars appear well controlled. Acute kidney injury-resolved Likely prerenal. I's and O's Monitor urine output Bacteremia MSSA Staph aureus in 4 out of 4 bottles Hx of previous staph aureus bacteremia ID following. Currently on cefazolin, anticipate 6 weeks of IV abx from first day of first negative blood culture Blood Cultures 08/19 staph aureus 4/4 bottles. Repeated blood culture 08/21 positive 1/4 staph aureus. Blood cultures 08/25 repeated, no growth x 3 day 2-D echo negative for endocarditis. Previous MAURA for staph aureus bacteremia was negative Rn Camp consulted for repeat MAURA. Patient is not a candidate due to severe esophagitis. Mid back pain -MRI just shows mild degenerative joint disease. Otherwise normal. Hypercalcemia-resolved Hypo-natremia Hypokalemia Replace electrolytes per protocol F/u PTH, PTHp, vitamin D 03/01 and Diarrhea -Secondary to stool softener. Will DC stool softener. Patient told to let his nurse see any episodes of diarrhea. Prophylaxis - GI - Protonix IV BID - DVT - Patient asking to stop heparin. He is walking enough. Will discontinue heparin. Patient told must ambulate multiple times up a day. Discharge Planning Patient is medically clear and stable to be discharged from the hospital pending home health set up for IV infusion. Problem Qualifiers (1) Acute pancreatitis: Qualified Code: K85.20 - Alcohol-induced acute pancreatitis, unspecified complication status (2) DKA (diabetic ketoacidoses): Qualified Code: E13.10 - Diabetic ketoacidosis without coma associated with type 2 diabetes mellitus (3) Hypertension: Qualified Code: I10 - Essential hypertension Rosemary Thorne MD Sep 02, 2016 11:05
[2016-09-02] MEDS: ONDANSETRON HCL 4 MG/2 ML VIAL IV PRN (18:10)
[2016-09-03] VITALS (8 sets, daily range): BP systolic 93–113; BP diastolic 52–74; PULSE 76–116; RESP 16–20; TEMP 97.1–98.6; O2SAT 94–99
[2016-09-03] MEDS: oxyCODONE/ACETAMINOPHEN 10 MG/325 MG TAB PO PRN ×2 (00:24→08:04)
[2016-09-03] MEDS: ceFAZolin 2 GM PREMIX 50 ML IV SCH ×4 (00:25→23:00)
[2016-09-03] MEDS: CHLORHEXIDINE GLUCONATE 2 % 1 PACK (2 CLOTHS) TOP SCH (03:01)
[2016-09-03] MEDS: HYDROmorphone HCL PF 1 MG/ML VIAL IV PRN ×3 (04:53→16:17)
[2016-09-03] MEDS: SODIUM CHLORIDE 0.9% FLUSH 10 ML FLUSH IV FLUSH PRN ×2 (04:54→04:58)
[2016-09-03] MEDS: ONDANSETRON HCL 4 MG/2 ML VIAL IV PRN ×2 (04:57→11:00)
[2016-09-03] MEDS: INSULIN ASPART SUPPLEMENTAL SCALE SQ SCH ×4 (06:44→20:30)
[2016-09-03] MEDS: PANTOPRAZOLE SODIUM 40 MG VIAL IV SCH (08:03)
[2016-09-03] MEDS: FLUCONAZOLE 200 MG TAB PO SCH (08:03)
[2016-09-03] MEDS: POLYETHYLENE GLYCOL 17 GM PKG PO SCH (08:03)
[2016-09-03] MEDS: SODIUM CHLORIDE 0.9% FLUSH 10 ML FLUSH IV FLUSH SCH ×3 (08:03→21:00)
[2016-09-03] MEDS: ARTIFICIAL TEARS OPTH SOLN 15 ML BTL EACH EYE SCH ×3 (08:12→18:00)
[2016-09-03] MEDS: INSULIN DETEMIR 100 UNITS/ML VIAL SQ SCH (08:20)
--- NOTE | 2016-09-03 09:52 | HHI.PR ---
Subjective Remarks Follow up on patient with pancreatitis and MSSA bacteremia. Patient seen and examined today. Patient complaining of severe intermittent epigastric/ abdominal pain and nausea ongoing since yesterday. He reports it is worse with movement. Admits to eating several pieces of bertrand. Last episode of diarrhea was last night. No vomiting. Patient denies having any appetite. Denies any chest pain or SOB. Denies any dizziness or headache. Denies any fever or chills. No diaphoresis. Objective Vitals Vital Signs Date Time Temp Pulse Resp B/P Pulse Ox O2 Delivery O2 Flow Rate FiO2 09/03/16 07:58 Room Air 09/03/16 04:00 98.6 91 18 113/74 99 09/03/16 00:00 98.2 82 16 106/56 98 09/02/16 20:08 96 09/02/16 20:00 98.2 86 18 104/66 98 09/02/16 20:00 Room Air 09/02/16 16:00 98.0 89 20 113/58 99 09/02/16 12:00 97.9 87 20 114/75 100 I/O 09/02/16 09/02/16 09/02/16 09/03/16 09/03/16 09/03/16 07:00 15:00 23:00 07:00 15:00 23:00 Intake Total 720 ml 530 ml 480 ml 240 ml Output Total 700 ml Balance 720 ml -170 ml 480 ml 240 ml Intake Oral 720 ml 480 ml 480 ml 240 ml IV Total 50 ml Output Urine Total 700 ml # Voids 2 2 1 # Bowel Movements 3 0 1 Imaging Last Impressions Thoracic Spine MRI 08/30/16 0000 Signed Impressions: Service Date/Time: Tuesday, August 30, 2016 12:05 - CONCLUSION: Very mild degenerative changes at T3-T4 and T7-T8. I don't see inflammatory changes. I don't see etiology for the patient's upper back pain. Vinh Laura MD FACR Chest X-Ray 08/30/16 0000 Signed Impressions: Service Date/Time: Tuesday, August 30, 2016 18:37 - CONCLUSION: No acute disease. Right-sided PICC line with tip in the SVC. Tom Wakefield MD Abdomen X-Ray 08/25/16 0600 Signed Impressions: Service Date/Time: Thursday, August 25, 2016 07:42 - CONCLUSION: 1. Nonobstructive bowel gas pattern. 2. Small metallic density overlying the right abdomen in the region of the cecum. Tom Wakefield MD Chest CT 08/20/16 0000 Signed Impressions: Service Date/Time: Saturday, August 20, 2016 11:54 - CONCLUSION: Small bilateral pleural effusions with left lower lobe airspace disease. No evidence of suspicious mass or lymphadenopathy. Hepatic steatosis and inflammatory pancreatic disease again identified. Matt Aguilera MD Abdomen/Pelvis CT 08/19/16 0358 Signed Impressions: Service Date/Time: Friday, August 19, 2016 05:47 - CONCLUSION: 1. Marked circumferential thickening of the esophagus is noted over several centimeters. Esophagitis can have this appearance. 2. Hepatic steatosis and mild distention of the gallbladder again noted. 3. Upper abdominal lymphadenopathy with multiple prominent lymph nodes seen greatest in the retroperitoneum. 4. Abnormal inflammatory changes seen surrounding the pancreas consistent with pancreatitis with mild dilatation of the pancreatic duct. 5. Gastric distention. Mike Aaron MD Objective Remarks GENERAL: WDWN male lying in hospital bed. Awake and alert. Appears mildly uncomfortable secondary to abdominal pain. SKIN: No rash noted. Warm and dry. HEENT: NC/AT, EOMI, MMM. CARDIOVASCULAR: Slightly tachy. No murmurs, rubs or gallops. RESPIRATORY: CTAB. No accessory muscle use. GASTROINTESTINAL: Abdomen soft, nondistended. (+)tenderness to palpation over epigastric area and LUQ. Mild RUQ pain with palpation. MUSCULOSKELETAL: No clubbing, cyanosis or edema. Motor and sensory grossly intact. NEUROLOGICAL: Awake and alert. Able to move all extremities. Procedures See hospital course. Medications and IVs Current Medications Medications (Trade) Dose Ordered Sig/Abelino Route Start Time Stop Time Status Last Admin (NS Flush) 2 ml UNSCH PRN IV FLUSH 08/19/16 06:45 09/03/16 04:58 (NS Flush) 2 ml BID IV FLUSH 08/19/16 09:00 09/03/16 08:03 (Protonix Inj) 40 mg DAILY IV 08/19/16 09:00 09/03/16 08:03 (Tears Naturale Opth Soln) 1 drop TID EACH EYE 08/19/16 09:00 09/03/16 08:12 (Zofran Inj) 4 mg Q6H PRN IV 08/19/16 06:45 09/03/16 04:57 Miscellaneous Information 1 Q361D XX 08/19/16 06:45 (Chlorhexidine 2% Cloth) Taper DAILY@04 TOP 08/20/16 04:00 08/16/17 03:59 08/22/16 04:00 (Chlorhexidine 2% Cloth) 3 pack UNSCH PRN TOP 08/19/16 06:45 (Milk Of Magnesia Liq) 30 ml Q12H PRN PO 08/19/16 06:45 (Senokot) 17.2 mg Q12H PRN PO 08/19/16 06:45 (Dulcolax Supp) 10 mg DAILY PRN RECTAL 08/19/16 06:45 (Lactulose Liq) 30 ml DAILY PRN PO 08/19/16 06:45 08/24/16 23:20 (Romazicon Inj) 0.2 mg Q1M PRN IV PUSH 08/19/16 07:00 (Ativan) 1 mg Q4H PRN PO 08/19/16 07:00 08/23/16 23:30 (Ativan Inj) 1 mg Q4H PRN IV PUSH 08/19/16 07:00 08/30/16 11:35 (Ativan) 2 mg Q2H PRN PO 08/19/16 07:00 (Ativan Inj) 2 mg Q2H PRN IV PUSH 08/19/16 07:00 08/21/16 23:56 (Ativan Inj) 2 mg Q1H PRN IV PUSH 08/19/16 07:00 (Ativan Inj) 2 mg Q15M PRN IV PUSH 08/19/16 07:00 (Glucagon Inj) 1 mg UNSCH PRN OTHER 08/20/16 05:45 Dextrose 50 ml 50 ml UNSCH PRN IV PUSH 08/20/16 09:15 (Ancef 2 Gm Premix) 50 ml @ 150 mls/hr Q8H IV 08/20/16 23:00 09/03/16 06:44 (Levemir Inj) 5 units Q12HR SQ 08/22/16 10:00 Hold 09/03/16 08:20 (Dilaudid Pf Inj) 1 mg Q4H PRN IV 08/23/16 12:45 09/03/16 04:53 (Percocet 7.5-325 Mg) 1 tab Q4H PRN PO 08/23/16 10:30 08/27/16 17:53 (Percocet 10-325 Mg) 1 tab Q6H PRN PO 08/23/16 10:30 09/03/16 08:04 (Miralax) 17 gm DAILY PO 08/23/16 11:45 09/03/16 08:03 (Diflucan) 200 mg DAILY PO 08/29/16 09:00 09/03/16 08:03 (NS Flush) See Protocol DAILY IV FLUSH 08/31/16 09:00 09/02/16 08:52 (NS Flush) See Protocol UNSCH PRN IV FLUSH 08/30/16 19:15 (Heparin Central Flush) See Protocol DAILY IV FLUSH 08/31/16 09:00 09/03/16 08:04 (Heparin Central Flush) See Protocol UNSCH PRN IV FLUSH 08/30/16 19:15 (NS Flush) UNSCH PRN IV FLUSH 08/30/16 19:15 A/P Problem List: (1) Acute pancreatitis ICD Code: K85.9 Status: Acute (2) MSSA (methicillin susceptible Staphylococcus aureus) septicemia ICD Code: A41.01 Status: Acute (3) Severe sepsis ICD Code: A41.9 Status: Acute (4) DKA (diabetic ketoacidoses) ICD Code: E13.10 Status: Acute (5) Alcohol withdrawal delirium ICD Code: F10.231 Status: Acute (6) Acute renal insufficiency ICD Code: N28.9 Status: Acute (7) Esophagitis ICD Code: K20.9 Status: Acute (8) Hypertension ICD Code: I10 Status: Chronic (9) Alcohol abuse ICD Code: F10.10 Status: Chronic (10) Hypertriglyceridemia ICD Code: E78.1 Status: Chronic Assessment and Plan 51 yo male with: Alcohol dependence & withdrawal Alcohol dependence On CIWA protocol. No signs of withdrawal at the bedside. History of Hypertension History of hypertriglyceridemia Holding losartan 25 mg by mouth daily in light of pancreatitis, has been normotensive. 2D echo 08/21 shows no evidence of endocarditis Ongoing tobaccoism Nasal cannula to maintain saturations greater than equal to 92% Incentive spirometry while awake Tobacco cessation Nicotine patch if indicated Acute pancreatitis/Hepatic steatosis/Marked circumferential thickening of the esophagus complaining of increased abdominal pain and nausea - change diet to clears, obtain new LFTs studies, Gallbladder US ordered. Also trop and EKG ordered. GI following: EGD 08/21 showed severe esophagitis and duodenitis. Biopsy: minimal acute enteritis, acute esophagitis with features of ulceration, rare fungal hyphae within inflammatory detritus, neg viral cytopathic changes. Cont: PPI ID started fluconazole on 08/28 due to candidal esophagitis. HIV testing is negative. DKA Resolved. Levemir 5 q12 and SSI. Blood sugars appear well controlled. Hold Levemir for now until better po intake Acute kidney injury-resolved Likely prerenal. I's and O's Monitor urine output Bacteremia MSSA Staph aureus in 4 out of 4 bottles Hx of previous staph aureus bacteremia ID following. Currently on cefazolin, anticipate 6 weeks of IV abx from first day of first negative blood culture Blood Cultures 08/19 staph aureus 4/ bottles. Repeated blood culture 08/21 positive 1/ staph aureus. Blood cultures 08/25 repeated, no growth x 5 day 2-D echo negative for endocarditis. Previous MAURA for staph aureus bacteremia was negative [employer] consulted for repeat MAURA. Patient is not a candidate due to severe esophagitis. Mid back pain -MRI just shows mild degenerative disc disease. Otherwise normal. Hypercalcemia-resolved Hypo-natremia Hypokalemia Replace electrolytes per protocol Vitamin D deficiency Vitamin D 25 level 7 PTH <2.5, PTHp <0.2, Vit D 03/01 21 Begin po supplementation Patient will need to follow up with PCP as outpatient to monitor Diarrhea - improving -Secondary to stool softener. Stool softener discontinued. Hold Miralax for now. Patient told to let his nurse see any episodes of diarrhea. Prophylaxis - GI - Protonix IV BID - DVT - Patient asking to stop heparin. He is walking enough. Will discontinue heparin. Patient told must ambulate multiple times up a day. Discussed with patient, nursing staff and Dr. Villarreal Qualifiers (1) Acute pancreatitis: Qualified Code: K85.20 - Alcohol-induced acute pancreatitis, unspecified complication status (2) DKA (diabetic ketoacidoses): Qualified Code: E13.10 - Diabetic ketoacidosis without coma associated with type 2 diabetes mellitus (3) Hypertension: Qualified Code: I10 - Essential hypertension [place] Luna Sep 03, 2016 09:52
[2016-09-03 12:09] LABS: BASOPHIL % 0.2 % (0.0-2.0); EOSINOPHIL % 0.1 % (0.0-4.0); HEMATOCRIT 29.4 % (39.0-51.0); HEMO FLAGS DIFF FINAL; LYMPH % 20.1 % (9.0-44.0); LYMPHOCYTE # 1.2 TH/MM3 (1.0-4.8); MEAN CELL VOLUME 89.6 FL (80.0-100.0); MEAN CORPUSCULAR HEMOGLOBIN 29.8 PG (27.0-34.0); MEAN CORPUSCULAR HGB CONC 33.3 % (32.0-36.0); MONO % 10.9 % (0.0-8.0); NEUT % 68.7 % (16.0-70.0); PLATELET COUNT 156 TH/MM3 (150-450); RED BLOOD COUNT 3.28 MIL/MM3 (4.50-5.90); RED CELL DISTRIBUTION WIDTH 15.1 % (11.6-17.2); WHITE BLOOD COUNT 5.8 TH/MM3 (4.0-11.0)
[2016-09-03 12:36] LABS: ALT (GPT) 7 U/L (12-78); ANION GAP 6 MEQ/L (5-15); AST (GOT) 27 U/L (15-37); BICARBONATE 26.6 MEQ/L (21.0-32.0); BLOOD UREA NITROGEN 9 MG/DL (7-18); CHLORIDE 103 MEQ/L (98-107); GLOMERULAR FILTRATION RATE 122 ML/MIN (>89); MAGNESIUM 0.7 MG/DL (1.5-2.5); POTASSIUM 3.5 MEQ/L (3.5-5.1); SODIUM (NA) 136 MEQ/L (136-145)
[2016-09-03 12:39] LABS: ALKALINE PHOSPHATASE 116 U/L (45-117); TOTAL BILIRUBIN ADULT 0.5 MG/DL (0.2-1.0)
[2016-09-03] MEDS ORDERED: CHOLECALCIFEROL (VIT D3) 5000 UNIT CAP PO ONE (12:45)
--- NOTE | 2016-09-03 15:55 | EKG ---
Date Performed: 09/03/2016 Time Performed: 11:18:37 PTAGE: 51 years EKG: Sinus rhythm NORMAL ECG Compared to PREVIOUS TRACING , heart rate is slower and the PVCs have resolved. ST-T changes have imp roved. PREVIOUS TRACIN08/19/2016 04.03 DOCTOR: Fer Buchanan Interpretating Date/Time 09/03/2016 15:53:58
--- NOTE | 2016-09-03 16:41 | RADRPT ---
EXAM DATE/TIME: 09/03/2016 15:37 [facility] COMPARISON: US ABDOMEN - GALLBLADDER, May 02, 2015, 11:02. INDICATIONS : Nausea and vomiting. MEDICAL HISTORY : Hypercholesterolemia. Hypertension. Pancreatitis. GERD. Diabetes. SURGICAL HISTORY : Right shoulder surgery. Right knee surgery. ENCOUNTER: Initial ACUITY: 2 weeks PAIN SCORE: 4/10 LOCATION: Right upper quadrant MEASUREMENTS: LIVER: 16.3 cm length COMMON DUCT: 5 mm RIGHT KIDNEY: 11.3 x 5.9 x 6.0 cm FINDINGS: Mild amount of free fluid about the free edge of the liver. LIVER: Homogeneous echotexture without focal lesion or ductal dilatation. Hepatopedal flow seen the portal vein. COMMON DUCT: No intraluminal mass or stone visualized. GALLBLADDER: Contains no stones, demonstrates no wall thickening or pericholecystic fluid. PANCREAS: The visualized portions are within normal limits. RIGHT KIDNEY: No evidence of hydronephrosis, stone, or mass. CONCLUSION: 1. Hepatomegaly without focal lesion. 2. Mild amount of free fluid about the liver. 3. No gallstones seen. Juan Barger MD on September 03, 2016 at 16:37 Board Certified Radiologist. This report was verified electronically.
[2016-09-03] MEDS: oxyCODONE/ACETAMINOPHEN 7.5 MG/325 MG TAB PO PRN ×2 (18:05→22:30)
[2016-09-04] VITALS (7 sets, daily range): BP systolic 92–116; BP diastolic 64–75; PULSE 77–88; RESP 19–24; TEMP 97.7–98.2; O2SAT 97–99
[2016-09-04 01:05] LABS: C. DIFF EPI 027 PRESUMPTIVE NEGATIVE (NEGATIVE); C. DIFF TOXIN PCR NEGATIVE (NEGATIVE)
[2016-09-04] MEDS: CHLORHEXIDINE GLUCONATE 2 % 1 PACK (2 CLOTHS) TOP SCH (04:00)
[2016-09-04] MEDS: ceFAZolin 2 GM PREMIX 50 ML IV SCH ×2 (05:27→15:33)
[2016-09-04] MEDS: INSULIN ASPART SUPPLEMENTAL SCALE SQ SCH ×3 (05:29→16:00)
[2016-09-04] MEDS: oxyCODONE/ACETAMINOPHEN 10 MG/325 MG TAB PO PRN ×3 (05:32→15:33)
[2016-09-04] MEDS: ARTIFICIAL TEARS OPTH SOLN 15 ML BTL EACH EYE SCH ×3 (08:23→16:42)
[2016-09-04] MEDS: FLUCONAZOLE 200 MG TAB PO SCH (08:23)
[2016-09-04] MEDS: SODIUM CHLORIDE 0.9% FLUSH 10 ML FLUSH IV FLUSH SCH ×2 (08:23)
[2016-09-04] MEDS: ONDANSETRON HCL 4 MG/2 ML VIAL IV PRN (08:26)
[2016-09-04] MEDS ORDERED: PANTOPRAZOLE SOD 40 MG DELAYED RELEASE TAB PO SCH (09:00)
[2016-09-04] MEDS ORDERED: CHOLECALCIFEROL (VIT D3) 5000 UNIT CAP PO SCH (09:00)
[2016-09-04] MEDS ORDERED: THIAMINE HCL 100 MG TAB PO SCH (09:00)
[2016-09-04] MEDS ORDERED: FOLIC ACID 1 MG TAB PO SCH (09:00)
--- NOTE | 2016-09-04 11:24 | HHI.PR ---
Subjective Remarks Follow-up for pancreatitis Patient stated that he tolerated the clear liquid diet. He's asking to advance diet. He also complained about stopping the Dilaudid. He asked if Percocet can be every 4 hours as needed. Otherwise he had no other complaints. Objective Vitals Vital Signs Date Time Temp Pulse Resp B/P Pulse Ox O2 Delivery O2 Flow Rate FiO2 09/04/16 09:07 20 09/04/16 04:00 98.0 81 20 99/67 97 09/04/16 01:13 92/68 09/04/16 00:00 98.1 84 19 97 09/03/16 21:00 76 09/03/16 20:00 Room Air 09/03/16 19:52 98.1 79 20 102/64 98 09/03/16 16:00 98.3 87 20 99/63 98 09/03/16 12:31 103 09/03/16 12:00 97.6 116 20 93/52 99 I/O 09/03/16 09/03/16 09/03/16 09/04/16 09/04/16 09/04/16 07:00 15:00 23:00 07:00 15:00 23:00 Intake Total 240 ml 0 ml 480 ml Output Total 125 ml 175 ml 375 ml Balance 240 ml -125 ml -175 ml 105 ml Intake Oral 240 ml 0 ml 480 ml Output Urine Total 125 ml 175 ml 375 ml # Voids 1 # Bowel Movements 1 1 1 Result Diagram: 09/03/16 1140 09/03/16 1140 Objective Remarks GENERAL: In no acute distress sitting in the bed very comfortably. SKIN: Warm and dry. HEAD: Normocephalic. EYES: No scleral icterus. No injection or drainage. NECK: Supple, trachea midline. No JVD or lymphadenopathy. CARDIOVASCULAR: Regular rate and rhythm without murmurs, gallops, or rubs. RESPIRATORY: Breath sounds equal bilaterally. No accessory muscle use. GASTROINTESTINAL: Abdomen soft, mild tenderness to palpation in the mid abdomen , nondistended. Procedures See hospital course. Medications and IVs Current Medications Sodium Chloride 1,000 ml @ 1,000 mls/hr Q1H ONCE IV Last administered on t 04:35; Start 08/19/16 at 03:57; Stop 08/19/16 at 04:56; Status DC Sodium Chloride 1,000 ml @ 1,000 mls/hr Q1H ONCE IV Last administered on 04:35; Start 08/19/16 at 03:57; Stop 08/19/16 at 04:56; Status DC Sodium Chloride (NS 1000 ml Inj) 400 ml @ 1,000 mls/hr Q24M ONCE IV Last administered on 08/19/16 04:35; Start 08/19/16 at 03:57; Stop 08/19/16 at 04:20 ; Status DC Ondansetron HCl 4 mg 4 mg ONCE ONCE IV PUSH Last administered on 08/19/16 04: 52; Start 08/19/16 at 04:45; Stop 08/19/16 at 04:46; Status DC Vancomycin HCl 1000 mg/Sodium Chloride 250 ml @ 250 mls/hr ONCE STAT IV Last administered on 08/19/16 07:28; Start 08/19/16 at 04:47; Stop 08/19/16 at 05:46 ; Status DC Piperacillin Sod/ Tazobactam Sod 100 ml @ 200 mls/hr ONCE STAT IV Last administered on 08/19/16 04:52; Start 08/19/16 at 04:47; Stop 08/19/16 at 05:16 ; Status DC Sodium Chloride 1,000 ml @ 250 mls/hr Q4H IV ; Start 08/19/16 at 05:19; Stop at 05:59; Status DC Dextrose/Sodium Chloride (D5W-NS 1000 ml Inj) 1,000 ml @ 200 mls/hr Q5H IV ; Start 08/19/16 at 05:19; Stop 08/19/16 at 05:59; Status DC Insulin Human Regular 6 units 6 units BOLUS ONCE IV PUSH Last administered on 08/19/16 06:08; Start 08/19/16 at 05:30; Stop 08/19/16 at 05:31; Status DC Insulin Human Regular 100 units/ Sodium Chloride 100 ml @ 0 mls/hr TITRATE IV ; Start 08/19/16 at 05:30; Stop 08/19/16 at 05:59; Status DC Potassium Chloride 100 ml @ 100 mls/hr Q1H PRN IV SEE LABEL COMMENTS; Start at 05:30; Stop 08/19/16 at 05:59; Status DC Potassium Chloride 100 ml @ 50 mls/hr Q2H PRN IV SEE LABEL COMMENTS; Start at 05:30; Stop 08/19/16 at 05:59; Status DC Potassium Chloride 100 ml @ 100 mls/hr Q1H PRN IV SEE LABEL COMMENTS; Start at 05:30; Stop 08/19/16 at 05:59; Status DC Potassium Chloride 100 ml @ 100 mls/hr Q1H PRN IV SEE LABEL COMMENTS; Start at 05:30; Stop 08/19/16 at 05:59; Status DC Potassium Chloride 100 ml @ 50 mls/hr Q2H PRN IV SEE LABEL COMMENTS; Start at 05:30; Stop 08/19/16 at 05:59; Status DC Potassium Chloride 100 ml @ 50 mls/hr Q2H PRN IV SEE LABEL COMMENTS; Start at 05:30; Stop 08/19/16 at 05:59; Status DC Potassium Chloride 100 ml @ 50 mls/hr Q2H PRN IV SEE LABEL COMMENTS; Start at 05:30; Stop 08/19/16 at 05:59; Status DC Potassium Chloride (KCl 20 Meq Premix Inj) 100 ml @ 50 mls/hr Q2H PRN IV SEE LABEL COMMENTS; Start 08/19/16 at 05:30; Stop 08/19/16 at 05:59; Status DC Sodium Bicarbonate (Sodium Bicarbonate 8.4% Inj) 100 meq UNSCH PRN IV SEE LABEL COMMENTS; Start 08/19/16 at 05:30; Stop 08/19/16 at 05:59; Status DC Sodium Bicarbonate 50 meq 50 meq UNSCH PRN IV SEE LABEL COMMENTS; Start at 05:30; Stop 08/19/16 at 05:59; Status DC Sodium Phosphate 15 mmol/Sodium Chloride 105 ml @ 25 mls/hr UNSCH PRN IV SEE LABEL COMMENTS; Start 08/19/16 at 05:30; Stop 08/19/16 at 05:59; Status DC Sodium Chloride 1,000 ml @ 250 mls/hr Q4H IV Last administered on 08/19/16t 08 :54; Start 08/19/16 at 05:55; Stop 08/20/16 at 05:55; Status DC Dextrose/Sodium Chloride 1,000 ml @ 200 mls/hr Q5H IV Last administered on 03:37; Start 08/19/16 at 05:55; Stop 08/20/16 at 05:55; Status DC Insulin Human Regular 100 units/ Sodium Chloride 100 ml @ 0 mls/hr TITRATE IV Last administered on 08/20/16 00:27; Start 08/19/16 at 06:00; Stop 08/20/16 at 05:53; Status DC Potassium Chloride 100 ml @ 100 mls/hr Q1H PRN IV SEE LABEL COMMENTS; Start at 06:00; Stop 08/20/16 at 05:55; Status DC Potassium Chloride 100 ml @ 50 mls/hr Q2H PRN IV SEE LABEL COMMENTS; Start at 06:00; Stop 08/20/16 at 05:55; Status DC Potassium Chloride 100 ml @ 100 mls/hr Q1H PRN IV SEE LABEL COMMENTS; Start at 06:00; Stop 08/20/16 at 05:55; Status DC Potassium Chloride 100 ml @ 100 mls/hr Q1H PRN IV SEE LABEL COMMENTS; Start at 06:00; Stop 08/20/16 at 05:55; Status DC Potassium Chloride 100 ml @ 50 mls/hr Q2H PRN IV SEE LABEL COMMENTS; Start at 06:00; Stop 08/20/16 at 05:55; Status DC Potassium Chloride 100 ml @ 50 mls/hr Q2H PRN IV SEE LABEL COMMENTS; Start at 06:00; Stop 08/20/16 at 05:55; Status DC Potassium Chloride 100 ml @ 50 mls/hr Q2H PRN IV SEE LABEL COMMENTS Last administered on 08/20/16 03:37; Start 08/19/16 at 06:00; Stop 08/20/16 at 05:55 ; Status DC Potassium Chloride (KCl 20 Meq Premix Inj) 100 ml @ 50 mls/hr Q2H PRN IV SEE LABEL COMMENTS; Start 08/19/16 at 06:00; Stop 08/20/16 at 05:55; Status DC Sodium Bicarbonate (Sodium Bicarbonate 8.4% Inj) 100 meq UNSCH PRN IV SEE LABEL COMMENTS; Start 08/19/16 at 06:00; Stop 08/20/16 at 05:55; Status DC Sodium Bicarbonate 50 meq 50 meq UNSCH PRN IV SEE LABEL COMMENTS; Start at 06:00; Stop 08/20/16 at 05:55; Status DC Sodium Phosphate/ Sodium Chloride (Sodium Phosphate Inj/NS Inj) 105 ml @ 25 mls /hr UNSCH PRN IV SEE LABEL COMMENTS Last administered on 08/19/16 19:15; Start 08/19/16 at 06:00; Stop 08/20/16 at 05:55; Status DC Miscellaneous Information 1 Q361D XX ; Start 08/19/16 at 06:00; Stop 08/20/16 at 05:59; Status DC Chlorhexidine Gluconate (Chlorhexidine 2% Cloth) 3 pack Taper DAILY@04 TOP Last administered on 08/20/16 03:37; Start 08/20/16 at 04:00; Stop 08/20/16 at 05:59; Status DC Chlorhexidine Gluconate (Chlorhexidine 2% Cloth) 3 pack UNSCH PRN TOP HYGIENIC CARE; Start 08/19/16 at 06:00; Stop 08/20/16 at 05:59; Status DC Metoclopramide HCl (Reglan Inj) 10 mg ONCE ONCE IV PUSH Last administered on 07:00; Start 08/19/16 at 06:00; Stop 08/19/16 at 06:05; Status DC Sodium Chloride (NS Flush) 2 ml UNSCH PRN IV FLUSH FLUSH AFTER USING IV ACCESS Last administered on 09/03/16 04:58; Start 08/19/16 at 06:45 Sodium Chloride (NS Flush) 2 ml BID IV FLUSH Last administered on 09/03/16 21: 00; Start 08/19/16 at 09:00 Hydromorphone HCl (Dilaudid Pf Inj) 1 mg Q2H PRN IV PAIN SCALE 6 TO 10 Last administered on 08/23/16 08:55; Start 08/19/16 at 06:45; Stop 08/23/16 at 10:29 ; Status DC Pantoprazole Sodium (Protonix Inj) 40 mg DAILY IV Last administered on 08:03; Start 08/19/16 at 09:00; Stop 09/03/16 at 17:34; Status DC Artificial Tears (Tears Naturale Opth Soln) 1 drop TID EACH EYE Last administered on 09/04/16 08:23; Start 08/19/16 at 09:00 Ondansetron HCl (Zofran Inj) 4 mg Q6H PRN IV NAUSEA OR VOMITING Last administered on 09/04/16 08:26; Start 08/19/16 at 06:45 Albuterol Sulfate (Albuterol Neb) 2.5 mg Q2HR NEB PRN INH SOB/WHEEZING; Start 08/19/16 at 06:45 Heparin Sodium (Porcine) (Heparin Inj) 5,000 units Q12H SQ Last administered on 09/02/16 08:53; Start 08/19/16 at 09:00; Stop 09/02/16 at 11:03; Status DC Miscellaneous Information 1 Q361D XX ; Start 08/19/16 at 06:45 Chlorhexidine Gluconate (Chlorhexidine 2% Cloth) Taper DAILY@04 TOP Last administered on 08/22/16 04:00; Start 08/20/16 at 04:00; Stop 08/16/17 at 03:59 Chlorhexidine Gluconate (Chlorhexidine 2% Cloth) 3 pack UNSCH PRN TOP HYGIENIC CARE; Start 08/19/16 at 06:45 Senna/Docusate Sodium (Nakia-Colace) 1 tab BID PO Last administered on 19:46; Start 08/19/16 at 09:00; Stop 09/02/16 at 11:03; Status DC Magnesium Hydroxide (Milk Of Magnesia Liq) 30 ml Q12H PRN PO MILD - MODERATE CONSTIPATION; Start 08/19/16 at 06:45; Stop 09/03/16 at 17:33; Status DC Sennosides (Senokot) 17.2 mg Q12H PRN PO MODERATE - SEVERE CONSTIPATION; Start 08/19/16 at 06:45; Stop 09/03/16 at 17:33; Status DC Bisacodyl (Dulcolax Supp) 10 mg DAILY PRN RECTAL SEVERE CONSITIPATION; Start at 06:45; Stop 09/03/16 at 17:34; Status DC Lactulose (Lactulose Liq) 30 ml DAILY PRN PO SEVERE CONSITIPATION Last administered on 08/24/16 23:20; Start 08/19/16 at 06:45 Hydromorphone HCl 0.5 mg 0.5 mg Q2H PRN IV PUSH PAIN SCALE 1 TO 5 Last administered on 08/23/16 06:05; Start 08/19/16 at 06:45; Stop 08/23/16 at 10:29 ; Status DC Multivitamins/ Thiamine HCl/ Folic Acid/Sodium Chloride (Mvi-12 Inj/ Thiamine Inj/ Folvite Inj/NS 500 ml Inj) 511.2 ml @ 125 mls/hr DAILY IV Last administered on 08/21/16 10:24; Start 08/19/16 at 09:00; Stop 08/22/16 at 08:59 ; Status DC Flumazenil (Romazicon Inj) 0.2 mg Q1M PRN IV PUSH SEE LABEL COMMENTS; Start at 07:00 Lorazepam (Ativan) 1 mg Q4H PRN PO CIWA 8 - 10 Last administered on 08/23/16 23:30; Start 08/19/16 at 07:00; Stop 09/03/16 at 17:34; Status DC Lorazepam (Ativan Inj) 1 mg Q4H PRN IV PUSH CIWA 8 - 10 Last administered on 11:35; Start 08/19/16 at 07:00; Stop 09/03/16 at 17:34; Status DC Lorazepam (Ativan) 2 mg Q2H PRN PO CIWA 11-14; Start 08/19/16 at 07:00; Stop at 17:34; Status DC Lorazepam (Ativan Inj) 2 mg Q2H PRN IV PUSH CIWA 11-14 Last administered on 23:56; Start 08/19/16 at 07:00; Stop 09/03/16 at 17:34; Status DC Lorazepam (Ativan Inj) 2 mg Q1H PRN IV PUSH CIWA 15-20; Start 08/19/16 at 07:00 ; Stop 09/03/16 at 17:34; Status DC Lorazepam (Ativan Inj) 2 mg Q15M PRN IV PUSH CIWA > 20; Start 08/19/16 at 07:00 ; Stop 09/03/16 at 17:34; Status DC Miscellaneous Information 1 ONCE ONCE .XX ; Start 08/20/16 at 05:45; Stop 08/20 at 05:56; Status DC Miscellaneous Information 1 ONCE .XX ; Start 08/20/16 at 05:45; Stop 08/20/16 at 10:02; Status DC Insulin Detemir (Levemir Inj) 10 units DAILY SQ ; Start 08/20/16 at 09:00; Stop 08/20/16 at 10:00; Status DC Dextrose (D50w (Vial) Inj) 50 ml UNSCH PRN IV HYPOGLYCEMIA-SEE COMMENTS; Start 08/20/16 at 05:45; Stop 08/20/16 at 05:58; Status DC Glucagon (Glucagon Inj) 1 mg UNSCH PRN OTHER HYPOGLYCEMIA-SEE COMMENTS; Start 08/20/16 at 05:45; Stop 08/20/16 at 05:58; Status DC Dextrose (D50w (Vial) Inj) 50 ml UNSCH PRN IV HYPOGLYCEMIA-SEE COMMENTS; Start 08/20/16 at 05:45; Stop 08/20/16 at 05:58; Status DC Glucagon (Glucagon Inj) 1 mg UNSCH PRN OTHER HYPOGLYCEMIA-SEE COMMENTS; Start 08/20/16 at 05:45; Stop 08/20/16 at 05:58; Status DC Dextrose (D50w (Vial) Inj) 50 ml UNSCH PRN IV HYPOGLYCEMIA-SEE COMMENTS; Start 08/20/16 at 05:45; Stop 08/20/16 at 10:01; Status DC Glucagon (Glucagon Inj) 1 mg UNSCH PRN OTHER HYPOGLYCEMIA-SEE COMMENTS; Start 08/20/16 at 05:45 Insulin Aspart 1 1 ACHS SLIDING SCALE SQ ; Start 08/20/16 at 07:00; Stop at 09:06; Status DC Insulin Human Regular/Sodium Chloride (NovoLIN R (IV INFUSION)/NS Inj) 100 ml @ 0 mls/hr TITRATE IV ; Start 08/20/16 at 06:00; Stop 08/20/16 at 10:00; Status DC Potassium Chloride 40 meq 40 meq NOW ONCE PO Last administered on 08/20/16t 06 :43; Start 08/20/16 at 06:30; Stop 08/20/16 at 06:31; Status DC Vancomycin HCl 1250 mg/Sodium Chloride 262.5 ml @ 262.5 mls/ hr ONCE ONCE IV ; Start 08/20/16 at 10:00; Stop 08/20/16 at 10:59; Status Cancel Pharmacy Profile Note 0 ml @ 0 mls/hr UNSCH OTHER ; Start 08/20/16 at 09:15; Stop 08/20/16 at 23:00; Status DC Cefepime HCl 2000 mg/Sodium Chloride 100 ml @ 200 mls/hr Q8H IV ; Start at 10:00; Stop 08/20/16 at 10:00; Status DC Piperacillin Sod/ Tazobactam Sod 100 ml @ 200 mls/hr Q6H IV Last administered on 08/20/16 22:16; Start 08/20/16 at 10:00; Stop 08/20/16 at 23:00; Status DC Insulin Human Regular/Sodium Chloride (NovoLIN R (IV INFUSION)/NS Inj) 100 ml @ 0 mls/hr TITRATE IV Last administered on 08/20/16 10:36; Start 08/20/16 at 09: 15; Stop 08/22/16 at 09:57; Status DC Dextrose (D50w (Vial) Inj) 50 ml UNSCH PRN IV PUSH SEE LABEL COMMENTS; Start at 09:15 Miscellaneous Information 1 1 ONCE ONCE OTHER ; Start 08/20/16 at 10:00; Stop 08/20/16 at 10:01; Status DC Dexmedetomidine HCl 1000 mcg/ Sodium Chloride 250 ml @ 0 mls/hr TITRATE IV Last administered on 08/20/16 10:37; Start 08/20/16 at 09:15; Stop 08/22/16 at 09:41; Status DC Vancomycin HCl/ Sodium Chloride (Vancomycin Inj/ NS 500 ml Inj) 515 ml @ 257.5 mls/ hr ONCE ONCE IV Last administered on 08/20/16 11:19; Start 08/20/16 at 10:00; Stop 08/20/16 at 11:59; Status DC Iohexol 65 ml 65 ml STK-MED ONCE IV Last administered on 08/20/16 12:09; Start 08/20/16 at 12:09; Stop 08/20/16 at 12:10; Status DC Vancomycin HCl/ Sodium Chloride (Vancomycin Inj/ NS 250 ml Inj) 250 ml @ 250 mls/hr Q12H IV ; Start 08/20/16 at 23:00; Stop 08/20/16 at 23:00; Status DC Miscellaneous Information SPECIFIC LAB TO BE ... ONCE ONCE .XX ; Start 08/21 at 22:45; Stop 08/21/16 at 22:46; Status DC Cefazolin Sodium/ Dextrose 50 ml @ 150 mls/hr Q8H IV Last administered on 09/04 05:27; Start 08/20/16 at 23:00 Potassium Chloride 100 ml @ 50 mls/hr Q2H PRN IV For Potassium 2.8 - 3.2 mEq/L ; Start 08/21/16 at 08:00; Stop 08/23/16 at 21:39; Status DC Potassium Chloride (KCl 20 Meq Premix Inj) 100 ml @ 50 mls/hr Q2H PRN IV For Potassium 2.8 - 3.2 mEq/L Last administered on 08/23/16t 10:11; Start 08/21/16 at 08:00; Stop 08/23/16 at 21:39; Status DC Potassium Bicarb/ Potassium Chloride 50 meq 50 meq UNSCH PRN PO For Potassium 3.3 - 3.5 mEq/L; Start 08/21/16 at 08:00; Stop 08/23/16 at 21:39; Status DC Potassium Chloride 100 ml @ 25 mls/hr UNSCH PRN IV For Potassium 3.3 - 3.5 mEq /L; Start 08/21/16 at 08:00; Stop 08/23/16 at 21:39; Status DC Potassium Chloride 100 ml @ 50 mls/hr Q2H PRN IV For Potassium 3.3 - 3.5 mEq/L ; Start 08/21/16 at 08:00; Stop 08/23/16 at 21:39; Status DC Magnesium Sulfate/ Sodium Chloride (Magnesium Sulfate Inj/NS Inj) 100 ml @ 50 mls/hr UNSCH PRN IV For Magnesium 0.9 - 1.1 mg/dL; Start 08/21/16 at 08:00; Stop 08/23/16 at 21:39; Status DC Magnesium Oxide 800 mg 800 mg UNSCH PRN PO For Magnesium 1.2 - 1.6 mg/dL; Start 08/21/16 at 08:00; Stop 08/23/16 at 21:39; Status DC Magnesium Sulfate/ Sodium Chloride (Magnesium Sulfate Inj/NS Inj) 100 ml @ 50 mls/hr UNSCH PRN IV For Magnesium 1.2 - 1.6 mg/dL Last administered on t 11:18; Start 08/21/16 at 08:00; Stop 08/23/16 at 21:39; Status DC Potassium Phosphate 2000 mg 2,000 mg Q4H PRN PO For Phosphorus < 2.5 mg/dL; Start 08/21/16 at 08:00; Stop 08/23/16 at 21:39; Status DC Sodium Phosphate/ Sodium Chloride (Sodium Phosphate Inj/NS 250 ml Inj) 250 ml @ 42 mls/hr UNSCH PRN IV For Phosphorus < 2.5 mg/dL; Start 08/21/16 at 08:00; Stop 08/23/16 at 21:39; Status DC Potassium Phosphate 2000 mg 2,000 mg UNSCH PRN PO/TUBE SEE LABEL COMMENTS; Start 08/21/16 at 08:00; Stop 08/23/16 at 21:39; Status DC Potassium Phosphate/Sodium Chloride (Potassium Phosphate Inj/NS 250 ml Inj) 260 ml @ 42 mls/hr UNSCH PRN IV SEE LABEL COMMENTS; Start 08/21/16 at 08:00; Stop 08/23/16 at 21:39; Status DC Potassium Bicarb/ Potassium Chloride (K-Lyte Cl Eff) 25 meq ONCE ONCE PO ; Start 08/21/16 at 08:30; Stop 08/21/16 at 08:31; Status DC Propofol (Diprivan 200 Mg/20 ml Inj) 110 mg STK-MED ONCE IV PUSH ; Start at 12:35; Stop 08/21/16 at 12:36; Status DC Ketamine HCl (Ketalar Inj) 500 mg STK-MED ONCE .ROUTE ; Start 08/21/16 at 13:05 ; Stop 08/21/16 at 13:06; Status DC Miscellaneous Information ALL NURSING DEPARTME... UNSCH PRN .XX SEE LABEL COMMENTS; Start 08/21/16 at 12:54; Stop 08/22/16 at 12:53; Status DC Epinephrine HCl (EPINEPHrine (1:10,000) INJ) 1 mg STK-MED ONCE OTHER Last administered on 08/21/16 12:15; Start 08/21/16 at 12:15; Stop 08/21/16 at 14:34 ; Status DC Phenylephrine HCl (Neosynephrine/ NS 1000 Mcg/10ml Syr) 1,000 mcg STK-MED ONCE IV ; Start 08/21/16 at 12:00; Stop 08/22/16 at 09:16; Status DC Insulin Detemir (Levemir Inj) 5 units Q12HR SQ Last administered on 09/03/16 08:20; Start 08/22/16 at 10:00; Status Hold Insulin Aspart (NovoLOG SUPPLEMENTAL SCALE) 1 ACHS SLIDING SCALE SQ Last administered on 09/02/16 12:14; Start 08/22/16 at 11:00 Hydromorphone HCl (Dilaudid Pf Inj) 1 mg Q4H PRN IV BREAKTHROUGH PAIN Last administered on 09/03/16 16:17; Start 08/23/16 at 12:45; Stop 09/03/16 at 17:34 ; Status DC Oxycodone/ Acetaminophen (Percocet 7.5-325 Mg) 1 tab Q4H PRN PO PAIN SCALE 3 TO 5 Last administered on 09/03/16 22:30; Start 08/23/16 at 10:30 Oxycodone/ Acetaminophen (Percocet 10-325 Mg) 1 tab Q6H PRN PO PAIN SCALE 6 TO 10 Last administered on 09/04/16 05:32; Start 08/23/16 at 10:30 Metoclopramide HCl (Reglan Inj) 10 mg Q8H PRN IM NAUSEA OR VOMITING; Start at 11:00; Stop 08/23/16 at 11:43; Status DC Potassium Chloride (KCl) 40 meq ONCE ONCE PO Last administered on 08/23/16 12 :23; Start 08/23/16 at 11:00; Stop 08/23/16 at 11:35; Status DC Metoclopramide HCl (Reglan Inj) 10 mg Q8HR IV PUSH Last administered on 05:12; Start 08/23/16 at 14:00; Stop 08/27/16 at 09:27; Status DC Polyethylene Glycol (Miralax) 17 gm DAILY PO Last administered on 09/03/16 08: 03; Start 08/23/16 at 11:45; Stop 09/03/16 at 17:33; Status DC Potassium Chloride (KCl) 30 meq ONCE ONCE PO Last administered on 08/24/16 14 :46; Start 08/24/16 at 12:15; Stop 08/24/16 at 13:04; Status DC Fluconazole (Diflucan) 200 mg DAILY PO Last administered on 09/04/16 08:23; Start 08/29/16 at 09:00 Gadodiamide (Omniscan Pf Inj) 13 ml STK-MED ONCE IV Last administered on 12:20; Start 08/30/16 at 12:20; Stop 08/30/16 at 12:21; Status DC Sodium Chloride (NS Flush) See Protocol DAILY IV FLUSH Last administered on 08:23; Start 08/31/16 at 09:00 Sodium Chloride (NS Flush) See Protocol UNSCH PRN IV FLUSH SEE PROTOCOL TABLE; Start 08/30/16 at 19:15 Heparin Sodium (Porcine) (Heparin Central Flush) See Protocol DAILY IV FLUSH Last administered on 09/04/16 08:23; Start 08/31/16 at 09:00 Heparin Sodium (Porcine) (Heparin Central Flush) See Protocol UNSCH PRN IV FLUSH SEE PROTOCOL TABLE; Start 08/30/16 at 19:15 Sodium Chloride (NS Flush) UNSCH PRN IV FLUSH SEE PROTOCOL TABLE; Start at 19:15 Cholecalciferol (Vitamin D3) 5,000 units DAILY PO Last administered on 08:26; Start 09/04/16 at 09:00 Cholecalciferol (Vitamin D3) 5,000 units ONCE ONCE PO Last administered on 16:18; Start 09/03/16 at 12:45; Stop 09/03/16 at 12:46; Status DC Thiamine HCl (Vitamin B1) 100 mg DAILY PO Last administered on 09/04/16 08:22 ; Start 09/04/16 at 09:00 Folic Acid (Folate) 1 mg DAILY PO Last administered on 09/04/16 08:22; Start 09/04/16 at 09:00 Pantoprazole Sodium (Protonix) 40 mg DAILY PO Last administered on 7/31/17at 08 :22; Start 09/04/16 at 09:00 A/P Problem List: (1) Acute pancreatitis ICD Code: K85.9 Status: Acute (2) MSSA (methicillin susceptible Staphylococcus aureus) septicemia ICD Code: A41.01 Status: Acute (3) Severe sepsis ICD Code: A41.9 Status: Acute (4) DKA (diabetic ketoacidoses) ICD Code: E13.10 Status: Acute (5) Alcohol withdrawal delirium ICD Code: F10.231 Status: Acute (6) Acute renal insufficiency ICD Code: N28.9 Status: Acute (7) Esophagitis ICD Code: K20.9 Status: Acute (8) Hypertension ICD Code: I10 Status: Chronic (9) Alcohol abuse ICD Code: F10.10 Status: Chronic (10) Hypertriglyceridemia ICD Code: E78.1 Status: Chronic Assessment and Plan 51 yo male with: Alcohol dependence & withdrawal Alcohol dependence Vitamin bag daily 3 days for EtOH use status post accident. On CIWA protocol. No signs of withdrawal at the bedside. History of Hypertension History of hypertriglyceridemia Holding losartan 25 mg by mouth daily light of pancreatitis, has been normotensive. 2D echo 08/21 shows no evidence of endocarditis Ongoing tobaccoism Nasal cannula to maintain saturations greater than equal to 92% Incentive spirometry while awake Tobacco cessation Nicotine patch if indicated Acute pancreatitis/Hepatic steatosis/Marked circumferential thickening of the esophagus GI following: EGD 08/21 showed severe esophagitis and duodenitis. Biopsy: minimal acute enteritis, acute esophagitits with features of ulceration, rare fungal hyphae within inflammatory detritus, neg viral cytopathic changes. Cont: miralax, PPI ID started fluconazole on 08/28 due to candidal esophagitis. HIV testing is negative. Pancreatitis flared up yesterday because he ate bertrand. Improved today so will advance diet as tolerated. DKA Resolved. Levemir 5 q12 and SSI. Blood sugars appear well controlled. Acute kidney injury-resolved Likely prerenal. I's and O's Monitor urine output Bacteremia MSSA Staph aureus in 4 out of 4 bottles Hx of previous staph aureus bacteremia ID following. Currently on cefazolin, anticipate 6 weeks of IV abx from first day of first negative blood culture Blood Cultures 08/19 staph aureus 4/4 bottles. Repeated blood culture 08/21 positive 1/4 staph aureus. Blood cultures 7/21 repeated, no growth x 3 day 2-D echo negative for endocarditis. Previous MAURA for staph aureus bacteremia was negative [employer] consulted for repeat MAURA. Patient is not a candidate due to severe esophagitis. Mid back pain -MRI just shows mild degenerative joint disease. Otherwise normal. Hypercalcemia-resolved Hypo-natremia Hypokalemia Vitamin D deficiency Chronic parathyroidism with a normal calcium level Replace electrolytes per protocol supplement with vitamin D. Diarrhea -Secondary to stool softener. C. difficile was negative. -Patient was still given stool softener yesterday all stool softeners and laxatives was discontinued. -Improving. Prophylaxis - GI - Protonix IV BID - DVT - Patient asking to stop heparin. He is walking enough. Will discontinue heparin. Patient told must ambulate multiple times up a day. Discharge Planning Patient is medically clear and stable to be discharged from the hospital pending home health set up for IV infusion. Problem Qualifiers (1) Acute pancreatitis: Qualified Code: K85.20 - Alcohol-induced acute pancreatitis, unspecified complication status (2) DKA (diabetic ketoacidoses): Qualified Code: E13.10 - Diabetic ketoacidosis without coma associated with type 2 diabetes mellitus (3) Hypertension: Qualified Code: I10 - Essential hypertension Rosemary Thorne MD Sep 04, 2016 11:24
[2016-09-04] MEDS ORDERED: CHOL1CAP34 PO (11:25)
--- NOTE | 2016-09-04 18:04 | PD.AMA ---
Against Medical Advice Note Discharge Disposition: Against Medical Advice Pt Condition on Discharge: Stable Recommended Treatment Course transfer to [facility] to complete course of IV antibiotics. AMA Statement Patient Kunal Quispe has decided to leave the hospital against medical advice. This patient has the capacity to refuse care and understands the risks of leaving, including permanent disability and/or , and has had an opportunity to ask questions about his condition. The patient has been informed that he may return for care at any time, and follow up has been arranged/ advised. Rosemary Thorne MD Sep 04, 2016 18:04
== END 2016-09-04 18:12 | disposition left against medical advice (07) | DRG 871 ==
LOC: NEPE 03:48 → NEDA 05:35 → HIME 08:00 → N04A 08-23 20:38
PROVIDERS: ADMIT Family Medicine; ATTEND Family Medicine
PROC: 0DB68ZX Excision of Stomach, Via Natural or Artificial Opening Endoscopic, Diagnostic (ICD-10-PCS; 2016-08-21)
PROC: 0DB38ZX Excision of Lower Esophagus, Via Natural or Artificial Opening Endoscopic, Diagnostic (ICD-10-PCS; 2016-08-21)
PROC: 0W3P8ZZ Control Bleeding in Gastrointestinal Tract, Via Natural or Artificial Opening Endoscopic (ICD-10-PCS; 2016-08-21)
PROC: 0DB98ZX Excision of Duodenum, Via Natural or Artificial Opening Endoscopic, Diagnostic (ICD-10-PCS; principal; 2016-08-21 11:45)
DX: A41.01 Sepsis due to Methicillin susceptible Staphylococcus aureus (principal); K85.20 Alcohol induced acute pancreatitis without necrosis or infection; R65.21 Severe sepsis with septic shock; G92 Toxic encephalopathy; E13.10 Other specified diabetes mellitus with ketoacidosis without coma; N17.9 Acute kidney failure, unspecified; K86.0 Alcohol-induced chronic pancreatitis; B37.81 Candidal esophagitis; F10.231 Alcohol dependence with withdrawal delirium; K91.61 Intraoperative hemorrhage and hematoma of a digestive system organ or structure complicating a digestive system procedure; K92.0 Hematemesis; K52.1 Toxic gastroenteritis and colitis; E83.52 Hypercalcemia; I10 Essential (primary) hypertension; E87.6 Hypokalemia; K29.80 Duodenitis without bleeding; K21.0 Gastro-esophageal reflux disease with esophagitis; K44.9 Diaphragmatic hernia without obstruction or gangrene; E78.5 Hyperlipidemia, unspecified; K21.9 Gastro-esophageal reflux disease without esophagitis; I49.3 Ventricular premature depolarization; E78.1 Pure hyperglyceridemia; K76.0 Fatty (change of) liver, not elsewhere classified; K82.8 Other specified diseases of gallbladder; R59.0 Localized enlarged lymph nodes; K59.00 Constipation, unspecified; K29.70 Gastritis, unspecified, without bleeding; D64.9 Anemia, unspecified; E55.9 Vitamin D deficiency, unspecified; M47.814 Spondylosis without myelopathy or radiculopathy, thoracic region; F17.210 Nicotine dependence, cigarettes, uncomplicated; T47.4X5A Adverse effect of other laxatives, initial encounter; Y92.239 Unspecified place in hospital as the place of occurrence of the external cause; Z96.651 Presence of right artificial knee joint
CPT/HCPCS: 36569; 36600; 71010; 71260; 72157; 74000; 74176; 76705; 76937; 80048; 80053; 80061; 80307; 81001; 82010; 82140; 82306; 82397; 82550; 82652; 82805; 82948; 83036; 83605; 83690; 83735; 83970; 84100; 84132; 84484; 85007; 85025; 85027; 85610; 85730; 86403; 86703; 86850; 86900; 86901; 87040; 87186; 87205; 87493; 87641; 88305; 88312; 93005; 93306; 94150; 96365; 96375; A9579; C9113; J0171; J0690; J1170; J1642; J1644; J1815; J1817; J2060; J2370; J2405; J2543; J2765; J3370; J3411; J3475; J3480; J7030; J7040; J7042; J7050; Q9967

== ENCOUNTER 2017-06-29 07:34 | Emergency (ER) | payer OTHER ==
[~2017-06-29] VITALS: Ht 180.3 cm; Wt 70.0 kg
[~2017-06-29 07:34] MED LIST changes: +CREON24 PO; -DILA4TAB2 PO; +GLUCKIT15; +GLUCTES12; +INSU1MIS15; +LANCETS1 MI1; +LEVEMIR SQ; -VITA100T2 PO
[2017-06-29 07:37] VITALS: BP 127/82; PULSE 95; RESP 16; TEMP 98.7; O2SAT 95
[2017-06-29] MEDS ORDERED: SODIUM CHLORIDE 0.9% FLUSH 10 ML FLUSH IV FLUSH PRN (08:30)
[2017-06-29 08:40] LABS: AUTOMATED NEUTROPHIL # 3.4 TH/MM3 (1.8-7.7); BASOPHIL % 0.6 % (0.0-2.0); EOSINOPHIL % 0.9 % (0.0-4.0); HEMATOCRIT 42.2 % (39.0-51.0); HEMOGLOBIN 14.3 GM/DL (13.0-17.0); LYMPH % 17.6 % (9.0-44.0); LYMPHOCYTE # 0.9 TH/MM3 (1.0-4.8); MEAN CELL VOLUME 91.9 FL (80.0-100.0); MEAN CORPUSCULAR HEMOGLOBIN 31.2 PG (27.0-34.0); MEAN CORPUSCULAR HGB CONC 33.9 % (32.0-36.0); MEAN PLATELET VOLUME 7.7 FL (7.0-11.0); MONOCYTE # 0.5 TH/MM3 (0-0.9); NEUT % 69.9 % (16.0-70.0); PLATELET COUNT 124 TH/MM3 (150-450); RED BLOOD COUNT 4.59 MIL/MM3 (4.50-5.90); RED CELL DISTRIBUTION WIDTH 15.6 % (11.6-17.2); WHITE BLOOD COUNT 4.9 TH/MM3 (4.0-11.0)
--- NOTE | 2017-06-29 08:48 | PD ---
HPI Chief Complaint: Pain: Acute or Chronic Time Seen by Provider: 08:06 Travel History International Travel<30 days: No Contact w/Intl Traveler<30days: No Traveled to known affect area: No History of Present Illness HPI 52-year-old male presents to the emergency room for evaluation of right upper quadrant abdominal pain for the past 2 days. Patient states he was lying over his center console in his car to reach something on the passenger side floor when he had sudden onset of right rib pain. He did not hear any cracks. Pain is localized to the right upper quadrant. States it feels deep, below the ribs. Pain is worsened with certain range of motion and deep breathing. States it was bearable 2 days ago but yesterday it became severe. States the pain was so bad, he had difficulty getting out of bed. States he began screaming in the middle of the night because the pain. In certain positions, he is pain-free. He took prescribed oxycodone last night with moderate relief in symptoms. He has history of chronic alcoholism and has been hospitalized multiple times for pancreatitis. He denies nausea, vomiting, or diarrhea. PFSH Past Medical History Arthritis: No Heart Rhythm Problems: No Cancer: No Cardiovascular Problems: No High Cholesterol: Yes Chest Pain: No Congestive Heart Failure: No Cerebrovascular Accident: No Diabetes: Yes Diminished Hearing: No Endocrine: No Gastrointestinal Disorders: Yes (HISTORY OF PANCREATITIS) GERD: Yes Genitourinary: No Headaches: Yes Hypertension: Yes Immune Disorder: No Implanted Vascular Access Dvce: No Musculoskeletal: Yes (shoulder and knee) Neurologic: Yes Psychiatric: No Reproductive: No Respiratory: No Immunizations Current: Yes Migraines: No Pancreatitis: Yes Seizures: No Past Surgical History Abdominal Surgery: No Cardiac Surgery: No Ear Surgery: No Endocrine Surgery: No Eye Surgery: No Genitourinary Surgery: No Gynecologic Surgery: No Insulin Pump: No Joint Replacement: Yes (two screws in the right knee, anchor in rt shoulder) Neurologic Surgery: No Oral Surgery: No Thoracic Surgery: No Other Surgery: Yes Social History Alcohol Use: Yes (DAILY) Tobacco Use: Yes (1PPD) Substance Use: No Allergies-Medications (Allergen,Severity, Reaction): Coded Allergies: No Known Allergies (Verified Allergy, Unknown, 05/12/17) Reported Meds & Prescriptions Reported Meds & Active Scripts Active Reported Oxycodone (Oxycodone HCl) 10 Mg Tab 10 Mg PO Q4H PRN Amlodipine (Amlodipine Besylate) 5 Mg Tab 5 Mg PO DAILY Losartan (Losartan Potassium) 25 Mg Tab 25 Mg PO DAILY Review of Systems Except as stated in HPI: all other systems reviewed are Neg Physical Exam Narrative GENERAL: Well-nourished, well-developed male in no acute distress. Afebrile. Ambulatory. Moving easily on the bed and sleeping. SKIN: Focused skin assessment warm/dry. No erythema or ecchymosis. HEAD: Normocephalic. EYES: No scleral icterus. No injection or drainage. NECK: Supple, trachea midline. No JVD or lymphadenopathy. CARDIOVASCULAR: Regular rate and rhythm without murmurs, gallops, or rubs. RESPIRATORY: Breath sounds equal bilaterally. No accessory muscle use. CHEST: Tenderness to palpation over the right anterior rib cage. No deformity or crepitus. No retractions or use of accessory muscles. GASTROINTESTINAL: Abdomen soft, nondistended. Moderate to extreme tenderness to palpation of the right upper quadrant. Moderate guarding. No rebound tenderness. Data Data Last Documented VS Vital Signs Date Time Temp Pulse Resp B/P (MAP) Pulse Ox O2 Delivery O2 Flow Rate FiO2 06/29/17 07:37 98.7 95 16 127/82 (97) 95 Orders Orders Complete Blood Count With Diff (06/29/17 08:16) Comprehensive Metabolic Panel (06/29/17 08:16) Prothrombin Time / Inr (Pt) (06/29/17 08:16) Act Partial Throm Time (Ptt) (06/29/17 08:16) Ct Abd/Pel W Iv Contrast(Rout) (06/29/17 08:16) Iv Access Insert/Monitor (06/29/17 08:16) Ecg Monitoring (06/29/17 08:16) Oximetry (06/29/17 08:16) Sodium Chloride 0.9% Flush (Ns Flush) (06/29/17 08:30) Ribs, Uni (W/Exp Cxr-Min 3vw) (06/29/17 ) Iohexol 350 Inj (Omnipaque 350 Inj) (06/29/17 11:30) Ed Discharge Order (06/29/17 11:51) Labs Laboratory Tests Test 06/29/17 08:31 White Blood Count 4.9 TH/MM3 Red Blood Count 4.59 MIL/MM3 Hemoglobin 14.3 GM/DL Hematocrit 42.2 % Mean Corpuscular Volume 91.9 FL Mean Corpuscular Hemoglobin 31.2 PG Mean Corpuscular Hemoglobin Concent 33.9 % Red Cell Distribution Width 15.6 % Platelet Count 124 TH/MM3 Mean Platelet Volume 7.7 FL Neutrophils (%) (Auto) 69.9 % Lymphocytes (%) (Auto) 17.6 % Monocytes (%) (Auto) 11.0 % Eosinophils (%) (Auto) 0.9 % Basophils (%) (Auto) 0.6 % Neutrophils # (Auto) 3.4 TH/MM3 Lymphocytes # (Auto) 0.9 TH/MM3 Monocytes # (Auto) 0.5 TH/MM3 Eosinophils # (Auto) 0.0 TH/MM3 Basophils # (Auto) 0.0 TH/MM3 CBC Comment DIFF FINAL Differential Comment Prothrombin Time 10.1 SEC Prothromb Time International Ratio 1.0 RATIO Activated Partial Thromboplast Time 25.4 SEC Blood Urea Nitrogen 10 MG/DL Creatinine 0.81 MG/DL Random Glucose 157 MG/DL Total Protein 6.9 GM/DL Albumin 3.2 GM/DL Calcium Level 9.5 MG/DL Alkaline Phosphatase 91 U/L Aspartate Amino Transf (AST/SGOT) 63 U/L Alanine Aminotransferase (ALT/SGPT) 50 U/L Total Bilirubin 1.1 MG/DL Sodium Level 138 MEQ/L Potassium Level 3.4 MEQ/L Chloride Level 103 MEQ/L Carbon Dioxide Level 25.5 MEQ/L Anion Gap 10 MEQ/L Estimat Glomerular Filtration Rate 99 ML/MIN MDM Medical Decision Making Medical Screen Exam Complete: Yes Emergency Medical Condition: Yes Medical Record Reviewed: Yes Differential Diagnosis Hepatomegaly, rib fracture, displaced rib fracture, pneumothorax, liver laceration Narrative Course 52-year-old male presents to the emergency room for evaluation of right upper quadrant abdominal pain and right anterior rib pain after injuring it on his center consult 2 days ago. Patient states he had minimal pain at onset but yesterday became acutely worse and/severe. Physical exam reveals extreme tenderness to palpation of the right upper quadrant abdominal area. There is moderate guarding but no rebound tenderness. No nausea, vomiting. Vital signs stable. No erythema or ecchymosis. Ribs are mildly tender to palpation. No obvious deformity or crepitus. Lung sounds clear and equal bilaterally. No increased work of breathing. Rib x-rays are negative. IV access established basic labs obtained. CBC and CMP are unremarkable. CT of the abdomen pelvis is negative for acute abnormality. Patient does have increasing distention of the gallbladder and stable cysts most characteristic of cirrhosis. This is known to him. He was told to take Motrin for pain and follow-up with a primary care physician or return for worsening symptoms. He understands and agrees to plan. Patient states he would like to go back to work today. States he is still in pain and if he "falls out at work" he will just have to come back. Diagnosis Primary Impression: Rib pain on right side Referrals: Primary Care Physician Departure Forms: Tests/Procedures, Work Release Enter return to work date: July 01, 2017 Additional Instructions: Rest and drink plenty of fluids. Take Motrin as directed, as needed for pain. Do not use longer than 2 or 3 days. Apply [id number] lidocaine patches to the affected area. Apply ice to the affected area for 20 minutes at a time, as needed for pain and swelling. Follow-up with a primary care physician. Return to the emergency room for worsening symptoms. Med/Other Pt SpecificInfo: Prescription(s) given Disposition: 01 DISCHARGE HOME Condition: Stable Anaya Escobar June 29, 2017 08:48
[2017-06-29 08:53] LABS: PROTHROMBIN TIME - PATIENT 10.1 SEC (9.8-11.6)
[2017-06-29 09:04] LABS: ALT (GPT) 50 U/L (12-78)
[2017-06-29 09:07] LABS: ALBUMIN 3.2 GM/DL (3.4-5.0); ALKALINE PHOSPHATASE 91 U/L (45-117); AST (GOT) 63 U/L (15-37); BICARBONATE 25.5 MEQ/L (21.0-32.0); BLOOD UREA NITROGEN 10 MG/DL (7-18); CALCIUM 9.5 MG/DL (8.5-10.1); CHLORIDE 103 MEQ/L (98-107); CREATININE 0.81 MG/DL (0.60-1.30); GLOMERULAR FILTRATION RATE 99 ML/MIN (>89); GLUCOSE,RANDOM 157 MG/DL (74-106); SODIUM (NA) 138 MEQ/L (136-145); TOTAL BILIRUBIN ADULT 1.1 MG/DL (0.2-1.0); TOTAL PROTEIN 6.9 GM/DL (6.4-8.2)
[2017-06-29] MEDS ORDERED: OXYC-395 PO (09:20)
--- NOTE | 2017-06-29 09:44 | RADRPT ---
EXAM DATE: 06/29/2017 9:26 AM EDT AGE/SEX: 52 years / Male INDICATIONS: Right anterior rib pain from fall. CLINICAL DATA: This is the patient's initial encounter. Patient reports that signs and symptoms have been present for 1 day and indicates a pain score of 7/10. MEDICAL/SURGICAL HISTORY: None. None. COMPARISON: No prior [place] exams available for comparison. FINDINGS: There is no evidence of displaced fracture. No destructive lesions or areas of periosteal thickening are seen. Expiratory view of the chest is negative for pneumothorax. The mediastinal structures ar e midline. CONCLUSION: Negative rib series. No evidence of pneumothorax. Electronically signed by: Bernardino Marino MD 06/29/2017 9:43 AM EDT
[2017-06-29] MEDS ORDERED: IOHEXOL 350 MG/ML 10 ML VIAL (for RAD DIAG) IVCONTRAST ONE (11:30)
--- NOTE | 2017-06-29 11:40 | RADRPT ---
EXAM DATE: 06/29/2017 11:29 AM EDT AGE/SEX: 52 years / Male INDICATIONS: Right upper abdomen pain. CLINICAL DATA: This is the patient's initial encounter. Patient reports that signs and symptoms have been present for 1 day and indicates a pain score of 2/10. MEDICAL/SURGICAL HISTORY: Hypertension. Pancreatitis. Diabetes mellitus type II. Umbilical he rnia repair. ORAL CONTRAST: No oral contrast ingested. RADIATION DOSE: 5.99 CTDI (mGy) COMPARISON: [facility], CT ABDOMEN & PELVIS W CONTRAST, 05/12/2017. . TECHNIQUE: Multiple contiguous axial images were obtained through the abdomen and pelvis following b olus infusion of 98 ml Omnipaque 350 (iohexol) nonionic water-soluble contrast as a single exam dos e. No oral contrast ingested. Using automated exposure control and adjustment of the mA and/or kV ac cording to patient size, the radiation dose was kept as low as reasonably achievable to obtain optima l diagnostic quality images. FINDINGS: Lower Lungs: The visualized lower lungs are clear. Liver: Diffuse hypodensity remains evident throughout the liver. There are no discrete hepatic lesion s. Portal vein remains patent. Increasing distention of the gallbladder is noted. Gallbladder measure s 5 x 10.5 cm in size. Spleen: Homogeneous density without enlargement. Pancreas: 2 cystic lesions within and adjacent to the tail the pancreas previously described are sta ble. There is a 2 cm cyst in the pancreatic tail and a 6 cm cyst projecting anteriorly from the splen ic tail. Pancreas is otherwise unchanged in appearance. Kidneys: Normal in size and shape. No evidence of mass or hydronephrosis. Adrenal Glands: Unremarkable. Aorta: The aorta and proximal iliac vessels are grossly unremarkable without aneurysmal dilation. Bowel/Mesentery: The bowel loops are grossly unremarkable. The cecum and sigmoid colon have a normal configuration. Abdominal Wall: Intact. Retroperitoneum: Small retroperitoneal lymph nodes are again noted and have not significantly change d. Bladder: Contours are smooth. Reproductive Organs: No abnormal masses or calcifications seen. Inguinal: The inguinal region is unremarkable without evidence of adenopathy. Bony Structures: Unremarkable. CONCLUSION: 1. Increasing distention of the gallbladder. 2. Stable cysts within the tail of the pancreas and adjacent to the tail of the pancreas as describe d. These are most characteristic of cirrhosis. 3. Otherwise stable exam. Electronically signed by: Matt Aguilera MD 06/29/2017 11:39 AM EDT
[2017-06-29 12:35] VITALS: BP 113/75; PULSE 88; RESP 16; O2SAT 99
== END 2017-06-29 12:36 | disposition home or self-care (01) ==
LOC: NEPD 07:34
DX: R07.81 Pleurodynia (principal); I10 Essential (primary) hypertension; E11.9 Type 2 diabetes mellitus without complications
CPT/HCPCS: 71101; 74177; 80053; 85025; 85610; 85730; 99285; Q9967

== ENCOUNTER 2017-08-19 13:53 | Observation (INO) ==
[2017-08-19] MEDS ORDERED: Sodium Chlor 0.9% Inj 500 ML IV.SIG ONE (14:14)
[2017-08-19] MEDS ORDERED: Morphine Inj 4 MG/ML Vial IV.PUSH ONE ×2 (14:14→16:08)
[2017-08-19 14:32] LABS: Baso # (Auto) 0.1 th/mm3 (0.0-0.2); Baso % (Auto) 1.7 % (0.0-2.0); Eos % (Auto) 0.2 % (0.0-4.0); Hematocrit 47.5 % (39.0-51.0); Hemoglobin 15.4 gm/dL (13.0-17.0); Lymph # (Auto) 1.7 th/mm3 (1.0-4.8); Lymph % (Auto) 35.9 % (9.0-44.0); Mean Corpuscular HGB Conc 32.5 % (32.0-36.0); Mean Corpuscular Hemoglobin 30.1 pg (27.0-34.0); Mean Corpuscular Volume 92.7 fL (80.0-100.0); Mean Platelet Volume 7.5 fL (7.0-11.0); Mono # (Auto) 0.5 th/mm3 (0.0-0.9); Mono % (Auto) 10.1 % (0.0-8.0); Neut # (Auto) 2.4 th/mm3 (1.8-7.7); Neut % (Auto) 52.1 % (16.0-70.0); Red Blood Count 5.12 mil/mm3 (4.50-5.90); Red Cell Distribution Width 14.6 % (11.6-17.2); White Blood Count 4.7 th/mm3 (4.0-11.0)
[2017-08-19 14:41] LABS: Chloride 105 meq/L (98-107); Sodium 143 meq/L (136-145)
[2017-08-19 14:45] LABS: Albumin 3.7 g/dL (3.4-5.0); Anion Gap 10 meq/L (5-15); Calcium 8.8 mg/dL (8.5-10.1); Carbon Dioxide 27.6 meq/L (21.0-32.0); Lipase 225 U/L (73-393)
[2017-08-19 14:46] LABS: Blood Urea Nitrogen 11 mg/dL (7-18); Glucose,Random 129 mg/dL (74-106)
[2017-08-19 14:48] LABS: Alanine Aminotransferase 96 U/L (12-78); Aspartate Aminotransferase 120 U/L (15-37)
[2017-08-19 14:49] LABS: Glomerular Filtration Rate Greater Than 89 mL/min (>89); Platelet Count 75 th/mm3 (150-450)
[2017-08-19 14:50] LABS: Total Protein 7.8 g/dL (6.4-8.2)
[2017-08-19 14:51] LABS: Alkaline Phosphatase 65 U/L (45-117)
--- NOTE | 2017-08-19 14:56 | ED ---
HPI General Chief complaint: Abdominal Pain Stated complaint: Abd x2 days Time Seen by Provider: 08/19/17 14:08 Source: patient Mode of arrival: ambulatory Limitations: no limitations History of Present Illness HPI narrative: Patient is a 52 year old male who comes in complaining of abdominal pain. He says the pain started 2 days ago and has been getting worse. He says he had nausea and vomiting two days ago and has not had anything to eat since then. He is a chronic alcoholic and drank alcohol this morning. He denies fever or chills. He has not taken anything for the pain. He says he has chronic pancreatitis. He says the pain is in his RUQ and goes down the right side of the abdomen. Severity is moderate. Onset (ago): day(s) Treatments prior to arrival: none Related Data Home Medications Medication Instructions Recorded Confirmed amlodipine 5 mg PO DAILY 08/19/17 08/19/17 losartan 25 mg PO DAILY 08/19/17 08/19/17 Allergies Allergy/AdvReac Type Severity Reaction Status Date / Time lisinopril Allergy Cough Verified 08/19/17 13:58 Review of Systems Except as stated in HPI: all other systems reviewed are negative Constitutional Denies chills and Denies fever(s) ENT Denies dizziness Cardiovascular Denies chest pain Respiratory Denies dyspnea Gastrointestinal Reports abdominal pain, Reports nausea and Reports vomiting Musculoskeletal Denies myalgias and Denies arthralgias Integumentary/Breasts Denies change in pigmentation and Denies lesions Neurologic Denies focal weakness [facility] Medical History Medical History Anxiety (Acute) HTN (hypertension) (Acute) Pancreatitis, chronic (Acute) Social History Social History Substance History: No History of Abuse Second Hand Smoke Exposure: Yes Smoking Status: Current every day smoker Tobacco Type: Cigarettes How Often Do You Have a Drink Containing Alcohol: 4 or more times a week Recent Travel in [facility] within the Last 8 Weeks: No Recent Out of Country Travel within the Last 8 Weeks: No Immunization History Tetanus Immunization: <5 Years Hx Influenza Vaccine This Season: No Exam Narrative Exam Narrative: GENERAL: Awake and alert, in mild distress due to pain. SKIN: Focused skin assessment warm/dry. No wounds or signs of infection. HEAD: Atraumatic. Normocephalic. EYES: Pupils equal and round. No scleral icterus. ENT: Mucous membranes pink and moist. NECK: Trachea midline. No JVD. CARDIOVASCULAR: Regular rate and rhythm. No murmur appreciated. RESPIRATORY: No accessory muscle use. Clear to auscultation. Breath sounds equal bilaterally. GASTROINTESTINAL: Abdomen soft, nondistended. Diffuse tenderness to palpation. No rebound. MUSCULOSKELETAL: No obvious deformities. No clubbing. No cyanosis. No edema. NEUROLOGICAL: Awake and alert. No obvious cranial nerve deficits. Motor grossly within normal limits. Normal speech. PSYCHIATRIC: Appropriate mood and affect; insight and judgment normal. Course Hospital Course: IV established, labs sent. CT abdomen and pelvis ordered. Zofran and morphine given to the patient. Reevaluation(s) Reevaluation #1: Patient continues to have pain and vomiting. Given Compazine and another dose of morphine. Time: 16:36 Initial Documented Vital Signs Temperature 97.7 F 08/19/17 13:59 Pulse Rate 102 H 08/19/17 13:59 Respiratory Rate 16 08/19/17 13:59 Blood Pressure 125/57 L 08/19/17 13:59 Pulse Oximetry 96 08/19/17 13:59 Last Documented Vital Signs Temperature 97.7 F 08/19/17 13:59 Pulse Rate 89 08/19/17 15:35 Respiratory Rate 18 08/19/17 15:35 Blood Pressure 148/97 H 08/19/17 15:35 Pulse Oximetry 97 08/19/17 15:35 Medical Decision Making [facility] Narrative Medical decision making narrative: Patient is a 52-year-old male with history of chronic alcoholism and chronic pancreatitis, who comes in complaining of abdominal pain with nausea and vomiting. IV established, labs sent. Labs show no acute abnormalities, other than a potassium of 3.0. This was replaced. Patient given 2 doses of pain medicine as well as antiemetics. He continues to have severe pain and nausea. CT of the abdomen and pelvis performed shows an enlarging pseudocyst that is pressing on the stomach, likely causing his symptoms. Patient to be admitted for continued abdominal pain with vomiting. Differential Diagnosis Differential Diagnosis: Cirrhosis versus cholecystitis versus pancreatitis versus colitis Medical Records Medical records reviewed: Yes I reviewed the patient's medical records. Lab Data Lab results reviewed: Yes I reviewed the patient's lab results. Result diagrams: 08/19/17 14:25 08/19/17 14:25 Lab Results 08/19/17 08/19/17 08/19/17 Range/Units 14:25 14:25 15:12 CBC w Diff Slide review pending WBC 4.7 (4.0-11.0) th/mm3 RBC 5.12 (4.50-5.90) mil/mm3 Hgb 15.4 (13.0-17.0) gm/dL Hct 47.5 (39.0-51.0) % MCV 92.7 (80.0-100.0) fL MCH 30.1 (27.0-34.0) pg MCHC 32.5 (32.0-36.0) % RDW 14.6 (11.6-17.2) % Plt Count 75 L (150-450) th/mm3 MPV 7.5 (7.0-11.0) fL Neut % (Auto) 52.1 (16.0-70.0) % Lymph % (Auto) 35.9 (9.0-44.0) % [place] % (Auto) 10.1 H (0.0-8.0) % Eos % (Auto) 0.2 (0.0-4.0) % Baso % (Auto) 1.7 (0.0-2.0) % Neut # (Auto) 2.4 (1.8-7.7) th/mm3 Lymph # (Auto) 1.7 (1.0-4.8) th/mm3 [place] # (Auto) 0.5 (0.0-0.9) th/mm3 Eos # (Auto) 0.0 (0.0-0.4) th/mm3 Baso # (Auto) 0.1 (0.0-0.2) th/mm3 WBC Differential . Diff Scan Auto diff confirmed Differential Comment . Platelet Estimate Normal (Normal) Platelet Morphology Normal (Normal) RBC Morphology Normal (Normal) PT 9.6 L (9.8-11.6) sec INR 0.9 Ratio APTT 24.3 (24.3-30.1) sec Sodium 143 (136-145) meq/L Potassium 3.0 L (3.5-5.1) meq/L Chloride 105 (98-107) meq/L Carbon Dioxide 27.6 (21.0-32.0) meq/L Anion Gap 10 (5-15) meq/L BUN 11 (7-18) mg/dL Creatinine 0.69 (0.60-1.30) mg/dL Estimated GFR Greater than 89 (>89) mL/min Random Glucose 129 H (74-106) mg/dL Calcium 8.8 (8.5-10.1) mg/dL Total Bilirubin 0.6 (0.2-1.0) mg/dL AST 120 H (15-37) U/L ALT 96 H (12-78) U/L Alkaline Phosphatase 65 (45-117) U/L Total Protein 7.8 (6.4-8.2) g/dL Albumin 3.7 (3.4-5.0) g/dL Lipase 225 (73-393) U/L Ur Collection Type Urine Color (Yellw/Straw) Urine Clarity (Clear) Urine pH (5.0-8.5) Ur Specific [place] (1.002-1.035) Urine Protein (Neg-Trace) mg/dL Urine Glucose (UA) (Negative) mg/dL Urine Ketones (Negative) mg/dL Urine Occult Blood (Negative) Urine Nitrate (Negative) Urine Bilirubin (Negative) Urine Urobilinogen (Less than 2) mg/dL Ur Leukocyte Esterase (Negative) Urine RBC (0-3) /hpf Ur Squamous Epith Cells (0-5) /hpf Urine Mucus (Occasional) /lpf Micro UA Comment Urine Culture Comments Urine Collection Time hours 08/19/17 Range/Units 15:34 CBC w Diff WBC (4.0-11.0) th/mm3 RBC (4.50-5.90) mil/mm3 Hgb (13.0-17.0) gm/dL Hct (39.0-51.0) % MCV (80.0-100.0) fL MCH (27.0-34.0) pg MCHC (32.0-36.0) % RDW (11.6-17.2) % Plt Count (150-450) th/mm3 MPV (7.0-11.0) fL Neut % (Auto) (16.0-70.0) % Lymph % (Auto) (9.0-44.0) % [place] % (Auto) (0.0-8.0) % Eos % (Auto) (0.0-4.0) % Baso % (Auto) (0.0-2.0) % Neut # (Auto) (1.8-7.7) th/mm3 Lymph # (Auto) (1.0-4.8) th/mm3 [place] # (Auto) (0.0-0.9) th/mm3 Eos # (Auto) (0.0-0.4) th/mm3 Baso # (Auto) (0.0-0.2) th/mm3 WBC Differential Diff Scan Differential Comment Platelet Estimate (Normal) Platelet Morphology (Normal) RBC Morphology (Normal) PT (9.8-11.6) sec INR Ratio APTT (24.3-30.1) sec Sodium (136-145) meq/L Potassium (3.5-5.1) meq/L Chloride (98-107) meq/L Carbon Dioxide (21.0-32.0) meq/L Anion Gap (5-15) meq/L BUN (7-18) mg/dL Creatinine (0.60-1.30) mg/dL Estimated GFR (>89) mL/min Random Glucose (74-106) mg/dL Calcium (8.5-10.1) mg/dL Total Bilirubin (0.2-1.0) mg/dL AST (15-37) U/L ALT (12-78) U/L Alkaline Phosphatase (45-117) U/L Total Protein (6.4-8.2) g/dL Albumin (3.4-5.0) g/dL Lipase (73-393) U/L Ur Collection Type Clean catch Urine Color Yellow (Yellw/Straw) Urine Clarity Clear (Clear) Urine pH 6.0 (5.0-8.5) Ur Specific [place] 1.020 (1.002-1.035) Urine Protein 100 H (Neg-Trace) mg/dL Urine Glucose (UA) Negative (Negative) mg/dL Urine Ketones Negative (Negative) mg/dL Urine Occult Blood Small H (Negative) Urine Nitrate Negative (Negative) Urine Bilirubin Negative (Negative) Urine Urobilinogen 0.2 (Less than 2) mg/dL Ur Leukocyte Esterase Negative (Negative) Urine RBC 0-3 (0-3) /hpf Ur Squamous Epith Cells 0-5 (0-5) /hpf Urine Mucus Few H (Occasional) /lpf Micro UA Comment Culture not ind Urine Culture Comments Culture not ind Urine Collection Time 1534 hours Imaging Data Radiologist's impression: Abdomen/Pelvis CT 08/19/17 14:14 CONCLUSION: Enlarging pseudocyst in the tail the pancreas now measuring 6.7 cm impinging on the greater curvature of the stomach. Hypodense liver compatible with fatty infiltration or hepatocellular disease. Discharge Plan Discharge Disposition Patient Disposition: 30 Still Patient Discharge Condition Condition: Stable Discharge Details Diagnosis: Abdominal pain, Pancreatic pseudocyst, Nausea & vomiting Physicians Team ED Provider: Mary Luevano Primary Care Provider: UNKNOWN, Rxs /Orders / Referrals /Forms Prescriptions: No Action amlodipine 5 mg Tablet 5 mg PO DAILY RF: 0 losartan 25 mg Tablet 25 mg PO DAILY RF: 0 Discharge Interventions Interventions: Vital Signs Last Done: 08/19/17 15:35 Status ED Status: Pending Admission
[2017-08-19 15:05] LABS: Platelet Estimate Normal (Normal); Platelet Morphology Normal (Normal); RBC Morphology Normal (Normal)
[2017-08-19 15:35] LABS: Activated Partial Thrombo Time 24.3 sec (24.3-30.1); INR 0.9 Ratio; Prothrombin Time 9.6 sec (9.8-11.6)
[2017-08-19 15:51] LABS: Bilirubin,Urine Negative (Negative); Clarity,Urine Clear (Clear); Color,Urine Yellow (Yellw/Straw); Glucose,Urine (UA) Negative (Negative); Leukocyte Esterase,Urine Negative (Negative); Nitrite,Urine Negative (Negative); Urobilinogen,Urine 0.2 mg/dL (Less than 2)
[2017-08-19 15:53] LABS: Collection Time,Urine 1534 hours
[2017-08-19 15:55] LABS: RBC,Urine 0-3 /hpf (0-3); Squamous Epithelial Cell,Urine 0-5 /hpf (0-5)
[2017-08-19 15:56] LABS: Mucus,Urine Few /lpf (Occasional)
--- NOTE | 2017-08-19 16:09 | CT ---
EXAM DATE: 08/19/2017 3:26 PM EDT AGE/SEX: 52 years / Male INDICATIONS: Mid abdominal pain with nausea and vomiting for two days. CLINICAL DATA: This is the patient's initial encounter. Patient reports that signs and symptoms have been present for 2 days and indicates a pain score of 4/10. MEDICAL/SURGICAL HISTORY: Hypertension. Pancreatitis. None. ORAL CONTRAST: No oral contrast ingested. RADIATION DOSE: 8.00 CTDI (mGy) COMPARISON: [facility] [place], CT ABDOMEN & PELVIS W CONTRAST, 06/29/2017. . TECHNIQUE: Multiple contiguous axial images were obtained through the abdomen and pelvis following b olus infusion of 95 ml Omnipaque 350 (iohexol) nonionic water-soluble contrast as a single exam dos e. No oral contrast ingested. Using automated exposure control and adjustment of the mA and/or kV ac cording to patient size, radiation dose was kept as low as reasonably achievable to obtain optimal di agnostic quality images. DICOM format image data is available electronically for review and comparis on. FINDINGS: Examination of the lung bases demonstrates no abnormality. No pleural fluid is identified. No pulmona ry nodules are present. There is decreased density of the liver with respect to the spleen compatible with fatty infiltration. The spleen is unremarkable. There is gallbladder distention without evidenc e of stone. There is an enlarging cystic mass in the region of the tail of pancreas most characterist ic of pseudocyst. This now measures 6.7 cm and previously measured 5.8 cm. The spleen is normal in si ze and free of focal defects. The adrenal glands and kidneys appear normal bilaterally. No hydronephr osis or mass lesions are identified. Examination of the pelvis demonstrates no evidence of free fluid or pelvic mass. No abnormally enlarg ed inguinal or retroperitoneal lymph nodes are present. The bladder is unremarkable. CONCLUSION: Enlarging pseudocyst in the tail the pancreas now measuring 6.7 cm impinging on the greater curvature of the stomach. Hypodense liver compatible with fatty infiltration or hepatocellular disease. Electronically signed by: Ja Scott MD 08/19/2017 4:08 PM EDT
[2017-08-19] MEDS: Enoxaparin Inj 40 MG/0.4 ML Syringe SQ SCH (17:01)
[2017-08-19] MEDS: Morphine Sulfate Inj 8 MG/ML Vial IV.PUSH PRN ×2 (19:31→23:15)
[2017-08-20] MEDS: Morphine Sulfate Inj 8 MG/ML Vial IV.PUSH PRN ×7 (03:20→22:50)
--- NOTE | 2017-08-20 10:07 | P.HP ---
History of Present Illness Primary Care Physician: UNKNOWN History of Present Illness: This is a 52-year-old male patient with a known medical history of uncontrolled diabetes, chronic alcoholism, hypertension and chronic pancreatitis who presented to the ED with complaints of abdominal pain, nausea and vomiting. Patient states that his symptoms started last Sunday and have been getting worse since. He has been unable to eat anything for the past 3 days without nausea or vomiting. His pain is located especially in his bilateral lower quadrants, is cramping and sharp in nature, has been persistent over the past week. He does admit to chronic alcoholism, last drink was yesterday morning. When asked about how much he drinks per day he states "just put down too much". He denies any history of DTs or alcohol withdrawals. Denies any history of seizures. Patient denies any recent illness including fever, chills, cough, shortness of breath, dysuria. Patient denies any diarrhea. Denies ever having a colonoscopy in the past. After review of records patient was here last year in August for similar complaints, underwent an EGD which showed severe gastritis and was followed with gastroenterology. At that time he also had acute on chronic pancreatitis. Patient also had a recent hospitalization this year in May 2017, at that time had uncontrolled diabetes as well as a pseudocyst on the abdominal/pelvis CT was diagnosed. At that time the pseudocyst was 6 cm. Upon presentation today the pseudocyst was seen enlarged at 6.7 cm. Patient does not see a PCP and has not followed up with a software reverse engineer in the past. He is noncompliant with medications, was previously homeless and has been admitted last year with DKA. He is not currently taking his insulin. Does take his hypertensive medications. - Diagnosis (1) Abdominal pain (2) Pancreatic pseudocyst (3) Alcohol abuse (4) Chronic pancreatitis (5) Hypokalemia Review of Systems All other systems reviewed negative except as stated in HPI PMFSH - History History Provided By: Patient - Medical History Medical History: Medical History (Last Reviewed 08/19/17 @ 14:55 by Mary Luevano MD) Anxiety HTN (hypertension) Pancreatitis, chronic - Surgical History Surgical History: Surgical History (Last Updated 08/20/17 @ 10:53 by Mary Man) History of arthroplasty of right shoulder Hx of total knee arthroplasty - Family History Family History: Family History (Last Updated 08/20/17 @ 10:53 by Mary Man) Other No significant family history - Tobacco History Second Hand Smoke Exposure: No Tobacco Use In Past 30 Days: Yes Smoking Status: Current every day smoker Tobacco Type: Cigarettes - Alcohol History How Often Do You Have a Drink Containing Alcohol: 4 or more times a week - Substance Use History Substance History: No History of Abuse - Travel History Recent Travel in the [place] Within the Last 8 Weeks: No Recent Travel Out of the Country Within the Last 8 Weeks: No - Immunization History Tetanus Immunization: >5 Years Hx Influenza Vaccine This Season: Yes Medications and Allergies Active Medications: Active Medications Enoxaparin Sodium (Lovenox Inj) 40 mg SQ Q24H [facility] Last Admin: 08/19/17 17:01 Dose: 40 mg Lactated Ringer's (Lr 1000 Ml Inj) 1,000 mls @ 125 mls/hr IV.CONT .Q8H [facility] Last Infusion: 08/20/17 07:10 Dose: 0 mls/hr Morphine Sulfate (Morphine Inj) 5 mg IV.PUSH Q3H PRN PRN Reason: ABDOMINAL PAIN Last Admin: 08/20/17 09:55 Dose: 5 mg Promethazine HCl (Phenergan Inj) 25 mg IM Q6H PRN PRN Reason: NAUSEA OR VOMITING Last Admin: 08/19/17 20:17 Dose: 25 mg Sodium Chloride (Ns Flush) 2 ml IV.FLUSH PRN PRN PRN Reason: FLUSH AFTER USING IV ACCESS Sodium Chloride (Ns Flush) 2 ml IV.FLUSH BID [facility] Last Admin: 08/20/17 08:53 Dose: Not Given Sodium Chloride (Ns Flush) 2 ml IV.FLUSH PRN PRN PRN Reason: FLUSH AFTER USING IV ACCESS Allergies Allergy/AdvReac Type Severity Reaction Status Date / Time lisinopril Allergy Cough Verified 08/19/17 13:58 Home Medications Medication Instructions Recorded Confirmed Type amlodipine 5 mg PO DAILY 08/19/17 08/19/17 History losartan 25 mg PO DAILY 08/19/17 08/19/17 History Exam Vital signs: Vital Signs 08/19/17 13:59 08/19/17 14:14 08/19/17 14:37 Temperature 97.7 F Pulse Rate 102 H 98 H Respiratory Rate 16 18 Blood Pressure 125/57 L 142/97 H Pulse Oximetry 96 98 98 08/19/17 14:54 08/19/17 15:35 08/19/17 17:01 Temperature Pulse Rate 89 Respiratory Rate 20 18 18 Blood Pressure 148/97 H Pulse Oximetry 97 08/19/17 18:48 08/19/17 20:00 08/20/17 00:00 Temperature 97.9 F 99.2 F 99.2 F Pulse Rate 93 H 78 83 Respiratory Rate 20 16 16 Blood Pressure 142/95 H 121/79 138/62 Pulse Oximetry 97 98 97 08/20/17 08:00 Temperature 97.9 F Pulse Rate 80 Respiratory Rate 18 Blood Pressure 149/95 H Pulse Oximetry 97 Intake & Output 08/19/17 08/20/17 08/20/17 18:59 06:59 18:59 Intake Total 702 / 702 798 / 798 Output Total 500 / 500 Balance 798 / 798 Weight 65.9 kg Intake: IV 702 / 702 798 / 798 LR 1000 mL Inj 1,000 ML @ 125 798 / 798 mls/hr IV.CONT .Q8H [facility] Rx#: [id number] NS Inj 500 ML @ Wide Open IV. 500 / 500 SIG BOLUS ONE Rx#:[id number] Oral 0 / 0 Output: Urine 500 / 500 Other: Date of Last Bowel Movement 08/19/17 Weight On Admission 65.9 kg Narrative: GENERAL: Well-developed, well-nourished patient in [facility]. Essential tremors. SKIN: Warm and dry. No rash. HEAD: Normocephalic. Atraumatic. EYES: Pupils equal and round. No scleral icterus. No injection or drainage. ENT: No nasal bleeding or discharge. Mucous membranes pink and moist. NECK: Supple. Trachea midline. CARDIOVASCULAR: Regular rate and rhythm. S1, S2 noted. No murmur appreciated. RESPIRATORY: No accessory muscle use. Clear to auscultation. Breath sounds equal bilaterally. GASTROINTESTINAL: Abdomen soft, nondistended. Normoactive bowel sounds x4. Bilateral lower quadrant pain to palpation. MUSCULOSKELETAL: No obvious deformities. Extremities without clubbing, cyanosis , or edema. NEUROLOGICAL: Awake and alert. No obvious cranial nerve deficits. Motor grossly within normal limits. 5/5 muscle strength in bilateral upper and lower extremities. Normal speech. PSYCHIATRIC: Appropriate mood and affect; insight and judgment normal. - Constitutional mild distress Comments: Possibly going into DTs. With essential tremors. - Routine HEENT Exam Head: Present: normocephalic Eye: Present: EOMI ENT: Present: mucous membranes moist - Routine Neck Exam Present: supple Results - Labs CBC & Chem 7: 08/19/17 14:25 08/19/17 14:25 Labs: Laboratory Results - last 24 hr 08/19/17 08/19/17 08/19/17 14:25 14:25 15:12 CBC w Diff Slide review pending WBC 4.7 RBC 5.12 Hgb 15.4 Hct 47.5 MCV 92.7 MCH 30.1 MCHC 32.5 RDW 14.6 Plt Count 75 L MPV 7.5 Neut % (Auto) 52.1 Lymph % (Auto) 35.9 Stanton % (Auto) 10.1 H Eos % (Auto) 0.2 Baso % (Auto) 1.7 Neut # (Auto) 2.4 Lymph # (Auto) 1.7 Stanton # (Auto) 0.5 Eos # (Auto) 0.0 Baso # (Auto) 0.1 WBC Differential . Diff Scan Auto diff confirmed Differential Comment . Platelet Estimate Normal Platelet Morphology Normal RBC Morphology Normal PT 9.6 L INR 0.9 APTT 24.3 Sodium 143 Potassium 3.0 L Chloride 105 Carbon Dioxide 27.6 Anion Gap 10 BUN 11 Creatinine 0.69 Estimated GFR Greater than 89 Random Glucose 129 H Calcium 8.8 Total Bilirubin 0.6 AST 120 H ALT 96 H Alkaline Phosphatase 65 Total Protein 7.8 Albumin 3.7 Lipase 225 Ur Collection Type Urine Color Urine Clarity Urine pH Ur Specific Dell Urine Protein Urine Glucose (UA) Urine Ketones Urine Occult Blood Urine Nitrate Urine Bilirubin Urine Urobilinogen Ur Leukocyte Esterase Urine RBC Ur Squamous Epith Cells Urine Mucus Micro UA Comment Urine Culture Comments Urine Collection Time 08/19/17 08/20/17 15:34 05:38 CBC w Diff WBC RBC Hgb Hct MCV MCH MCHC RDW Plt Count MPV Neut % (Auto) Lymph % (Auto) Stanton % (Auto) Eos % (Auto) Baso % (Auto) Neut # (Auto) Lymph # (Auto) Stanton # (Auto) Eos # (Auto) Baso # (Auto) WBC Differential Diff Scan Differential Comment Platelet Estimate Platelet Morphology RBC Morphology PT INR APTT Sodium Potassium Chloride Carbon Dioxide Anion Gap BUN Creatinine Estimated GFR Random Glucose Calcium Total Bilirubin AST ALT Alkaline Phosphatase Total Protein Albumin Lipase 96 Ur Collection Type Clean catch Urine Color Yellow Urine Clarity Clear Urine pH 6.0 Ur Specific Dell 1.020 Urine Protein 100 H Urine Glucose (UA) Negative Urine Ketones Negative Urine Occult Blood Small H Urine Nitrate Negative Urine Bilirubin Negative Urine Urobilinogen 0.2 Ur Leukocyte Esterase Negative Urine RBC 0-3 Ur Squamous Epith Cells 0-5 Urine Mucus Few H Micro UA Comment Culture not ind Urine Culture Comments Culture not ind Urine Collection Time 1534 - Imaging Impressions Abdomen/Pelvis CT 08/19/17 14:14 CONCLUSION: Enlarging pseudocyst in the tail the pancreas now measuring 6.7 cm impinging on the greater curvature of the stomach. Hypodense liver compatible with fatty infiltration or hepatocellular disease. Caprini VTE Risk Assessment Caprini VTE Risk Assessment: No/Low Risk (score <= 1) Caprini Risk Assessment Model: Point Value = 1 Point Value = 2 Point Value = 3 Point Value = 5 Age 41-60 Minor surgery BMI > 25 kg/m2 Swollen legs Varicose veins or History of unexplained or recurrent spontaneous Oral contraceptives or hormone replacement Sepsis (< 1 month) Serious lung disease, including pneumonia (< 1 month) Abnormal pulmonary function Acute myocardial infarction Congestive heart failure (< 1 month) History of inflammatory bowel disease Medical patient at bed rest Age 61-74 Arthroscopic surgery Major open surgery (> 45 min) Laparoscopic surgery (> 45 min) Malignancy Confined to bed (> 72 hours) Immobilizing plaster cast Central venous access Age >= 75 History of VTE Family history of VTE Factor V Leiden Prothrombin [id number] Lupus anticoagulant Anticardiolipin antibodies Elevated serum homocysteine Heparin-induced thrombocytopenia Other congenital or acquired thrombophilia Stroke (< 1 month) Elective arthroplasty Hip, pelvis, or leg fracture Acute spinal cord injury (< 1 month) Prophylaxis Regimen: Total Risk Factor Score Risk Level Prophylaxis Regimen 0-1 Low Early ambulation 2 Moderate Order ONE of the following: *Sequential Compression Device (SCD) *Heparin 5000 units SQ BID 3-4 Higher Order ONE of the following medications: *Heparin 5000 units SQ TID *Enoxaparin/Lovenox 40 mg SQ daily (WT < 150 kg, CrCl > 30 mL/min) *Enoxaparin/Lovenox 30 mg SQ daily (WT < 150 kg, CrCl > 10-29 mL/min) *Enoxaparin/Lovenox 30 mg SQ BID (WT < 150 kg, CrCl > 30 mL/min) AND/OR *Sequential Compression Device (SCD) 5 or more Highest Order ONE of the following medications: *Heparin 5000 units SQ TID (Preferred with Epidurals) *Enoxaparin/Lovenox 40 mg SQ daily (WT < 150 kg, CrCl > 30 mL/min) *Enoxaparin/Lovenox 30 mg SQ daily (WT < 150 kg, CrCl > 10-29 mL/min) *Enoxaparin/Lovenox 30 mg SQ BID (WT < 150 kg, CrCl > 30 mL/min) AND *Sequential Compression Device (SCD) Assessment and Plan - Assessment (1) Abdominal pain Code(s): R10.9 - Unspecified abdominal pain Status: Acute (2) Pancreatic pseudocyst Code(s): K86.3 - Pseudocyst of pancreas Status: Acute (3) Alcohol abuse Code(s): F10.10 - Alcohol abuse, uncomplicated Status: Acute (4) Chronic pancreatitis Code(s): K86.1 - Other chronic pancreatitis Status: Acute (5) Hypokalemia Code(s): E87.6 - Hypokalemia Status: Acute - Plan This is a 52-year-old male patient with a known medical history of uncontrolled diabetes, chronic alcoholism, hypertension and chronic pancreatitis who presented to the ED with complaints of abdominal pain, nausea and vomiting. Abdominal pain, nausea and vomiting Enlarging pancreatic pseudocyst - Abdominal CT reviewed showing enlarging pseudocyst on pancreas. Measuring 6.7cm. Previously in 05/23 it was 6cm. - LFTS mildly elevated. Normal total bili. Monitor. - Pain control with Morphine IV per pain scale. Pain may be secondary to enlarging cyst and impingement on stomach. - Continue IVF. Allow clear liquid diet for now. Assess tolerance. - Consult placed to gastroenterology, input and recommendations pending. Previously saw patient back in May. - Phenergan available as needed for nausea. - Supportive care. Chronic pancreatitis Alcohol abuse - Lipase in the 200's upon presentation. CT not indicating patient in acute pancreatitis. - Will continue IVF. - Clear liquid diet. - Monitor for DTs. Placed on CIWA protocol. Patient presently has essential tremors. - Seizure precautions. Close monitoring. - Encouraged cessation of alcohol. CM consulted for assistance with outpatient support. Hypokalemia, mild: K3.0 on presentation. Likely secondary to vomiting and poor PO intake. ED replaced. Will follow BMP. History of diabetes, noncompliant with medications - Accu check ACHS, sliding scale insulin, cover as needed. A1c in May 2017 was 12. Will recheck. Hypertension, chronic: Will continue home BP medications. Monitor BP trends. DVT Prophylaxis: SCDs. Lovenox. (1) Abdominal pain Qualifiers: Abdominal location: generalized Qualified Code(s): R10.84 - Generalized abdominal pain
[2017-08-20] MEDS ORDERED: Haloperidol Inj 5 MG/ML Ampul IV.PUSH PRN (10:55)
[2017-08-20] MEDS ORDERED: Dextrose 50% in Water 50 ML Vial IV.PUSH PRN (11:02)
[2017-08-20] MEDS: amLODIPine 5 MG Tablet PO SCH (12:57)
[2017-08-20] MEDS: Insulin NovoLOG Aspart Correctional Sugar Inj SQ SCH ×3 (13:28→23:00)
[2017-08-20] MEDS: Enoxaparin Inj 40 MG/0.4 ML Syringe SQ SCH (16:47)
--- NOTE | 2017-08-20 17:53 | MB ---
cc: Yamel Ricardo MD DATE: 08/20/2017 REFERRING PHYSICIAN: Dr. Mendoza REASON FOR CONSULTATION: Pancreatic pseudocyst. HISTORY OF PRESENT ILLNESS: Mr. Quispe is a 52-year-old gentleman with history of chronic pancreatitis secondary to alcohol use, came to the emergency room with complaints of abdominal pain, nausea and vomiting. The patient stated this is going on since Sunday and just got worse. The pain is mostly in the lower quadrants, crampy in nature and has been persistent for the last 1 week. He does drink on a regular basis. He does have a history of pancreatic pseudocyst. He was scheduled to have an endoscopic ultrasound as an outpatient, but he never followed through. He stated he has no means to afford this. Denies any fever or chills. There is some weight loss. No diarrhea or constipation. No melena or hematochezia. He is noncompliant with medication and avoiding alcohol. PAST MEDICAL HISTORY: Uncontrolled diabetes, chronic alcohol use, hypertension, chronic pancreatitis, pseudocyst, hypokalemia, anxiety, hypertension. PAST SURGICAL HISTORY: Arthroplasty of the right shoulder, total knee arthroplasty. FAMILY HISTORY: No family history of colon cancer or any other GI pathology. SOCIAL HISTORY: He smoked for many, many years. He does drink alcohol 4 or more times a week. Denies any drug use. MEDICATIONS: Enoxaparin, morphine, Phenergan, amlodipine and losartan. ALLERGIES: LISINOPRIL. REVIEW OF SYSTEMS: CONSTITUTIONAL: He denies any fever or chills. He does have some weight loss. ENT: No alteration of baseline hearing or visual activity. PULMONARY: Denies any chest pain, shortness of breath. GASTROINTESTINAL: As above. GENITOURINARY: Denies dysuria, hematuria. HEMATOLOGICAL: No history of anemia or bleeding disorder. SKIN: No alteration of baseline skin lesion. NEUROLOGIC: No history of TIA or CVA kind of symptoms. PHYSICAL EXAMINATION: GENERAL: He is sitting comfortably in bed, in no acute distress. VITAL SIGNS: Temperature 98.7, pulse 82, respirations 18, blood pressure 154/103. HEENT: PERRLA. NECK: No JVD. No lymphadenopathy. CHEST: Clear to auscultation and palpation. CARDIOVASCULAR: S1, S2. No murmur. ABDOMEN: Soft, tender in the left upper quadrant and left lower quadrant. CENTRAL NERVOUS SYSTEM: Awake, alert, oriented x 3. No focal signs identified. SKIN: No alteration in baseline skin lesion. LABORATORY DATA: His hemoglobin is 15.4, white count 4.7, platelets 75. PT, INR normal. His chemistry suggestive of a glucose of 129. His AST 120, ALT 96, lipase 97. PT, INR normal. The patient also had a CT of the abdomen and pelvis that showed enlarging pseudocyst in the tail of the pancreas, now measuring 6.7 cm, impinging on the greater curvature of the stomach. Hypodense liver compatible with fatty infiltration of the liver and hepatocellular disease. IMPRESSION: Nausea and vomiting, abdominal pain, most likely secondary to chronic pancreatitis, noncompliance to medication, continued to use alcohol, enlarging pseudocyst, doubt this is a cause of his problems. RECOMMENDATIONS: Clear liquid diet. Transfer to the main hospital for endoscopic ultrasound and possible drainage of the pseudocyst. Please notify GI when the patient arrives to the main so we can make arrangement for endoscopic ultrasound. Supportive care. The patient was counseled on stopping alcohol. Thank you again. We will continue to follow the patient along with you. MD MARILIA Winkler/OZ , 05:26 PM , 05:52 PM
[2017-08-20 18:05] LABS: Hemoglobin A1c 8.3 % (4.3-6.0)
[2017-08-21] MEDS: Morphine Sulfate Inj 8 MG/ML Vial IV.PUSH PRN ×3 (01:53→08:35)
[2017-08-21] MEDS: LORazepam 1 MG Tablet PO PRN (02:02)
[2017-08-21 04:49] LABS: Baso % (Auto) 0.5 % (0.0-2.0); Eos % (Auto) 1.1 % (0.0-4.0); Hematocrit 41.4 % (39.0-51.0); Hemoglobin 14.1 gm/dL (13.0-17.0); Lymph # (Auto) 1.3 th/mm3 (1.0-4.8); Lymph % (Auto) 38.7 % (9.0-44.0); Mean Corpuscular HGB Conc 34.1 % (32.0-36.0); Mean Corpuscular Hemoglobin 30.3 pg (27.0-34.0); Mean Corpuscular Volume 88.7 fL (80.0-100.0); Mean Platelet Volume 7.7 fL (7.0-11.0); Mono # (Auto) 0.4 th/mm3 (0.0-0.9); Neut # (Auto) 1.5 th/mm3 (1.8-7.7); Neut % (Auto) 46.7 % (16.0-70.0); Platelet Count 51 th/mm3 (150-450); Red Blood Count 4.66 mil/mm3 (4.50-5.90); Red Cell Distribution Width 14.8 % (11.6-17.2); White Blood Count 3.3 th/mm3 (4.0-11.0)
[2017-08-21 05:09] LABS: Alanine Aminotransferase 115 U/L (12-78); Albumin 3.5 g/dL (3.4-5.0); Alkaline Phosphatase 83 U/L (45-117); Anion Gap 9 meq/L (5-15); Aspartate Aminotransferase 283 U/L (15-37); Blood Urea Nitrogen 6 mg/dL (7-18); Carbon Dioxide 31.9 meq/L (21.0-32.0); Chloride 95 meq/L (98-107); Glomerular Filtration Rate Greater Than 89 mL/min (>89); Glucose,Random 90 mg/dL (74-106); Sodium 136 meq/L (136-145); Total Protein 7.1 g/dL (6.4-8.2)
[2017-08-21 05:20] LABS: Potassium 2.9 meq/L (3.5-5.1)
[2017-08-21 05:27] LABS: Platelet Morphology Normal (Normal)
[2017-08-21 05:28] LABS: RBC Morphology Normal (Normal)
[2017-08-21] MEDS ORDERED: Mag Sulf 1 gm/100 ml Premix 100 ML IV.SIG ONE (05:55)
[2017-08-21] MEDS ORDERED: Sodium Chlor 0.9% Inj 250 ML IV.SIG SCH (06:00)
[2017-08-21] MEDS: Potassium Chlor 20 mEq Premix 20 MEQ/100 ML PIGGYBACK IV.SIG SCH ×2 (06:19→15:30)
[2017-08-21] MEDS: Insulin NovoLOG Aspart Correctional Sugar Inj SQ SCH ×3 (08:00→20:13)
[2017-08-21] MEDS: amLODIPine 5 MG Tablet PO SCH (08:20)
[2017-08-21] MEDS ORDERED: Lidocaine PF 1% Inj 5 ML Syringe INFILTRATN ONE (12:00)
[2017-08-21] MEDS ORDERED: Glycopyrrolate Inj 1 MG/5 ML Syringe IV.PUSH ONE (12:00)
[2017-08-21] MEDS ORDERED: Neostigmine Inj 5 MG/5 ML Syringe IV.PUSH ONE (12:00)
[2017-08-21] MEDS ORDERED: Sodium Chlor 0.9% Inj 250 ML IV.SIG ONE (12:00)
[2017-08-21] MEDS ORDERED: Phenylephrine/NS 1000 MCG/10ML Syringe IV.PUSH ONE (12:00)
--- NOTE | 2017-08-21 14:48 | P.PCN ---
Date of procedure: 08/21/17 Pre-op diagnosis: Pancreatic pseudocyst with abdominal pain nausea and vomiting Post-op diagnosis: same Procedure: PROCEDURE PERFORMED EGD followed by EUS with FNA INDICATION FOR PROCEDURE Enlarging pancreatic pseudocyst with complaints of abdominal pain nausea and vomiting PROCEDURE: The procedure, risks and benefits were discussed with Patient/POA and informed consent was obtained. Anesthesia sedated Patient with Diprivan. Patient was placed in the left lateral decubitus position. EGD: The Pentax videoscope was introduced through the oropharynx and advanced to the second portion of the duodenum under direct visualization. Retroflexion was performed in the stomach. FINDINGS: The esophagus this was normal The stomach the gastric mucosa appeared to be diffusely edematous with patchy erythema suggestive of gastropathy no varices noted no blood or bleeding. Bulging was seen on the posterior wall of the gastric body The duodenum this was normal EUS: The Pentax videoscope was introduced through the oropharynx and advanced to the stomach. FINDINGS: Using the linear scope a large pseudocyst was identified measuring 5 x 6 cm using a 19-gauge aspiration needle I was able to drain the cyst dry the fluid was sent for analysis No regional lymphadenopathy noted Pancreatic parenchyma had calcified specks suggestive of chronic pancreatitis but otherwise unremarkable ESTIMATED BLOOD LOSS: None SPECIMENS REMOVED: Cyst fluid COMPLICATIONS: None IMPRESSION: [place] gastropathy Pancreatic pseudocyst PLAN: Await fluid analysis Encourage alcohol abstinence Advance diet as tolerated Follow-up with GI post discharge Vancomycin was given during the procedure prophylactically Anesthesia: ANITA Surgeon: Rigoberto Moses Pathology: other Condition: stable Disposition: floor
[2017-08-21] MEDS ORDERED: fentaNYL Citrate Inj 100 MCG/2 ML Ampul ONE (15:15)
--- NOTE | 2017-08-21 16:13 | P.PN ---
Subjective Interval history: 52-year-old male with known history of chronic alcoholism, chronic pancreatitis who was seen and examined today for follow-up on abdominal pain, nausea, vomiting. Patient had workup done and found to have pseudocyst. Patient was taken to procedure today and pseudocyst was completely aspirated. Patient is sitting in bed. Does not appear to be in any pain or discomfort. Diet has been advanced. GI recommending waiting for results of fluid. Patient vital signs are stable, patient is afebrile. Physical Exam Vital signs: Vital Signs 08/20/17 21:01 08/21/17 00:47 08/21/17 08:00 Temperature 98.4 F 98.6 F 97.9 F Pulse Rate 81 94 H 76 Respiratory Rate 18 20 17 Blood Pressure 145/96 H 156/98 H 131/94 H Pulse Oximetry 98 96 99 08/21/17 15:05 08/21/17 15:15 08/21/17 15:30 Temperature 98.0 F 98.0 F Pulse Rate 88 72 81 Respiratory Rate 11 L 15 24 Blood Pressure 138/89 125/84 133/89 Pulse Oximetry 100 97 98 Intake & Output 08/20/17 08/21/17 08/21/17 18:59 06:59 18:59 Intake Total 1360 / 1360 2480 / 2480 854 / 854 Output Total 750 / 750 Balance 1360 / 1360 1730 / 1730 854 / 854 Weight 65.9 kg Intake: IV 1000 / 1000 1999 / 1999 854 / 854 LR 1000 mL Inj 1,000 ML @ 125 1000 / 1000 1999 / 1999 700 / 700 mls/hr IV.CONT .Q8H DANE Rx#: [id number] KCl 20 mEq Premix Inj 20 meq In 154 / 154 100 ml @ 50 mls/hr IV.SIG Q2H DANE Rx#:[id number] Oral 360 / 360 480 / 480 Output: Urine 750 / 750 Other: # Voids 5 Date of Last Bowel Movement 08/19/17 08/20/17 # Bowel Movements 0 Narrative: GENERAL: Well-developed, well-nourished, in no acute distress. alert and orientated HEENT: Head is normocephalic without any lesions or masses noted. Facial features are symmetric. Eyes: Extraocular muscles are intact. Conjunctivae were clear. NECK: Supple without any masses. Trachea midline no deviation. No JVD, CARDIAC: Regular rhythm, regular rate. S1/S2 are heard. No murmurs gallops or rubs. LUNGS: Clear to auscultation bilaterally. No wheeze, rhonchi or rales. No use of accessory muscles on inspiration or expiration. ABDOMEN: Soft, nontender. Nondistended. Bowel sounds heard in all 4 quadrants. No organomegaly or masses. Negative rebound, negative guarding EXTREMITIES: No edema, pulses are equal bilaterally. No cyanosis or clubbing NEUROLOGY: Mood and affect appear appropriate. Cranial nerves II through XII grossly intact. Moving all extremities, speech is clear Results - Labs CBC & Chem 7: 08/21/17 04:10 08/21/17 10:55 Laboratory Results - last 24 hr 08/20/17 08/20/17 08/20/17 05:38 16:41 22:34 WBC RBC Hgb Hct MCV MCH MCHC RDW Plt Count MPV Prelim Diff (Auto) Neut % (Auto) Lymph % (Auto) [place] % (Auto) Eos % (Auto) Baso % (Auto) Neut # (Auto) Lymph # (Auto) [place] # (Auto) Eos # (Auto) Baso # (Auto) WBC Differential Diff Scan Differential Comment Platelet Estimate Platelet Morphology RBC Morphology Sodium Potassium Chloride Carbon Dioxide Anion Gap BUN Creatinine Estimated GFR POC Glucose 179 H 87 Random Glucose Hemoglobin A1c 8.3 H Calcium Magnesium Total Bilirubin AST ALT Alkaline Phosphatase Total Protein Albumin Blood Type Blood Type Recheck Antibody Screen Bld Prod Order Comment 08/21/17 08/21/17 08/21/17 04:10 04:10 04:10 WBC 3.3 L RBC 4.66 Hgb 14.1 Hct 41.4 MCV 88.7 D MCH 30.3 MCHC 34.1 RDW 14.8 Plt Count 51 L D MPV 7.7 Prelim Diff (Auto) Slide review pending Neut % (Auto) 46.7 Lymph % (Auto) 38.7 [place] % (Auto) 13.0 H Eos % (Auto) 1.1 Baso % (Auto) 0.5 Neut # (Auto) 1.5 L Lymph # (Auto) 1.3 [place] # (Auto) 0.4 Eos # (Auto) 0.0 Baso # (Auto) 0.0 WBC Differential . Diff Scan Auto diff confirmed Differential Comment . Platelet Estimate Low L Platelet Morphology Normal RBC Morphology Normal Sodium 136 Potassium 2.9 L* Chloride 95 L D Carbon Dioxide 31.9 Anion Gap 9 BUN 6 L Creatinine 0.64 Estimated GFR Greater than 89 POC Glucose Random Glucose 90 Hemoglobin A1c Calcium 9.0 Magnesium 1.1 L Total Bilirubin 2.6 H AST 283 H ALT 115 H Alkaline Phosphatase 83 Total Protein 7.1 D Albumin 3.5 Blood Type Blood Type Recheck Antibody Screen Bld Prod Order Comment 08/21/17 08/21/17 08/21/17 09:00 09:05 10:55 WBC RBC Hgb Hct MCV MCH MCHC RDW Plt Count MPV Prelim Diff (Auto) Neut % (Auto) Lymph % (Auto) [place] % (Auto) Eos % (Auto) Baso % (Auto) Neut # (Auto) Lymph # (Auto) [place] # (Auto) Eos # (Auto) Baso # (Auto) WBC Differential Diff Scan Differential Comment Platelet Estimate Platelet Morphology RBC Morphology Sodium Potassium 3.4 L Chloride Carbon Dioxide Anion Gap BUN Creatinine Estimated GFR POC Glucose Random Glucose Hemoglobin A1c Calcium Magnesium Total Bilirubin AST ALT Alkaline Phosphatase Total Protein Albumin Blood Type A Positive Blood Type Recheck Required Antibody Screen Negative Bld Prod Order Comment Assessment and Plan - Assessment (1) Abdominal pain Code(s): R10.9 - Unspecified abdominal pain Status: Acute (2) Pancreatic pseudocyst Code(s): K86.3 - Pseudocyst of pancreas Status: Acute (3) Alcohol abuse Code(s): F10.10 - Alcohol abuse, uncomplicated Status: Acute (4) Chronic pancreatitis Code(s): K86.1 - Other chronic pancreatitis Status: Acute (5) Hypokalemia Code(s): E87.6 - Hypokalemia Status: Acute - Plan Acute on chronic pancreatitis with acute onset of abdominal pain, nausea, vomiting -Likely secondary to enlarging pseudocyst -Abdominal CT reviewed showing enlarging pseudocyst on pancreas. Measuring 6.7cm. Previously in 05/23 it was 6cm. -LFTs and bilirubin are worsening, check hepatitis profile -Patient has undergone endoscopy with complete drainage of the pseudocyst -Diet has been advanced -Start oxycodone 5 4 pain 1-5, oxycodone 10 for pain 6-10, morphine for breakthrough pain -Continue IV fluids -Gastroenterology is following the patient Alcohol abuse -[facility] protocol. Patient presently has essential tremors. -Seizure precautions. Close monitoring. -Encouraged cessation of alcohol. CM consulted for assistance with outpatient support. Electrolyte abnormalities -Patient with hypokalemia, hypomagnesemia -Continue monitor and replete as needed History of diabetes, noncompliant with medications -Accu check ACHS, sliding scale insulin, cover as needed. -A1c in May 2017 was 12. Hemoglobin A1c now is 8.3 Hypertension, chronic: -Home medications have been continued DVT Prophylaxis: -Sequential compression devices -Subcutaneous Lovenox Discharge Planning: Hopefully discharge planning tomorrow home without any needs once cleared by GI , clinically stable (1) Abdominal pain Qualifiers: Abdominal location: generalized Qualified Code(s): R10.84 - Generalized abdominal pain
[2017-08-21] MEDS: Morphine Sulfate Inj 2 MG/ML Vial IV.PUSH PRN ×2 (19:03→21:14)
[2017-08-22] MEDS: Morphine Sulfate Inj 2 MG/ML Vial IV.PUSH PRN ×2 (03:09→06:39)
[2017-08-22] MEDS: amLODIPine 5 MG Tablet PO SCH (08:15)
[2017-08-22] MEDS: Insulin NovoLOG Aspart Correctional Sugar Inj SQ SCH ×4 (08:22→22:27)
[2017-08-22 09:05] LABS: Baso % (Auto) 0.3 % (0.0-2.0); Eos % (Auto) 0.7 % (0.0-4.0); Hematocrit 43.8 % (39.0-51.0); Hemoglobin 14.7 gm/dL (13.0-17.0); Lymph % (Auto) 26.2 % (9.0-44.0); Mean Corpuscular HGB Conc 33.6 % (32.0-36.0); Mean Corpuscular Hemoglobin 30.4 pg (27.0-34.0); Mean Corpuscular Volume 90.7 fL (80.0-100.0); Mono # (Auto) 0.4 th/mm3 (0.0-0.9); Neut # (Auto) 2.5 th/mm3 (1.8-7.7); Neut % (Auto) 62.8 % (16.0-70.0); Platelet Count 66 th/mm3 (150-450); Red Blood Count 4.83 mil/mm3 (4.50-5.90); Red Cell Distribution Width 15.2 % (11.6-17.2)
[2017-08-22 09:34] LABS: Alanine Aminotransferase 230 U/L (12-78); Albumin 3.8 g/dL (3.4-5.0); Alkaline Phosphatase 112 U/L (45-117); Anion Gap 12 meq/L (5-15); Aspartate Aminotransferase 329 U/L (15-37); Blood Urea Nitrogen 9 mg/dL (7-18); Calcium 10.5 mg/dL (8.5-10.1); Carbon Dioxide 27.5 meq/L (21.0-32.0); Chloride 94 meq/L (98-107); Glomerular Filtration Rate Greater Than 89 mL/min (>89); Glucose,Random 184 mg/dL (74-106); Magnesium 1.5 mg/dL (1.5-2.5); Potassium 4.1 meq/L (3.5-5.1); Sodium 133 meq/L (136-145); Total Protein 8.1 g/dL (6.4-8.2)
[2017-08-22 10:39] LABS: Hepatitis A IgM Antibody Nonreactive (Nonreactive); Hepatitits B Surface Antigen Nonreactive (Nonreactive)
[2017-08-22 10:43] LABS: Platelet Morphology Normal (Normal)
[2017-08-22] MEDS: Morphine Inj 4 MG/ML Vial IV.PUSH PRN ×3 (10:48→20:38)
[2017-08-22] MEDS: LORazepam 1 MG Tablet PO PRN ×2 (12:04→23:52)
--- NOTE | 2017-08-22 15:18 | P.PNGI ---
Subjective Interval history: Pt resting in bed. Reports felt good last night, was able to eat regular food for dinner. This morning he complaints of some abdominal pain, rated 6/10, described as dull, located mostly in his lower abdomen. Also with some nausea today, diet changed back to liquids to see how pt will tolerate. <Fabiana Solis - Last Filed: 08/22/17 15:07> Physical Exam Vital signs: Vital Signs 08/21/17 15:15 08/21/17 15:30 08/21/17 20:32 Temperature 98.0 F 97.8 F Pulse Rate 72 81 88 Respiratory Rate 15 24 18 Blood Pressure 125/84 133/89 134/87 Pulse Oximetry 97 98 97 08/22/17 00:12 08/22/17 07:37 08/22/17 08:00 Temperature 98.1 F 97.6 F Pulse Rate 72 69 Respiratory Rate 17 20 18 Blood Pressure 121/81 148/95 H Pulse Oximetry 96 99 08/22/17 12:00 08/22/17 12:04 08/22/17 13:17 Temperature 97.7 F Pulse Rate 70 Respiratory Rate 16 20 20 Blood Pressure 139/92 H Pulse Oximetry 100 Intake & Output 08/21/17 08/22/17 08/22/17 18:59 06:59 18:59 Intake Total 1094 / 1094 760 / 760 Balance 1094 / 1094 760 / 760 Weight 66 kg Intake: IV 854 / 854 LR 1000 mL Inj 1,000 ML @ 125 700 / 700 mls/hr IV.CONT .Q8H DANE Rx#: [id number] KCl 20 mEq Premix Inj 20 meq In 154 / 154 100 ml @ 50 mls/hr IV.SIG Q2H DANE Rx#:[id number] Oral 240 / 240 760 / 760 Other: # Voids 3 4 Date of Last Bowel Movement 08/21/17 # Bowel Movements 1 - Constitutional no acute distress - Routine HEENT Exam Head: Present: normocephalic, atraumatic - Routine Respiratory Exam Absent: accessory muscle use - Routine Cardiovascular Exam Present: RRR - Routine Abdominal Exam Present: soft, normoactive bowel sounds, tenderness (lower/mid abdominal tenderness ). Absent: distended - Routine Skin Exam Present: dry, warm - Routine Neurological Exam Present: alert, oriented X3 <Fabiana Solis - Last Filed: 08/22/17 15:07> Vital signs: Vital Signs 08/22/17 00:12 08/22/17 07:37 08/22/17 08:00 Temperature 98.1 F 97.6 F Pulse Rate 72 69 Respiratory Rate 17 20 18 Blood Pressure 121/81 148/95 H Pulse Oximetry 96 99 08/22/17 12:00 08/22/17 12:04 08/22/17 13:17 Temperature 97.7 F Pulse Rate 70 Respiratory Rate 16 20 20 Blood Pressure 139/92 H Pulse Oximetry 100 08/22/17 16:00 08/22/17 16:02 Temperature 98.0 F Pulse Rate 74 Respiratory Rate 18 20 Blood Pressure 134/91 H Pulse Oximetry 99 Intake & Output 08/22/17 08/22/17 08/23/17 06:59 18:59 06:59 Intake Total 760 / 760 4200 / 4200 Balance 760 / 760 4200 / 4200 Weight 66 kg Intake: IV 2000 / 2000 LR 1000 mL Inj 1,000 ML @ 125 2000 / 2000 mls/hr IV.CONT .Q8H DANE Rx#: [id number] Oral 760 / 760 2200 / 2200 Other: # Voids 4 6 Date of Last Bowel Movement 08/21/17 # Bowel Movements 1 <Rigoberto Moses - Last Filed: 08/22/17 22:30> Results - Labs CBC & Chem 7: 08/22/17 08:40 08/22/17 08:40 Laboratory Results - last 24 hr 08/21/17 08/21/17 08/21/17 09:05 14:35 20:07 WBC RBC Hgb Hct MCV MCH MCHC RDW Plt Count MPV Prelim Diff (Auto) Neut % (Auto) Lymph % (Auto) [place] % (Auto) Eos % (Auto) Baso % (Auto) Neut # (Auto) Lymph # (Auto) [place] # (Auto) Eos # (Auto) Baso # (Auto) WBC Differential Diff Scan Differential Comment Platelet Estimate Platelet Morphology Sodium Potassium Chloride Carbon Dioxide Anion Gap BUN Creatinine Estimated GFR POC Glucose 265 H Random Glucose Calcium Magnesium Total Bilirubin AST ALT Alkaline Phosphatase Total Protein Albumin Lipase Carcinoembryonic Ag Hepatitis A IgM Ab Hep Bs Antigen Hep B Core IgM Ab Hep C IgG Ab Misc Test Result Bld Prod Order Comment 0708/22/17 08/22/17 07:39 08:40 08:40 WBC RBC Hgb Hct MCV MCH MCHC RDW Plt Count MPV Prelim Diff (Auto) Neut % (Auto) Lymph % (Auto) [place] % (Auto) Eos % (Auto) Baso % (Auto) Neut # (Auto) Lymph # (Auto) [place] # (Auto) Eos # (Auto) Baso # (Auto) WBC Differential Diff Scan Differential Comment Platelet Estimate Platelet Morphology Sodium Potassium Chloride Carbon Dioxide Anion Gap BUN Creatinine Estimated GFR POC Glucose 257 H Random Glucose Calcium Magnesium Total Bilirubin AST ALT Alkaline Phosphatase Total Protein Albumin Lipase Carcinoembryonic Ag 3.5 Hepatitis A IgM Ab Nonreactive Hep Bs Antigen Nonreactive Hep B Core IgM Ab Nonreactive Hep C IgG Ab Nonreactive Misc Test Result Bld Prod Order Comment 08/22/17 08/22/17 08/22/17 08:40 08:40 08:40 WBC 4.0 RBC 4.83 Hgb 14.7 Hct 43.8 MCV 90.7 MCH 30.4 MCHC 33.6 RDW 15.2 Plt Count 66 L MPV 8.0 Prelim Diff (Auto) Slide review pending Neut % (Auto) 62.8 Lymph % (Auto) 26.2 [place] % (Auto) 10.0 H Eos % (Auto) 0.7 Baso % (Auto) 0.3 Neut # (Auto) 2.5 Lymph # (Auto) 1.0 [place] # (Auto) 0.4 Eos # (Auto) 0.0 Baso # (Auto) 0.0 WBC Differential . Diff Scan Auto diff confirmed Differential Comment . Platelet Estimate Low L Platelet Morphology Normal Sodium 133 L Potassium 4.1 Chloride 94 L Carbon Dioxide 27.5 Anion Gap 12 BUN 9 Creatinine 0.88 Estimated GFR Greater than 89 POC Glucose Random Glucose 184 H Calcium 10.5 H D Magnesium 1.5 Total Bilirubin 2.3 H AST 329 H ALT 230 H Alkaline Phosphatase 112 Total Protein 8.1 D Albumin 3.8 Lipase 52 L Carcinoembryonic Ag Hepatitis A IgM Ab Hep Bs Antigen Hep B Core IgM Ab Hep C IgG Ab Misc Test Result Bld Prod Order Comment 08/22/17 12:07 WBC RBC Hgb Hct MCV MCH MCHC RDW Plt Count MPV Prelim Diff (Auto) Neut % (Auto) Lymph % (Auto) [place] % (Auto) Eos % (Auto) Baso % (Auto) Neut # (Auto) Lymph # (Auto) [place] # (Auto) Eos # (Auto) Baso # (Auto) WBC Differential Diff Scan Differential Comment Platelet Estimate Platelet Morphology Sodium Potassium Chloride Carbon Dioxide Anion Gap BUN Creatinine Estimated GFR POC Glucose 160 H Random Glucose Calcium Magnesium Total Bilirubin AST ALT Alkaline Phosphatase Total Protein Albumin Lipase Carcinoembryonic Ag Hepatitis A IgM Ab Hep Bs Antigen Hep B Core IgM Ab Hep C IgG Ab Misc Test Result Bld Prod Order Comment Microbiology 08/21/17 14:35 Fluid - Pancreatic Fluid Gram Stain - Final 08/21/17 14:35 Fluid - Pancreatic Fluid Body Fluid Culture - Preliminary gram negative rods <Fabiana Solis - Last Filed: 08/22/17 15:07> - Labs CBC & Chem 7: 08/22/17 08:40 08/22/17 08:40 Laboratory Results - last 24 hr 08/21/17 08/22/17 08/22/17 09:05 07:39 08:40 WBC RBC Hgb Hct MCV MCH MCHC RDW Plt Count MPV Prelim Diff (Auto) Neut % (Auto) Lymph % (Auto) [place] % (Auto) Eos % (Auto) Baso % (Auto) Neut # (Auto) Lymph # (Auto) [place] # (Auto) Eos # (Auto) Baso # (Auto) WBC Differential Diff Scan Differential Comment Platelet Estimate Platelet Morphology Sodium Potassium Chloride Carbon Dioxide Anion Gap BUN Creatinine Estimated GFR POC Glucose 257 H Random Glucose Calcium Magnesium Total Bilirubin AST ALT Alkaline Phosphatase Total Protein Albumin Lipase Carcinoembryonic Ag 3.5 Hepatitis A IgM Ab Hep Bs Antigen Hep B Core IgM Ab Hep C IgG Ab Bld Prod Order Comment 08/22/17 08/22/17 08/22/17 08:40 08:40 08:40 WBC 4.0 RBC 4.83 Hgb 14.7 Hct 43.8 MCV 90.7 MCH 30.4 MCHC 33.6 RDW 15.2 Plt Count 66 L MPV 8.0 Prelim Diff (Auto) Slide review pending Neut % (Auto) 62.8 Lymph % (Auto) 26.2 [place] % (Auto) 10.0 H Eos % (Auto) 0.7 Baso % (Auto) 0.3 Neut # (Auto) 2.5 Lymph # (Auto) 1.0 [place] # (Auto) 0.4 Eos # (Auto) 0.0 Baso # (Auto) 0.0 WBC Differential . Diff Scan Auto diff confirmed Differential Comment . Platelet Estimate Low L Platelet Morphology Normal Sodium 133 L Potassium 4.1 Chloride 94 L Carbon Dioxide 27.5 Anion Gap 12 BUN 9 Creatinine 0.88 Estimated GFR Greater than 89 POC Glucose Random Glucose 184 H Calcium 10.5 H D Magnesium 1.5 Total Bilirubin 2.3 H AST 329 H ALT 230 H Alkaline Phosphatase 112 Total Protein 8.1 D Albumin 3.8 Lipase Carcinoembryonic Ag Hepatitis A IgM Ab Nonreactive Hep Bs Antigen Nonreactive Hep B Core IgM Ab Nonreactive Hep C IgG Ab Nonreactive Bld Prod Order Comment 08/22/17 08/22/17 08/22/17 08:40 12:07 16:02 WBC RBC Hgb Hct MCV MCH MCHC RDW Plt Count MPV Prelim Diff (Auto) Neut % (Auto) Lymph % (Auto) [place] % (Auto) Eos % (Auto) Baso % (Auto) Neut # (Auto) Lymph # (Auto) [place] # (Auto) Eos # (Auto) Baso # (Auto) WBC Differential Diff Scan Differential Comment Platelet Estimate Platelet Morphology Sodium Potassium Chloride Carbon Dioxide Anion Gap BUN Creatinine Estimated GFR POC Glucose 160 H 215 H Random Glucose Calcium Magnesium Total Bilirubin AST ALT Alkaline Phosphatase Total Protein Albumin Lipase 52 L Carcinoembryonic Ag Hepatitis A IgM Ab Hep Bs Antigen Hep B Core IgM Ab Hep C IgG Ab Bld Prod Order Comment Microbiology 08/21/17 14:35 Fluid - Pancreatic Fluid Gram Stain - Final 08/21/17 14:35 Fluid - Pancreatic Fluid Body Fluid Culture - Preliminary gram negative rods <Rigoberto Moses - Last Filed: 08/22/17 22:30> Assessment and Plan - Plan Assessment: - Chronic pancreatitis secondary to ETOH abuse with pancreatic pseudocyst S/P EGD/EUS which revealed bauer gastropathy, and pancreatic pseudocyst 5 x 6 cm, S/P aspiration to drain the cyst dry, fluid sent for analysis. No regional lymphadenopathy noted. Pancreatic parenchyma had calcified specks suggestive of chronic pancreatitis but otherwise unremarkable. (08/22) S/P procedure yesterday, pt reports was feeling well last night and able to tolerate regular food for dinner. This morning has had some abdominal pain and nausea, diet changed to clear liquids by attending. LFTs noted to be more elevated today. (08/22) AST-329 ALT-230 Alk phos-112 T bili-2.3 Lipase-51 Plan: Fluid culture pending ETOH abstinence Agree with clear liquids, advance if tolerating Repeat LFTs in AM If symptoms and LFTs improved, OK to DC in AM with GI follow up Pt has been seen and examined by myself and Dr. Moses and this note is written on his behalf <Fabiana Solis - Last Filed: 08/22/17 15:07> - Attending Attestation Patient seen and examined Agree with above Continue with current supportive care Monitor labs Elevation of LFTs is of unclear significance at this point we will await the repeat tomorrow <Rigoberto Moses - Last Filed: 08/22/17 22:30>
[2017-08-22] MEDS: Enoxaparin Inj 40 MG/0.4 ML Syringe SQ SCH (16:23)
--- NOTE | 2017-08-22 16:25 | P.PN ---
Subjective Interval history: RN denies any deterioration overnight. Patient himself says that he has had worsening pain with eating solid meals. Says he ate turkey last night and eggs this morning and her to eat. Does report having some nausea but no monica vomiting. Also says he [facility] 11 AM is willing to leave AGAINST MEDICAL ADVICE just to catch his appointment. His LFTs were noted to become elevated since her last check. Underwent endoscopic procedure yesterday with drainage of pancreatic pseudocyst. Physical Exam Vital signs: Vital Signs 08/21/17 20:32 08/22/17 00:12 08/22/17 07:37 Temperature 97.8 F 98.1 F Pulse Rate 88 72 Respiratory Rate 18 17 20 Blood Pressure 134/87 121/81 Pulse Oximetry 97 96 08/22/17 08:00 08/22/17 12:00 08/22/17 12:04 Temperature 97.6 F 97.7 F Pulse Rate 69 70 Respiratory Rate 18 16 20 Blood Pressure 148/95 H 139/92 H Pulse Oximetry 99 100 08/22/17 13:17 08/22/17 16:02 Temperature Pulse Rate Respiratory Rate 20 20 Blood Pressure Pulse Oximetry Intake & Output 08/21/17 08/22/17 08/22/17 18:59 06:59 18:59 Intake Total 1094 / 1094 760 / 760 1999 Balance 1094 / 1094 760 / 760 1999 Weight 66 kg Intake: IV 854 / 854 1999 / 1999 LR 1000 mL Inj 1,000 ML @ 125 700 / 700 1999 / 1999 mls/hr IV.CONT .Q8H DANE Rx#: [id number] KCl 20 mEq Premix Inj 20 meq In 154 / 154 100 ml @ 50 mls/hr IV.SIG Q2H DANE Rx#:[id number] Oral 240 / 240 760 / 760 Other: # Voids 3 4 Date of Last Bowel Movement 08/21/17 # Bowel Movements 1 Narrative: Abdomen soft, mild tender to palpation diffusely with no involuntary guarding, nondistended Unlabored breathing Results - Labs CBC & Chem 7: 08/22/17 08:40 08/22/17 08:40 Laboratory Results - last 24 hr 08/21/17 08/21/17 08/21/17 09:05 14:35 20:07 WBC RBC Hgb Hct MCV MCH MCHC RDW Plt Count MPV Prelim Diff (Auto) Neut % (Auto) Lymph % (Auto) [place] % (Auto) Eos % (Auto) Baso % (Auto) Neut # (Auto) Lymph # (Auto) [place] # (Auto) Eos # (Auto) Baso # (Auto) WBC Differential Diff Scan Differential Comment Platelet Estimate Platelet Morphology Sodium Potassium Chloride Carbon Dioxide Anion Gap BUN Creatinine Estimated GFR POC Glucose 265 H Random Glucose Calcium Magnesium Total Bilirubin AST ALT Alkaline Phosphatase Total Protein Albumin Lipase Carcinoembryonic Ag Hepatitis A IgM Ab Hep Bs Antigen Hep B Core IgM Ab Hep C IgG Ab Misc Test Result Bld Prod Order Comment 08/22/17 08/22/17 08/22/17 07:39 08:40 08:40 WBC RBC Hgb Hct MCV MCH MCHC RDW Plt Count MPV Prelim Diff (Auto) Neut % (Auto) Lymph % (Auto) [place] % (Auto) Eos % (Auto) Baso % (Auto) Neut # (Auto) Lymph # (Auto) [place] # (Auto) Eos # (Auto) Baso # (Auto) WBC Differential Diff Scan Differential Comment Platelet Estimate Platelet Morphology Sodium Potassium Chloride Carbon Dioxide Anion Gap BUN Creatinine Estimated GFR POC Glucose 257 H Random Glucose Calcium Magnesium Total Bilirubin AST ALT Alkaline Phosphatase Total Protein Albumin Lipase Carcinoembryonic Ag 3.5 Hepatitis A IgM Ab Nonreactive Hep Bs Antigen Nonreactive Hep B Core IgM Ab Nonreactive Hep C IgG Ab Nonreactive Misc Test Result Bld Prod Order Comment 08/22/17 08/22/17 08/22/17 08:40 08:40 08:40 WBC 4.0 RBC 4.83 Hgb 14.7 Hct 43.8 MCV 90.7 MCH 30.4 MCHC 33.6 RDW 15.2 Plt Count 66 L MPV 8.0 Prelim Diff (Auto) Slide review pending Neut % (Auto) 62.8 Lymph % (Auto) 26.2 [place] % (Auto) 10.0 H Eos % (Auto) 0.7 Baso % (Auto) 0.3 Neut # (Auto) 2.5 Lymph # (Auto) 1.0 [place] # (Auto) 0.4 Eos # (Auto) 0.0 Baso # (Auto) 0.0 WBC Differential . Diff Scan Auto diff confirmed Differential Comment . Platelet Estimate Low L Platelet Morphology Normal Sodium 133 L Potassium 4.1 Chloride 94 L Carbon Dioxide 27.5 Anion Gap 12 BUN 9 Creatinine 0.88 Estimated GFR Greater than 89 POC Glucose Random Glucose 184 H Calcium 10.5 H D Magnesium 1.5 Total Bilirubin 2.3 H AST 329 H ALT 230 H Alkaline Phosphatase 112 Total Protein 8.1 D Albumin 3.8 Lipase 52 L Carcinoembryonic Ag Hepatitis A IgM Ab Hep Bs Antigen Hep B Core IgM Ab Hep C IgG Ab Misc Test Result Bld Prod Order Comment 08/22/17 08/22/17 12:07 16:02 WBC RBC Hgb Hct MCV MCH MCHC RDW Plt Count MPV Prelim Diff (Auto) Neut % (Auto) Lymph % (Auto) [place] % (Auto) Eos % (Auto) Baso % (Auto) Neut # (Auto) Lymph # (Auto) [place] # (Auto) Eos # (Auto) Baso # (Auto) WBC Differential Diff Scan Differential Comment Platelet Estimate Platelet Morphology Sodium Potassium Chloride Carbon Dioxide Anion Gap BUN Creatinine Estimated GFR POC Glucose 160 H 215 H Random Glucose Calcium Magnesium Total Bilirubin AST ALT Alkaline Phosphatase Total Protein Albumin Lipase Carcinoembryonic Ag Hepatitis A IgM Ab Hep Bs Antigen Hep B Core IgM Ab Hep C IgG Ab Misc Test Result Bld Prod Order Comment Microbiology 08/21/17 14:35 Fluid - Pancreatic Fluid Gram Stain - Final 08/21/17 14:35 Fluid - Pancreatic Fluid Body Fluid Culture - Preliminary gram negative rods Assessment and Plan - Assessment (1) Abdominal pain Code(s): R10.9 - Unspecified abdominal pain Status: Acute (2) Pancreatic pseudocyst Code(s): K86.3 - Pseudocyst of pancreas Status: Acute (3) Alcohol abuse Code(s): F10.10 - Alcohol abuse, uncomplicated Status: Acute (4) Chronic pancreatitis Code(s): K86.1 - Other chronic pancreatitis Status: Acute (5) Hypokalemia Code(s): E87.6 - Hypokalemia Status: Acute - Plan Acute on chronic pancreatitis with acute onset of abdominal pain, nausea, vomiting -Likely secondary to enlarging pseudocyst; status post endoscopic pseudocyst drainage -Abdominal pain mildly worsened today with elevating LFTs; proceed only with clear diet for now -Diet has been advanced - oxycodone, morphine for breakthrough pain -Continue IV fluids; GI following -Patient is having significant pain caused by which will last more than 3 days. I believe that it is medically necessary to treat patients pain because it is affecting patients ability to function at baseline. Transaminitis -Viral hepatic profile negative, continue IV hydration, - repeat LFTs in AM, anticipate improvement by tomorrow Alcohol abuse -[facility] protocol. Patient presently has essential tremors. -Seizure precautions. Close monitoring. -Encouraged cessation of alcohol. CM consulted for assistance with outpatient support. Electrolyte abnormalities -Stable History of diabetes, noncompliant with medications -Accu check ACHS, sliding scale insulin, cover as needed. -A1c in May 2017 was 12. Hemoglobin A1c now is 8.3 Hypertension, chronic: -Resume medications upon discharge DVT Prophylaxis: -Sequential compression devices -Subcutaneous Lovenox Discharge Planning: Anticipate discharge in early a.m. if LFTs stabilize, patient tolerating p.o. intake well and pain is stable on oral medicines. Pain prescription printed. (1) Abdominal pain Qualifiers: Abdominal location: generalized Qualified Code(s): R10.84 - Generalized abdominal pain
[2017-08-23 05:00] LABS: Albumin 3.3 g/dL (3.4-5.0)
[2017-08-23 05:01] LABS: Total Protein 6.5 g/dL (6.4-8.2)
--- NOTE | 2017-08-23 08:38 | P.DS ---
Date of admission: 08/19/17 17:06 Primary care physician: UNKNOWN Brief History from admission: HPI from the admitting physician This is a 52-year-old male patient with a known medical history of uncontrolled diabetes, chronic alcoholism, hypertension and chronic pancreatitis who presented to the ED with complaints of abdominal pain, nausea and vomiting. Patient states that his symptoms started last Sunday and have been getting worse since. He has been unable to eat anything for the past 3 days without nausea or vomiting. His pain is located especially in his bilateral lower quadrants, is cramping and sharp in nature, has been persistent over the past week. He does admit to chronic alcoholism, last drink was yesterday morning. When asked about how much he drinks per day he states "just put down too much". He denies any history of DTs or alcohol withdrawals. Denies any history of seizures. Patient denies any recent illness including fever, chills, cough, shortness of breath, dysuria. Patient denies any diarrhea. Denies ever having a colonoscopy in the past. After review of records patient was here last year in August for similar complaints, underwent an EGD which showed severe gastritis and was followed with gastroenterology. At that time he also had acute on chronic pancreatitis. Patient also had a recent hospitalization this year in May 2017, at that time had uncontrolled diabetes as well as a pseudocyst on the abdominal/pelvis CT was diagnosed. At that time the pseudocyst was 6 cm. Upon presentation today the pseudocyst was seen enlarged at 6.7 cm. Patient does not see a PCP and has not followed up with a interior design director in the past. He is noncompliant with medications, was previously homeless and has been admitted last year with DKA. He is not currently taking his insulin. Does take his hypertensive medications. Update on the day of discharge: Patient reports he is feeling better. No nausea or vomiting. Tolerating a diet. Eager to go home. DS: Diagnosis - Discharge Diagnosis (1) Abdominal pain Status: Acute (2) Alcohol abuse Status: Acute (3) Chronic pancreatitis Status: Acute (4) Nausea & vomiting Status: Acute (5) Pancreatic pseudocyst Status: Acute DS: Medications - Discharge Medications Prescriptions: oxycodone 10 mg PO Q6H PRN 7 Days #24 tab PRN Reason: Acute Pain DS: Summary Hospital Course: 52 Y/O male admitted and treated for the following: Acute on chronic pancreatitis with acute onset of abdominal pain, nausea, vomiting -Likely secondary to enlarging pseudocyst; status post endoscopic pseudocyst drainage - Symptoms improved. Patient is advised to follow up with GI after DC Transaminitis -Viral hepatic profile negative - LFT improved. Alcohol abuse -CIWA protocol. -Seizure precautions. -Encouraged cessation of alcohol. CM consulted for assistance with outpatient support. History of diabetes, noncompliant with medications -Accu check ACHS, sliding scale insulin, cover as needed. -A1c in May 2017 was 12. Hemoglobin A1c now is 8.3 - Patient wants to continue with diabetic diet. He is advised to follow up outpatient with PCP Hypertension, chronic: -Resume medications upon discharge - Time Spent with Patient Total time spent providing and/or coordinating discharge services: - Quality: VTE Deep Vein Thrombosis/Pulmonary Embolism Present on Admission: No Exam Vital signs: Vital Signs 08/22/17 12:00 08/22/17 12:04 08/22/17 13:17 Temperature 97.7 F Pulse Rate 70 Respiratory Rate 16 20 20 Blood Pressure 139/92 H Pulse Oximetry 100 08/22/17 16:00 08/22/17 16:02 08/22/17 20:00 Temperature 98.0 F 97.7 F Pulse Rate 74 109 H Respiratory Rate 18 20 20 Blood Pressure 134/91 H 143/104 H Pulse Oximetry 99 95 08/23/17 00:00 Temperature 97.7 F Pulse Rate 89 Respiratory Rate 18 Blood Pressure 124/81 Pulse Oximetry 100 Intake & Output 08/22/17 08/23/17 08/23/17 18:59 06:59 18:59 Intake Total 4200 / 4200 Balance 4200 / 4200 Intake: IV 1999 / 1999 LR 1000 mL Inj 1,000 ML @ 125 2000 / 2000 mls/hr IV.CONT .Q8H DANE Rx#: [id number] Oral 2200 / 2200 Other: # Voids 6 2 # Bowel Movements 1 Narrative: CARDIOVASCULAR: Regular rate and rhythm without murmurs, gallops, or rubs. RESPIRATORY: Breath sounds equal bilaterally. No accessory muscle use. GASTROINTESTINAL: Abdomen soft, non-tender, nondistended. MUSCULOSKELETAL: No cyanosis, or edema. Results Procedures completed during hospitalization: endoscopic pseudocyst drainage Labs on day of discharge: Labs from last 24 hours 08/23/17 08/23/17 08/22/17 08:36 03:52 22:22 WBC RBC Hgb Hct MCV MCH MCHC RDW Plt Count MPV Prelim Diff (Auto) Neut % (Auto) Lymph % (Auto) [place] % (Auto) Eos % (Auto) Baso % (Auto) Neut # (Auto) Lymph # (Auto) [place] # (Auto) Eos # (Auto) Baso # (Auto) WBC Differential Diff Scan Differential Comment Platelet Estimate Platelet Morphology Sodium Potassium Chloride Carbon Dioxide Anion Gap BUN Creatinine Estimated GFR POC Glucose 125 H 169 H Random Glucose Calcium Magnesium Total Bilirubin 1.2 H Direct Bilirubin 0.4 H Indirect Bilirubin 0.8 AST 188 H ALT 160 H Alkaline Phosphatase 84 Total Protein 6.5 D Albumin 3.3 L Lipase Carcinoembryonic Ag Fluid Type Fluid Lipase Hepatitis A IgM Ab Hep Bs Antigen Hep B Core IgM Ab Hep C IgG Ab Bld Prod Order Comment 08/22/17 08/22/17 08/22/17 16:02 12:07 08:40 WBC RBC Hgb Hct MCV MCH MCHC RDW Plt Count MPV Prelim Diff (Auto) Neut % (Auto) Lymph % (Auto) [place] % (Auto) Eos % (Auto) Baso % (Auto) Neut # (Auto) Lymph # (Auto) [place] # (Auto) Eos # (Auto) Baso # (Auto) WBC Differential Diff Scan Differential Comment Platelet Estimate Platelet Morphology Sodium Potassium Chloride Carbon Dioxide Anion Gap BUN Creatinine Estimated GFR POC Glucose 215 H 160 H Random Glucose Calcium Magnesium Total Bilirubin Direct Bilirubin Indirect Bilirubin AST ALT Alkaline Phosphatase Total Protein Albumin Lipase 52 L Carcinoembryonic Ag Fluid Type Fluid Lipase Hepatitis A IgM Ab Hep Bs Antigen Hep B Core IgM Ab Hep C IgG Ab Bld Prod Order Comment 08/22/17 08/22/17 08/22/17 08:40 08:40 08:40 WBC 4.0 RBC 4.83 Hgb 14.7 Hct 43.8 MCV 90.7 MCH 30.4 MCHC 33.6 RDW 15.2 Plt Count 66 L MPV 8.0 Prelim Diff (Auto) Slide review pending Neut % (Auto) 62.8 Lymph % (Auto) 26.2 [place] % (Auto) 10.0 H Eos % (Auto) 0.7 Baso % (Auto) 0.3 Neut # (Auto) 2.5 Lymph # (Auto) 1.0 [place] # (Auto) 0.4 Eos # (Auto) 0.0 Baso # (Auto) 0.0 WBC Differential . Diff Scan Auto diff confirmed Differential Comment . Platelet Estimate Low L Platelet Morphology Normal Sodium 133 L Potassium 4.1 Chloride 94 L Carbon Dioxide 27.5 Anion Gap 12 BUN 9 Creatinine 0.88 Estimated GFR Greater than 89 POC Glucose Random Glucose 184 H Calcium 10.5 H D Magnesium 1.5 Total Bilirubin 2.3 H Direct Bilirubin Indirect Bilirubin AST 329 H ALT 230 H Alkaline Phosphatase 112 Total Protein 8.1 D Albumin 3.8 Lipase Carcinoembryonic Ag Fluid Type Fluid Lipase Hepatitis A IgM Ab Nonreactive Hep Bs Antigen Nonreactive Hep B Core IgM Ab Nonreactive Hep C IgG Ab Nonreactive Bld Prod Order Comment 08/22/17 08/21/17 08/21/17 08:40 14:35 09:05 WBC RBC Hgb Hct MCV MCH MCHC RDW Plt Count MPV Prelim Diff (Auto) Neut % (Auto) Lymph % (Auto) [place] % (Auto) Eos % (Auto) Baso % (Auto) Neut # (Auto) Lymph # (Auto) [place] # (Auto) Eos # (Auto) Baso # (Auto) WBC Differential Diff Scan Differential Comment Platelet Estimate Platelet Morphology Sodium Potassium Chloride Carbon Dioxide Anion Gap BUN Creatinine Estimated GFR POC Glucose Random Glucose Calcium Magnesium Total Bilirubin Direct Bilirubin Indirect Bilirubin AST ALT Alkaline Phosphatase Total Protein Albumin Lipase Carcinoembryonic Ag 3.5 Fluid Type Pending Fluid Lipase Pending Hepatitis A IgM Ab Hep Bs Antigen Hep B Core IgM Ab Hep C IgG Ab Bld Prod Order Comment Preliminary micro results at discharge 08/21/17 14:35 Body Fluid Culture - Preliminary Fluid - Pancreatic Fluid gram negative rods - Impressions ITS Impressions Abdomen/Pelvis CT 08/19/17 14:14 CONCLUSION: Enlarging pseudocyst in the tail the pancreas now measuring 6.7 cm impinging on the greater curvature of the stomach. Hypodense liver compatible with fatty infiltration or hepatocellular disease. Discharge Plan - Discharge Disposition Patient Disposition: 01 Discharge Home - Discharge Condition Condition: Stable - Discharge Order Discharge Orders: Discharge Order (Routine); Ordered 08/23/17 Ordered By: Sy Alvarado - Physicians Team Primary Care Provider: UNKNOWN, Attending Provider: Sy Alvarado Other Providers: Yamel Ricardo MD
[2017-08-25 18:21] LABS: Lipase, Body Fluid 0 U/L
== END 2017-08-23 09:27 | disposition home or self-care (01) ==
LOC: PHEDA 13:53 → N07 13:53 → PHED 13:53 → PHEDA 18:40 → PH3 18:43 → N07 08-20 20:46
PROVIDERS: ADMIT Family Medicine; ATTEND Family Medicine